=== PATIENT | female | born 1950 | race Caucasian/White ===

== ENCOUNTER 2017-02-25 13:52 | Inpatient (IN) | payer MEDICARE, MEDICAID ==
[~2017-02-25] VITALS: Ht 160 cm; Wt 58.1 kg
[2017-02-25] MEDS ORDERED: GABAPENTIN300 MG ORAL (14:07)
[2017-02-25] MEDS ORDERED: ZANTAC150 MG ORAL (14:07)
[2017-02-25] MEDS ORDERED: FENTANYL1 EAC4 TDERMAL (14:07)
[2017-02-25] MEDS ORDERED: METOPROLOL TART25 MG ORAL (14:07)
[2017-02-25] MEDS ORDERED: VITAMIN B122500 MCG PO (14:07)
[2017-02-25] MEDS ORDERED: ADVAIR 250-501 EACH INH (14:07)
[2017-02-25] MEDS ORDERED: COLACE100 MG ORAL (14:07)
[2017-02-25] MEDS ORDERED: SPIRIVA18 MCG INH (14:07)
[2017-02-25] MEDS ORDERED: XARELTO10 MG ORAL (14:07)
[2017-02-25] MEDS ORDERED: ACETAZOLAMIDE250 MG ORAL (14:07)
[2017-02-25] MEDS ORDERED: ACETAMINOPHEN325 M1 ORAL (14:07)
[2017-02-25] MEDS ORDERED: DEXAMETHASONE1.5 MG PO (14:07)
[2017-02-25] MEDS ORDERED: LEVALBUTER0.31 MG/3 IH (14:07)
[2017-02-25] MEDS ORDERED: KEPPRA500 MG ORAL (14:07)
[2017-02-25] MEDS ORDERED: PROAIR HFA8.5 GM INH (14:07)
[2017-02-25] MEDS ORDERED: Ipratropium 0.02% Inh Soln 2.5ml UD HHN ONE (14:15)
[2017-02-25] MEDS ORDERED: Solu-MEDROL 125mg Inj IVP ONE (14:15)
[2017-02-25] MEDS ORDERED: Azithromycin 500 MG in D5W 275 ML IVPB ONE (14:15)
[2017-02-25] MEDS ORDERED: Albuterol ud Inhalation HHN ONE (14:15)
--- NOTE | 2017-02-25 14:20 | Emergency Room Report ---
History of Present Illness General Chief Complaint: Dyspnea/Respdistress Source: Patient, EMS Present Illness HPI 66 YOF BIBEMS from SNF with "desaturation" at SNF. Patient herself denies chest pain, SOB, fever/chills, abd pain, urinary complaints. Known COPD from "used to smoke", on AC for unknown reason. Denies previous AMI, PE/DVT. Feels well otherwise. Daughter states patient more lethargic at SNF today, was doing well last 1-2 weeks. O2 sat was 88% this morning at SNF. Allergies: Coded Allergies: ASPIRIN (Verified Allergy, Unknown, 02/25/17) NSAIDS (NON-STEROIDAL ANTI-INFLAMMA (Verified Allergy, Unknown, 02/25/17) Patient History Past Medical History: AFib, COPD Past Surgical History: none Pertinent Family History: none Social History: Reports: smoking, Denies: alcohol use, drug use Immunizations: UTD Reviewed Nursing Documentation: PMH: Agreed, PSxH: Agreed Nursing Documentation-PMH Hx Cardiac Problems: Yes Hx COPD: Yes Hx Seizures: Yes Review of Systems All Other Systems: negative except mentioned in HPI Physical Exam Vital Signs Date Time Temp Pulse Resp B/P Pulse Ox O2 Delivery O2 Flow Rate FiO2 02/25/17 13:52 128 20 114/76 86 Nasal Cannula Sp02 EP Interpretation: abnormal General Appearance: normal inspection, well appearing, no apparent distress, alert, GCS 15, non-toxic Head: normocephalic, atraumatic Eyes: bilateral eye EOMI, bilateral eye PERRL ENT: normal ENT inspection, hearing grossly normal, normal voice Neck: normal inspection, full range of motion, supple, no bony tend Respiratory: normal inspection, no rhonchi, no retraction, accessory muscle use , speaking full sentences, wheezing Cardiovascular #1: tachycardia, irregularly irregular Gastrointestinal: normal inspection, normal bowel sounds, non tender, soft, no guarding, no hernia Genitourinary: no CVA tenderness Musculoskeletal: normal inspection, back normal, normal range of motion, Juan Jose' s Sign negative Neurologic: normal inspection, alert, oriented x3, responsive, cable technician III-XII nml as tested, motor strength/tone normal, speech normal Psychiatric: normal inspection, judgement/insight normal, mood/affect normal Skin: other - multiple areas of skin breakdown Lymphatic: normal inspection Medical Decision Making Diagnostic Impression: Primary Impression: Dyspnea Qualified Codes: R06.02 - Shortness of breath ER Course Spoke to patient's PMD DR Barton - patient on Xarelto for presumed PE. Has lung ca with mets to brain. COPD. CXR: bilateral interstitial disease. No obvious lobar PNA. possible infiltrate on left side. Labs: No leuks. Hb ~8. BNP 652. Trop 0. ECG sinus tachycardia Continued tachycardia likely from albuterol O2 sat 88-92% Empiric Abx given Blood Cx pending Spoke to Dr Barton, patient's PMD. Requested admission under Dr Mendosa to tele bed at 407pm EKG Diagnostic Results Rate: tachycardiac Rhythm: NSR ST Segments: no acute changes ASA given to the pt in ED: No Rhythm Strip Diag. Results EP Interpretation: yes Rate: 110 Rhythm: NSR, no PVC's, no ectopy Last Vital Signs Date Time Temp Pulse Resp B/P Pulse Ox O2 Delivery O2 Flow Rate FiO2 02/25/17 13:52 128 20 114/76 86 Nasal Cannula Status: improved Disposition: ADMITTED INPATIENT Condition: Serious AL FU M.D. Feb 25, 2017 14:20
[2017-02-25] MEDS ORDERED: Azithromycin Inj IV ONE (14:56)
[2017-02-25 15:16] VITALS: BP 141/121
[2017-02-25 15:23] LABS: BASOPHILS % (AUTO) 1.4 % (0.0-2.0); LYMPHOCYTES % (AUTO) 11.7 % (20.0-45.0); MEAN CORPUSCULAR HEMOGLOBIN 31.6 PG (27.0-31.0); MEAN CORPUSCULAR HGB CONC 31.4 G/DL (32.0-36.0); MEAN CORPUSCULAR VOLUME 101 FL (80-99); MEAN PLATELET VOLUME 8.7 FL (6.5-10.1); MONOCYTES % (AUTO) 5.2 % (1.0-10.0); NEUTROPHILS % (AUTO) 81.7 % (45.0-75.0); PLATELET COUNT 158 K/UL (150-450); RED CELL DISTRIBUTION WIDTH 18.4 % (11.6-14.8); WHITE BLOOD COUNT 9.8 K/UL (4.8-10.8)
[2017-02-25 15:31] VITALS: BP 175/152
[2017-02-25 15:34] LABS: ALANINE AMINOTRANSFERASE 14 U/L (3-33); ALBUMIN/GLOBULIN RATIO 1.3 (1.0-2.7); ANION GAP 14 (5-15); ASPARTATE AMINO TRANSFERASE 17 U/L (5-40); CALCIUM 8.7 mg/dL (8.6-10.2); CARBON DIOXIDE 26 mEQ/L (20-30); CHLORIDE 104 mEQ/L (98-107); CREATININE 0.4 mg/dL (0.5-0.9); GLOMERULAR FILTRATION RATE > 60 mL/min (>60); HEMOLYSIS 4; POTASSIUM 4.4 mEQ/L (3.4-4.9); SODIUM 144 mEQ/L (135-145); TOTAL PROTEIN 5.6 g/dL (6.6-8.7); TROPONIN I < 0.30 ng/mL (<=0.30)
[2017-02-25 15:44] LABS: CKMB 2.5 ng/mL (< 3.8)
[2017-02-25] MEDS ORDERED: cefTRIAXone 1 GM in NS 55 ML IVPB ONE (16:15)
[2017-02-25] MEDS ORDERED: Vitamin B-12 500mcg tab ORAL ONE (17:00)
[2017-02-25] MEDS ORDERED: Albuterol 90mcg Inhaler 8gm INH PRN (17:00)
[2017-02-25] MEDS ORDERED: Naloxone 0.4mg/ml Inj IV PRN (17:15)
[2017-02-25 17:29] VITALS: BP 109/69
[2017-02-25] MEDS ORDERED: Levalbuterol Inh UD 1.25mg/0.5ml HHN SCH (18:00)
[2017-02-25 18:56] VITALS: BP 117/83
[2017-02-25 20:00] VITALS: BP 98/68
[2017-02-25] MEDS: Docusate 100mg tablet ORAL SCH (21:00)
[2017-02-25] MEDS: Xarelto 15mg tab ORAL SCH (21:00)
[2017-02-25] MEDS: Advair 250/50 Inhaler - 14 dose INH SCH (21:00)
[2017-02-25] MEDS: Solu-MEDROL 125mg Inj IVP SCH (21:22)
[2017-02-26] VITALS (7 sets, daily range): BP systolic 103–130; BP diastolic 58–86
--- NOTE | 2017-02-26 03:58 | History and Physical Report ---
DATE OF ADMISSION: 02/25/2017 HISTORY OF PRESENT ILLNESS: This is an unfortunate 66-year-old female with history of metastatic lung cancer to brain, history of severe chronic obstructive pulmonary disease, who resides at [facility] under the care of Dr. Arianne Barton. The patient apparently was seen by Dr. Barton at the nursing facility and was noted to be lethargic with altered mental status and thus was transferred to [place] for further evaluation. I was asked by Dr. Barton to see her as an curriculum manager here. The patient was seen in the emergency room and was noted to be lethargic. Her daughter is at the bedside, who states that she was well until earlier this morning. Yesterday, she was getting physical therapy and alert and oriented. There is no fevers or chills. No chest pain. PAST MEDICAL HISTORY: Includes a history of metastatic lung cancer to brain progression since October 2016, history of radiation and edema into the brain for which she is on steroids, history of chronic obstructive pulmonary disease, history of hypoxemia, history of chronic low back pain, history of previous left upper lobe pneumonia, nosocomial methicillin sensitive Staph aureus, history of PE, which has increased in size while she was off anticoagulation. Currently, she is on Xarelto. History of possible normal-pressure hydrocephalus, treated with Diamox, history of seizure disorder, history of sinus tachycardia felt to be due to her general condition, history of depression and anxiety, history of anemia with heme-positive stools, history of opioid dependence, history of CVA, embolic versus mets in July 2016, history of previous back surgery. She is status post right hip replacement. She is status post tonsillectomy and adenoidectomy at age 17. She has a history of severe kyphosis with multiple compression fractures. She has a history of hyperlipidemia and history of respiratory failure. MEDICATIONS: Medications she is on, please see her reconciled medication list. ALLERGIES: She is allergic to aspirin and nonsteroidals. SOCIAL HISTORY: The patient has a 50-pack year smoking history. Also drinks alcohol, about 2 glasses of wine per day. No illicit drug use. FAMILY HISTORY: Father at age of 64 from lung cancer, smoker, asbestosis. Mother at age of 81 from a CVA. REVIEW OF SYSTEMS: Unable to obtain from the patient at this time as she is lethargic. PHYSICAL EXAMINATION: GENERAL: She is seen in the ER and lethargic. VITAL SIGNS: Revealed a blood pressure of 109/69, respirations 14, and pulse oximetry 94% to 98%. Currently, she is on BiPAP. FiO2 of 50%, temperature 97.1 degrees, and pulse of 115. HEENT: Head is normocephalic and atraumatic. Pupils are reactive to light. NECK: Supple. She does have some accessory muscle use. LUNGS: Decreased breath sounds. Occasional wheezing. HEART: Tachy, S1 and S2. ABDOMEN: Soft. Positive bowel sounds. EXTREMITIES: No clubbing, cyanosis, or edema. SKIN: She does have multiple ecchymoses. NEUROLOGIC: Currently, she is lethargic, although she does open her eyes and attempts to talk when I stimulate her. LABORATORY AND DIAGNOSTIC DATA: Revealed white count 9.8, hemoglobin 8.5, hematocrit 27.2, MCV 101, and platelet count 158,000. Sodium 144, potassium 4.4, BUN 30, and creatinine 0.4. BNP is 652. Troponin is less than 0.3. Her chest x-ray reveals bilateral interstitial disease, no obvious lobar pneumonia, possible infiltrate in the left side. EKG reveals sinus tachycardia. ASSESSMENT AND PLAN: The patient is an unfortunate 66-year-old female with history of metastatic lung cancer, history of severe chronic obstructive pulmonary disease, under the care of Dr. Barton, transferred from [facility] secondary to alteration in mental status. The patient will need to get an ABG done. We will give her respiratory treatments, start her on steroids. We will continue her on Xarelto for her history of DVT and PE. Dr. Amrik Zhao from Pulmonary will be seeing her as well. We will place her empirically on antibiotics for a presumed pneumonia as well. If her mental status does not improve, consider obtaining an imaging study of her head. Per discussion with the patient's daughters, they want everything done except for intubation. The patient, as per discussion with them and with Dr. Barton, is DNR. The patient should be on DVT and ulcer prophylaxis. Florentin Mendosa M.D. DR: MARIE JOB#: [id number] CC:
[2017-02-26 06:34] LABS: MEAN CORPUSCULAR HEMOGLOBIN 31.8 PG (27.0-31.0); MEAN CORPUSCULAR HGB CONC 31.4 G/DL (32.0-36.0); MEAN CORPUSCULAR VOLUME 101 FL (80-99); MEAN PLATELET VOLUME 6.8 FL (6.5-10.1); PLATELET COUNT 140 K/UL (150-450); RED BLOOD COUNT 2.26 M/UL (4.20-5.40); RED CELL DISTRIBUTION WIDTH 18.3 % (11.6-14.8); WHITE BLOOD COUNT 8.4 K/UL (4.8-10.8)
[2017-02-26 06:44] LABS: ALANINE AMINOTRANSFERASE 13 U/L (3-33); ANION GAP 14 (5-15); ASPARTATE AMINO TRANSFERASE 16 U/L (5-40); CALCIUM 8.6 mg/dL (8.6-10.2); CARBON DIOXIDE 26 mEQ/L (20-30); CHLORIDE 105 mEQ/L (98-107); CHOLESTEROL 213 mg/dL (< 200); CHOLESTEROL/HDL RATIO 4.4 (3.3-4.4); CREATININE 0.4 mg/dL (0.5-0.9); GLOMERULAR FILTRATION RATE > 60 mL/min (>60); HEMOLYSIS 8; LDL CHOLESTEROL (CALC.) 138 mg/dL (60-99); POTASSIUM 4.7 mEQ/L (3.4-4.9); SODIUM 145 mEQ/L (135-145); TOTAL PROTEIN 5.4 g/dL (6.6-8.7)
[2017-02-26 06:48] LABS: THYROID STIMULATING HORMONE 0.295 uIU/mL (0.300-4.500)
--- NOTE | 2017-02-26 08:41 | Consultation ---
Consult Note Assessment/Plan dict resp failure COPD lung cancer agree w current treatment BiPAP qhs and prn AL VEGA Feb 26, 2017 08:41
[2017-02-26] MEDS: Solu-MEDROL 125mg Inj IVP SCH ×2 (09:25→20:22)
[2017-02-26] MEDS: Advair 250/50 Inhaler - 14 dose INH SCH ×2 (09:25→19:10)
[2017-02-26] MEDS: Vitamin B-12 500mcg tab ORAL SCH (09:32)
[2017-02-26] MEDS: Docusate 100mg tablet ORAL SCH ×2 (09:32→19:41)
[2017-02-26 09:55] LABS: ANISOCYTOSIS 1+; LYMPHOCYTES % (MANUAL) 6 % (20-45); MACROCYTES 1+; NEUTROPHILS % (MANUAL) 91 % (45-75); TOTAL CELLS COUNTED 100
[2017-02-26 09:56] LABS: BAND NEUTROPHILS % (MANUAL) 0 % (0-8); BASOPHILS % (MANUAL) 0 % (0-2); EOSINOPHILS % (MANUAL) 0 % (0-3); HYPOCHROMASIA 1+; PLATELET ESTIMATE ADEQUATE
[2017-02-26 09:57] LABS: POLYCHROMASIA 1+
[2017-02-26 10:22] LABS: PLATELET MORPHOLOGY NORMAL
[2017-02-26] MEDS ORDERED: Naloxone 0.4mg/ml Inj IV PRN (11:15)
[2017-02-26] MEDS ORDERED: FENTANYL1 EACH TDERMAL (12:46)
[2017-02-26] MEDS: Levalbuterol Inh UD 1.25mg/0.5ml HHN PRN ×2 (13:18→19:55)
--- NOTE | 2017-02-26 15:15 | General Progress Note ---
Assessment/Plan Assessment/Plan metastatic lung cancr to brain copd ?pneumonia ho PE anemia encephalopathy steroids pulmonary hygine respiratory treatments abx dw Dr Barton who states needs xarelto so would just transfuse for now encephalopathy improved pt/ot/st dvt and ulcer prohylaxis Subjective Allergies: Coded Allergies: ASPIRIN (Verified Allergy, Unknown, 02/25/17) NSAIDS (NON-STEROIDAL ANTI-INFLAMMA (Verified Allergy, Unknown, 02/25/17) Subjective awake more alert off bipap Objective Last 24 Hour Vital Signs Date Time Temp Pulse Resp B/P Pulse Ox O2 Delivery O2 Flow Rate FiO2 02/26/17 15:09 114 20 95 7.0 02/26/17 13:27 119 20 97 Nasal Cannula 7.0 02/26/17 13:18 117 20 96 Nasal Cannula 7.0 02/26/17 13:16 114 18 95 7.0 02/26/17 12:06 124/83 Nasal Cannula 7.0 02/26/17 12:06 7.0 02/26/17 11:38 89 02/26/17 11:38 97.8 120 20 130/86 96 Nasal Cannula 7.0 02/26/17 11:31 112 22 94 7.0 02/26/17 09:27 106 20 95 7.0 02/26/17 08:03 110 20 95 7.0 02/26/17 08:00 50 02/26/17 08:00 89 02/26/17 08:00 97.9 119 19 103/75 96 Nasal Cannula 7.0 02/26/17 07:13 112 20 95 Nasal Cannula 7.0 02/26/17 07:13 112 20 95 Nasal Cannula 7.0 02/26/17 07:13 Nasal Cannula 7.0 02/26/17 07:13 Nasal Cannula 7.0 02/26/17 05:02 103 14 96 Full Face 50 02/26/17 04:00 50 02/26/17 04:00 84 02/26/17 04:00 97.9 110 20 106/70 96 Bi-pap 02/26/17 03:15 100 14 97 Full Face 50 02/26/17 01:05 101 15 97 Full Face 50 02/26/17 00:00 50 02/26/17 00:00 97.7 104 20 107/63 95 Bi-pap 02/26/17 00:00 101 02/25/17 23:11 94 15 96 Full Face 50 02/25/17 20:57 99 16 98 Full Face 50 02/25/17 20:00 97.7 108 14 98/68 93 Bi-pap 50 02/25/17 20:00 99 02/25/17 20:00 50 02/25/17 18:56 97.9 114 14 117/83 93 Bi-pap 50 02/25/17 18:39 126 02/25/17 17:30 97.1 115 14 109/69 94 Bi-pap 5.0 50 02/25/17 17:29 97.1 115 14 109/69 94 Bi-pap 50 02/25/17 17:11 50 02/25/17 15:31 116 14 175/152 98 02/25/17 15:16 117 20 141/121 95 Nasal Cannula 5.0 02/25/17 15:16 117 20 Nasal Cannula Intake and Output 02/25/17 02/26/17 19:00 07:00 Intake Total 330 ml 0 ml Output Total 200 ml Balance 330 ml -200 ml Intake Oral 0 ml 0 ml IV Total 330 ml Output Urine Total 200 ml Laboratory Tests 02/26/17 04:55: White Blood Count 8.4, Red Blood Count 2.26L, Hemoglobin 7.2L, Hematocrit 22.9L , Mean Corpuscular Volume 101H, Mean Corpuscular Hemoglobin 31.8H, Mean Corpuscular Hemoglobin Concent 31.4L, Red Cell Distribution Width 18.3H, Platelet Count 140L, Mean Platelet Volume 6.8, Neutrophils (%) (Auto) , Lymphocytes (%) (Auto) , Monocytes (%) (Auto) , Eosinophils (%) (Auto) , Basophils (%) (Auto) , Differential Total Cells Counted 100, Neutrophils % ( Manual) 91H, Lymphocytes % (Manual) 6L, Monocytes % (Manual) 3, Eosinophils % ( Manual) 0, Basophils % (Manual) 0, Band Neutrophils 0, Platelet Estimate Adequate, Platelet Morphology Normal, Polychromasia 1+, Hypochromasia 1+, Anisocytosis 1+, Macrocytosis 1+, Sodium Level 145, Potassium Level 4.7, Chloride Level 105, Carbon Dioxide Level 26, Anion Gap 14, Blood Urea Nitrogen 34H, Creatinine 0.4L, Estimat Glomerular Filtration Rate > 60, Glucose Level 143H, Calcium Level 8.6, Total Bilirubin 0.3, Aspartate Amino Transf (AST/SGOT) 16, Alanine Aminotransferase (ALT/SGPT) 13, Alkaline Phosphatase 71, Total Protein 5.4L, Albumin 2.8L, Globulin 2.6, Albumin/Globulin Ratio 1.0, Triglycerides Level 134, Cholesterol Level 213H, LDL Cholesterol 138H, HDL Cholesterol 48, Cholesterol/HDL Ratio 4.4, Thyroid Stimulating Hormone (TSH) 0.295L Height (Feet): 5 Height (Inches): 3.00 Weight (Pounds): 109 General Appearance: WD/WN, no apparent distress Neck: supple Cardiovascular: normal rate Respiratory/Chest: decreased breath sounds Abdomen: soft Edema: trace edema Objective multiple echyosis FRANCIE RAMIREZ Feb 26, 2017 15:15
[2017-02-26] MEDS ORDERED: cefTRIAXone 1 GM in NS 55 ML IVPB ONE (16:00)
[2017-02-26] MEDS ORDERED: Azithromycin 500 MG in NS 275 ML IV ONE (16:30)
[2017-02-26] MEDS: Xarelto 15mg tab ORAL SCH (16:30)
[2017-02-26] MEDS ORDERED: Tubing IV Secondary IV ONE (18:18)
[2017-02-26] MEDS: levETIRAcetam 500mg/5ml Liquid ORAL SCH (20:23)
--- NOTE | 2017-02-26 22:38 | Consultation ---
DATE OF CONSULTATION: 02/26/2017 PULMONARY CONSULTATION: DATE OF ADMISSION: 02/25/2017 DATE OF SEEN AND DICTATION: 02/26/2017 CONSULTING PHYSICIAN: Amrik Zhao M.D. ATTENDING PHYSICIAN: Florentin Mendosa M.D. REFERRING PHYSICIAN: Florentin Mendosa M.D. HISTORY OF PRESENT ILLNESS: The patient is a pleasant 66-year-old woman, who was interviewed together with her daughter at the bedside. Apparently, she has been ill for several months and has been at several hospitals including [facility] and [facility]. She became more lethargic over the last day or two and Dr. Arianne Barton saw her at her facility yesterday. She was lethargic and Dr. Barton recommended the transfer to the emergency department. She was sent here as [facility] was closed. The patient has longstanding COPD and has had lung cancer with brain metastasis. She has undergone radiation therapy and seemed to be improving. PAST MEDICAL HISTORY: COPD, past respiratory failure, lung cancer with brain metastasis, pneumonia, pulmonary embolism, seizure disorder, chronic pain with opioid dependence, past stroke, spinal compression fractures with severe osteoporosis, and hyperlipidemia. MEDICATIONS: Reviewed. ALLERGIES: Aspirin and nonsteroidal agents. SOCIAL HISTORY: She is a past heavy smoker. She uses alcohol, but not illicit drugs. FAMILY HISTORY: Reviewed and is notable for lung cancer and asbestosis in the father. REVIEW OF SYSTEMS: The patient is apparently more alert today and states that she is feeling fine. She is able to eat. She needs assistance to stand. She has no chest pain. Her breathing is at baseline. She is not coughing anymore than usual. PHYSICAL EXAMINATION: GENERAL: The patient is alert. She has cushingoid features. VITAL SIGNS: Stable. She is not on BiPAP at the present. She has mild tachycardia. HEENT: Head is normocephalic. NECK: No jugular venous distention. CHEST: Decreased air entry with occasional expiratory wheeze. CARDIAC: Rhythm is regular. ABDOMEN: Soft and nontender. EXTREMITIES: No edema. LABORATORY STUDIES: Reviewed. DIAGNOSTIC DATA: Of note, her chest x-ray shows bilateral interstitial disease and possible infiltrate on the left side. IMPRESSION: 1. Lethargy possibly due to sepsis. 2. Possible pneumonia. 3. Chronic obstructive pulmonary disease with acute and chronic respiratory failure, hypercapnic and hypoxemic. 4. Metastatic lung cancer to the brain. 5. History of pulmonary embolism. 6. Anemia. PLAN: The patient will continue on steroids, respiratory treatments, and antibiotics. I will be happy to follow her closely with you in the hospital. Amrik Zhao M.D. DR: Jennifer JOB#: [id number] CC: Florentin Mendosa M.D.; Fax#: [phone] Zhao M.D. ; Fax#: [phone]
--- NOTE | 2017-02-26 23:10 | Cardiology Report ---
APPROVED REPORT EKG Measurement Heart [id number] [place] [id number] Sinus tachycardia Left axis deviation Low voltage QRS Possible Anterolateral infarct, age undetermined Abnormal ECG
[2017-02-27] VITALS: BP 98/69
[2017-02-27 04:00] VITALS: BP 127/61
[2017-02-27 05:07] LABS: MEAN CORPUSCULAR HEMOGLOBIN 31.9 PG (27.0-31.0); MEAN CORPUSCULAR HGB CONC 32.4 G/DL (32.0-36.0); MEAN CORPUSCULAR VOLUME 99 FL (80-99); MEAN PLATELET VOLUME 6.5 FL (6.5-10.1); PLATELET COUNT 125 K/UL (150-450); RED BLOOD COUNT 2.47 M/UL (4.20-5.40); RED CELL DISTRIBUTION WIDTH 17.5 % (11.6-14.8); WHITE BLOOD COUNT 7.7 K/UL (4.8-10.8)
[2017-02-27 05:34] LABS: ALANINE AMINOTRANSFERASE 12 U/L (3-33); ALBUMIN/GLOBULIN RATIO 1.1 (1.0-2.7); ANION GAP 12 (5-15); ASPARTATE AMINO TRANSFERASE 13 U/L (5-40); CALCIUM 8.5 mg/dL (8.6-10.2); CARBON DIOXIDE 26 mEQ/L (20-30); CHLORIDE 109 mEQ/L (98-107); CREATININE 0.3 mg/dL (0.5-0.9); GLOMERULAR FILTRATION RATE > 60 mL/min (>60); HEMOLYSIS 2; POTASSIUM 3.6 mEQ/L (3.4-4.9); SODIUM 147 mEQ/L (135-145); TOTAL PROTEIN 5.1 g/dL (6.6-8.7)
[2017-02-27] MEDS: Levalbuterol Inh UD 1.25mg/0.5ml HHN PRN ×3 (06:54→22:56)
[2017-02-27] MEDS: Advair 250/50 Inhaler - 14 dose INH SCH ×2 (06:54→09:14)
[2017-02-27 08:00] VITALS: BP 112/55
[2017-02-27] MEDS: Solu-MEDROL 125mg Inj IVP SCH ×2 (09:14→20:49)
[2017-02-27] MEDS: levETIRAcetam 500mg/5ml Liquid ORAL SCH ×2 (09:14→20:49)
[2017-02-27] MEDS: Vitamin B-12 500mcg tab ORAL SCH (09:15)
[2017-02-27] MEDS: Docusate 100mg tablet ORAL SCH ×2 (09:15→18:16)
[2017-02-27 09:23] LABS: ANISOCYTOSIS 1+; BAND NEUTROPHILS % (MANUAL) 0 % (0-8); BASOPHILS % (MANUAL) 0 % (0-2); EOSINOPHILS % (MANUAL) 0 % (0-3); HYPOCHROMASIA 1+; LYMPHOCYTES % (MANUAL) 5 % (20-45); MACROCYTES 1+; NEUTROPHILS % (MANUAL) 93 % (45-75); PLATELET ESTIMATE ADEQUATE; PLATELET MORPHOLOGY NORMAL; TOTAL CELLS COUNTED 100
--- NOTE | 2017-02-27 10:33 | Wound Care Consultation ---
Wound Assessment Wound Assessment #1: Wound Present on Admission: Yes New Wound: No Status Change of Wound: No Wound Location Body Site Modif: mid, upper Wound Location Body Site: back Wound Type: pressure ulcer No Test: Does not No Pressure Ulcer Stage: IV/unstageable Wound Thickness: Full Thickness Wound Length: 7.0 Wound Width: 4.0 Wound Depth: utd Percent of Wound Bed Yellow/Wh: 80 Percent of Wound Black/Brown: 20 Wound Drainage Description: Serosanguineous Wound Drainage Amount: Scant Wound Drainage Odor: None/Absent Tissue Surrounding Wound: Macerated Wound General Appearance: Necrotic Wound Assessment #2: Wound Number: #2 Wound Present on Admission: Yes New Wound: No Status Change of Wound: No Wound Location Body Site Modif: left Wound Location Body Site: heel Wound Type: pressure ulcer No Test: Does not No Pressure Ulcer Stage: deep tissue injury Wound Length: 3.0 Wound Width: 3.0 Wound Depth: utd Percent of Wound Purple/Maroon: 100 Wound Drainage Amount: None Wound Drainage Odor: None/Absent Tissue Surrounding Wound: Intact Wound General Appearance: Asymptomatic, Reddened Wound Assessment #3: Wound Number: #3 Wound Present on Admission: Yes New Wound: No Status Change of Wound: No Wound Location Body Site Modif: right Wound Location Body Site: heel Wound Type: pressure ulcer No Test: Does not No Pressure Ulcer Stage: deep tissue injury Wound Thickness: Full Thickness Wound Length: 2.5 Wound Width: 2.5 Wound Depth: utd Percent of Wound Purple/Maroon: 100 Wound Drainage Amount: None Wound Drainage Odor: None/Absent Tissue Surrounding Wound: Intact Wound General Appearance: Asymptomatic, Reddened Wound Assessment #4: Wound Number: #4 Wound Present on Admission: Yes New Wound: No Status Change of Wound: No Wound Location Body Site Modif: right Wound Location Body Site: metatarsal head - 1st Wound Type: pressure ulcer No Test: Does not No Pressure Ulcer Stage: deep tissue injury Wound Thickness: Full Thickness Wound Length: 0.5 Wound Width: 0.5 Wound Depth: utd Percent of Wound Purple/Maroon: 100 Wound Drainage Amount: None Wound Drainage Odor: None/Absent Tissue Surrounding Wound: Erythemic Wound General Appearance: Asymptomatic, Reddened Wound Assessment #5: Wound Number: #5 Wound Present on Admission: Yes New Wound: No Status Change of Wound: No Wound Location Body Site Modif: left, upper Wound Location Body Site: back Wound Type: pressure ulcer No Test: Does not No Pressure Ulcer Stage: IV/unstageable Wound Thickness: Full Thickness Wound Length: 2.0 Wound Width: 4.0 Wound Depth: utd Percent of Wound Purple/Maroon: 100 Wound Drainage Description: Serosanguineous Wound Drainage Amount: Scant Wound Drainage Odor: None/Absent Tissue Surrounding Wound: Erythemic Wound General Appearance: Reddened, Draining Wound Assessment #6: Wound Number: #6 Wound Present on Admission: Yes New Wound: No Status Change of Wound: No Wound Location Body Site Modif: left, right Wound Location Body Site: arm Wound Type: ecchymosis - multiple open and intact No Test: Does not No Percent of Wound [place]/Red: 100 Wound Drainage Amount: None Wound Drainage Odor: None/Absent Tissue Surrounding Wound: Erythemic Wound General Appearance: Reddened Wound Assessment #7: Wound Number: #7 Wound Present on Admission: Yes New Wound: No Status Change of Wound: No Wound Location Body Site Modif: left, right, lower Wound Location Body Site: leg Wound Type: ecchymosis - multiple open and intact Percent of Wound [place]/Red: 100 Wound Drainage Amount: None Wound Drainage Odor: None/Absent Tissue Surrounding Wound: Erythemic Wound General Appearance: Asymptomatic, Reddened Wound Assessment #8: Wound Number: #8 Wound Present on Admission: Yes New Wound: No Status Change of Wound: No Wound Location Body Site Modif: mid Wound Location Body Site: sacral Wound Type: pressure ulcer No Test: Does not No Pressure Ulcer Stage: deep tissue injury Wound Thickness: Full Thickness Wound Length: 5.0 Wound Width: 4.0 Wound Depth: utd Percent of Wound [place]/Red: 50 Percent of Wound Purple/Maroon: 50 Wound Drainage Amount: None Wound Drainage Odor: None/Absent Tissue Surrounding Wound: Erythemic Wound General Appearance: Reddened Wound Assessment #9: Wound Number: #9 Wound Present on Admission: Yes New Wound: No Status Change of Wound: No Wound Type: ecchymosis - scattered intact and open ecchymosis different part of the body Percent of Wound Purple/Maroon: 100 Wound Drainage Description: Serosanguineous Wound Drainage Amount: Scant Wound Drainage Odor: None/Absent Tissue Surrounding Wound: Erythemic Wound General Appearance: Reddened, Draining Wound Assessment #10: Wound Number: #10 Wound Present on Admission: Yes New Wound: No Status Change of Wound: No Wound Location Body Site Modif: left, right Wound Location Body Site: breast fold Wound Type: rash Percent of Wound [place]/Red: 100 Wound Drainage Amount: None Wound Drainage Odor: None/Absent Tissue Surrounding Wound: Erythemic Wound General Appearance: Reddened Wound Assessment #11: Wound Number: #11 Wound Present on Admission: Yes New Wound: No Status Change of Wound: No Wound Location Body Site Modif: left, medial Wound Location Body Site: knee Wound Type: pressure ulcer No Test: Does not No Pressure Ulcer Stage: deep tissue injury Wound Thickness: Full Thickness Wound Length: 1.0 Wound Width: 1.0 Wound Depth: utd Percent of Wound Purple/Maroon: 100 Wound Drainage Amount: None Wound Drainage Odor: None/Absent Tissue Surrounding Wound: Erythemic Wound General Appearance: Reddened Wound Comment #1 Mid upper back stage IV/unstageable pressure ulcer #2 Sacral DTI pressure ulcer #3 Left heel DTI pressure ulcer #4 Right heel DTI pressure ulcer #5 Left upper back stage IV/unstageable pressure ulcer #6 Left and right arms multiple open and intact ecchymosis #7 Left and right lower Legs with multiple open and intact ecchymosis #8 Left medial knee DTI pressure ulcer #9 Left and right under breast rashes #10 Open and intact ecchymosis on different part of the body #11 Right 1st metatarsal DTI pressure ulcer Recommendation -Local wound care per protocol for DTI -Mid upper back unstageable pressure ulcer Cleanse with saline, pat dry, apply Therahoney gel to wound bed, apply Triad to periwound area, cover with Biatain silicone daily and PRN soiled/dislodged -Left upper back unstageable pressure ulcer Cleanse with saline pat dry apply Triad cream cover with Biatain silicone daily and PRN soiled/dislodged -Keep clean and dry -Turn and reposition -Optimize nutrition -Offload both heels -Low air loss mattress -Local wound care as ordered -Assess and f/u accordingly for any changes ALBERTO WORRELL RN Feb 27, 2017 10:33
--- NOTE | 2017-02-27 10:45 | General Progress Note ---
Assessment/Plan Assessment/Plan GI CONSULT Dictated No GI w/u per family wishes, given patient's overall poor health. Check Iron panel , B12 , folate, TFT Thank you Rajni Santos MD Subjective Allergies: Coded Allergies: ASPIRIN (Verified Allergy, Unknown, 02/25/17) NSAIDS (NON-STEROIDAL ANTI-INFLAMMA (Verified Allergy, Unknown, 02/25/17) Objective Last 24 Hour Vital Signs Date Time Temp Pulse Resp B/P Pulse Ox O2 Delivery O2 Flow Rate FiO2 02/27/17 07:51 50 02/27/17 07:51 89 02/27/17 07:20 80 14 98 Bi-pap 12.0 50 02/27/17 07:08 50 02/27/17 07:08 77 14 98 Bi-pap 50 02/27/17 07:08 Bi-pap 12.0 50 02/27/17 07:07 98 Bi-pap 50 02/27/17 06:51 77 14 98 Facial 50 02/27/17 05:00 78 14 97 Facial 50 02/27/17 04:00 50 02/27/17 04:00 89 17 127/61 96 Bi-pap 50 02/27/17 04:00 86 02/27/17 03:02 98 14 95 Full Face 50 02/27/17 01:20 95 14 96 Full Face 50 02/27/17 00:00 101 02/27/17 00:00 50 02/27/17 00:00 98.6 112 14 98/69 96 Bi-pap 50 02/26/17 23:00 50 02/26/17 22:52 114 14 96 Facial 50 02/26/17 20:05 110 18 94 Venturi Mask 12.0 50 02/26/17 20:00 50 02/26/17 20:00 97.7 106 18 116/62 96 Nasal Cannula 7.0 02/26/17 20:00 106 02/26/17 19:55 107 18 93 Nasal Cannula 7.0 02/26/17 19:17 Venturi Mask 12.0 50 02/26/17 19:12 93 Venturi Mask 12.0 50 02/26/17 17:01 110 20 96 7.0 02/26/17 16:33 96.3 110 17 104/58 92 Mechanical Ventilator 02/26/17 16:11 7.0 02/26/17 16:00 105 02/26/17 15:09 114 20 95 7.0 02/26/17 13:27 119 20 97 Nasal Cannula 7.0 02/26/17 13:18 117 20 96 Nasal Cannula 7.0 02/26/17 13:16 114 18 95 7.0 02/26/17 12:06 124/83 Nasal Cannula 7.0 02/26/17 12:06 7.0 02/26/17 11:38 89 02/26/17 11:38 97.8 120 20 130/86 96 Nasal Cannula 7.0 02/26/17 11:31 112 22 94 7.0 Intake and Output 02/26/17 02/27/17 19:00 07:00 Intake Total 20 ml 60 ml Output Total 150 ml 250 ml Balance -130 ml -190 ml Intake Oral 20 ml 60 ml Output Urine Total 150 ml 250 ml # Bowel Movements 1 Laboratory Tests 02/27/17 04:35: White Blood Count 7.7, Red Blood Count 2.47L, Hemoglobin 7.9L, Hematocrit 24.3L , Mean Corpuscular Volume 99, Mean Corpuscular Hemoglobin 31.9H, Mean Corpuscular Hemoglobin Concent 32.4, Red Cell Distribution Width 17.5H, Platelet Count 125L, Mean Platelet Volume 6.5, Neutrophils (%) (Auto) , Lymphocytes (%) (Auto) , Monocytes (%) (Auto) , Eosinophils (%) (Auto) , Basophils (%) (Auto) , Differential Total Cells Counted 100, Neutrophils % ( Manual) 93H, Lymphocytes % (Manual) 5L, Monocytes % (Manual) 2, Eosinophils % ( Manual) 0, Basophils % (Manual) 0, Band Neutrophils 0, Platelet Estimate Adequate, Platelet Morphology Normal, Hypochromasia 1+, Anisocytosis 1+, Macrocytosis 1+, Sodium Level 147H, Potassium Level 3.6, Chloride Level 109H, Carbon Dioxide Level 26, Anion Gap 12, Blood Urea Nitrogen 33H, Creatinine 0.3L , Estimat Glomerular Filtration Rate > 60, Glucose Level 148H, Calcium Level 8.5L, Total Bilirubin 0.3, Aspartate Amino Transf (AST/SGOT) 13, Alanine Aminotransferase (ALT/SGPT) 12, Alkaline Phosphatase 55, Total Protein 5.1L, Albumin 2.7L, Globulin 2.4, Albumin/Globulin Ratio 1.1 Height (Feet): 5 Height (Inches): 3.00 Weight (Pounds): 128 RAJNI SANTOS Feb 27, 2017 10:45
[2017-02-27 10:47] LABS: OTHERS PATHOLOGIST COMMENT
--- NOTE | 2017-02-27 11:06 | Cardiology Report ---
APPROVED REPORT EXAM: Two-dimensional and M-mode echocardiogram with Doppler and color Doppler. INDICATION Syncope M-Mode DIMENSIONS IVSd0.7 (0.7-1.1cm)Left Atrium (MM)4.4 (1.6-4.0cm) LVDd3.8 (3.5-5.6cm)Aortic Root2.5 (2.0-3.7cm) PWd0.7 (0.7-1.1cm)Aortic Cusp Exc.1.6 (1.5-2.0cm) LVDs2.5 (2.5-4.0cm) PWs0.7 cm Technically difficult study due to poor acoustic windows. Normal left ventricular chamber size, systolic function and wall motion. Left ventricular ejection fraction estimated to be 60-65%. No evidence of left ventricular hypertrophy. Large posterior pleural effusion. All other cardiac chamber sizes are within normal limits. Focal aortic valve sclerosis with adequate cusp excursion Thickened mitral valve leaflets with normal excursion. Mitral annulus and aortic root calcification. Pulmonic valve not well visualized. Normal tricuspid valve structure. IVC not obtainable. A color flow and spectral Doppler study was performed and revealed: No aortic regurgitation. Mild mitral regurgitation. Left ventricular diastolic dysfunction due to arrythmia. No tricuspid regurgitation.
[2017-02-27 11:49] VITALS: BP 121/58
[2017-02-27] MEDS: Morphine Sulfate 2mg/ml Inj IVP PRN (12:01)
[2017-02-27] MEDS: Vancomycin 1250mg/D5W 275ml IVPB SCH ×2 (14:49)
[2017-02-27 16:00] VITALS: BP 111/70
[2017-02-27] MEDS ORDERED: cefTRIAXone 1 GM in NS 55 ML IVPB SCH (16:00)
[2017-02-27] MEDS: cefTRIAXone 1 GM in NS 55 ML IVPB SCH (16:20)
[2017-02-27] MEDS: Xarelto 15mg tab ORAL SCH (16:30)
--- NOTE | 2017-02-27 16:33 | Pulmonology Progress Note ---
Assessment/Plan Assessment/Plan 1. Lethargy possibly due to sepsis. 2. Possible pneumonia. 3. Chronic obstructive pulmonary disease with acute and chronic respiratory failure, hypercapnic and hypoxemic. 4. Metastatic lung cancer to the brain. 5. History of pulmonary embolism. 6. Anemia. Hgb worse, transfused AC held GI eval deferred per dtrs disc w dtrs at bedside pulm stable Subjective Constitutional: Denies: fever Respiratory: Reports: shortness of breath - stable Allergies: Coded Allergies: ASPIRIN (Verified Allergy, Unknown, 02/25/17) NSAIDS (NON-STEROIDAL ANTI-INFLAMMA (Verified Allergy, Unknown, 02/25/17) Objective Last 24 Hour Vital Signs Date Time Temp Pulse Resp B/P Pulse Ox O2 Delivery O2 Flow Rate FiO2 02/27/17 15:23 113 16 95 Nasal Cannula 7.0 50 02/27/17 15:08 118 18 92 Nasal Cannula 7.0 50 02/27/17 15:08 50 02/27/17 12:00 124 113/63 02/27/17 11:49 97.9 120 18 121/58 92 Bi-pap 50 02/27/17 11:48 120 02/27/17 11:46 7.0 02/27/17 08:00 97.9 126 18 112/55 91 Bi-pap 50 02/27/17 07:51 50 02/27/17 07:51 89 02/27/17 07:20 80 14 98 Bi-pap 12.0 50 02/27/17 07:08 50 02/27/17 07:08 77 14 98 Bi-pap 50 02/27/17 07:08 Bi-pap 12.0 50 02/27/17 07:07 98 Bi-pap 50 02/27/17 06:51 77 14 98 Facial 50 02/27/17 05:00 78 14 97 Facial 50 02/27/17 04:00 50 02/27/17 04:00 89 17 127/61 96 Bi-pap 50 02/27/17 04:00 86 02/27/17 03:02 98 14 95 Full Face 50 02/27/17 01:20 95 14 96 Full Face 50 02/27/17 00:00 101 02/27/17 00:00 50 02/27/17 00:00 98.6 112 14 98/69 96 Bi-pap 50 02/26/17 23:00 50 02/26/17 22:52 114 14 96 Facial 50 02/26/17 20:05 110 18 94 Venturi Mask 12.0 50 02/26/17 20:00 50 02/26/17 20:00 97.7 106 18 116/62 96 Nasal Cannula 7.0 02/26/17 20:00 106 02/26/17 19:55 107 18 93 Nasal Cannula 7.0 02/26/17 19:17 Venturi Mask 12.0 50 02/26/17 19:12 93 Venturi Mask 12.0 50 02/26/17 17:01 110 20 96 7.0 02/26/17 16:33 96.3 110 17 104/58 92 Mechanical Ventilator Intake and Output 02/26/17 02/27/17 19:00 07:00 Intake Total 20 ml 60 ml Output Total 150 ml 250 ml Balance -130 ml -190 ml Intake Oral 20 ml 60 ml Output Urine Total 150 ml 250 ml # Bowel Movements 1 Objective Cushingoid face General Appearance: no acute distress HEENT: atraumatic Respiratory/Chest: lungs clear, decreased breath sounds Cardiovascular: normal rate Microbiology Date/Time Source Procedure Growth Status 02/25/17 15:00 Blood Blood Culture - Preliminary NO GROWTH AFTER 24 HOURS Resulted 02/25/17 14:50 Blood Blood Culture - Preliminary NO GROWTH AFTER 24 HOURS Resulted 02/25/17 21:00 Indwelling Cath Urine Culture - Preliminary NO GROWTH AFTER 24 HOURS Resulted 02/25/17 22:00 Back Gram Stain - Final Resulted 02/25/17 22:00 Wound Culture - Preliminary Staphylococcus Aureus Diphtheroids Resulted 02/25/17 16:07 Rectum VRE Culture - Final Enterococcus Faecium - Vre Complete Laboratory Tests 02/27/17 04:35: White Blood Count 7.7, Red Blood Count 2.47L, Hemoglobin 7.9L, Hematocrit 24.3L , Mean Corpuscular Volume 99, Mean Corpuscular Hemoglobin 31.9H, Mean Corpuscular Hemoglobin Concent 32.4, Red Cell Distribution Width 17.5H, Platelet Count 125L, Mean Platelet Volume 6.5, Neutrophils (%) (Auto) , Lymphocytes (%) (Auto) , Monocytes (%) (Auto) , Eosinophils (%) (Auto) , Basophils (%) (Auto) , Differential Total Cells Counted 100, Neutrophils % ( Manual) 93H, Lymphocytes % (Manual) 5L, Monocytes % (Manual) 2, Eosinophils % ( Manual) 0, Basophils % (Manual) 0, Band Neutrophils 0, Platelet Estimate Adequate, Platelet Morphology Normal, Hypochromasia 1+, Anisocytosis 1+, Macrocytosis 1+, Sodium Level 147H, Potassium Level 3.6, Chloride Level 109H, Carbon Dioxide Level 26, Anion Gap 12, Blood Urea Nitrogen 33H, Creatinine 0.3L , Estimat Glomerular Filtration Rate > 60, Glucose Level 148H, Calcium Level 8.5L, Total Bilirubin 0.3, Aspartate Amino Transf (AST/SGOT) 13, Alanine Aminotransferase (ALT/SGPT) 12, Alkaline Phosphatase 55, Total Protein 5.1L, Albumin 2.7L, Globulin 2.4, Albumin/Globulin Ratio 1.1 Current Medications Medications (Trade) Dose Ordered Sig/Yolanda Route PRN Reason Start Time Stop Time Status Last Admin Dose Admin Acetazolamide (Diamox) 250 mg Q12HR ORAL 02/25/17 21:00 03/27/17 20:59 02/27/17 09:14 Azithromycin/ Sodium Chloride (Zithromax/ Sodium Chloride) 275 ml @ 275 mls/hr DAILY@1630 IV 02/27/17 16:30 03/05/17 16:29 Ceftriaxone Sodium 1 gm/ Sodium Chloride 55 ml @ 110 mls/hr DAILY@1600 IVPB 02/27/17 16:00 03/06/17 15:59 02/27/17 16:20 Cyanocobalamin (Vitamin B-12) 1,000 mcg DAILY ORAL 02/26/17 09:00 03/28/17 08:59 02/27/17 09:15 Docusate Sodium (Colace) 100 mg TWICE A DAY ORAL 02/25/17 21:00 03/27/17 20:59 02/27/17 09:15 Fentanyl (Duragesic) 1 patch Q72H TDERMAL 02/26/17 17:00 03/05/17 16:59 02/26/17 17:33 Fentanyl (Duragesic) 1 patch Q72H TDERMAL 02/26/17 17:00 03/05/17 16:59 02/26/17 17:36 Gabapentin (Neurontin) 100 mg BID ORAL 02/27/17 12:00 03/29/17 11:59 02/27/17 12:00 Gabapentin (Neurontin) 300 mg BEDTIME ORAL 02/25/17 21:00 03/27/17 20:59 02/26/17 20:24 Levalbuterol HCl (Xopenex) 0.63 mg Q6H PRN HHN Shortness of Breath 02/25/17 20:15 03/02/17 20:14 02/27/17 15:08 Levetiracetam 500 mg 500 mg Q12HR ORAL 02/26/17 21:00 03/28/17 20:59 02/27/17 09:14 Methylprednisolone Sodium Succinate (Solu-MEDROL) 60 mg EVERY 12 HOURS IVP 02/25/17 21:00 03/27/17 20:59 02/27/17 09:14 Metoprolol Succinate (Toprol XL) 25 mg DAILY ORAL 02/27/17 12:00 03/29/17 11:59 Morphine Sulfate (Morphine Sulfate) 1 mg Q4H PRN IVP For Pain 02/27/17 11:45 03/06/17 11:44 02/27/17 12:01 Naloxone HCl (Narcan) 0.1 mg STAT PRN IV RESPIRATORY DISTRESS 02/25/17 17:15 03/27/17 17:14 Ranitidine HCl (Zantac) 150 mg QHS ORAL 02/25/17 21:00 03/27/17 20:59 02/26/17 20:23 Rivaroxaban (Xarelto) 15 mg QPM ORAL 02/25/17 21:00 03/27/17 20:59 Salmeterol Xinafoate/ Fluticasone (Advair 250/50 Diskus) 1 puffs BID INH 02/25/17 21:00 03/27/17 20:59 02/27/17 09:14 Tiotropium Prospect (Spiriva Inhaler) 1 puff DAILY INH 02/26/17 09:00 03/28/17 08:59 02/27/17 09:14 Vancomycin HCl 1 ea 1 ea DAILY PRN MISC Per rx protocol 02/27/17 12:15 03/29/17 12:14 Vancomycin HCl/ Dextrose (Vancomycin/D5W) 275 ml @ 183.333 mls/hr Q24H IVPB 02/27/17 14:00 03/04/17 13:59 02/27/17 14:49 AL VEGA Feb 27, 2017 16:33
[2017-02-27] MEDS ORDERED: Tubing IV Secondary IV ONE (16:35)
[2017-02-27] MEDS ORDERED: NS 275ml ONE (16:35)
[2017-02-27] MEDS: Azithromycin 500 MG in NS 275 ML IV SCH (17:02)
[2017-02-27 20:00] VITALS: BP 121/73
--- NOTE | 2017-02-27 21:28 | Consultation ---
DATE OF CONSULTATION: 02/27/2017 GASTROENTEROLOGY CONSULTATION CONSULTING PHYSICIAN: Rajni Santos M.D. REFERRING PHYSICIAN: Florentin Mendosa M.D. CHIEF COMPLAINT: I was asked to see this patient by Dr. Florentin Mendosa for evaluation of anemia. HISTORY OF PRESENT ILLNESS: The patient is an unfortunate, debilitated, 66-year-old white woman with multiple medical problems, who is in the hospital with respiratory failure and other issues. The patient is not able to provide much meaningful history, but the family is at bedside and unable to provide the necessary details. The patient has not had endoscopy or colonoscopy. She has no abdominal complaints. She has respiratory failure due to her COPD and is being followed by pulmonary services. She also has history of lung cancer with brain metastasis. She had undergone radiation therapy to the brain and is in state of remission by . There is no hematochezia. PAST MEDICAL HISTORY: History of COPD, respiratory failure, lung cancer with brain metastasis, pneumonia, history of pulmonary embolism on Xarelto, seizure disorder, chronic pain, opioid dependence, past strokes, spinal compression fractures, osteoporosis, and hyperlipidemia. FAMILY HISTORY: Notable for lung cancer and asbestosis in father. SOCIAL HISTORY: The patient is a past heavy smoker. She also uses alcohol and does not use drugs. REVIEW OF SYSTEMS: Otherwise negative. PHYSICAL EXAMINATION: GENERAL: A debilitated white woman, seen in her room with the daughter at bedside. HEENT: Normocephalic and atraumatic. Sclerae anicteric. Oropharynx clear. NECK: Supple. CHEST: Coarse breath sounds. CARDIOVASCULAR: Revealed regular rate. ABDOMEN: Soft with a midline scar, which appears to be an old ulcer surgery. EXTREMITIES: Revealed no edema. LABORATORY DATA: Noted. ASSESSMENT: This patient has advanced chronic obstructive pulmonary disease with respiratory failure and also has history of lung cancer with metastasis to her brain requiring radiation therapy. She does have anemia, but her hematocrit is somewhat stable and her overall condition is somewhat poor with poor prognosis. The family understands these limitations and do not wish to proceed with any gastrointestinal workup at this time, which includes endoscopy and colonoscopy. They understand the possibilities of a misdiagnosis, but in this patient, the risk and benefit ratio they feel would justify not doing any procedures. I have advised them that the issue can be readdressed if the patient had continued bleeding and required multiple blood transfusions. RECOMMENDATIONS: 1. Check iron panel. 2. Replace iron stores. 3. Proton pump inhibitor. 4. Follow CBC. 5. No plans for endoscopy or colonoscopy at this time unless bleeding worsens. Thank you for asking me to participate in the care of this patient. Rajni Santos M.D. DR: LIVIA JOB#: [id number] CC:
--- NOTE | 2017-02-27 21:47 | Consultation ---
DATE OF CONSULTATION: 02/27/2017 INFECTIOUS DISEASES CONSULTATION CONSULTING PHYSICIAN: Abdiel Kapoor M.D. PRIMARY ATTENDING PHYSICIAN: Arianne Barton M.D. REASON FOR CONSULTATION: Pneumonia, COPD exacerbation, and infected pressure ulcer. HISTORY OF PRESENT ILLNESS: The patient is a 66-year-old white female, admitted on 02/25/2017 from a [facility] facility because of the situation and altered mental status. The patient was lethargic. Her O2 saturation came down to 88%. The patient did not have any fever or leukocytosis, but she has history of COPD secondary to nicotine abuse and had an abnormal x-ray. She has also multiple bruises all over the body and sacral pressure ulcer. The culture from ulcer is growing the Staphylococcus aureus. PAST MEDICAL HISTORY: Significant for metastatic lung cancer to brain, chronic low back pain, history of pulmonary emboli, seizure disorder, atrial fibrillation, COPD, kyphosis, and anemia. PAST SURGICAL HISTORY: Right hip replacement, tonsillectomy, adenoidectomy, and back surgery. MEDICATIONS: Azithromycin, ceftriaxone, Keppra, fentanyl, bupropion, vitamin B12, methylprednisolone, Colace, Advair, gabapentin, ranitidine, Xarelto, Diamox, neb albuterol, and Narcan. ALLERGIES: Aspirin and non-steroidal anti-inflammatory medication. SOCIAL HISTORY: custodial resident at [facility]. Heavy smoking from 50 pack-year. CODE STATUS: DNR. FAMILY HISTORY: Father of lung cancer and asbestosis at age of 64. Mother at age of 81 from CVA. REVIEW OF SYSTEMS: The patient is dong better. At the time of examination, has no complaints. PHYSICAL EXAMINATION: VITAL SIGNS: Temperature 97.9 degrees, pulse of 126, blood pressure 112/55. GENERAL APPEARANCE: Looks older than her age. HEAD AND NECK: Getting O2 by nasal cannula. HEART: Tachycardic. LUNGS: Decreased expansion. ABDOMEN: Firm and nontender. EXTREMITIES: She has no edema. SKIN: She has diffuse bruises all over the body. Has sacral ulcer. LABORATORY AND DIAGNOSTIC DATA: WBC 7.7, hemoglobin 7.9, hematocrit 24.3, and platelets is 125,000. Sodium 147, potassium 3.6, chloride 109, bicarbonate 20, BUN 33, creatinine 0.3, and glucose is 148. Albumin is 2.7. Chest x-ray shows left effusion, interstitial disease, and bilaterally right basilar atelectasis. IMPRESSION: Chronic obstructive pulmonary disease exacerbation, most likely pneumonia. The patient had vancomycin-resistant enterococci colonization, had pressure ulcer, and likely infected with the Staphylococcus aureus. Has severe anemia, metastatic lung cancer to brain and has history of pulmonary emboli. RECOMMENDATIONS: Continue with Rocephin, erythromycin, and IV vancomycin. We will follow up the culture at the end of my exam. I thank Dr. Gómez and Dr. Mendosa for involving me in the care of this patient. Abdiel Kapoor M.D. DR: BRIAN JOB#: [id number] CC:
--- NOTE | 2017-02-27 22:05 | General Progress Note ---
Assessment/Plan Assessment/Plan metastatic lung cancer to brain copd ?pneumonia ho PE anemia encephalopathymultiple skin echymosis hypernatremia steroids per Pulmonary pulmonary hygine respiratory treatments abx will have ID see patient wound care dw family they are agreeable to hold xarelto due to anemia and bleeding from skin, they understand risk of worsening PE dw Dr Stephon lam her meatologist recommends lovenox when starting AC daughters done want lovenxo want to continue with xarelto encephalopathy improved transfuse another unit of blood pt/ot/st dvt and ulcer prohylaxis Subjective Allergies: Coded Allergies: ASPIRIN (Verified Allergy, Unknown, 02/25/17) NSAIDS (NON-STEROIDAL ANTI-INFLAMMA (Verified Allergy, Unknown, 02/25/17) Subjective awake more alert co generalized pain daughters at bedside Objective Last 24 Hour Vital Signs Date Time Temp Pulse Resp B/P Pulse Ox O2 Delivery O2 Flow Rate FiO2 02/27/17 20:00 98.0 103 18 121/73 92 Nasal Cannula 02/27/17 20:00 101 02/27/17 19:40 Nasal Cannula 7.0 02/27/17 19:39 92 Nasal Cannula 7.0 02/27/17 16:00 7.0 02/27/17 16:00 97.7 115 25 111/70 92 Nasal Cannula 02/27/17 16:00 116 02/27/17 15:23 113 16 95 Nasal Cannula 7.0 50 02/27/17 15:08 118 18 92 Nasal Cannula 7.0 50 02/27/17 15:08 50 02/27/17 12:00 124 113/63 02/27/17 11:49 97.9 120 18 121/58 92 Bi-pap 50 02/27/17 11:48 120 02/27/17 11:46 7.0 02/27/17 08:00 97.9 126 18 112/55 91 Bi-pap 50 02/27/17 07:51 50 02/27/17 07:51 89 02/27/17 07:20 80 14 98 Bi-pap 12.0 50 02/27/17 07:08 50 02/27/17 07:08 77 14 98 Bi-pap 50 02/27/17 07:08 Bi-pap 12.0 50 02/27/17 07:07 98 Bi-pap 50 02/27/17 06:51 77 14 98 Facial 50 02/27/17 05:00 78 14 97 Facial 50 02/27/17 04:00 50 02/27/17 04:00 89 17 127/61 96 Bi-pap 50 02/27/17 04:00 86 02/27/17 03:02 98 14 95 Full Face 50 02/27/17 01:20 95 14 96 Full Face 50 02/27/17 00:00 101 02/27/17 00:00 50 02/27/17 00:00 98.6 112 14 98/69 96 Bi-pap 50 02/26/17 23:00 50 02/26/17 22:52 114 14 96 Facial 50 Intake and Output 02/26/17 02/27/17 19:00 07:00 Intake Total 20 ml 60 ml Output Total 150 ml 250 ml Balance -130 ml -190 ml Intake Oral 20 ml 60 ml Output Urine Total 150 ml 250 ml # Bowel Movements 1 Laboratory Tests 02/27/17 04:35: White Blood Count 7.7, Red Blood Count 2.47L, Hemoglobin 7.9L, Hematocrit 24.3L , Mean Corpuscular Volume 99, Mean Corpuscular Hemoglobin 31.9H, Mean Corpuscular Hemoglobin Concent 32.4, Red Cell Distribution Width 17.5H, Platelet Count 125L, Mean Platelet Volume 6.5, Neutrophils (%) (Auto) , Lymphocytes (%) (Auto) , Monocytes (%) (Auto) , Eosinophils (%) (Auto) , Basophils (%) (Auto) , Differential Total Cells Counted 100, Neutrophils % ( Manual) 93H, Lymphocytes % (Manual) 5L, Monocytes % (Manual) 2, Eosinophils % ( Manual) 0, Basophils % (Manual) 0, Band Neutrophils 0, Platelet Estimate Adequate, Platelet Morphology Normal, Hypochromasia 1+, Anisocytosis 1+, Macrocytosis 1+, Sodium Level 147H, Potassium Level 3.6, Chloride Level 109H, Carbon Dioxide Level 26, Anion Gap 12, Blood Urea Nitrogen 33H, Creatinine 0.3L , Estimat Glomerular Filtration Rate > 60, Glucose Level 148H, Calcium Level 8.5L, Total Bilirubin 0.3, Aspartate Amino Transf (AST/SGOT) 13, Alanine Aminotransferase (ALT/SGPT) 12, Alkaline Phosphatase 55, Total Protein 5.1L, Albumin 2.7L, Globulin 2.4, Albumin/Globulin Ratio 1.1 Height (Feet): 5 Height (Inches): 3.00 Weight (Pounds): 128 General Appearance: WD/WN Neck: supple Cardiovascular: normal rate Respiratory/Chest: decreased breath sounds Abdomen: soft Neurologic: pharmacometrician II-XII grossly normal, alert Objective multiple echyosis all over FRANCIE RAMIREZ Feb 27, 2017 22:05
[2017-02-28] VITALS: BP 120/64
[2017-02-28 04:00] VITALS: BP 110/68
[2017-02-28 05:33] LABS: MEAN CORPUSCULAR HEMOGLOBIN 30.7 PG (27.0-31.0); MEAN CORPUSCULAR HGB CONC 32.6 G/DL (32.0-36.0); MEAN CORPUSCULAR VOLUME 94 FL (80-99); MEAN PLATELET VOLUME 6.1 FL (6.5-10.1); PLATELET COUNT 100 K/UL (150-450); RED BLOOD COUNT 3.09 M/UL (4.20-5.40); RED CELL DISTRIBUTION WIDTH 18.3 % (11.6-14.8); WHITE BLOOD COUNT 7.2 K/UL (4.8-10.8)
[2017-02-28 06:05] LABS: ANION GAP 10 (5-15); CALCIUM 8.5 mg/dL (8.6-10.2); CARBON DIOXIDE 27 mEQ/L (20-30); CHLORIDE 106 mEQ/L (98-107); CREATININE 0.2 mg/dL (0.5-0.9); GLOMERULAR FILTRATION RATE > 60 mL/min (>60); HEMOLYSIS 5; POTASSIUM 3.4 mEQ/L (3.4-4.9); SODIUM 143 mEQ/L (135-145)
[2017-02-28 06:10] LABS: THYROID STIMULATING HORMONE 0.034 uIU/mL (0.300-4.500)
[2017-02-28 07:44] LABS: ANISOCYTOSIS 2+; BAND NEUTROPHILS % (MANUAL) 0 % (0-8); BASOPHILS % (MANUAL) 0 % (0-2); EOSINOPHILS % (MANUAL) 0 % (0-3); HYPOCHROMASIA 2+; LYMPHOCYTES % (MANUAL) 1 % (20-45); NEUTROPHILS % (MANUAL) 96 % (45-75); PLATELET ESTIMATE DECREASED; TOTAL CELLS COUNTED 100
[2017-02-28 07:45] LABS: PLATELET MORPHOLOGY NORMAL; SPHEROCYTES 1+
[2017-02-28 08:00] VITALS: BP 118/68
[2017-02-28] MEDS: Solu-MEDROL 125mg Inj IVP SCH ×2 (08:49→21:04)
[2017-02-28] MEDS: Vitamin B-12 500mcg tab ORAL SCH (08:50)
[2017-02-28] MEDS: levETIRAcetam 500mg/5ml Liquid ORAL SCH ×2 (08:51→21:05)
[2017-02-28] MEDS: Docusate 100mg tablet ORAL SCH ×2 (08:51→18:37)
[2017-02-28] MEDS: Advair 250/50 Inhaler - 14 dose INH SCH ×3 (09:00→21:11)
[2017-02-28] MEDS: Levalbuterol Inh UD 1.25mg/0.5ml HHN PRN ×2 (11:44→18:27)
[2017-02-28 12:00] VITALS: BP 132/64
[2017-02-28] MEDS: Vancomycin 1250mg/D5W 275ml IVPB SCH ×2 (13:18)
--- NOTE | 2017-02-28 14:32 | Pulmonology Progress Note ---
Assessment/Plan Assessment/Plan 1. Lethargy, improved 2. Possible pneumonia. 3. 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 4. Metastatic lung cancer to the brain. 5. History of pulmonary embolism. 6. Anemia. Hgb better, family declined GI evaluation AC resumed disc w dtr at bedside pulm stable for dc when OK w attending Subjective Constitutional: Reports: fatigue Respiratory: Denies: shortness of breath Allergies: Coded Allergies: ASPIRIN (Verified Allergy, Unknown, 02/25/17) NSAIDS (NON-STEROIDAL ANTI-INFLAMMA (Verified Allergy, Unknown, 02/25/17) Objective Last 24 Hour Vital Signs Date Time Temp Pulse Resp B/P Pulse Ox O2 Delivery O2 Flow Rate FiO2 02/28/17 12:00 79 02/28/17 12:00 97.2 75 18 132/64 98 Nasal Cannula 6.0 02/28/17 11:45 75 18 94 Nasal Cannula 7.0 02/28/17 11:05 Nasal Cannula 7.0 02/28/17 10:02 Nasal Cannula 7.0 02/28/17 08:50 76 118/68 02/28/17 08:05 93 Nasal Cannula 7.0 02/28/17 08:01 Nasal Cannula 7.0 02/28/17 08:00 82 02/28/17 08:00 97.7 76 18 118/68 97 Nasal Cannula 6.0 02/28/17 05:12 61 14 96 Facial 50 02/28/17 04:00 66 02/28/17 04:00 50 02/28/17 04:00 97.8 74 18 110/68 96 Nasal Cannula 02/28/17 03:00 77 14 96 Facial 50 02/28/17 00:00 7.0 02/28/17 00:00 97.3 111 20 120/64 96 Nasal Cannula 02/28/17 00:00 94 02/27/17 23:04 94 16 97 Nasal Cannula 7.0 02/27/17 22:56 96 16 97 Nasal Cannula 7.0 02/27/17 22:00 7.0 02/27/17 20:00 98.0 103 18 121/73 92 Nasal Cannula 02/27/17 20:00 101 02/27/17 19:40 Nasal Cannula 7.0 02/27/17 19:39 92 Nasal Cannula 7.0 02/27/17 16:00 7.0 02/27/17 16:00 97.7 115 25 111/70 92 Nasal Cannula 02/27/17 16:00 116 02/27/17 15:23 113 16 95 Nasal Cannula 7.0 50 02/27/17 15:08 118 18 92 Nasal Cannula 7.0 50 02/27/17 15:08 50 Intake and Output 02/27/17 02/28/17 19:00 07:00 Intake Total 400 ml 120 ml Output Total 150 ml 440 ml Balance 250 ml -320 ml Intake Oral 100 ml 120 ml Blood Product 300 ml Output Urine Total 150 ml 440 ml # Bowel Movements 1 Objective Cushingoid face HEENT: atraumatic Respiratory/Chest: lungs clear, decreased breath sounds, accessory muscle use - mild Cardiovascular: normal rate Abdomen: soft, non tender Microbiology Date/Time Source Procedure Growth Status 02/25/17 15:00 Blood Blood Culture - Preliminary NO GROWTH AFTER 48 HOURS Resulted 02/25/17 14:50 Blood Blood Culture - Preliminary NO GROWTH AFTER 48 HOURS Resulted 02/25/17 16:07 Nasal Nares MRSA Culture - Final NO METHICILLIN RESISTANT STAPH AUREUS... Complete 02/25/17 21:00 Indwelling Cath Urine Culture - Final NO GROWTH AFTER 48 HOURS Complete 02/25/17 22:00 Back Gram Stain - Final Resulted 02/25/17 22:00 Wound Culture - Preliminary Staphylococcus Aureus Diphtheroids Resulted 02/25/17 16:07 Rectum VRE Culture - Final Enterococcus Faecium - Vre Complete Laboratory Tests 02/28/17 03:50: White Blood Count 7.2, Red Blood Count 3.09L, Hemoglobin 9.5L, Hematocrit 29.1L , Mean Corpuscular Volume 94, Mean Corpuscular Hemoglobin 30.7, Mean Corpuscular Hemoglobin Concent 32.6, Red Cell Distribution Width 18.3H, Platelet Count 100L, Mean Platelet Volume 6.1L, Neutrophils (%) (Auto) , Lymphocytes (%) (Auto) , Monocytes (%) (Auto) , Eosinophils (%) (Auto) , Basophils (%) (Auto) , Differential Total Cells Counted 100, Neutrophils % ( Manual) 96H, Lymphocytes % (Manual) 1L, Monocytes % (Manual) 3, Eosinophils % ( Manual) 0, Basophils % (Manual) 0, Band Neutrophils 0, Platelet Estimate DecreasedL, Platelet Morphology Normal, Hypochromasia 2+, Anisocytosis 2+, Spherocytes 1+, Sodium Level 143, Potassium Level 3.4, Chloride Level 106, Carbon Dioxide Level 27, Anion Gap 10, Blood Urea Nitrogen 29H, Creatinine 0.2L , Estimat Glomerular Filtration Rate > 60, Glucose Level 150H, Calcium Level 8.5L, Iron Level 72, Total Iron Binding Capacity 182L, Percent Iron Saturation 40, Unsaturated Iron Binding 110L, Ferritin 1521H, Vitamin B12 Level 933, RBC Folate Hemolysate [Pending], Red Blood Cell Folate [Pending], Thyroid Stimulating Hormone (TSH) 0.034L Current Medications Medications (Trade) Dose Ordered Sig/Yolanda Route PRN Reason Start Time Stop Time Status Last Admin Dose Admin Acetazolamide (Diamox) 250 mg Q12HR ORAL 02/25/17 21:00 03/27/17 20:59 02/28/17 08:50 Azithromycin/ Sodium Chloride (Zithromax/ Sodium Chloride) 275 ml @ 275 mls/hr DAILY@1630 IV 02/27/17 16:30 03/05/17 16:29 02/27/17 17:02 Ceftriaxone Sodium 1 gm/ Sodium Chloride 55 ml @ 110 mls/hr DAILY@1600 IVPB 02/27/17 16:00 03/06/17 15:59 02/27/17 16:20 Cyanocobalamin (Vitamin B-12) 1,000 mcg DAILY ORAL 02/26/17 09:00 03/28/17 08:59 02/28/17 08:50 Docusate Sodium (Colace) 100 mg TWICE A DAY ORAL 02/25/17 21:00 03/27/17 20:59 02/28/17 08:51 Fentanyl (Duragesic) 1 patch Q72H TDERMAL 02/26/17 17:00 03/05/17 16:59 02/26/17 17:33 Fentanyl (Duragesic) 1 patch Q72H TDERMAL 02/26/17 17:00 03/05/17 16:59 02/26/17 17:36 Gabapentin (Neurontin) 100 mg BID ORAL 02/27/17 12:00 03/29/17 11:59 02/28/17 08:50 Gabapentin (Neurontin) 300 mg BEDTIME ORAL 02/25/17 21:00 03/27/17 20:59 02/27/17 20:48 Levalbuterol HCl (Xopenex) 0.63 mg Q6H PRN HHN Shortness of Breath 02/25/17 20:15 03/02/17 20:14 02/28/17 11:44 Levetiracetam 500 mg 500 mg Q12HR ORAL 02/26/17 21:00 03/28/17 20:59 02/28/17 08:51 Methylprednisolone Sodium Succinate (Solu-MEDROL) 60 mg EVERY 12 HOURS IVP 02/25/17 21:00 03/27/17 20:59 02/28/17 08:49 Metoprolol Succinate (Toprol XL) 25 mg DAILY ORAL 02/27/17 12:00 03/29/17 11:59 02/28/17 08:50 Morphine Sulfate (Morphine Sulfate) 1 mg Q4H PRN IVP For Pain 02/27/17 11:45 03/06/17 11:44 02/27/17 12:01 Naloxone HCl (Narcan) 0.1 mg STAT PRN IV RESPIRATORY DISTRESS 02/25/17 17:15 03/27/17 17:14 Ranitidine HCl (Zantac) 150 mg QHS ORAL 02/25/17 21:00 03/27/17 20:59 02/27/17 20:48 Rivaroxaban (Xarelto) 15 mg QPM ORAL 02/25/17 21:00 03/27/17 20:59 Salmeterol Xinafoate/ Fluticasone (Advair 250/50 Diskus) 1 puffs BID INH 02/25/17 21:00 03/27/17 20:59 02/27/17 09:14 Tiotropium [place] (Spiriva Inhaler) 1 puff DAILY INH 02/26/17 09:00 03/28/17 08:59 02/27/17 09:14 Vancomycin HCl 1 ea 1 ea DAILY PRN MISC Per rx protocol 02/27/17 12:15 03/29/17 12:14 Vancomycin HCl/ Dextrose (Vancomycin/D5W) 275 ml @ 183.333 mls/hr Q24H IVPB 02/27/17 14:00 03/04/17 13:59 02/28/17 13:18 AL VEGA Feb 28, 2017 14:32
[2017-02-28 16:29] VITALS: BP 110/59
[2017-02-28] MEDS: cefTRIAXone 1 GM in NS 55 ML IVPB SCH (16:40)
[2017-02-28] MEDS: Xarelto 15mg tab ORAL SCH (16:59)
[2017-02-28] MEDS: Azithromycin 500 MG in NS 275 ML IV SCH (17:00)
[2017-02-28] MEDS: Morphine Sulfate 2mg/ml Inj IVP PRN (18:39)
[2017-02-28] MEDS ORDERED: Tubing IV Secondary IV ONE (19:16)
[2017-02-28 20:00] VITALS: BP 110/62
--- NOTE | 2017-02-28 20:10 | General Progress Note ---
Assessment/Plan Assessment/Plan Assessment - macrocytic anemia - no e/o Fe deficiency - Resp failure/ COPD - met lung CA - PE Recommendations - push po - monitor CBC - no GI w/u per family directives - OK to continue anticoagulation from GI standpoint - PPI Subjective Allergies: Coded Allergies: ASPIRIN (Verified Allergy, Unknown, 02/25/17) NSAIDS (NON-STEROIDAL ANTI-INFLAMMA (Verified Allergy, Unknown, 02/25/17) Subjective awake eating DTR at bedside Objective Last 24 Hour Vital Signs Date Time Temp Pulse Resp B/P Pulse Ox O2 Delivery O2 Flow Rate FiO2 02/28/17 18:32 48 02/28/17 18:31 75 20 91 Nasal Cannula 7.0 02/28/17 18:27 Nasal Cannula 5.0 02/28/17 18:26 92 Nasal Cannula 5.0 40 02/28/17 16:29 97.0 71 21 110/59 98 Nasal Cannula 4.5 91 02/28/17 16:00 75 02/28/17 12:00 79 02/28/17 12:00 97.2 75 18 132/64 98 Nasal Cannula 6.0 02/28/17 11:45 75 18 94 Nasal Cannula 7.0 02/28/17 11:05 Nasal Cannula 7.0 02/28/17 10:02 Nasal Cannula 7.0 02/28/17 08:50 76 118/68 02/28/17 08:05 93 Nasal Cannula 7.0 02/28/17 08:01 Nasal Cannula 7.0 02/28/17 08:00 82 02/28/17 08:00 97.7 76 18 118/68 97 Nasal Cannula 6.0 02/28/17 05:12 61 14 96 Facial 50 02/28/17 04:00 66 02/28/17 04:00 50 02/28/17 04:00 97.8 74 18 110/68 96 Nasal Cannula 02/28/17 03:00 77 14 96 Facial 50 02/28/17 00:00 7.0 02/28/17 00:00 97.3 111 20 120/64 96 Nasal Cannula 02/28/17 00:00 94 02/27/17 23:04 94 16 97 Nasal Cannula 7.0 02/27/17 22:56 96 16 97 Nasal Cannula 7.0 02/27/17 22:00 7.0 Intake and Output 02/27/17 02/28/17 19:00 07:00 Intake Total 400 ml 120 ml Output Total 150 ml 440 ml Balance 250 ml -320 ml Intake Oral 100 ml 120 ml Blood Product 300 ml Output Urine Total 150 ml 440 ml # Bowel Movements 1 Laboratory Tests 02/28/17 03:50: White Blood Count 7.2, Red Blood Count 3.09L, Hemoglobin 9.5L, Hematocrit 29.1L , Mean Corpuscular Volume 94, Mean Corpuscular Hemoglobin 30.7, Mean Corpuscular Hemoglobin Concent 32.6, Red Cell Distribution Width 18.3H, Platelet Count 100L, Mean Platelet Volume 6.1L, Neutrophils (%) (Auto) , Lymphocytes (%) (Auto) , Monocytes (%) (Auto) , Eosinophils (%) (Auto) , Basophils (%) (Auto) , Differential Total Cells Counted 100, Neutrophils % ( Manual) 96H, Lymphocytes % (Manual) 1L, Monocytes % (Manual) 3, Eosinophils % ( Manual) 0, Basophils % (Manual) 0, Band Neutrophils 0, Platelet Estimate DecreasedL, Platelet Morphology Normal, Hypochromasia 2+, Anisocytosis 2+, Spherocytes 1+, Sodium Level 143, Potassium Level 3.4, Chloride Level 106, Carbon Dioxide Level 27, Anion Gap 10, Blood Urea Nitrogen 29H, Creatinine 0.2L , Estimat Glomerular Filtration Rate > 60, Glucose Level 150H, Calcium Level 8.5L, Iron Level 72, Total Iron Binding Capacity 182L, Percent Iron Saturation 40, Unsaturated Iron Binding 110L, Ferritin 1521H, Vitamin B12 Level 933, RBC Folate Hemolysate [Pending], Red Blood Cell Folate [Pending], Thyroid Stimulating Hormone (TSH) 0.034L Height (Feet): 5 Height (Inches): 3.00 Weight (Pounds): 128 Objective Elderly WW NCAT supple Coarse BS RR abd soft NT ND no edema non focal YANI FRANCIS Feb 28, 2017 20:10
--- NOTE | 2017-02-28 22:21 | General Progress Note ---
Assessment/Plan Assessment/Plan metastatic lung cancer to brain copd ?pneumonia ho PE anemia encephalopathymultiple skin echymosis hypernatremia back wound steroids per Pulmonary pulmonary hygine respiratory treatments abx per ID wound care restart xarelto GI saw patient family refusing workup encephalopathy improved transfuse another unit of blood pt/ot/st dvt and ulcer prohylaxis dc plans when ok with pulmonary to the snf Subjective Allergies: Coded Allergies: ASPIRIN (Verified Allergy, Unknown, 02/25/17) NSAIDS (NON-STEROIDAL ANTI-INFLAMMA (Verified Allergy, Unknown, 02/25/17) Subjective getting vide swallow study was on bipap last night dw patiens daughters Objective Last 24 Hour Vital Signs Date Time Temp Pulse Resp B/P Pulse Ox O2 Delivery O2 Flow Rate FiO2 02/28/17 18:32 48 02/28/17 18:31 75 20 91 Nasal Cannula 7.0 02/28/17 18:27 Nasal Cannula 5.0 02/28/17 18:26 92 Nasal Cannula 5.0 40 02/28/17 16:29 97.0 71 21 110/59 98 Nasal Cannula 4.5 91 02/28/17 16:00 75 02/28/17 12:00 79 02/28/17 12:00 97.2 75 18 132/64 98 Nasal Cannula 6.0 02/28/17 11:45 75 18 94 Nasal Cannula 7.0 02/28/17 11:05 Nasal Cannula 7.0 02/28/17 10:02 Nasal Cannula 7.0 02/28/17 08:50 76 118/68 02/28/17 08:05 93 Nasal Cannula 7.0 02/28/17 08:01 Nasal Cannula 7.0 02/28/17 08:00 82 02/28/17 08:00 97.7 76 18 118/68 97 Nasal Cannula 6.0 02/28/17 05:12 61 14 96 Facial 50 02/28/17 04:00 66 02/28/17 04:00 50 02/28/17 04:00 97.8 74 18 110/68 96 Nasal Cannula 02/28/17 03:00 77 14 96 Facial 50 02/28/17 00:00 7.0 02/28/17 00:00 97.3 111 20 120/64 96 Nasal Cannula 02/28/17 00:00 94 02/27/17 23:04 94 16 97 Nasal Cannula 7.0 02/27/17 22:56 96 16 97 Nasal Cannula 7.0 Intake and Output 02/27/17 02/28/17 19:00 07:00 Intake Total 400 ml 120 ml Output Total 150 ml 440 ml Balance 250 ml -320 ml Intake Oral 100 ml 120 ml Blood Product 300 ml Output Urine Total 150 ml 440 ml # Bowel Movements 1 Laboratory Tests 02/28/17 03:50: White Blood Count 7.2, Red Blood Count 3.09L, Hemoglobin 9.5L, Hematocrit 29.1L , Mean Corpuscular Volume 94, Mean Corpuscular Hemoglobin 30.7, Mean Corpuscular Hemoglobin Concent 32.6, Red Cell Distribution Width 18.3H, Platelet Count 100L, Mean Platelet Volume 6.1L, Neutrophils (%) (Auto) , Lymphocytes (%) (Auto) , Monocytes (%) (Auto) , Eosinophils (%) (Auto) , Basophils (%) (Auto) , Differential Total Cells Counted 100, Neutrophils % ( Manual) 96H, Lymphocytes % (Manual) 1L, Monocytes % (Manual) 3, Eosinophils % ( Manual) 0, Basophils % (Manual) 0, Band Neutrophils 0, Platelet Estimate DecreasedL, Platelet Morphology Normal, Hypochromasia 2+, Anisocytosis 2+, Spherocytes 1+, Sodium Level 143, Potassium Level 3.4, Chloride Level 106, Carbon Dioxide Level 27, Anion Gap 10, Blood Urea Nitrogen 29H, Creatinine 0.2L , Estimat Glomerular Filtration Rate > 60, Glucose Level 150H, Calcium Level 8.5L, Iron Level 72, Total Iron Binding Capacity 182L, Percent Iron Saturation 40, Unsaturated Iron Binding 110L, Ferritin 1521H, Vitamin B12 Level 933, RBC Folate Hemolysate [Pending], Red Blood Cell Folate [Pending], Thyroid Stimulating Hormone (TSH) 0.034L Height (Feet): 5 Height (Inches): 3.00 Weight (Pounds): 128 General Appearance: WD/WN Neck: supple Cardiovascular: normal rate Respiratory/Chest: decreased breath sounds Abdomen: soft Objective multiple echymosis all over improved FRANCIE RAMIREZ Feb 28, 2017 22:21
[2017-03-01] VITALS: BP 118/72
[2017-03-01] MEDS: Levalbuterol Inh UD 1.25mg/0.5ml HHN PRN ×3 (01:18→19:34)
[2017-03-01 04:00] VITALS: BP 128/74
[2017-03-01 04:28] LABS: MEAN CORPUSCULAR HEMOGLOBIN 30.3 PG (27.0-31.0); MEAN CORPUSCULAR HGB CONC 32.3 G/DL (32.0-36.0); MEAN CORPUSCULAR VOLUME 94 FL (80-99); MEAN PLATELET VOLUME 6.8 FL (6.5-10.1); PLATELET COUNT 98 K/UL (150-450); RED BLOOD COUNT 3.25 M/UL (4.20-5.40); WHITE BLOOD COUNT 7.1 K/UL (4.8-10.8)
[2017-03-01 04:52] LABS: ALANINE AMINOTRANSFERASE 12 U/L (3-33); ALBUMIN/GLOBULIN RATIO 1.1 (1.0-2.7); ANION GAP 12 (5-15); ASPARTATE AMINO TRANSFERASE 12 U/L (5-40); CALCIUM 8.4 mg/dL (8.6-10.2); CARBON DIOXIDE 27 mEQ/L (20-30); CHLORIDE 105 mEQ/L (98-107); CREATININE 0.3 mg/dL (0.5-0.9); GLOMERULAR FILTRATION RATE > 60 mL/min (>60); HEMOLYSIS 4; SODIUM 144 mEQ/L (135-145)
[2017-03-01 08:00] VITALS: BP 134/68
[2017-03-01] MEDS ORDERED: KCl 10% 40mEq/30ml liquid ORAL ONE (09:00)
[2017-03-01] MEDS: Docusate 100mg tablet ORAL SCH ×3 (09:59→19:03)
[2017-03-01] MEDS: levETIRAcetam 500mg/5ml Liquid ORAL SCH ×2 (10:00→21:10)
[2017-03-01] MEDS: Vitamin B-12 500mcg tab ORAL SCH (10:01)
[2017-03-01] MEDS: Solu-MEDROL 125mg Inj IVP SCH ×2 (10:02→21:10)
[2017-03-01] MEDS: Morphine Sulfate 2mg/ml Inj IVP PRN ×2 (10:10→18:56)
[2017-03-01 12:00] VITALS: BP 136/78
--- NOTE | 2017-03-01 12:03 | Infectious Diseases Prog Note ---
Assessment/Plan Assessment/Plan antibiotics : vancomycin iv, ceftriaxone, azithromycin A 1. pneumonia 2. recent c.diff colitis 3. metastatic lung cancer 4. COPD 5. pulmonary emboli 6. rectal VRE colonization P 1. continue vancomycin iv 2. d/c ceftriaxone, azithromycin 3. start zosyn, po vancomycin 4. will follow up cultures Subjective ROS Limited/Unobtainable: Yes Allergies: Coded Allergies: ASPIRIN (Verified Allergy, Unknown, 02/25/17) NSAIDS (NON-STEROIDAL ANTI-INFLAMMA (Verified Allergy, Unknown, 02/25/17) Objective Vital Signs Last 24 Hour Vital Signs Date Time Temp Pulse Resp B/P Pulse Ox O2 Delivery O2 Flow Rate FiO2 03/01/17 10:01 107 134/68 03/01/17 08:00 93 03/01/17 08:00 96.8 107 19 134/68 89 Venturi Mask 50 03/01/17 04:00 66 03/01/17 04:00 4.5 03/01/17 04:00 97.0 72 18 128/74 98 Nasal Cannula 4.5 03/01/17 01:18 66 20 95 Nasal Cannula 7.0 03/01/17 00:00 97.6 81 18 118/72 97 Nasal Cannula 4.5 03/01/17 00:00 4.5 03/01/17 00:00 96 02/28/17 22:00 78 20 95 7.0 02/28/17 20:00 97.2 71 20 110/62 92 Nasal Cannula 4.5 02/28/17 20:00 4.5 02/28/17 20:00 77 02/28/17 18:32 48 02/28/17 18:31 75 20 91 Nasal Cannula 7.0 02/28/17 18:27 Nasal Cannula 5.0 02/28/17 18:26 92 Nasal Cannula 5.0 40 02/28/17 16:29 97.0 71 21 110/59 98 Nasal Cannula 4.5 91 02/28/17 16:00 75 02/28/17 16:00 4.5 02/28/17 12:00 79 02/28/17 12:00 97.2 75 18 132/64 98 Nasal Cannula 6.0 Height (Feet): 5 Height (Inches): 3.00 Weight (Pounds): 128 Respiratory/Chest: lungs clear Cardiovascular: normal rate, regular rhythm, no gallop/murmur Abdomen: soft, non tender Extremities: no edema Laboratory Tests Test 03/01/17 03:50 White Blood Count 7.1 K/UL (4.8-10.8) Red Blood Count 3.25 M/UL (4.20-5.40) L Hemoglobin 9.9 G/DL (12.0-16.0) L Hematocrit 30.6 % (37.0-47.0) L Mean Corpuscular Volume 94 FL (80-99) Mean Corpuscular Hemoglobin 30.3 PG (27.0-31.0) Mean Corpuscular Hemoglobin Concent 32.3 G/DL (32.0-36.0) Red Cell Distribution Width 18.0 % (11.6-14.8) H Platelet Count 98 K/UL (150-450) L Mean Platelet Volume 6.8 FL (6.5-10.1) Neutrophils (%) (Auto) % (45.0-75.0) Lymphocytes (%) (Auto) % (20.0-45.0) Monocytes (%) (Auto) % (1.0-10.0) Eosinophils (%) (Auto) % (0.0-3.0) Basophils (%) (Auto) % (0.0-2.0) Sodium Level 144 mEQ/L (135-145) Potassium Level 3.0 mEQ/L (3.4-4.9) L Chloride Level 105 mEQ/L (98-107) Carbon Dioxide Level 27 mEQ/L (20-30) Anion Gap 12 (5-15) Blood Urea Nitrogen 23 mg/dL (7-23) Creatinine 0.3 mg/dL (0.5-0.9) L Estimat Glomerular Filtration Rate > 60 mL/min (>60) Glucose Level 145 mg/dL (74-106) H Calcium Level 8.4 mg/dL (8.6-10.2) L Magnesium Level 1.6 mg/dL (1.7-2.5) L Total Bilirubin < 0.2 mg/dL (0.0-1.2) Aspartate Amino Transf (AST/SGOT) 12 U/L (5-40) Alanine Aminotransferase (ALT/SGPT) 12 U/L (3-33) Alkaline Phosphatase 57 U/L (35-104) Total Protein 5.0 g/dL (6.6-8.7) L Albumin 2.7 g/dL (3.5-5.2) L Globulin 2.3 g/dL Albumin/Globulin Ratio 1.1 (1.0-2.7) PJ ALY Mar 01, 2017 12:03
[2017-03-01 13:09] LABS: HEMATOCRIT 27.5 % (34.0-46.6)
[2017-03-01] MEDS: Vancomycin oral 125mg/2.5ml ORAL SCH ×3 (13:54→21:11)
[2017-03-01] MEDS: Piperacillin/Tazobactam 3.375 GM in NS 110 ML IV SCH ×2 (13:54→21:08)
--- NOTE | 2017-03-01 15:57 | General Progress Note ---
Assessment/Plan Assessment/Plan Assessment - macrocytic anemia - no e/o Fe deficiency - Resp failure/ COPD - met lung CA - PE Recommendations - push po - monitor CBC - no GI w/u per family directives - OK to continue anticoagulation from GI standpoint - PPI - replace lytes Subjective Allergies: Coded Allergies: ASPIRIN (Verified Allergy, Unknown, 02/25/17) NSAIDS (NON-STEROIDAL ANTI-INFLAMMA (Verified Allergy, Unknown, 02/25/17) Subjective awake eating DTR at bedside Mg replacement ordered Objective Last 24 Hour Vital Signs Date Time Temp Pulse Resp B/P Pulse Ox O2 Delivery O2 Flow Rate FiO2 03/01/17 12:00 100 03/01/17 12:00 97.3 102 21 136/78 93 Nasal Cannula 6.0 03/01/17 10:40 96.8 03/01/17 10:01 107 134/68 03/01/17 08:00 93 03/01/17 08:00 96.8 107 19 134/68 89 Venturi Mask 50 03/01/17 04:00 66 03/01/17 04:00 4.5 03/01/17 04:00 97.0 72 18 128/74 98 Nasal Cannula 4.5 03/01/17 01:18 66 20 95 Nasal Cannula 7.0 03/01/17 00:00 97.6 81 18 118/72 97 Nasal Cannula 4.5 03/01/17 00:00 4.5 03/01/17 00:00 96 02/28/17 22:00 78 20 95 7.0 02/28/17 20:00 97.2 71 20 110/62 92 Nasal Cannula 4.5 02/28/17 20:00 4.5 02/28/17 20:00 77 02/28/17 18:32 48 02/28/17 18:31 75 20 91 Nasal Cannula 7.0 02/28/17 18:27 Nasal Cannula 5.0 02/28/17 18:26 92 Nasal Cannula 5.0 40 02/28/17 16:29 97.0 71 21 110/59 98 Nasal Cannula 4.5 91 02/28/17 16:00 75 02/28/17 16:00 4.5 Intake and Output 02/28/17 03/01/17 19:00 07:00 Intake Total 425.000 ml 120 ml Output Total 150 ml 360 ml Balance 275.000 ml -240 ml Intake Oral 150 ml 120 ml IV Total 275.000 ml Output Urine Total 150 ml 360 ml # Bowel Movements 4 5 Laboratory Tests 03/01/17 03:50: White Blood Count 7.1, Red Blood Count 3.25L, Hemoglobin 9.9L, Hematocrit 30.6L , Mean Corpuscular Volume 94, Mean Corpuscular Hemoglobin 30.3, Mean Corpuscular Hemoglobin Concent 32.3, Red Cell Distribution Width 18.0H, Platelet Count 98L, Mean Platelet Volume 6.8, Neutrophils (%) (Auto) , Lymphocytes (%) (Auto) , Monocytes (%) (Auto) , Eosinophils (%) (Auto) , Basophils (%) (Auto) , Sodium Level 144, Potassium Level 3.0L, Chloride Level 105, Carbon Dioxide Level 27, Anion Gap 12, Blood Urea Nitrogen 23, Creatinine 0.3L, Estimat Glomerular Filtration Rate > 60, Glucose Level 145H, Calcium Level 8.4L, Magnesium Level 1.6L, Total Bilirubin < 0.2, Aspartate Amino Transf (AST/SGOT) 12, Alanine Aminotransferase (ALT/SGPT) 12, Alkaline Phosphatase 57, Total Protein 5.0L, Albumin 2.7L, Globulin 2.3, Albumin/Globulin Ratio 1.1 Height (Feet): 5 Height (Inches): 3.00 Weight (Pounds): 128 Objective Elderly WW NCAT supple Coarse BS RR abd soft NT ND no edema non focal YANI FRANCIS Mar 01, 2017 15:57
[2017-03-01 16:03] VITALS: BP 146/86
[2017-03-01] MEDS: Xarelto 15mg tab ORAL SCH (16:30)
[2017-03-01] MEDS ORDERED: Tubing IV Secondary IV ONE (17:38)
[2017-03-01] MEDS ORDERED: Azithromycin 250mg tab ORAL SCH (18:00)
[2017-03-01] MEDS: Advair 250/50 Inhaler - 14 dose INH SCH (18:00)
[2017-03-01] MEDS ORDERED: Vancomycin 1250mg/D5W 275ml IVPB SCH ×2 (18:00)
--- NOTE | 2017-03-01 19:08 | Pulmonology Progress Note ---
Assessment/Plan Assessment/Plan 1. Lethargy, improved 2. Possible pneumonia. 3. 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 4. Metastatic lung cancer to the brain. 5. History of pulmonary embolism. 6. Anemia. stable this afternoon bipap qhs and prn distress nebs abx wound care AC resumed disc w dtr at bedside pulm stable for dc when OK w attending Subjective Constitutional: Reports: no symptoms HEENT: Repors: no symptoms Respiratory: Reports: dry cough, shortness of breath Gastrointestinal/Abdominal: Reports: no symptoms Genitourinary: Reports: no symptoms Allergies: Coded Allergies: ASPIRIN (Verified Allergy, Unknown, 02/25/17) NSAIDS (NON-STEROIDAL ANTI-INFLAMMA (Verified Allergy, Unknown, 02/25/17) Subjective off bipap at this time and not used for days remains on o2 no distress no cp not confused at thsi time daughter at the bedside Objective Last 24 Hour Vital Signs Date Time Temp Pulse Resp B/P Pulse Ox O2 Delivery O2 Flow Rate FiO2 03/01/17 16:03 98.2 88 20 146/86 92 Nasal Cannula 5.5 92 03/01/17 16:00 88 03/01/17 12:00 100 03/01/17 12:00 97.3 102 21 136/78 93 Nasal Cannula 6.0 03/01/17 10:40 96.8 03/01/17 10:01 107 134/68 03/01/17 08:00 93 03/01/17 08:00 96.8 107 19 134/68 89 Venturi Mask 50 03/01/17 04:00 66 03/01/17 04:00 4.5 03/01/17 04:00 97.0 72 18 128/74 98 Nasal Cannula 4.5 03/01/17 01:18 66 20 95 Nasal Cannula 7.0 03/01/17 00:00 97.6 81 18 118/72 97 Nasal Cannula 4.5 03/01/17 00:00 4.5 03/01/17 00:00 96 02/28/17 22:00 78 20 95 7.0 02/28/17 20:00 97.2 71 20 110/62 92 Nasal Cannula 4.5 02/28/17 20:00 4.5 02/28/17 20:00 77 Intake and Output 02/28/17 03/01/17 19:00 07:00 Intake Total 425.000 ml 120 ml Output Total 150 ml 360 ml Balance 275.000 ml -240 ml Intake Oral 150 ml 120 ml IV Total 275.000 ml Output Urine Total 150 ml 360 ml # Bowel Movements 4 5 General Appearance: WD/WN HEENT: anicteric, PERRL Respiratory/Chest: rhonchi Cardiovascular: normal rate, regular rhythm Abdomen: soft, non tender, no organomegaly Skin: other - edema Neurologic/Psychiatric: alert Lymphatic: no neck adenopathy Musculoskeletal: no effusion Laboratory Tests 03/01/17 03:50: White Blood Count 7.1, Red Blood Count 3.25L, Hemoglobin 9.9L, Hematocrit 30.6L , Mean Corpuscular Volume 94, Mean Corpuscular Hemoglobin 30.3, Mean Corpuscular Hemoglobin Concent 32.3, Red Cell Distribution Width 18.0H, Platelet Count 98L, Mean Platelet Volume 6.8, Neutrophils (%) (Auto) , Lymphocytes (%) (Auto) , Monocytes (%) (Auto) , Eosinophils (%) (Auto) , Basophils (%) (Auto) , Sodium Level 144, Potassium Level 3.0L, Chloride Level 105, Carbon Dioxide Level 27, Anion Gap 12, Blood Urea Nitrogen 23, Creatinine 0.3L, Estimat Glomerular Filtration Rate > 60, Glucose Level 145H, Calcium Level 8.4L, Magnesium Level 1.6L, Total Bilirubin < 0.2, Aspartate Amino Transf (AST/SGOT) 12, Alanine Aminotransferase (ALT/SGPT) 12, Alkaline Phosphatase 57, Total Protein 5.0L, Albumin 2.7L, Globulin 2.3, Albumin/Globulin Ratio 1.1 Current Medications Medications (Trade) Dose Ordered Sig/Yolanda Route PRN Reason Start Time Stop Time Status Last Admin Dose Admin Acetazolamide (Diamox) 250 mg Q12HR ORAL 02/25/17 21:00 03/27/17 20:59 03/01/17 09:59 Cyanocobalamin (Vitamin B-12) 1,000 mcg DAILY ORAL 02/26/17 09:00 03/28/17 08:59 03/01/17 10:01 Docusate Sodium (Colace) 100 mg TWICE A DAY ORAL 02/25/17 21:00 03/27/17 20:59 03/01/17 19:03 Fentanyl (Duragesic) 1 patch Q72H TDERMAL 02/26/17 17:00 03/05/17 16:59 02/26/17 17:33 Fentanyl (Duragesic) 1 patch Q72H TDERMAL 02/26/17 17:00 03/05/17 16:59 02/26/17 17:36 Gabapentin (Neurontin) 100 mg BID ORAL 02/27/17 12:00 03/29/17 11:59 03/01/17 18:56 Gabapentin (Neurontin) 300 mg BEDTIME ORAL 02/25/17 21:00 03/27/17 20:59 02/28/17 21:05 Levalbuterol HCl (Xopenex) 0.63 mg Q6H PRN HHN Shortness of Breath 02/25/17 20:15 03/02/17 20:14 03/01/17 07:44 Levetiracetam (Keppra) 500 mg Q12HR ORAL 02/26/17 21:00 03/28/17 20:59 03/01/17 10:00 Methylprednisolone Sodium Succinate (Solu-MEDROL) 60 mg EVERY 12 HOURS IVP 02/25/17 21:00 03/27/17 20:59 03/01/17 10:02 Metoprolol Succinate (Toprol XL) 25 mg DAILY ORAL 02/27/17 12:00 03/29/17 11:59 03/01/17 10:01 Morphine Sulfate (Morphine Sulfate) 1 mg Q4H PRN IVP For Pain 02/27/17 11:45 03/06/17 11:44 03/01/17 18:56 Naloxone HCl (Narcan) 0.1 mg STAT PRN IV RESPIRATORY DISTRESS 02/25/17 17:15 03/27/17 17:14 Pantoprazole 40 mg 40 mg DAILY ORAL 02/28/17 21:00 03/30/17 20:59 03/01/17 10:00 Piperacillin Sod/ Tazobactam Sod/ Sodium Chloride (Zosyn/Sodium Chloride) 110 ml @ 27.5 mls/hr EVERY 8 HOURS IV 03/01/17 14:00 03/06/17 13:59 03/01/17 13:54 Ranitidine HCl (Zantac) 150 mg QHS ORAL 02/25/17 21:00 03/27/17 20:59 02/28/17 21:05 Rivaroxaban (Xarelto) 15 mg QPM ORAL 02/25/17 21:00 03/27/17 20:59 02/28/17 16:59 Salmeterol Xinafoate/ Fluticasone (Advair 250/50 Diskus) 1 puffs BID INH 02/25/17 21:00 03/27/17 20:59 02/28/17 18:28 Tiotropium [place] (Spiriva Inhaler) 1 puff DAILY INH 02/26/17 09:00 03/28/17 08:59 02/27/17 09:14 Vancomycin HCl (Vanco rx to dose) 1 ea DAILY PRN MISC Per rx protocol 02/27/17 12:15 03/29/17 12:14 Vancomycin HCl 250 mg 250 mg FOUR TIMES A DAY ORAL 03/01/17 14:00 03/08/17 13:59 03/01/17 18:00 Vancomycin HCl/ Dextrose (Vancomycin/D5W) 275 ml @ 183.333 mls/hr Q24H IVPB 03/01/17 18:00 03/06/17 17:59 SHAYAN YANES DO Mar 01, 2017 19:08
[2017-03-01 20:00] VITALS: BP 150/86
--- NOTE | 2017-03-01 22:27 | General Progress Note ---
Assessment/Plan Assessment/Plan metastatic lung cancer to brain copd ?pneumonia ho PE anemia encephalopathymultiple skin echymosis hypernatremia hypokalemia back wound steroids per Pulmonary pulmonary hygine respiratory treatments abx per ID wound care xarelto GI saw patient family refusing workup encephalopathy improved monito labs replace potassium pt/ot/st dvt and ulcer prohylaxis dc plans when ok with pulmonary to the snf likely friday Subjective Allergies: Coded Allergies: ASPIRIN (Verified Allergy, Unknown, 02/25/17) NSAIDS (NON-STEROIDAL ANTI-INFLAMMA (Verified Allergy, Unknown, 02/25/17) Subjective overall better on oxygen Objective Last 24 Hour Vital Signs Date Time Temp Pulse Resp B/P Pulse Ox O2 Delivery O2 Flow Rate FiO2 03/01/17 20:00 97.5 88 20 150/86 92 Nasal Cannula 5.5 92 03/01/17 20:00 95 03/01/17 19:35 105 22 92 Nasal Cannula 7.0 03/01/17 19:32 Nasal Cannula 7.0 48 03/01/17 19:32 92 Nasal Cannula 7.0 48 03/01/17 16:03 98.2 88 20 146/86 92 Nasal Cannula 5.5 92 03/01/17 16:00 88 03/01/17 12:00 100 03/01/17 12:00 97.3 102 21 136/78 93 Nasal Cannula 6.0 03/01/17 10:40 96.8 03/01/17 10:01 107 134/68 03/01/17 08:00 93 03/01/17 08:00 96.8 107 19 134/68 89 Venturi Mask 50 03/01/17 04:00 66 03/01/17 04:00 4.5 03/01/17 04:00 97.0 72 18 128/74 98 Nasal Cannula 4.5 03/01/17 01:18 66 20 95 Nasal Cannula 7.0 03/01/17 00:00 97.6 81 18 118/72 97 Nasal Cannula 4.5 03/01/17 00:00 4.5 03/01/17 00:00 96 Intake and Output 02/28/17 03/01/17 19:00 07:00 Intake Total 425.000 ml 120 ml Output Total 150 ml 360 ml Balance 275.000 ml -240 ml Intake Oral 150 ml 120 ml IV Total 275.000 ml Output Urine Total 150 ml 360 ml # Bowel Movements 4 5 Laboratory Tests 03/01/17 03:50: White Blood Count 7.1, Red Blood Count 3.25L, Hemoglobin 9.9L, Hematocrit 30.6L , Mean Corpuscular Volume 94, Mean Corpuscular Hemoglobin 30.3, Mean Corpuscular Hemoglobin Concent 32.3, Red Cell Distribution Width 18.0H, Platelet Count 98L, Mean Platelet Volume 6.8, Neutrophils (%) (Auto) , Lymphocytes (%) (Auto) , Monocytes (%) (Auto) , Eosinophils (%) (Auto) , Basophils (%) (Auto) , Sodium Level 144, Potassium Level 3.0L, Chloride Level 105, Carbon Dioxide Level 27, Anion Gap 12, Blood Urea Nitrogen 23, Creatinine 0.3L, Estimat Glomerular Filtration Rate > 60, Glucose Level 145H, Calcium Level 8.4L, Magnesium Level 1.6L, Total Bilirubin < 0.2, Aspartate Amino Transf (AST/SGOT) 12, Alanine Aminotransferase (ALT/SGPT) 12, Alkaline Phosphatase 57, Total Protein 5.0L, Albumin 2.7L, Globulin 2.3, Albumin/Globulin Ratio 1.1 Height (Feet): 5 Height (Inches): 3.00 Weight (Pounds): 128 General Appearance: WD/WN Neck: supple Cardiovascular: normal rate Respiratory/Chest: decreased breath sounds Abdomen: soft Edema: trace edema Objective multiple echymosis all over improved FRANCIE RAMIREZ Mar 01, 2017 22:27
[2017-03-02 00:39] VITALS: BP 144/77
[2017-03-02] MEDS: Morphine Sulfate 2mg/ml Inj IVP PRN ×4 (03:51→22:58)
[2017-03-02 04:00] VITALS: BP 130/65
[2017-03-02 04:32] LABS: MEAN CORPUSCULAR HEMOGLOBIN 31.2 PG (27.0-31.0); MEAN CORPUSCULAR HGB CONC 32.8 G/DL (32.0-36.0); MEAN CORPUSCULAR VOLUME 95 FL (80-99); MEAN PLATELET VOLUME 6.3 FL (6.5-10.1); PLATELET COUNT 89 K/UL (150-450); RED BLOOD COUNT 3.18 M/UL (4.20-5.40); RED CELL DISTRIBUTION WIDTH 17.7 % (11.6-14.8); WHITE BLOOD COUNT 8.3 K/UL (4.8-10.8)
[2017-03-02 04:42] LABS: ALANINE AMINOTRANSFERASE 14 U/L (3-33); ALBUMIN/GLOBULIN RATIO 1.3 (1.0-2.7); ANION GAP 11 (5-15); ASPARTATE AMINO TRANSFERASE 12 U/L (5-40); CALCIUM 8.2 mg/dL (8.6-10.2); CARBON DIOXIDE 29 mEQ/L (20-30); CHLORIDE 103 mEQ/L (98-107); CREATININE 0.3 mg/dL (0.5-0.9); GLOMERULAR FILTRATION RATE > 60 mL/min (>60); HEMOLYSIS 1; MAGNESIUM 1.7 mg/dL (1.7-2.5); POTASSIUM 3.9 mEQ/L (3.4-4.9); SODIUM 143 mEQ/L (135-145); TOTAL PROTEIN 4.9 g/dL (6.6-8.7)
[2017-03-02] MEDS: Piperacillin/Tazobactam 3.375 GM in NS 110 ML IV SCH ×3 (05:43→22:49)
--- NOTE | 2017-03-02 06:53 | Infectious Diseases Prog Note ---
Assessment/Plan Assessment/Plan A 1. pneumonia 2. recent c.diff colitis 3. metastatic lung cancer 4. COPD 5. pulmonary emboli 6. rectal VRE colonization P 1.may discontinue vancomycin IV, 2. Continue Zosyn, PO vancomycin 3. will follow up cultures Subjective ROS Limited/Unobtainable: Yes Gastrointestinal/Abdominal: Reports: diarrhea Allergies: Coded Allergies: ASPIRIN (Verified Allergy, Unknown, 02/25/17) NSAIDS (NON-STEROIDAL ANTI-INFLAMMA (Verified Allergy, Unknown, 02/25/17) Objective Vital Signs Last 24 Hour Vital Signs Date Time Temp Pulse Resp B/P Pulse Ox O2 Delivery O2 Flow Rate FiO2 03/02/17 04:00 64 03/02/17 04:00 4.0 03/02/17 00:39 97.7 70 24 144/77 95 Nasal Cannula 6.0 03/02/17 00:00 4.0 03/02/17 00:00 72 03/01/17 22:00 4.5 03/01/17 20:00 97.5 88 20 150/86 92 Nasal Cannula 5.5 92 03/01/17 20:00 95 03/01/17 19:35 105 22 92 Nasal Cannula 7.0 03/01/17 19:32 Nasal Cannula 7.0 48 03/01/17 19:32 92 Nasal Cannula 7.0 48 03/01/17 16:03 98.2 88 20 146/86 92 Nasal Cannula 5.5 92 03/01/17 16:00 88 03/01/17 12:00 100 03/01/17 12:00 97.3 102 21 136/78 93 Nasal Cannula 6.0 03/01/17 10:40 96.8 03/01/17 10:01 107 134/68 03/01/17 08:00 93 03/01/17 08:00 96.8 107 19 134/68 89 Venturi Mask 50 Height (Feet): 5 Height (Inches): 3.00 Weight (Pounds): 128 General Appearance: no acute distress HEENT: other - O2 by cannula Respiratory/Chest: lungs clear Cardiovascular: normal rate Abdomen: soft, non tender Extremities: no edema Neurologic/Psychiatric: other - sleeping Laboratory Tests Test 03/02/17 03:30 White Blood Count 8.3 K/UL (4.8-10.8) Red Blood Count 3.18 M/UL (4.20-5.40) L Hemoglobin 9.9 G/DL (12.0-16.0) L Hematocrit 30.2 % (37.0-47.0) L Mean Corpuscular Volume 95 FL (80-99) Mean Corpuscular Hemoglobin 31.2 PG (27.0-31.0) H Mean Corpuscular Hemoglobin Concent 32.8 G/DL (32.0-36.0) Red Cell Distribution Width 17.7 % (11.6-14.8) H Platelet Count 89 K/UL (150-450) L Mean Platelet Volume 6.3 FL (6.5-10.1) L Neutrophils (%) (Auto) % (45.0-75.0) Lymphocytes (%) (Auto) % (20.0-45.0) Monocytes (%) (Auto) % (1.0-10.0) Eosinophils (%) (Auto) % (0.0-3.0) Basophils (%) (Auto) % (0.0-2.0) Sodium Level 143 mEQ/L (135-145) Potassium Level 3.9 mEQ/L (3.4-4.9) Chloride Level 103 mEQ/L (98-107) Carbon Dioxide Level 29 mEQ/L (20-30) Anion Gap 11 (5-15) Blood Urea Nitrogen 15 mg/dL (7-23) Creatinine 0.3 mg/dL (0.5-0.9) L Estimat Glomerular Filtration Rate > 60 mL/min (>60) Glucose Level 136 mg/dL (74-106) H Calcium Level 8.2 mg/dL (8.6-10.2) L Magnesium Level 1.7 mg/dL (1.7-2.5) Total Bilirubin 0.2 mg/dL (0.0-1.2) Aspartate Amino Transf (AST/SGOT) 12 U/L (5-40) Alanine Aminotransferase (ALT/SGPT) 14 U/L (3-33) Alkaline Phosphatase 66 U/L (35-104) Total Protein 4.9 g/dL (6.6-8.7) L Albumin 2.8 g/dL (3.5-5.2) L Globulin 2.1 g/dL Albumin/Globulin Ratio 1.3 (1.0-2.7) Current Medications Medications (Trade) Dose Ordered Sig/Yolanda Route PRN Reason Start Time Stop Time Status Last Admin Dose Admin Acetazolamide (Diamox) 250 mg Q12HR ORAL 02/25/17 21:00 03/27/17 20:59 03/01/17 21:08 Cyanocobalamin (Vitamin B-12) 1,000 mcg DAILY ORAL 02/26/17 09:00 03/28/17 08:59 03/01/17 10:01 Docusate Sodium (Colace) 100 mg TWICE A DAY ORAL 02/25/17 21:00 03/27/17 20:59 03/01/17 19:03 Fentanyl (Duragesic) 1 patch Q72H TDERMAL 02/26/17 17:00 03/05/17 16:59 03/01/17 19:30 Fentanyl (Duragesic) 1 patch Q72H TDERMAL 02/26/17 17:00 03/05/17 16:59 03/01/17 19:31 Gabapentin (Neurontin) 100 mg BID ORAL 02/27/17 12:00 03/29/17 11:59 03/01/17 21:08 Gabapentin (Neurontin) 300 mg BEDTIME ORAL 02/25/17 21:00 03/27/17 20:59 03/01/17 21:11 Levalbuterol HCl (Xopenex) 0.63 mg Q6H PRN HHN Shortness of Breath 02/25/17 20:15 03/02/17 20:14 03/01/17 19:34 Levetiracetam (Keppra) 500 mg Q12HR ORAL 02/26/17 21:00 03/28/17 20:59 03/01/17 21:10 Methylprednisolone Sodium Succinate (Solu-MEDROL) 60 mg EVERY 12 HOURS IVP 02/25/17 21:00 03/27/17 20:59 03/01/17 21:10 Metoprolol Succinate (Toprol XL) 25 mg DAILY ORAL 02/27/17 12:00 03/29/17 11:59 03/01/17 10:01 Morphine Sulfate (Morphine Sulfate) 1 mg Q4H PRN IVP For Pain 02/27/17 11:45 03/06/17 11:44 03/02/17 03:51 Naloxone HCl (Narcan) 0.1 mg STAT PRN IV RESPIRATORY DISTRESS 02/25/17 17:15 03/27/17 17:14 Pantoprazole 40 mg 40 mg DAILY ORAL 02/28/17 21:00 03/30/17 20:59 03/01/17 10:00 Piperacillin Sod/ Tazobactam Sod/ Sodium Chloride (Zosyn/Sodium Chloride) 110 ml @ 27.5 mls/hr EVERY 8 HOURS IV 03/01/17 14:00 03/06/17 13:59 03/02/17 05:43 Ranitidine HCl (Zantac) 150 mg QHS ORAL 02/25/17 21:00 03/27/17 20:59 03/01/17 21:08 Rivaroxaban (Xarelto) 15 mg QPM ORAL 02/25/17 21:00 03/27/17 20:59 02/28/17 16:59 Salmeterol Xinafoate/ Fluticasone (Advair 250/50 Diskus) 1 puffs BID INH 02/25/17 21:00 03/27/17 20:59 02/28/17 18:28 Tiotropium [place] (Spiriva Inhaler) 1 puff DAILY INH 02/26/17 09:00 03/28/17 08:59 02/27/17 09:14 Vancomycin HCl (Vanco rx to dose) 1 ea DAILY PRN MISC Per rx protocol 02/27/17 12:15 03/29/17 12:14 Vancomycin HCl 250 mg 250 mg FOUR TIMES A DAY ORAL 03/01/17 14:00 03/08/17 13:59 03/01/17 21:11 Vancomycin HCl/ Dextrose (Vancomycin/D5W) 275 ml @ 183.333 mls/hr Q24H IVPB 03/01/17 18:00 03/06/17 17:59 03/01/17 19:24 SREEDHAR RUBY Mar 02, 2017 06:53
[2017-03-02] MEDS: Levalbuterol Inh UD 1.25mg/0.5ml HHN PRN (07:00)
[2017-03-02] MEDS: Advair 250/50 Inhaler - 14 dose INH SCH ×2 (07:03→18:50)
[2017-03-02 08:00] VITALS: BP 130/68
--- NOTE | 2017-03-02 08:35 | Pulmonology Progress Note ---
Assessment/Plan Assessment/Plan 1. Lethargy, improved 2. Possible pneumonia. 3. 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 4. Metastatic lung cancer to the brain. 5. History of pulmonary embolism. 6. Anemia. doing well bipap prn nebs abx wound care AC resumed disc w dtr at bedside pulm stable for dc when OK w attending Subjective Constitutional: Reports: no symptoms Respiratory: Reports: dry cough, shortness of breath Gastrointestinal/Abdominal: Reports: no symptoms Genitourinary: Reports: no symptoms Neurologic: Reports: no symptoms Allergies: Coded Allergies: ASPIRIN (Verified Allergy, Unknown, 02/25/17) NSAIDS (NON-STEROIDAL ANTI-INFLAMMA (Verified Allergy, Unknown, 02/25/17) Subjective doing better remains on o2 no distress no cp not confused at thsi time does not get oob daughter at the bedside Objective Last 24 Hour Vital Signs Date Time Temp Pulse Resp B/P Pulse Ox O2 Delivery O2 Flow Rate FiO2 03/02/17 08:07 89 03/02/17 07:12 64 23 97 Nasal Cannula 5.0 03/02/17 07:08 Nasal Cannula 5.0 03/02/17 07:07 Nasal Cannula 03/02/17 07:00 63 25 94 Nasal Cannula 5.0 03/02/17 07:00 94 Nasal Cannula 5.0 03/02/17 06:59 94 Nasal Cannula 5.0 03/02/17 04:00 64 03/02/17 04:00 4.0 03/02/17 04:00 97.9 63 28 130/65 93 Nasal Cannula 6.0 03/02/17 00:39 97.7 70 24 144/77 95 Nasal Cannula 6.0 03/02/17 00:00 4.0 03/02/17 00:00 72 03/01/17 22:00 4.5 03/01/17 20:00 97.5 88 20 150/86 92 Nasal Cannula 5.5 92 03/01/17 20:00 95 03/01/17 19:35 105 22 92 Nasal Cannula 7.0 03/01/17 19:32 Nasal Cannula 7.0 48 03/01/17 19:32 92 Nasal Cannula 7.0 48 03/01/17 16:03 98.2 88 20 146/86 92 Nasal Cannula 5.5 92 03/01/17 16:00 88 4/8/17 12:00 100 03/01/17 12:00 97.3 102 21 136/78 93 Nasal Cannula 6.0 03/01/17 10:40 96.8 03/01/17 10:01 107 134/68 Intake and Output 03/01/17 03/02/17 19:00 07:00 Intake Total 327.5 ml 137.5 ml Output Total 160 ml 800 ml Balance 167.5 ml -662.5 ml Intake Oral 100 ml IV Total 227.5 ml 137.5 ml Output Urine Total 160 ml 800 ml # Bowel Movements 4 1 General Appearance: WD/WN HEENT: anicteric Respiratory/Chest: rhonchi Cardiovascular: normal rate, regular rhythm Abdomen: soft, non tender, no organomegaly Neurologic/Psychiatric: oriented x 3 Lymphatic: no neck adenopathy Musculoskeletal: no effusion Laboratory Tests 03/02/17 03:30: White Blood Count 8.3, Red Blood Count 3.18L, Hemoglobin 9.9L, Hematocrit 30.2L , Mean Corpuscular Volume 95, Mean Corpuscular Hemoglobin 31.2H, Mean Corpuscular Hemoglobin Concent 32.8, Red Cell Distribution Width 17.7H, Platelet Count 89L, Mean Platelet Volume 6.3L, Neutrophils (%) (Auto) , Lymphocytes (%) (Auto) , Monocytes (%) (Auto) , Eosinophils (%) (Auto) , Basophils (%) (Auto) , Sodium Level 143, Potassium Level 3.9, Chloride Level 103 , Carbon Dioxide Level 29, Anion Gap 11, Blood Urea Nitrogen 15, Creatinine 0.3L , Estimat Glomerular Filtration Rate > 60, Glucose Level 136H, Calcium Level 8.2L, Magnesium Level 1.7, Total Bilirubin 0.2, Aspartate Amino Transf (AST/SGOT ) 12, Alanine Aminotransferase (ALT/SGPT) 14, Alkaline Phosphatase 66, Total Protein 4.9L, Albumin 2.8L, Globulin 2.1, Albumin/Globulin Ratio 1.3 Current Medications Medications (Trade) Dose Ordered Sig/Yolanda Route PRN Reason Start Time Stop Time Status Last Admin Dose Admin Acetazolamide (Diamox) 250 mg Q12HR ORAL 02/25/17 21:00 03/27/17 20:59 03/01/17 21:08 Cyanocobalamin (Vitamin B-12) 1,000 mcg DAILY ORAL 02/26/17 09:00 03/28/17 08:59 03/01/17 10:01 Docusate Sodium (Colace) 100 mg TWICE A DAY ORAL 02/25/17 21:00 03/27/17 20:59 03/01/17 19:03 Fentanyl (Duragesic) 1 patch Q72H TDERMAL 02/26/17 17:00 03/05/17 16:59 03/01/17 19:30 Fentanyl (Duragesic) 1 patch Q72H TDERMAL 02/26/17 17:00 03/05/17 16:59 03/01/17 19:31 Gabapentin (Neurontin) 100 mg BID ORAL 02/27/17 12:00 03/29/17 11:59 03/01/17 21:08 Gabapentin (Neurontin) 300 mg BEDTIME ORAL 02/25/17 21:00 03/27/17 20:59 03/01/17 21:11 Levalbuterol HCl (Xopenex) 0.63 mg Q6H PRN HHN Shortness of Breath 02/25/17 20:15 03/02/17 20:14 03/02/17 07:00 Levetiracetam (Keppra) 500 mg Q12HR ORAL 02/26/17 21:00 03/28/17 20:59 03/01/17 21:10 Methylprednisolone Sodium Succinate (Solu-MEDROL) 60 mg EVERY 12 HOURS IVP 02/25/17 21:00 03/27/17 20:59 03/01/17 21:10 Metoprolol Succinate (Toprol XL) 25 mg DAILY ORAL 02/27/17 12:00 03/29/17 11:59 03/01/17 10:01 Morphine Sulfate (Morphine Sulfate) 1 mg Q4H PRN IVP For Pain 02/27/17 11:45 03/06/17 11:44 03/02/17 03:51 Naloxone HCl (Narcan) 0.1 mg STAT PRN IV RESPIRATORY DISTRESS 02/25/17 17:15 03/27/17 17:14 Pantoprazole 40 mg 40 mg DAILY ORAL 02/28/17 21:00 03/30/17 20:59 03/01/17 10:00 Piperacillin Sod/ Tazobactam Sod/ Sodium Chloride (Zosyn/Sodium Chloride) 110 ml @ 27.5 mls/hr EVERY 8 HOURS IV 03/01/17 14:00 03/06/17 13:59 03/02/17 05:43 Ranitidine HCl (Zantac) 150 mg QHS ORAL 02/25/17 21:00 03/27/17 20:59 03/01/17 21:08 Rivaroxaban (Xarelto) 15 mg QPM ORAL 02/25/17 21:00 03/27/17 20:59 02/28/17 16:59 Salmeterol Xinafoate/ Fluticasone (Advair 250/50 Diskus) 1 puffs BID INH 02/25/17 21:00 03/27/17 20:59 02/28/17 18:28 Tiotropium [place] (Spiriva Inhaler) 1 puff DAILY INH 02/26/17 09:00 03/28/17 08:59 02/27/17 09:14 Vancomycin HCl (Vancomycin) 250 mg FOUR TIMES A DAY ORAL 03/01/17 14:00 03/08/17 13:59 03/01/17 21:11 SHAYAN YANES DO Mar 02, 2017 08:35
[2017-03-02] MEDS ORDERED: NS 275ml ONE (08:38)
[2017-03-02] MEDS ORDERED: Tubing IV Secondary IV ONE (08:38)
[2017-03-02] MEDS: Vitamin B-12 500mcg tab ORAL SCH (10:25)
[2017-03-02] MEDS: Vancomycin oral 125mg/2.5ml ORAL SCH ×4 (10:28→21:50)
[2017-03-02] MEDS: levETIRAcetam 500mg/5ml Liquid ORAL SCH ×2 (10:30→21:51)
[2017-03-02] MEDS: Solu-MEDROL 125mg Inj IVP SCH ×2 (10:31→21:52)
[2017-03-02] MEDS ORDERED: Naloxone 0.4mg/ml Inj IV PRN (11:30)
[2017-03-02] MEDS ORDERED: Levalbuterol Inh UD 1.25mg/0.5ml HHN PRN (11:30)
[2017-03-02] MEDS ORDERED: Morphine Sulfate 2mg/ml Inj IVP PRN (11:45)
[2017-03-02 11:49] VITALS: BP 145/75
[2017-03-02 16:00] VITALS: BP_SYST 134; BP_SYST 135; BP_DIAS 76; BP_DIAS 82
[2017-03-02] MEDS: Docusate 100mg tablet ORAL SCH (17:37)
[2017-03-02] MEDS: Xarelto 15mg tab ORAL SCH (17:42)
[2017-03-02 20:00] VITALS: BP 154/76
--- NOTE | 2017-03-02 21:49 | General Progress Note ---
Assessment/Plan Assessment/Plan metastatic lung cancer to brain copd ?pneumonia ho PE anemia encephalopathymultiple skin echymosis hypernatremia hypokalemia back wound throbocytopenia steroids per Pulmonary pulmonary hygine respiratory treatments abx per ID wound care xarelto was held yesterday monitor platelets GI saw patient family refusing workup encephalopathy improved monito labs pt/ot/st dvt and ulcer prohylaxis dc plans when ok with pulmonary to the snf likely friday Subjective Allergies: Coded Allergies: ASPIRIN (Verified Allergy, Unknown, 02/25/17) NSAIDS (NON-STEROIDAL ANTI-INFLAMMA (Verified Allergy, Unknown, 02/25/17) Subjective breathing ok on oxygen Objective Last 24 Hour Vital Signs Date Time Temp Pulse Resp B/P Pulse Ox O2 Delivery O2 Flow Rate FiO2 03/02/17 20:00 96.8 72 18 154/76 97 Bi-pap 03/02/17 18:50 Bi-pap 50 03/02/17 18:50 73 18 97 Facial 50 03/02/17 18:50 97 Bi-pap 50 03/02/17 16:00 97.2 77 20 135/82 96 Bi-pap 03/02/17 14:49 70 17 96 Facial 50 03/02/17 13:42 81 26 94 Nasal Cannula 6.0 03/02/17 13:27 74 24 94 Nasal Cannula 6.0 03/02/17 11:49 97.8 95 19 145/75 94 Nasal Cannula 5.0 03/02/17 10:25 89 130/68 03/02/17 08:07 89 03/02/17 08:00 96.6 76 20 130/68 91 Nasal Cannula 5.0 03/02/17 07:12 64 23 97 Nasal Cannula 5.0 03/02/17 07:08 Nasal Cannula 5.0 03/02/17 07:07 Nasal Cannula 03/02/17 07:00 63 25 94 Nasal Cannula 5.0 03/02/17 07:00 94 Nasal Cannula 5.0 03/02/17 06:59 94 Nasal Cannula 5.0 03/02/17 04:00 64 03/02/17 04:00 4.0 03/02/17 04:00 97.9 63 28 130/65 93 Nasal Cannula 6.0 03/02/17 00:39 97.7 70 24 144/77 95 Nasal Cannula 6.0 03/02/17 00:00 4.0 03/02/17 00:00 72 03/01/17 22:00 4.5 Intake and Output 03/01/17 03/02/17 19:00 07:00 Intake Total 327.5 ml 137.5 ml Output Total 160 ml 800 ml Balance 167.5 ml -662.5 ml Intake Oral 100 ml IV Total 227.5 ml 137.5 ml Output Urine Total 160 ml 800 ml # Bowel Movements 4 1 Laboratory Tests 03/02/17 03:30: White Blood Count 8.3, Red Blood Count 3.18L, Hemoglobin 9.9L, Hematocrit 30.2L , Mean Corpuscular Volume 95, Mean Corpuscular Hemoglobin 31.2H, Mean Corpuscular Hemoglobin Concent 32.8, Red Cell Distribution Width 17.7H, Platelet Count 89L, Mean Platelet Volume 6.3L, Neutrophils (%) (Auto) , Lymphocytes (%) (Auto) , Monocytes (%) (Auto) , Eosinophils (%) (Auto) , Basophils (%) (Auto) , Sodium Level 143, Potassium Level 3.9, Chloride Level 103 , Carbon Dioxide Level 29, Anion Gap 11, Blood Urea Nitrogen 15, Creatinine 0.3L , Estimat Glomerular Filtration Rate > 60, Glucose Level 136H, Calcium Level 8.2L, Magnesium Level 1.7, Total Bilirubin 0.2, Aspartate Amino Transf (AST/SGOT ) 12, Alanine Aminotransferase (ALT/SGPT) 14, Alkaline Phosphatase 66, Total Protein 4.9L, Albumin 2.8L, Globulin 2.1, Albumin/Globulin Ratio 1.3 Height (Feet): 5 Height (Inches): 3.00 Weight (Pounds): 128 General Appearance: WD/WN Neck: supple Cardiovascular: normal rate Respiratory/Chest: decreased breath sounds Edema: moderate edema Objective multiple echymosis all over improved FRANCIE RAMIREZ Mar 02, 2017 21:49
--- NOTE | 2017-03-02 23:52 | General Progress Note ---
Assessment/Plan Assessment/Plan Assessment - macrocytic anemia - no e/o Fe deficiency - Resp failure/ COPD - met lung CA - PE Recommendations - push po - monitor CBC - no GI w/u per family directives - OK to continue anticoagulation from GI standpoint - PPI - replace lytes Subjective Allergies: Coded Allergies: ASPIRIN (Verified Allergy, Unknown, 02/25/17) NSAIDS (NON-STEROIDAL ANTI-INFLAMMA (Verified Allergy, Unknown, 02/25/17) Subjective awake eating DTR at bedside no abd pain Objective Last 24 Hour Vital Signs Date Time Temp Pulse Resp B/P Pulse Ox O2 Delivery O2 Flow Rate FiO2 03/02/17 23:21 75 18 96 Facial 50 03/02/17 21:22 75 18 97 Facial 50 03/02/17 20:00 96.8 72 18 154/76 97 Bi-pap 03/02/17 18:50 Bi-pap 50 03/02/17 18:50 73 18 97 Facial 50 03/02/17 18:50 97 Bi-pap 50 03/02/17 16:00 97.2 77 20 135/82 96 Bi-pap 03/02/17 14:49 70 17 96 Facial 50 03/02/17 13:42 81 26 94 Nasal Cannula 6.0 03/02/17 13:27 74 24 94 Nasal Cannula 6.0 03/02/17 11:49 97.8 95 19 145/75 94 Nasal Cannula 5.0 03/02/17 10:25 89 130/68 03/02/17 08:07 89 03/02/17 08:00 96.6 76 20 130/68 91 Nasal Cannula 5.0 03/02/17 07:12 64 23 97 Nasal Cannula 5.0 03/02/17 07:08 Nasal Cannula 5.0 03/02/17 07:07 Nasal Cannula 03/02/17 07:00 63 25 94 Nasal Cannula 5.0 03/02/17 07:00 94 Nasal Cannula 5.0 03/02/17 06:59 94 Nasal Cannula 5.0 03/02/17 04:00 64 03/02/17 04:00 4.0 03/02/17 04:00 97.9 63 28 130/65 93 Nasal Cannula 6.0 03/02/17 00:39 97.7 70 24 144/77 95 Nasal Cannula 6.0 03/02/17 00:00 4.0 03/02/17 00:00 72 Intake and Output 03/01/17 03/02/17 19:00 07:00 Intake Total 327.5 ml 137.5 ml Output Total 160 ml 800 ml Balance 167.5 ml -662.5 ml Intake Oral 100 ml IV Total 227.5 ml 137.5 ml Output Urine Total 160 ml 800 ml # Bowel Movements 4 1 Laboratory Tests 03/02/17 03:30: White Blood Count 8.3, Red Blood Count 3.18L, Hemoglobin 9.9L, Hematocrit 30.2L , Mean Corpuscular Volume 95, Mean Corpuscular Hemoglobin 31.2H, Mean Corpuscular Hemoglobin Concent 32.8, Red Cell Distribution Width 17.7H, Platelet Count 89L, Mean Platelet Volume 6.3L, Neutrophils (%) (Auto) , Lymphocytes (%) (Auto) , Monocytes (%) (Auto) , Eosinophils (%) (Auto) , Basophils (%) (Auto) , Sodium Level 143, Potassium Level 3.9, Chloride Level 103 , Carbon Dioxide Level 29, Anion Gap 11, Blood Urea Nitrogen 15, Creatinine 0.3L , Estimat Glomerular Filtration Rate > 60, Glucose Level 136H, Calcium Level 8.2L, Magnesium Level 1.7, Total Bilirubin 0.2, Aspartate Amino Transf (AST/SGOT ) 12, Alanine Aminotransferase (ALT/SGPT) 14, Alkaline Phosphatase 66, Total Protein 4.9L, Albumin 2.8L, Globulin 2.1, Albumin/Globulin Ratio 1.3 Height (Feet): 5 Height (Inches): 3.00 Weight (Pounds): 128 Objective Elderly WW NCAT supple Coarse BS RR abd soft NT ND no edema non focal YANI FRANCIS Mar 02, 2017 23:51
[2017-03-03] VITALS: BP 122/74
[2017-03-03 04:00] VITALS: BP 135/74
[2017-03-03] MEDS: Piperacillin/Tazobactam 3.375 GM in NS 110 ML IV SCH ×3 (05:47→21:31)
[2017-03-03 07:48] LABS: MEAN CORPUSCULAR HEMOGLOBIN 30.3 PG (27.0-31.0); MEAN CORPUSCULAR HGB CONC 31.4 G/DL (32.0-36.0); MEAN CORPUSCULAR VOLUME 97 FL (80-99); MEAN PLATELET VOLUME 6.9 FL (6.5-10.1); PLATELET COUNT 102 K/UL (150-450); RED BLOOD COUNT 3.62 M/UL (4.20-5.40); RED CELL DISTRIBUTION WIDTH 17.7 % (11.6-14.8); WHITE BLOOD COUNT 9.5 K/UL (4.8-10.8)
[2017-03-03 08:00] VITALS: BP 147/86
[2017-03-03 08:20] LABS: ANION GAP 13 (5-15); CALCIUM 8.4 mg/dL (8.6-10.2); CARBON DIOXIDE 27 mEQ/L (20-30); CHLORIDE 102 mEQ/L (98-107); CREATININE 0.3 mg/dL (0.5-0.9); GLOMERULAR FILTRATION RATE > 60 mL/min (>60); HEMOLYSIS 22; MAGNESIUM 1.7 mg/dL (1.7-2.5); POTASSIUM 3.8 mEQ/L (3.4-4.9); SODIUM 142 mEQ/L (135-145)
[2017-03-03] MEDS: Advair 250/50 Inhaler - 14 dose INH SCH ×2 (09:00→20:10)
[2017-03-03] MEDS ORDERED: Nail Polish Remover TOPIC ONE ×2 (09:15→10:00)
[2017-03-03] MEDS: Docusate 100mg tablet ORAL SCH ×2 (09:15→17:12)
[2017-03-03] MEDS: levETIRAcetam 500mg/5ml Liquid ORAL SCH ×2 (09:16→21:28)
[2017-03-03] MEDS: Vitamin B-12 500mcg tab ORAL SCH (09:16)
[2017-03-03] MEDS: Vancomycin oral 125mg/2.5ml ORAL SCH ×4 (09:16→21:31)
[2017-03-03] MEDS: Solu-MEDROL 125mg Inj IVP SCH (09:17)
[2017-03-03 09:49] LABS: ANISOCYTOSIS 1+; BAND NEUTROPHILS % (MANUAL) 0 % (0-8); BASOPHILS % (MANUAL) 0 % (0-2); EOSINOPHILS % (MANUAL) 0 % (0-3); HYPOCHROMASIA 1+; LYMPHOCYTES % (MANUAL) 4 % (20-45); NEUTROPHILS % (MANUAL) 94 % (45-75); PLATELET ESTIMATE DECREASED; PLATELET MORPHOLOGY NORMAL; TOTAL CELLS COUNTED 100
--- NOTE | 2017-03-03 10:41 | Diagnostic Imaging Report ---
Indications: Shortness of breath, COPD Technique: Portable AP chest Findings: Comparison: 02/25/2017 Cardiomegaly, diffuse bilateral interstitial infiltrates, left pleural effusion persist, unchanged. Left retrocardiac region remains opacified. Linear densities the left upper lung, right lung base are unchanged. Cluster of linear densities and small cystic lucencies lateral right upper lobe unchanged. No new abnormality identified. IMPRESSION: Stable bilateral congestive changes with left pleural effusion Underlying atelectasis or pneumonia left lower lobe not excludable, unchanged there are stable left upper lobe, right lung base scarring Stable right upper lobe pulmonary fibrosis
[2017-03-03 11:20] LABS: ABG ALLEN TEST POSITIVE; ABG BASE EXCESS 1.6; ABG PCO2 56.9 mmHg (35.0-45.0)
--- NOTE | 2017-03-03 11:47 | Infectious Diseases Prog Note ---
Assessment/Plan Assessment/Plan antibiotics : zosyn, po vancomycin A 1. pneumonia 2. recent c.diff colitis 3. metastatic lung cancer 4. COPD 5. pulmonary emboli 6. rectal VRE colonization P 1. continue zosyn, po vancomycin 2. will follow up cultures Subjective Respiratory: Reports: dry cough, shortness of breath Gastrointestinal/Abdominal: Denies: diarrhea, nausea, vomiting Musculoskeletal: Denies: pain Allergies: Coded Allergies: ASPIRIN (Verified Allergy, Unknown, 02/25/17) NSAIDS (NON-STEROIDAL ANTI-INFLAMMA (Verified Allergy, Unknown, 02/25/17) Objective Vital Signs Last 24 Hour Vital Signs Date Time Temp Pulse Resp B/P Pulse Ox O2 Delivery O2 Flow Rate FiO2 03/03/17 09:17 61 18 90 Venturi Mask 14.0 55 03/03/17 09:14 61 18 90 Venturi Mask 14.0 55 03/03/17 09:14 55 03/03/17 09:13 90 Venturi Mask 14.0 55 03/03/17 09:13 Venturi Mask 14.0 55 03/03/17 09:00 61 147/86 03/03/17 08:00 96.3 61 18 147/86 90 Nasal Cannula 8.0 03/03/17 04:00 97.5 48 16 135/74 98 Bi-pap 03/03/17 00:00 98.1 70 18 122/74 Bi-pap 03/02/17 23:21 75 18 96 Facial 50 03/02/17 22:00 4.0 03/02/17 21:22 75 18 97 Facial 50 03/02/17 20:00 96.8 72 18 154/76 97 Bi-pap 03/02/17 18:50 Bi-pap 50 03/02/17 18:50 73 18 97 Facial 50 03/02/17 18:50 97 Bi-pap 50 03/02/17 16:00 97.2 77 20 135/82 96 Bi-pap 03/02/17 14:49 70 17 96 Facial 50 03/02/17 13:42 81 26 94 Nasal Cannula 6.0 03/02/17 13:27 74 24 94 Nasal Cannula 6.0 03/02/17 11:49 97.8 95 19 145/75 94 Nasal Cannula 5.0 Height (Feet): 5 Height (Inches): 3.00 Weight (Pounds): 128 Respiratory/Chest: lungs clear Cardiovascular: normal rate, regular rhythm, no gallop/murmur Abdomen: soft, non tender Extremities: no edema Laboratory Tests Test 03/03/17 06:00 03/03/17 11:10 White Blood Count 9.5 K/UL (4.8-10.8) Red Blood Count 3.62 M/UL (4.20-5.40) L Hemoglobin 11.0 G/DL (12.0-16.0) L Hematocrit 34.9 % (37.0-47.0) L Mean Corpuscular Volume 97 FL (80-99) Mean Corpuscular Hemoglobin 30.3 PG (27.0-31.0) Mean Corpuscular Hemoglobin Concent 31.4 G/DL (32.0-36.0) L Red Cell Distribution Width 17.7 % (11.6-14.8) H Platelet Count 102 K/UL (150-450) L Mean Platelet Volume 6.9 FL (6.5-10.1) Neutrophils (%) (Auto) % (45.0-75.0) Lymphocytes (%) (Auto) % (20.0-45.0) Monocytes (%) (Auto) % (1.0-10.0) Eosinophils (%) (Auto) % (0.0-3.0) Basophils (%) (Auto) % (0.0-2.0) Differential Total Cells Counted 100 Neutrophils % (Manual) 94 % (45-75) H Lymphocytes % (Manual) 4 % (20-45) L Monocytes % (Manual) 2 % (1-10) Eosinophils % (Manual) 0 % (0-3) Basophils % (Manual) 0 % (0-2) Band Neutrophils 0 % (0-8) Platelet Estimate Decreased L Platelet Morphology Normal Hypochromasia 1+ Anisocytosis 1+ Sodium Level 142 mEQ/L (135-145) Potassium Level 3.8 mEQ/L (3.4-4.9) Chloride Level 102 mEQ/L (98-107) Carbon Dioxide Level 27 mEQ/L (20-30) Anion Gap 13 (5-15) Blood Urea Nitrogen 15 mg/dL (7-23) Creatinine 0.3 mg/dL (0.5-0.9) L Estimat Glomerular Filtration Rate > 60 mL/min (>60) Glucose Level 125 mg/dL (74-106) H Calcium Level 8.4 mg/dL (8.6-10.2) L Magnesium Level 1.7 mg/dL (1.7-2.5) Pro-B-Type Natriuretic Peptide 1143 pg/mL (0-125) H Arterial Blood pH 7.320 (7.350-7.450) Arterial Blood Partial Pressure CO2 56.9 mmHg (35.0-45.0) *H Arterial Blood Partial Pressure O2 64.0 mmHg (75.0-100.0) L Arterial Blood HCO3 28.7 mmol/L (22.0-26.0) H Arterial Blood Oxygen Saturation 90.1 % (92.0-98.0) L Arterial Blood Base Excess 1.6 Akhil Test Positive PJ ALY Mar 03, 2017 11:46
[2017-03-03 12:00] VITALS: BP 140/81
--- NOTE | 2017-03-03 12:42 | Consultation ---
History of Present Illness General Date patient seen: Mar 03, 2017 Time patient seen: 12:31 Chief Complaint: Dyspnea/Respdistress Referring physician: Deondre Reason for Consultation: Pressure Ulcer Present Illness HPI Asked to evaluate this 66 yof for a pressure ulcer of the mid back. She has been in several hospitals over the last 3 months and per the daughter developed the pressure ulcer during these admissions. Prior to this she was ambulatory and lived at home. She has h/o COPD and stage 4 lung cancer and is on prednisone. Per the daughter her appetite has been good. Allergies: Coded Allergies: ASPIRIN (Verified Allergy, Unknown, 02/25/17) NSAIDS (NON-STEROIDAL ANTI-INFLAMMA (Verified Allergy, Unknown, 02/25/17) Medication History Scheduled Acetazolamide* (Acetazolamide*), 250 MG ORAL BID, (Reported) Albuterol Sulfate* (Proair Hfa*), 1 PUFF INH Q6H, (Reported) Dexamethasone (Dexamethasone), 1.5 MG PO DAILY, (Reported) Docusate Sodium* (Colace*), 100 MG ORAL TWICE A DAY, (Reported) Fentanyl 12MCG Patch* (Fentanyl 12MCG Patch*), 1 PATCH TDERMAL EVERY 72 HOURS, ( Reported) Fentanyl 25MCG Patch* (Fentanyl 25MCG Patch*), 1 PATCH TDERMAL EVERY 72 HOURS, ( Reported) Fluticasone/Salmeterol (Advair 250-50 Diskus), 1 PUFF INH EVERY 12 HOURS, ( Reported) Gabapentin* (Gabapentin*), 300 MG ORAL BEDTIME, (Reported) Levetiracetam (Keppra), 500 MG ORAL BID, (Reported) Metoprolol Tartrate* (Metoprolol Tartrate*), 25 MG ORAL BID, (Reported) Ranitidine Hcl* (Zantac*), 150 MG ORAL TWICE A DAY, (Reported) Rivaroxaban (Xarelto*), 20 MG ORAL DAILY, (Reported) Tiotropium [place]* (Spiriva*), 1 PUFF INH DAILY, (Reported) Scheduled PRN Acetaminophen* (Acetaminophen 325MG Tablet*), 650 MG ORAL Q6H PRN for For Pain, (Reported) Miscellaneous Medications Cyanocobalamin (Vitamin B-12) (Vitamin B12), 1,000 MCG PO, (Reported) Levalbuterol Hcl (Levalbuterol Hcl), 0.31 MG IH, (Reported) Patient History Limited by: medical condition History Provided By: Family Member, Medical Record Healthcare decision maker HERIBERTO CHONG (CHILD) [phone] Resuscitation status Do Not Resuscitate Advanced Directive on File Past Medical/Surgical History Past Medical/Surgical History: (1) COPD (chronic obstructive pulmonary disease) (2) Lung cancer (3) Seizure Review of Systems Respiratory: Reports: shortness of breath Skin: Reports: lesions Hematologic/Lymphatic: Reports: easy bruising Physical Exam General Appearance: no apparent distress Lines, tubes and drains: peripheral, trevizo cath Skin Exam: other Musculoskeletal: atrophy Last 24 Hour Vital Signs Date Time Temp Pulse Resp B/P Pulse Ox O2 Delivery O2 Flow Rate FiO2 03/03/17 09:17 61 18 90 Venturi Mask 14.0 55 03/03/17 09:14 61 18 90 Venturi Mask 14.0 55 03/03/17 09:14 55 03/03/17 09:13 90 Venturi Mask 14.0 55 03/03/17 09:13 Venturi Mask 14.0 55 03/03/17 09:00 61 147/86 03/03/17 08:00 96.3 61 18 147/86 90 Nasal Cannula 8.0 03/03/17 04:00 97.5 48 16 135/74 98 Bi-pap 03/03/17 00:00 98.1 70 18 122/74 Bi-pap 03/02/17 23:21 75 18 96 Facial 50 03/02/17 22:00 4.0 03/02/17 21:22 75 18 97 Facial 50 03/02/17 20:00 96.8 72 18 154/76 97 Bi-pap 03/02/17 18:50 Bi-pap 50 03/02/17 18:50 73 18 97 Facial 50 03/02/17 18:50 97 Bi-pap 50 03/02/17 16:00 97.2 77 20 135/82 96 Bi-pap 03/02/17 14:49 70 17 96 Facial 50 03/02/17 13:42 81 26 94 Nasal Cannula 6.0 03/02/17 13:27 74 24 94 Nasal Cannula 6.0 Intake and Output 03/02/17 03/03/17 19:00 07:00 Intake Total 230.0 ml Output Total 1120 ml Balance -890.0 ml Intake Oral 120 ml IV Total 110.0 ml Output Urine Total 1120 ml # Bowel Movements 3 Laboratory Tests Test 03/03/17 06:00 03/03/17 11:10 White Blood Count 9.5 K/UL (4.8-10.8) Red Blood Count 3.62 M/UL (4.20-5.40) L Hemoglobin 11.0 G/DL (12.0-16.0) L Hematocrit 34.9 % (37.0-47.0) L Mean Corpuscular Volume 97 FL (80-99) Mean Corpuscular Hemoglobin 30.3 PG (27.0-31.0) Mean Corpuscular Hemoglobin Concent 31.4 G/DL (32.0-36.0) L Red Cell Distribution Width 17.7 % (11.6-14.8) H Platelet Count 102 K/UL (150-450) L Mean Platelet Volume 6.9 FL (6.5-10.1) Neutrophils (%) (Auto) % (45.0-75.0) Lymphocytes (%) (Auto) % (20.0-45.0) Monocytes (%) (Auto) % (1.0-10.0) Eosinophils (%) (Auto) % (0.0-3.0) Basophils (%) (Auto) % (0.0-2.0) Differential Total Cells Counted 100 Neutrophils % (Manual) 94 % (45-75) H Lymphocytes % (Manual) 4 % (20-45) L Monocytes % (Manual) 2 % (1-10) Eosinophils % (Manual) 0 % (0-3) Basophils % (Manual) 0 % (0-2) Band Neutrophils 0 % (0-8) Platelet Estimate Decreased L Platelet Morphology Normal Hypochromasia 1+ Anisocytosis 1+ Sodium Level 142 mEQ/L (135-145) Potassium Level 3.8 mEQ/L (3.4-4.9) Chloride Level 102 mEQ/L (98-107) Carbon Dioxide Level 27 mEQ/L (20-30) Anion Gap 13 (5-15) Blood Urea Nitrogen 15 mg/dL (7-23) Creatinine 0.3 mg/dL (0.5-0.9) L Estimat Glomerular Filtration Rate > 60 mL/min (>60) Glucose Level 125 mg/dL (74-106) H Calcium Level 8.4 mg/dL (8.6-10.2) L Magnesium Level 1.7 mg/dL (1.7-2.5) Pro-B-Type Natriuretic Peptide 1143 pg/mL (0-125) H Arterial Blood pH 7.320 (7.350-7.450) Arterial Blood Partial Pressure CO2 56.9 mmHg (35.0-45.0) *H Arterial Blood Partial Pressure O2 64.0 mmHg (75.0-100.0) L Arterial Blood HCO3 28.7 mmol/L (22.0-26.0) H Arterial Blood Oxygen Saturation 90.1 % (92.0-98.0) L Arterial Blood Base Excess 1.6 Akhil Test Positive Height (Feet): 5 Height (Inches): 3.00 Weight (Pounds): 128 Medications Current Medications Medications (Trade) Dose Ordered Sig/Yolanda Route PRN Reason Start Time Stop Time Status Last Admin Dose Admin Acetazolamide (Diamox) 250 mg Q12HR ORAL 03/02/17 21:00 04/01/17 20:59 03/03/17 09:15 Cyanocobalamin (Vitamin B-12) 1,000 mcg DAILY ORAL 03/03/17 09:00 04/02/17 08:59 03/03/17 09:16 Docusate Sodium (Colace) 100 mg TWICE A DAY ORAL 03/02/17 18:00 04/01/17 17:59 03/03/17 09:15 Fentanyl (Duragesic) 1 patch Q72H TDERMAL 03/04/17 17:00 03/11/17 16:59 Fentanyl (Duragesic) 1 patch Q72H TDERMAL 03/04/17 17:00 03/11/17 16:59 Gabapentin (Neurontin) 100 mg BID ORAL 03/02/17 18:00 04/01/17 17:59 03/02/17 21:51 Gabapentin (Neurontin) 300 mg BEDTIME ORAL 03/02/17 21:00 04/01/17 20:59 03/02/17 21:59 Levalbuterol HCl (Xopenex) 0.63 mg Q6H PRN HHN Shortness of Breath 03/02/17 11:30 03/07/17 11:29 03/02/17 13:32 Levetiracetam (Keppra) 500 mg Q12HR ORAL 03/02/17 21:00 04/01/17 20:59 03/03/17 09:16 Methylprednisolone Sodium Succinate (Solu-MEDROL) 60 mg EVERY 12 HOURS IVP 03/02/17 21:00 04/01/17 20:59 03/03/17 09:17 Metoprolol Succinate (Toprol XL) 25 mg DAILY ORAL 03/03/17 09:00 04/02/17 08:59 Morphine Sulfate (Morphine Sulfate) 2 mg Q4H PRN IVP For Pain 03-0303/02/17 14:00 03/09/17 13:59 03/02/17 22:58 Naloxone HCl (Narcan) 0.1 mg STAT PRN IV RESPIRATORY DISTRESS 03/02/17 11:30 04/01/17 11:29 Pantoprazole (Protonix) 40 mg DAILY ORAL 03/03/17 09:00 04/02/17 08:59 03/03/17 09:16 Piperacillin Sod/ Tazobactam Sod/ Sodium Chloride (Zosyn/Sodium Chloride) 110 ml @ 27.5 mls/hr EVERY 8 HOURS IV 03/02/17 14:00 03/07/17 13:59 03/03/17 05:47 Ranitidine HCl (Zantac) 150 mg QHS ORAL 03/02/17 21:00 04/01/17 20:59 03/02/17 21:51 Rivaroxaban (Xarelto) 15 mg QPM ORAL 03/02/17 16:30 04/01/17 16:29 03/02/17 17:42 Salmeterol Xinafoate/ Fluticasone (Advair 250/50 Diskus) 1 puffs BID INH 03/02/17 18:00 04/01/17 17:59 Tiotropium [place] (Spiriva Inhaler) 1 puff DAILY INH 03/03/17 09:00 04/02/17 08:59 Vancomycin HCl (Vancomycin) 250 mg FOUR TIMES A DAY ORAL 03/02/17 13:00 03/09/17 12:59 03/03/17 09:16 Assessment/Plan Status: stable Assessment/Plan Patient with unstageable pressure ulcer of the midback. Ulcer does not clincally appear infected. Once eschar in the center loosens, can be removed. Perieschar base extends to dermis but not through dermis. Recommend offloading as her kyphosis subjected her to this ulcer. Will check prealbumin level and recommend nutritional recommendations based on this. No surgical intervention needed at this time. DAR AMAYA Mar 03, 2017 12:42
--- NOTE | 2017-03-03 14:34 | Pulmonology Progress Note ---
Assessment/Plan Assessment/Plan 1. Lethargy 2. Possible pneumonia. 3. 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 4. Metastatic lung cancer to the brain. 5. History of pulmonary embolism. 6. Anemia. worse this AM sat 86-88% on 7 liters conserver n/c disc w dtr at bedside pulm status worse ABG done after change to mask O2 and has compensated resp acidosis CXR no change little else to offer consider comfort care given metastatic disease Subjective ROS Limited/Unobtainable: Yes Allergies: Coded Allergies: ASPIRIN (Verified Allergy, Unknown, 02/25/17) NSAIDS (NON-STEROIDAL ANTI-INFLAMMA (Verified Allergy, Unknown, 02/25/17) Objective Last 24 Hour Vital Signs Date Time Temp Pulse Resp B/P Pulse Ox O2 Delivery O2 Flow Rate FiO2 03/03/17 12:00 96.1 63 20 140/81 93 Venturi Mask 03/03/17 09:17 61 18 90 Venturi Mask 14.0 55 03/03/17 09:14 61 18 90 Venturi Mask 14.0 55 03/03/17 09:14 55 03/03/17 09:13 90 Venturi Mask 14.0 55 03/03/17 09:13 Venturi Mask 14.0 55 03/03/17 09:00 61 147/86 03/03/17 08:00 96.3 61 18 147/86 90 Nasal Cannula 8.0 03/03/17 04:00 97.5 48 16 135/74 98 Bi-pap 03/03/17 00:00 98.1 70 18 122/74 Bi-pap 03/02/17 23:21 75 18 96 Facial 50 03/02/17 22:00 4.0 03/02/17 21:22 75 18 97 Facial 50 03/02/17 20:00 96.8 72 18 154/76 97 Bi-pap 03/02/17 18:50 Bi-pap 50 03/02/17 18:50 73 18 97 Facial 50 03/02/17 18:50 97 Bi-pap 50 03/02/17 16:00 97.2 77 20 135/82 96 Bi-pap 03/02/17 14:49 70 17 96 Facial 50 Intake and Output 03/02/17 03/03/17 19:00 07:00 Intake Total 230.0 ml Output Total 1120 ml Balance -890.0 ml Intake Oral 120 ml IV Total 110.0 ml Output Urine Total 1120 ml # Bowel Movements 3 Objective Cushingoid face Respiratory/Chest: decreased breath sounds Cardiovascular: normal rate Laboratory Tests 03/03/17 06:00: White Blood Count 9.5, Red Blood Count 3.62L, Hemoglobin 11.0L, Hematocrit 34.9L , Mean Corpuscular Volume 97, Mean Corpuscular Hemoglobin 30.3, Mean Corpuscular Hemoglobin Concent 31.4L, Red Cell Distribution Width 17.7H, Platelet Count 102L, Mean Platelet Volume 6.9, Neutrophils (%) (Auto) , Lymphocytes (%) (Auto) , Monocytes (%) (Auto) , Eosinophils (%) (Auto) , Basophils (%) (Auto) , Differential Total Cells Counted 100, Neutrophils % ( Manual) 94H, Lymphocytes % (Manual) 4L, Monocytes % (Manual) 2, Eosinophils % ( Manual) 0, Basophils % (Manual) 0, Band Neutrophils 0, Platelet Estimate DecreasedL, Platelet Morphology Normal, Hypochromasia 1+, Anisocytosis 1+, Sodium Level 142, Potassium Level 3.8, Chloride Level 102, Carbon Dioxide Level 27, Anion Gap 13, Blood Urea Nitrogen 15, Creatinine 0.3L, Estimat Glomerular Filtration Rate > 60, Glucose Level 125H, Calcium Level 8.4L, Magnesium Level 1.7, Pro-B-Type Natriuretic Peptide 1143H, Prealbumin [Pending] 03/03/17 11:10: Arterial Blood pH 7.320L, Arterial Blood Partial Pressure CO2 56.9*H, Arterial Blood Partial Pressure O2 64.0L, Arterial Blood HCO3 28.7H, Arterial Blood Oxygen Saturation 90.1L, Arterial Blood Base Excess 1.6, Akhil Test Positive Current Medications Medications (Trade) Dose Ordered Sig/Yolanda Route PRN Reason Start Time Stop Time Status Last Admin Dose Admin Acetazolamide (Diamox) 250 mg Q12HR ORAL 03/02/17 21:00 04/01/17 20:59 03/03/17 09:15 Cyanocobalamin (Vitamin B-12) 1,000 mcg DAILY ORAL 03/03/17 09:00 04/02/17 08:59 03/03/17 09:16 Docusate Sodium (Colace) 100 mg TWICE A DAY ORAL 03/02/17 18:00 5/9/17 17:59 03/03/17 09:15 Fentanyl (Duragesic) 1 patch Q72H TDERMAL 03/04/17 17:00 03/11/17 16:59 Fentanyl (Duragesic) 1 patch Q72H TDERMAL 03/04/17 17:00 03/11/17 16:59 Gabapentin (Neurontin) 100 mg BID ORAL 03/02/17 18:00 04/01/17 17:59 03/02/17 21:51 Gabapentin (Neurontin) 300 mg BEDTIME ORAL 03/02/17 21:00 04/01/17 20:59 03/02/17 21:59 Levalbuterol HCl (Xopenex) 0.63 mg Q6H PRN HHN Shortness of Breath 03/02/17 11:30 03/07/17 11:29 03/02/17 13:32 Levetiracetam (Keppra) 500 mg Q12HR ORAL 03/02/17 21:00 04/01/17 20:59 03/03/17 09:16 Methylprednisolone Sodium Succinate (Solu-MEDROL) 60 mg EVERY 12 HOURS IVP 03/02/17 21:00 04/01/17 20:59 03/03/17 09:17 Metoprolol Succinate (Toprol XL) 25 mg DAILY ORAL 03/03/17 09:00 04/02/17 08:59 Morphine Sulfate (Morphine Sulfate) 2 mg Q4H PRN IVP For Pain 03-0303/02/17 14:00 03/09/17 13:59 03/02/17 22:58 Naloxone HCl (Narcan) 0.1 mg STAT PRN IV RESPIRATORY DISTRESS 03/02/17 11:30 04/01/17 11:29 Pantoprazole (Protonix) 40 mg DAILY ORAL 03/03/17 09:00 04/02/17 08:59 03/03/17 09:16 Piperacillin Sod/ Tazobactam Sod/ Sodium Chloride (Zosyn/Sodium Chloride) 110 ml @ 27.5 mls/hr EVERY 8 HOURS IV 03/02/17 14:00 03/07/17 13:59 03/03/17 13:44 Ranitidine HCl (Zantac) 150 mg QHS ORAL 03/02/17 21:00 04/01/17 20:59 03/02/17 21:51 Rivaroxaban (Xarelto) 15 mg QPM ORAL 03/02/17 16:30 04/01/17 16:29 03/02/17 17:42 Salmeterol Xinafoate/ Fluticasone (Advair 250/50 Diskus) 1 puffs BID INH 03/02/17 18:00 04/01/17 17:59 Tiotropium [place] (Spiriva Inhaler) 1 puff DAILY INH 03/03/17 09:00 04/02/17 08:59 Vancomycin HCl (Vancomycin) 250 mg FOUR TIMES A DAY ORAL 03/02/17 13:00 03/09/17 12:59 03/03/17 13:44 AL VEGA Mar 03, 2017 14:34
[2017-03-03 16:00] VITALS: BP 127/67
[2017-03-03] MEDS: Xarelto 15mg tab ORAL SCH (16:36)
[2017-03-03] MEDS: Levalbuterol Inh UD 1.25mg/0.5ml INH PRN (16:55)
[2017-03-03] MEDS: PredniSONE 20mg tab ORAL SCH (17:12)
[2017-03-03] MEDS: Morphine Sulfate 2mg/ml Inj IVP PRN ×2 (17:32→17:41)
--- NOTE | 2017-03-03 18:21 | General Progress Note ---
Assessment/Plan Assessment/Plan Assessment - macrocytic anemia - no e/o Fe deficiency - Resp failure/ COPD - met lung CA - PE Recommendations - push po - monitor CBC - no GI w/u per family directives - OK to continue anticoagulation from GI standpoint - PPI - replace lytes Subjective Allergies: Coded Allergies: ASPIRIN (Verified Allergy, Unknown, 02/25/17) NSAIDS (NON-STEROIDAL ANTI-INFLAMMA (Verified Allergy, Unknown, 02/25/17) Subjective awake more SOB today DTR at bedside no abd pain Objective Last 24 Hour Vital Signs Date Time Temp Pulse Resp B/P Pulse Ox O2 Delivery O2 Flow Rate FiO2 03/03/17 16:56 55 03/03/17 16:56 98 18 96 Venturi Mask 14.0 55 03/03/17 16:55 98 18 93 Venturi Mask 14.0 55 03/03/17 16:00 96.1 69 20 127/67 93 Venturi Mask 03/03/17 12:00 96.1 63 20 140/81 93 Venturi Mask 03/03/17 09:17 61 18 90 Venturi Mask 14.0 55 03/03/17 09:14 61 18 90 Venturi Mask 14.0 55 03/03/17 09:14 55 03/03/17 09:13 90 Venturi Mask 14.0 55 03/03/17 09:13 Venturi Mask 14.0 55 03/03/17 09:00 61 147/86 03/03/17 08:00 96.3 61 18 147/86 90 Nasal Cannula 8.0 03/03/17 04:00 97.5 48 16 135/74 98 Bi-pap 03/03/17 00:00 98.1 70 18 122/74 Bi-pap 03/02/17 23:21 75 18 96 Facial 50 03/02/17 22:00 4.0 03/02/17 21:22 75 18 97 Facial 50 03/02/17 20:00 96.8 72 18 154/76 97 Bi-pap 03/02/17 18:50 Bi-pap 50 03/02/17 18:50 73 18 97 Facial 50 03/02/17 18:50 97 Bi-pap 50 Intake and Output 03/02/17 03/03/17 19:00 07:00 Intake Total 230.0 ml Output Total 1120 ml Balance -890.0 ml Intake Oral 120 ml IV Total 110.0 ml Output Urine Total 1120 ml # Bowel Movements 3 Laboratory Tests 03/03/17 04:35: Prealbumin [Pending] 03/03/17 06:00: White Blood Count 9.5, Red Blood Count 3.62L, Hemoglobin 11.0L, Hematocrit 34.9L , Mean Corpuscular Volume 97, Mean Corpuscular Hemoglobin 30.3, Mean Corpuscular Hemoglobin Concent 31.4L, Red Cell Distribution Width 17.7H, Platelet Count 102L, Mean Platelet Volume 6.9, Neutrophils (%) (Auto) , Lymphocytes (%) (Auto) , Monocytes (%) (Auto) , Eosinophils (%) (Auto) , Basophils (%) (Auto) , Differential Total Cells Counted 100, Neutrophils % ( Manual) 94H, Lymphocytes % (Manual) 4L, Monocytes % (Manual) 2, Eosinophils % ( Manual) 0, Basophils % (Manual) 0, Band Neutrophils 0, Platelet Estimate DecreasedL, Platelet Morphology Normal, Hypochromasia 1+, Anisocytosis 1+, Sodium Level 142, Potassium Level 3.8, Chloride Level 102, Carbon Dioxide Level 27, Anion Gap 13, Blood Urea Nitrogen 15, Creatinine 0.3L, Estimat Glomerular Filtration Rate > 60, Glucose Level 125H, Calcium Level 8.4L, Magnesium Level 1.7, Pro-B-Type Natriuretic Peptide 1143H 03/03/17 11:10: Arterial Blood pH 7.320L, Arterial Blood Partial Pressure CO2 56.9*H, Arterial Blood Partial Pressure O2 64.0L, Arterial Blood HCO3 28.7H, Arterial Blood Oxygen Saturation 90.1L, Arterial Blood Base Excess 1.6, Akhil Test Positive Height (Feet): 5 Height (Inches): 3.00 Weight (Pounds): 128 Objective Elderly WW NCAT supple Coarse BS RR abd soft NT ND no edema non focal YANI FRANCIS Mar 03, 2017 18:21
--- NOTE | 2017-03-03 23:48 | General Progress Note ---
Assessment/Plan Assessment/Plan metastatic lung cancer to brain copd ?pneumonia ho PE anemia encephalopathymultiple skin echymosis hypernatremia hypokalemia back wound throbocytopenia steroids per Pulmonary dw Dr Zhao to taper pulmonary hygine respiratory treatments abx per ID wound care xarelto was held yesterday monitor platelets GI saw patient family refusing workup encephalopathy improved monitor bs pt/ot/st dvt and ulcer prohylaxis will give some lasix Subjective Allergies: Coded Allergies: ASPIRIN (Verified Allergy, Unknown, 02/25/17) NSAIDS (NON-STEROIDAL ANTI-INFLAMMA (Verified Allergy, Unknown, 02/25/17) Subjective breathing ok on oxygen lethargic earlier but better now Objective Last 24 Hour Vital Signs Date Time Temp Pulse Resp B/P Pulse Ox O2 Delivery O2 Flow Rate FiO2 03/03/17 20:10 94 Venturi Mask 14.0 55 03/03/17 20:10 Venturi Mask 14.0 55 03/03/17 20:00 96.4 110 18 91 Venturi Mask 03/03/17 18:11 96.1 03/03/17 16:56 55 03/03/17 16:56 98 18 96 Venturi Mask 14.0 55 03/03/17 16:55 98 18 93 Venturi Mask 14.0 55 03/03/17 16:00 96.1 69 20 127/67 93 Venturi Mask 03/03/17 12:00 96.1 63 20 140/81 93 Venturi Mask 03/03/17 09:17 61 18 90 Venturi Mask 14.0 55 03/03/17 09:14 61 18 90 Venturi Mask 14.0 55 03/03/17 09:14 55 03/03/17 09:13 90 Venturi Mask 14.0 55 03/03/17 09:13 Venturi Mask 14.0 55 03/03/17 09:00 61 147/86 03/03/17 08:00 96.3 61 18 147/86 90 Nasal Cannula 8.0 03/03/17 04:00 97.5 48 16 135/74 98 Bi-pap 03/03/17 00:00 98.1 70 18 122/74 Bi-pap Intake and Output 03/02/17 03/03/17 19:00 07:00 Intake Total 230.0 ml Output Total 1120 ml Balance -890.0 ml Intake Oral 120 ml IV Total 110.0 ml Output Urine Total 1120 ml # Bowel Movements 3 Laboratory Tests 03/03/17 06:00: White Blood Count 9.5, Red Blood Count 3.62L, Hemoglobin 11.0L, Hematocrit 34.9L , Mean Corpuscular Volume 97, Mean Corpuscular Hemoglobin 30.3, Mean Corpuscular Hemoglobin Concent 31.4L, Red Cell Distribution Width 17.7H, Platelet Count 102L, Mean Platelet Volume 6.9, Neutrophils (%) (Auto) , Lymphocytes (%) (Auto) , Monocytes (%) (Auto) , Eosinophils (%) (Auto) , Basophils (%) (Auto) , Differential Total Cells Counted 100, Neutrophils % ( Manual) 94H, Lymphocytes % (Manual) 4L, Monocytes % (Manual) 2, Eosinophils % ( Manual) 0, Basophils % (Manual) 0, Band Neutrophils 0, Platelet Estimate DecreasedL, Platelet Morphology Normal, Hypochromasia 1+, Anisocytosis 1+, Sodium Level 142, Potassium Level 3.8, Chloride Level 102, Carbon Dioxide Level 27, Anion Gap 13, Blood Urea Nitrogen 15, Creatinine 0.3L, Estimat Glomerular Filtration Rate > 60, Glucose Level 125H, Calcium Level 8.4L, Magnesium Level 1.7, Pro-B-Type Natriuretic Peptide 1143H 03/03/17 11:10: Arterial Blood pH 7.320L, Arterial Blood Partial Pressure CO2 56.9*H, Arterial Blood Partial Pressure O2 64.0L, Arterial Blood HCO3 28.7H, Arterial Blood Oxygen Saturation 90.1L, Arterial Blood Base Excess 1.6, Akhil Test Positive 03/03/17 23:30: Prealbumin [Pending] Height (Feet): 5 Height (Inches): 3.00 Weight (Pounds): 128 General Appearance: WD/WN Neck: non-tender Cardiovascular: normal rate Respiratory/Chest: decreased breath sounds Abdomen: soft Objective multiple echymosis all over improved FRANCIE RAMIREZ Mar 03, 2017 23:48
[2017-03-04] VITALS: BP 120/60
[2017-03-04 04:00] VITALS: BP 117/73
[2017-03-04] MEDS: Piperacillin/Tazobactam 3.375 GM in NS 110 ML IV SCH ×3 (05:34→22:11)
[2017-03-04 06:55] LABS: MEAN CORPUSCULAR HEMOGLOBIN 31.1 PG (27.0-31.0); MEAN CORPUSCULAR HGB CONC 32.6 G/DL (32.0-36.0); MEAN CORPUSCULAR VOLUME 95 FL (80-99); MEAN PLATELET VOLUME 6.2 FL (6.5-10.1); PLATELET COUNT 105 K/UL (150-450); RED BLOOD COUNT 3.82 M/UL (4.20-5.40); RED CELL DISTRIBUTION WIDTH 17.6 % (11.6-14.8)
[2017-03-04 06:58] LABS: ANION GAP 11 (5-15); CALCIUM 8.2 mg/dL (8.6-10.2); CARBON DIOXIDE 31 mEQ/L (20-30); CHLORIDE 99 mEQ/L (98-107); CREATININE 0.3 mg/dL (0.5-0.9); GLOMERULAR FILTRATION RATE > 60 mL/min (>60); HEMOLYSIS 11; SODIUM 141 mEQ/L (135-145)
[2017-03-04 07:05] LABS: POTASSIUM 2.5 mEQ/L (3.4-4.9)
[2017-03-04] MEDS: Advair 250/50 Inhaler - 14 dose INH SCH ×2 (07:47→19:45)
[2017-03-04 08:00] VITALS: BP 139/80
[2017-03-04 08:47] LABS: ANISOCYTOSIS 1+; BAND NEUTROPHILS % (MANUAL) 1 % (0-8); BASOPHILS % (MANUAL) 0 % (0-2); EOSINOPHILS % (MANUAL) 0 % (0-3); LYMPHOCYTES % (MANUAL) 5 % (20-45); NEUTROPHILS % (MANUAL) 93 % (45-75); PLATELET ESTIMATE DECREASED; PLATELET MORPHOLOGY NORMAL; TOTAL CELLS COUNTED 100
[2017-03-04 08:49] LABS: HYPOCHROMASIA 1+
[2017-03-04] MEDS ORDERED: KCl 10% 40mEq/30ml liquid ORAL ONE (09:00)
[2017-03-04] MEDS: Docusate 100mg tablet ORAL SCH ×2 (09:00→18:00)
[2017-03-04] MEDS: Vancomycin oral 125mg/2.5ml ORAL SCH ×4 (09:27→22:12)
[2017-03-04] MEDS: levETIRAcetam 500mg/5ml Liquid ORAL SCH ×2 (09:27→22:12)
[2017-03-04] MEDS: Vitamin B-12 500mcg tab ORAL SCH (09:28)
[2017-03-04] MEDS: PredniSONE 20mg tab ORAL SCH ×2 (09:28→18:00)
[2017-03-04] MEDS: Metoprolol Tartrate 12.5mg TAB ORAL SCH ×2 (09:28→22:11)
[2017-03-04] MEDS: Pantoprazole Inj IVP SCH (09:29)
--- NOTE | 2017-03-04 11:32 | Infectious Diseases Prog Note ---
Assessment/Plan Assessment/Plan antibiotics : zosyn, po vancomycin A 1. pneumonia 2. recent c.diff colitis 3. metastatic lung cancer 4. COPD 5. pulmonary emboli 6. rectal VRE colonization P 1. continue zosyn, po vancomycin 2. will follow up cultures Subjective Constitutional: Denies: chills, fever Respiratory: Denies: dry cough, shortness of breath Gastrointestinal/Abdominal: Denies: diarrhea, nausea, vomiting Musculoskeletal: Denies: pain Allergies: Coded Allergies: ASPIRIN (Verified Allergy, Unknown, 02/25/17) NSAIDS (NON-STEROIDAL ANTI-INFLAMMA (Verified Allergy, Unknown, 02/25/17) Objective Vital Signs Last 24 Hour Vital Signs Date Time Temp Pulse Resp B/P Pulse Ox O2 Delivery O2 Flow Rate FiO2 03/04/17 09:28 87 139/80 03/04/17 08:00 97.5 87 18 139/80 91 Venturi Mask 03/04/17 07:47 88 18 91 Venturi Mask 14.0 55 03/04/17 07:47 91 Venturi Mask 14.0 55 03/04/17 07:47 Venturi Mask 14.0 55 03/04/17 07:47 87 18 91 Venturi Mask 14.0 55 03/04/17 04:00 97.5 74 18 117/73 92 Venturi Mask 03/04/17 00:00 96.5 91 18 120/60 91 Venturi Mask 03/03/17 20:10 94 Venturi Mask 14.0 55 03/03/17 20:10 Venturi Mask 14.0 55 03/03/17 20:00 96.4 110 18 91 Venturi Mask 03/03/17 18:11 96.1 03/03/17 16:56 55 03/03/17 16:56 98 18 96 Venturi Mask 14.0 55 03/03/17 16:55 98 18 93 Venturi Mask 14.0 55 03/03/17 16:00 96.1 69 20 127/67 93 Venturi Mask 03/03/17 12:00 96.1 63 20 140/81 93 Venturi Mask Height (Feet): 5 Height (Inches): 3.00 Weight (Pounds): 128 Respiratory/Chest: lungs clear Cardiovascular: normal rate, regular rhythm, no gallop/murmur Abdomen: soft, non tender Extremities: no edema Microbiology Date/Time Source Procedure Growth Status 03/03/17 11:00 Sputum Gram Stain - Final Resulted 03/03/17 11:00 Sputum Sputum Culture Pending Resulted Laboratory Tests Test 03/03/17 23:30 03/04/17 05:20 Prealbumin Pending White Blood Count 11.0 K/UL (4.8-10.8) H Red Blood Count 3.82 M/UL (4.20-5.40) L Hemoglobin 11.9 G/DL (12.0-16.0) L Hematocrit 36.4 % (37.0-47.0) L Mean Corpuscular Volume 95 FL (80-99) Mean Corpuscular Hemoglobin 31.1 PG (27.0-31.0) H Mean Corpuscular Hemoglobin Concent 32.6 G/DL (32.0-36.0) Red Cell Distribution Width 17.6 % (11.6-14.8) H Platelet Count 105 K/UL (150-450) L Mean Platelet Volume 6.2 FL (6.5-10.1) L Neutrophils (%) (Auto) % (45.0-75.0) Lymphocytes (%) (Auto) % (20.0-45.0) Monocytes (%) (Auto) % (1.0-10.0) Eosinophils (%) (Auto) % (0.0-3.0) Basophils (%) (Auto) % (0.0-2.0) Differential Total Cells Counted 100 Neutrophils % (Manual) 93 % (45-75) H Lymphocytes % (Manual) 5 % (20-45) L Monocytes % (Manual) 1 % (1-10) Eosinophils % (Manual) 0 % (0-3) Basophils % (Manual) 0 % (0-2) Band Neutrophils 1 % (0-8) Platelet Estimate Decreased L Platelet Morphology Normal Hypochromasia 1+ Anisocytosis 1+ Sodium Level 141 mEQ/L (135-145) Potassium Level 2.5 mEQ/L (3.4-4.9) *L Chloride Level 99 mEQ/L (98-107) Carbon Dioxide Level 31 mEQ/L (20-30) H Anion Gap 11 (5-15) Blood Urea Nitrogen 13 mg/dL (7-23) Creatinine 0.3 mg/dL (0.5-0.9) L Estimat Glomerular Filtration Rate > 60 mL/min (>60) Glucose Level 108 mg/dL (74-106) H Calcium Level 8.2 mg/dL (8.6-10.2) L Pro-B-Type Natriuretic Peptide 889 pg/mL (0-125) H PJ ALY Mar 04, 2017 11:32
[2017-03-04 12:00] VITALS: BP 130/88
[2017-03-04] MEDS: Morphine Sulfate 2mg/ml Inj IVP PRN (12:41)
--- NOTE | 2017-03-04 13:08 | Pulmonology Progress Note ---
Assessment/Plan Assessment/Plan 1. Lethargy 2. Possible pneumonia. 3. 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 4. Metastatic lung cancer to the brain. 5. History of pulmonary embolism. 6. Anemia. better today sat 96% on 45% mask disc w dtr at bedside pulm status better after lasix; K low, rx BNP mildly elevated Subjective ROS Limited/Unobtainable: Yes Respiratory: Reports: shortness of breath Allergies: Coded Allergies: ASPIRIN (Verified Allergy, Unknown, 02/25/17) NSAIDS (NON-STEROIDAL ANTI-INFLAMMA (Verified Allergy, Unknown, 02/25/17) Objective Last 24 Hour Vital Signs Date Time Temp Pulse Resp B/P Pulse Ox O2 Delivery O2 Flow Rate FiO2 03/04/17 12:00 95.7 82 18 130/88 97 Venturi Mask 03/04/17 09:28 87 139/80 03/04/17 08:00 97.5 87 18 139/80 91 Venturi Mask 03/04/17 07:47 88 18 91 Venturi Mask 14.0 55 03/04/17 07:47 91 Venturi Mask 14.0 55 03/04/17 07:47 Venturi Mask 14.0 55 03/04/17 07:47 87 18 91 Venturi Mask 14.0 55 03/04/17 04:00 97.5 74 18 117/73 92 Venturi Mask 03/04/17 00:00 96.5 91 18 120/60 91 Venturi Mask 03/03/17 20:10 94 Venturi Mask 14.0 55 03/03/17 20:10 Venturi Mask 14.0 55 03/03/17 20:00 96.4 110 18 91 Venturi Mask 03/03/17 18:11 96.1 03/03/17 16:56 55 03/03/17 16:56 98 18 96 Venturi Mask 14.0 55 03/03/17 16:55 98 18 93 Venturi Mask 14.0 55 03/03/17 16:00 96.1 69 20 127/67 93 Venturi Mask Intake and Output 03/03/17 03/04/17 19:00 07:00 Intake Total 290.0 ml 180 ml Output Total 400 ml Balance -110.0 ml 180 ml Intake Oral 180 ml 180 ml IV Total 110.0 ml Output Urine Total 400 ml # Bowel Movements 2 2 Objective Cushingoid face General Appearance: no acute distress Respiratory/Chest: lungs clear, decreased breath sounds Cardiovascular: normal rate Extremities: no edema Microbiology Date/Time Source Procedure Growth Status 03/03/17 11:00 Sputum Gram Stain - Final Resulted 03/03/17 11:00 Sputum Sputum Culture Pending Resulted Laboratory Tests 03/03/17 23:30: Prealbumin [Pending] 03/04/17 05:20: White Blood Count 11.0H, Red Blood Count 3.82L, Hemoglobin 11.9L, Hematocrit 36.4L, Mean Corpuscular Volume 95, Mean Corpuscular Hemoglobin 31.1H, Mean Corpuscular Hemoglobin Concent 32.6, Red Cell Distribution Width 17.6H, Platelet Count 105L, Mean Platelet Volume 6.2L, Neutrophils (%) (Auto) , Lymphocytes (%) (Auto) , Monocytes (%) (Auto) , Eosinophils (%) (Auto) , Basophils (%) (Auto) , Differential Total Cells Counted 100, Neutrophils % ( Manual) 93H, Lymphocytes % (Manual) 5L, Monocytes % (Manual) 1, Eosinophils % ( Manual) 0, Basophils % (Manual) 0, Band Neutrophils 1, Platelet Estimate DecreasedL, Platelet Morphology Normal, Hypochromasia 1+, Anisocytosis 1+, Sodium Level 141, Potassium Level 2.5*L, Chloride Level 99, Carbon Dioxide Level 31H, Anion Gap 11, Blood Urea Nitrogen 13, Creatinine 0.3L, Estimat Glomerular Filtration Rate > 60, Glucose Level 108H, Calcium Level 8.2L, Pro-B- Type Natriuretic Peptide 889H Current Medications Medications (Trade) Dose Ordered Sig/Yolanda Route PRN Reason Start Time Stop Time Status Last Admin Dose Admin Acetazolamide (Diamox) 250 mg Q12HR ORAL 03/02/17 21:00 04/01/17 20:59 03/04/17 09:28 Cyanocobalamin (Vitamin B-12) 1,000 mcg DAILY ORAL 03/03/17 09:00 04/02/17 08:59 03/04/17 09:28 Docusate Sodium (Colace) 100 mg TWICE A DAY ORAL 03/02/17 18:00 04/01/17 17:59 03/03/17 17:12 Fentanyl (Duragesic) 1 patch Q72H TDERMAL 03/04/17 17:00 4/18/17 16:59 Fentanyl (Duragesic) 1 patch Q72H TDERMAL 03/04/17 17:00 03/11/17 16:59 Furosemide (Lasix) 20 mg DAILY IV 03/03/17 17:00 04/02/17 16:59 03/03/17 17:12 Gabapentin (Neurontin) 100 mg BID ORAL 03/02/17 18:00 04/01/17 17:59 03/04/17 09:28 Gabapentin (Neurontin) 300 mg BEDTIME ORAL 03/02/17 21:00 04/01/17 20:59 03/03/17 21:29 Levalbuterol HCl (Xopenex) 0.625 mg Q6H PRN INH Shortness of Breath 03/03/17 16:00 03/08/17 15:59 03/03/17 16:55 Levetiracetam (Keppra) 500 mg Q12HR ORAL 03/02/17 21:00 04/01/17 20:59 03/04/17 09:27 Metoprolol Tartrate 12.5 mg 12.5 mg Q12HR ORAL 03/04/17 09:00 04/03/17 08:59 03/04/17 09:28 Morphine Sulfate (Morphine Sulfate) 1 mg Q4HR PRN IVP moderate pain 4-6 03/03/17 17:00 03/10/17 16:59 03/04/17 12:41 Morphine Sulfate (Morphine Sulfate) 2 mg Q4H PRN IVP Severe Pain (Pain Scale 7-10) 03/03/17 18:00 03/10/17 17:59 Naloxone HCl (Narcan) 0.1 mg STAT PRN IV RESPIRATORY DISTRESS 03/02/17 11:30 04/01/17 11:29 Pantoprazole (Protonix) 40 mg DAILY IVP 03/04/17 09:00 04/03/17 08:59 03/04/17 09:29 Piperacillin Sod/ Tazobactam Sod/ Sodium Chloride (Zosyn/Sodium Chloride) 110 ml @ 27.5 mls/hr EVERY 8 HOURS IV 03/02/17 14:00 03/07/17 13:59 03/04/17 05:34 Potassium Chloride (KCl 10mEq/100ml Premix) 100 ml @ 100 mls/hr Q1H IVPB 03/04/17 08:45 03/04/17 14:44 03/04/17 12:41 Prednisone (predniSONE) 40 mg BID ORAL 03/03/17 18:00 04/02/17 17:59 03/04/17 09:28 Ranitidine HCl (Zantac) 150 mg QHS ORAL 03/02/17 21:00 04/01/17 20:59 03/03/17 21:30 Rivaroxaban (Xarelto) 15 mg QPM ORAL 03/02/17 16:30 04/01/17 16:29 03/03/17 16:36 Salmeterol Xinafoate/ Fluticasone (Advair 250/50 Diskus) 1 puffs BID INH 03/02/17 18:00 04/01/17 17:59 03/04/17 07:47 Tiotropium [place] (Spiriva Inhaler) 1 puff DAILY INH 03/03/17 09:00 04/02/17 08:59 03/04/17 07:47 Vancomycin HCl (Vancomycin) 250 mg FOUR TIMES A DAY ORAL 03/02/17 13:00 03/09/17 12:59 03/04/17 09:27 AL VEGA Mar 04, 2017 13:08
[2017-03-04] MEDS: Levalbuterol Inh UD 1.25mg/0.5ml INH PRN (13:49)
[2017-03-04 16:00] VITALS: BP 122/77
[2017-03-04] MEDS: Xarelto 15mg tab ORAL SCH (16:26)
[2017-03-04 17:40] LABS: ANION GAP 13 (5-15); CALCIUM 8.4 mg/dL (8.6-10.2); CARBON DIOXIDE 26 mEQ/L (20-30); CHLORIDE 98 mEQ/L (98-107); CREATININE 0.4 mg/dL (0.5-0.9); GLOMERULAR FILTRATION RATE > 60 mL/min (>60); HEMOLYSIS 19; POTASSIUM 4.3 mEQ/L (3.4-4.9); SODIUM 137 mEQ/L (135-145)
[2017-03-04 20:00] VITALS: BP 126/84
--- NOTE | 2017-03-04 22:27 | General Progress Note ---
Assessment/Plan Assessment/Plan Assessment - macrocytic anemia - no e/o Fe deficiency - Resp failure/ COPD - met lung CA - PE Recommendations - push po - monitor CBC - no GI w/u per family directives - anticoagulation - PPI Subjective Allergies: Coded Allergies: ASPIRIN (Verified Allergy, Unknown, 02/25/17) NSAIDS (NON-STEROIDAL ANTI-INFLAMMA (Verified Allergy, Unknown, 02/25/17) Subjective awake comfortable no abd pain Objective Last 24 Hour Vital Signs Date Time Temp Pulse Resp B/P Pulse Ox O2 Delivery O2 Flow Rate FiO2 03/04/17 22:11 101 126/84 03/04/17 20:00 98.1 101 17 126/84 03/04/17 19:45 92 Nasal Cannula 2.0 03/04/17 19:45 Nasal Cannula 2.0 03/04/17 16:00 96.8 93 20 122/77 94 Venturi Mask 03/04/17 13:58 77 22 93 Nasal Cannula 4.0 03/04/17 13:48 83 25 94 Venturi Mask 10.0 45 03/04/17 13:10 97.5 03/04/17 12:00 95.7 82 18 130/88 97 Venturi Mask 03/04/17 09:28 87 139/80 03/04/17 08:00 97.5 87 18 139/80 91 Venturi Mask 03/04/17 07:47 88 18 91 Venturi Mask 14.0 55 03/04/17 07:47 91 Venturi Mask 14.0 55 03/04/17 07:47 Venturi Mask 14.0 55 03/04/17 07:47 87 18 91 Venturi Mask 14.0 55 03/04/17 04:00 97.5 74 18 117/73 92 Venturi Mask 03/04/17 00:00 96.5 91 18 120/60 91 Venturi Mask Intake and Output 03/03/17 03/04/17 19:00 07:00 Intake Total 290.0 ml 180 ml Output Total 400 ml Balance -110.0 ml 180 ml Intake Oral 180 ml 180 ml IV Total 110.0 ml Output Urine Total 400 ml # Bowel Movements 2 2 Laboratory Tests 03/03/17 23:30: Prealbumin [Pending] 03/04/17 05:20: White Blood Count 11.0H, Red Blood Count 3.82L, Hemoglobin 11.9L, Hematocrit 36.4L, Mean Corpuscular Volume 95, Mean Corpuscular Hemoglobin 31.1H, Mean Corpuscular Hemoglobin Concent 32.6, Red Cell Distribution Width 17.6H, Platelet Count 105L, Mean Platelet Volume 6.2L, Neutrophils (%) (Auto) , Lymphocytes (%) (Auto) , Monocytes (%) (Auto) , Eosinophils (%) (Auto) , Basophils (%) (Auto) , Differential Total Cells Counted 100, Neutrophils % ( Manual) 93H, Lymphocytes % (Manual) 5L, Monocytes % (Manual) 1, Eosinophils % ( Manual) 0, Basophils % (Manual) 0, Band Neutrophils 1, Platelet Estimate DecreasedL, Platelet Morphology Normal, Hypochromasia 1+, Anisocytosis 1+, Sodium Level 141, Potassium Level 2.5*L, Chloride Level 99, Carbon Dioxide Level 31H, Anion Gap 11, Blood Urea Nitrogen 13, Creatinine 0.3L, Estimat Glomerular Filtration Rate > 60, Glucose Level 108H, Calcium Level 8.2L, Pro-B- Type Natriuretic Peptide 889H 03/04/17 17:00: Sodium Level 137, Potassium Level 4.3#, Chloride Level 98, Carbon Dioxide Level 26, Anion Gap 13, Blood Urea Nitrogen 15, Creatinine 0.4L, Estimat Glomerular Filtration Rate > 60, Glucose Level 202H, Calcium Level 8.4L Height (Feet): 5 Height (Inches): 3.00 Weight (Pounds): 128 Objective Elderly WW NCAT supple Coarse BS RR abd soft NT ND no edema non focal YANI FRANCIS Mar 04, 2017 22:27
--- NOTE | 2017-03-04 22:29 | General Progress Note ---
Assessment/Plan Assessment/Plan metastatic lung cancer to brain copd ?pneumonia ho PE anemia encephalopathymultiple skin echymosis hypernatremia hypokalemia back wound throbocytopenia hypokalemia steroids per Pulmonary dw Dr Zhao to taper pulmonary hygine respiratory treatments abx per ID wound care xarelto monitor platelets GI saw patient family refusing workup encephalopathy improved monitor bs replace potassium and magnesium pt/ot/st dvt and ulcer prohylaxis will give some lasix Subjective Allergies: Coded Allergies: ASPIRIN (Verified Allergy, Unknown, 02/25/17) NSAIDS (NON-STEROIDAL ANTI-INFLAMMA (Verified Allergy, Unknown, 02/25/17) Subjective breathing better more alert Objective Last 24 Hour Vital Signs Date Time Temp Pulse Resp B/P Pulse Ox O2 Delivery O2 Flow Rate FiO2 03/04/17 22:11 101 126/84 03/04/17 20:00 98.1 101 17 126/84 03/04/17 19:45 92 Nasal Cannula 2.0 03/04/17 19:45 Nasal Cannula 2.0 03/04/17 16:00 96.8 93 20 122/77 94 Venturi Mask 03/04/17 13:58 77 22 93 Nasal Cannula 4.0 03/04/17 13:48 83 25 94 Venturi Mask 10.0 45 03/04/17 13:10 97.5 03/04/17 12:00 95.7 82 18 130/88 97 Venturi Mask 03/04/17 09:28 87 139/80 03/04/17 08:00 97.5 87 18 139/80 91 Venturi Mask 03/04/17 07:47 88 18 91 Venturi Mask 14.0 55 03/04/17 07:47 91 Venturi Mask 14.0 55 03/04/17 07:47 Venturi Mask 14.0 55 03/04/17 07:47 87 18 91 Venturi Mask 14.0 55 03/04/17 04:00 97.5 74 18 117/73 92 Venturi Mask 03/04/17 00:00 96.5 91 18 120/60 91 Venturi Mask Intake and Output 03/03/17 03/04/17 19:00 07:00 Intake Total 290.0 ml 180 ml Output Total 400 ml Balance -110.0 ml 180 ml Intake Oral 180 ml 180 ml IV Total 110.0 ml Output Urine Total 400 ml # Bowel Movements 2 2 Laboratory Tests 03/03/17 23:30: Prealbumin [Pending] 03/04/17 05:20: White Blood Count 11.0H, Red Blood Count 3.82L, Hemoglobin 11.9L, Hematocrit 36.4L, Mean Corpuscular Volume 95, Mean Corpuscular Hemoglobin 31.1H, Mean Corpuscular Hemoglobin Concent 32.6, Red Cell Distribution Width 17.6H, Platelet Count 105L, Mean Platelet Volume 6.2L, Neutrophils (%) (Auto) , Lymphocytes (%) (Auto) , Monocytes (%) (Auto) , Eosinophils (%) (Auto) , Basophils (%) (Auto) , Differential Total Cells Counted 100, Neutrophils % ( Manual) 93H, Lymphocytes % (Manual) 5L, Monocytes % (Manual) 1, Eosinophils % ( Manual) 0, Basophils % (Manual) 0, Band Neutrophils 1, Platelet Estimate DecreasedL, Platelet Morphology Normal, Hypochromasia 1+, Anisocytosis 1+, Sodium Level 141, Potassium Level 2.5*L, Chloride Level 99, Carbon Dioxide Level 31H, Anion Gap 11, Blood Urea Nitrogen 13, Creatinine 0.3L, Estimat Glomerular Filtration Rate > 60, Glucose Level 108H, Calcium Level 8.2L, Pro-B- Type Natriuretic Peptide 889H 03/04/17 17:00: Sodium Level 137, Potassium Level 4.3#, Chloride Level 98, Carbon Dioxide Level 26, Anion Gap 13, Blood Urea Nitrogen 15, Creatinine 0.4L, Estimat Glomerular Filtration Rate > 60, Glucose Level 202H, Calcium Level 8.4L Height (Feet): 5 Height (Inches): 3.00 Weight (Pounds): 128 General Appearance: WD/WN Neck: supple Cardiovascular: normal rate Respiratory/Chest: decreased breath sounds Objective multiple echymosis all over improved FRANCIE RAMIREZ Mar 04, 2017 22:29
[2017-03-05] VITALS (7 sets, daily range): BP systolic 89–160; BP diastolic 53–88
[2017-03-05] MEDS: Piperacillin/Tazobactam 3.375 GM in NS 110 ML IV SCH ×3 (05:44→22:01)
[2017-03-05] MEDS: Advair 250/50 Inhaler - 14 dose INH SCH ×2 (07:14→18:00)
[2017-03-05 07:20] LABS: MEAN CORPUSCULAR HEMOGLOBIN 30.3 PG (27.0-31.0); MEAN CORPUSCULAR HGB CONC 31.6 G/DL (32.0-36.0); MEAN CORPUSCULAR VOLUME 96 FL (80-99); MEAN PLATELET VOLUME 7.3 FL (6.5-10.1); PLATELET COUNT 115 K/UL (150-450); RED BLOOD COUNT 3.85 M/UL (4.20-5.40); RED CELL DISTRIBUTION WIDTH 17.3 % (11.6-14.8); WHITE BLOOD COUNT 11.1 K/UL (4.8-10.8)
[2017-03-05 07:21] LABS: ANION GAP 8 (5-15); CALCIUM 8.3 mg/dL (8.6-10.2); CARBON DIOXIDE 32 mEQ/L (20-30); CHLORIDE 101 mEQ/L (98-107); CREATININE 0.4 mg/dL (0.5-0.9); GLOMERULAR FILTRATION RATE > 60 mL/min (>60); HEMOLYSIS 10; POTASSIUM 4.1 mEQ/L (3.4-4.9); SODIUM 141 mEQ/L (135-145)
[2017-03-05 07:44] LABS: LYMPHOCYTES % (MANUAL) 1 % (20-45); METAMYELOCYTES % 4 % (0-0); MYELOCYTES % 1 % (0-0); NEUTROPHILS % (MANUAL) 89 % (45-75); TOTAL CELLS COUNTED 100
[2017-03-05 07:46] LABS: ANISOCYTOSIS 1+; BAND NEUTROPHILS % (MANUAL) 0 % (0-8); BASOPHILS % (MANUAL) 0 % (0-2); EOSINOPHILS % (MANUAL) 0 % (0-3); HYPOCHROMASIA 1+; PLATELET ESTIMATE DECREASED; PLATELET MORPHOLOGY NORMAL
[2017-03-05] MEDS: levETIRAcetam 500mg/5ml Liquid ORAL SCH ×2 (09:04→22:00)
[2017-03-05] MEDS: Vancomycin oral 125mg/2.5ml ORAL SCH ×4 (09:04→22:01)
[2017-03-05] MEDS: Pantoprazole Inj IVP SCH (09:04)
[2017-03-05] MEDS: Docusate 100mg tablet ORAL SCH ×2 (09:05→17:32)
[2017-03-05] MEDS: Metoprolol Tartrate 12.5mg TAB ORAL SCH ×2 (09:05→21:59)
[2017-03-05] MEDS: PredniSONE 20mg tab ORAL SCH ×2 (09:05→17:32)
[2017-03-05] MEDS: Vitamin B-12 500mcg tab ORAL SCH (10:04)
--- NOTE | 2017-03-05 11:35 | Infectious Diseases Prog Note ---
Assessment/Plan Assessment/Plan antibiotics : zosyn, po vancomycin A 1. pneumonia 2. recent c.diff colitis 3. metastatic lung cancer 4. COPD 5. pulmonary emboli 6. rectal VRE colonization P 1. continue zosyn, po vancomycin until tomorrow 2. will follow up cultures Subjective Constitutional: Denies: chills, fever Respiratory: Denies: dry cough, shortness of breath Gastrointestinal/Abdominal: Denies: diarrhea, nausea, vomiting Musculoskeletal: Denies: pain Allergies: Coded Allergies: ASPIRIN (Verified Allergy, Unknown, 02/25/17) NSAIDS (NON-STEROIDAL ANTI-INFLAMMA (Verified Allergy, Unknown, 02/25/17) Objective Vital Signs Last 24 Hour Vital Signs Date Time Temp Pulse Resp B/P Pulse Ox O2 Delivery O2 Flow Rate FiO2 03/05/17 09:05 80 89/59 03/05/17 08:50 Nasal Cannula 03/05/17 08:50 96.1 86 17 137/65 93 Nasal Cannula 2.0 03/05/17 08:50 Nasal Cannula 03/05/17 07:51 Nasal Cannula 4.0 03/05/17 07:50 92 Nasal Cannula 4.0 03/05/17 04:00 97.7 80 18 89/59 92 Nasal Cannula 8.0 03/05/17 00:00 95.7 99 18 127/71 92 Nasal Cannula 8.0 03/04/17 22:11 101 126/84 03/04/17 20:00 98.1 101 17 126/84 03/04/17 19:45 92 Nasal Cannula 2.0 03/04/17 19:45 Nasal Cannula 2.0 03/04/17 16:00 96.8 93 20 122/77 94 Venturi Mask 03/04/17 13:58 77 22 93 Nasal Cannula 4.0 03/04/17 13:48 83 25 94 Venturi Mask 10.0 45 03/04/17 13:10 97.5 03/04/17 12:00 95.7 82 18 130/88 97 Venturi Mask Height (Feet): 5 Height (Inches): 3.00 Weight (Pounds): 128 Respiratory/Chest: lungs clear Cardiovascular: normal rate, regular rhythm, no gallop/murmur Abdomen: soft, non tender Extremities: no edema Microbiology Date/Time Source Procedure Growth Status 03/03/17 11:00 Sputum Gram Stain - Final Resulted 03/03/17 11:00 Sputum Culture - Preliminary Whit Albicans Resulted Laboratory Tests Test 03/04/17 17:00 03/05/17 04:30 Sodium Level 137 mEQ/L (135-145) 141 mEQ/L (135-145) Potassium Level 4.3 mEQ/L (3.4-4.9) # 4.1 mEQ/L (3.4-4.9) Chloride Level 98 mEQ/L (98-107) 101 mEQ/L (98-107) Carbon Dioxide Level 26 mEQ/L (20-30) 32 mEQ/L (20-30) H Anion Gap 13 (5-15) 8 (5-15) Blood Urea Nitrogen 15 mg/dL (7-23) 15 mg/dL (7-23) Creatinine 0.4 mg/dL (0.5-0.9) L 0.4 mg/dL (0.5-0.9) L Estimat Glomerular Filtration Rate > 60 mL/min (>60) > 60 mL/min (>60) Glucose Level 202 mg/dL (74-106) H 110 mg/dL (74-106) H Calcium Level 8.4 mg/dL (8.6-10.2) L 8.3 mg/dL (8.6-10.2) L White Blood Count 11.1 K/UL (4.8-10.8) H Red Blood Count 3.85 M/UL (4.20-5.40) L Hemoglobin 11.7 G/DL (12.0-16.0) L Hematocrit 36.8 % (37.0-47.0) L Mean Corpuscular Volume 96 FL (80-99) Mean Corpuscular Hemoglobin 30.3 PG (27.0-31.0) Mean Corpuscular Hemoglobin Concent 31.6 G/DL (32.0-36.0) L Red Cell Distribution Width 17.3 % (11.6-14.8) H Platelet Count 115 K/UL (150-450) L Mean Platelet Volume 7.3 FL (6.5-10.1) Neutrophils (%) (Auto) % (45.0-75.0) Lymphocytes (%) (Auto) % (20.0-45.0) Monocytes (%) (Auto) % (1.0-10.0) Eosinophils (%) (Auto) % (0.0-3.0) Basophils (%) (Auto) % (0.0-2.0) Differential Total Cells Counted 100 Neutrophils % (Manual) 89 % (45-75) H Lymphocytes % (Manual) 1 % (20-45) L Monocytes % (Manual) 5 % (1-10) Eosinophils % (Manual) 0 % (0-3) Basophils % (Manual) 0 % (0-2) Metamyelocytes % 4 % (0-0) H Myelocytes % 1 % (0-0) H Band Neutrophils 0 % (0-8) Platelet Estimate Decreased L Platelet Morphology Normal Hypochromasia 1+ Anisocytosis 1+ Magnesium Level 2.0 mg/dL (1.7-2.5) Pro-B-Type Natriuretic Peptide 526 pg/mL (0-125) H PJ ALY Mar 05, 2017 11:35
[2017-03-05] MEDS: Morphine Sulfate 2mg/ml Inj IVP PRN ×2 (12:16→12:18)
[2017-03-05] MEDS: Xarelto 15mg tab ORAL SCH (13:58)
[2017-03-05] MEDS: Levalbuterol Inh UD 1.25mg/0.5ml INH PRN ×2 (14:19→20:28)
--- NOTE | 2017-03-05 16:18 | Diagnostic Imaging Report ---
Indications: DYSPHAGIA Technique: Patient ingested multiple substances under the supervision of speech pathology. Video fluoroscopic recording performed. Total fluoroscopy time 235 seconds. Total dose area product cervical and 4603 mGycm2 Comparison: none Findings: Deep laryngeal penetration and likely trace aspiration is seen with ingestion of thin liquid barium. Ingestion of nectar and honey thick liquid barium demonstrates early pooling in the vallecula, equivocal trace laryngeal penetration. Impression: Positive for penetration of thin liquid barium, equivocal trace penetration of other substances Please refer to speech pathology report for more detailed analysis
[2017-03-05 16:56] LABS: INR 1.1 (0.9-1.1); PROTHROMBIN TIME 11.6 SEC (9.30-11.50)
--- NOTE | 2017-03-05 17:13 | Pulmonology Progress Note ---
Assessment/Plan Assessment/Plan 1. Lethargy 2. Possible pneumonia. 3. 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 4. Metastatic lung cancer to the brain. 5. History of pulmonary embolism. 6. Anemia. some dyspnea sat better on n/c again disc w dtr at bedside US thoracentesis Subjective ROS Limited/Unobtainable: Yes Respiratory: Reports: shortness of breath Allergies: Coded Allergies: ASPIRIN (Verified Allergy, Unknown, 02/25/17) NSAIDS (NON-STEROIDAL ANTI-INFLAMMA (Verified Allergy, Unknown, 02/25/17) Subjective weak Objective Last 24 Hour Vital Signs Date Time Temp Pulse Resp B/P Pulse Ox O2 Delivery O2 Flow Rate FiO2 03/05/17 14:27 77 22 93 Nasal Cannula 7.0 03/05/17 14:20 99 22 91 Nasal Cannula 10.0 45 03/05/17 12:48 97.5 03/05/17 12:36 97.5 105 17 150/75 92 Nasal Cannula 8.0 03/05/17 09:05 80 89/59 03/05/17 08:50 Nasal Cannula 03/05/17 08:50 96.1 86 17 137/65 93 Nasal Cannula 2.0 03/05/17 08:50 Nasal Cannula 03/05/17 07:51 Nasal Cannula 4.0 03/05/17 07:50 92 Nasal Cannula 4.0 03/05/17 04:00 97.7 80 18 89/59 92 Nasal Cannula 8.0 03/05/17 00:00 95.7 99 18 127/71 92 Nasal Cannula 8.0 03/04/17 22:11 101 126/84 03/04/17 20:00 98.1 101 17 126/84 03/04/17 19:45 92 Nasal Cannula 2.0 03/04/17 19:45 Nasal Cannula 2.0 Intake and Output 03/04/17 03/05/17 19:00 07:00 Intake Total 120 ml 27.5 ml Output Total 600 ml Balance 120 ml -572.5 ml Intake Oral 120 ml IV Total 27.5 ml Output Urine Total 600 ml # Bowel Movements 2 Objective Cushingoid face HEENT: atraumatic Respiratory/Chest: decreased breath sounds, accessory muscle use Cardiovascular: normal rate Microbiology Date/Time Source Procedure Growth Status 03/03/17 11:00 Sputum Gram Stain - Final Resulted 03/03/17 11:00 Sputum Culture - Preliminary Whit Albicans Resulted Laboratory Tests 03/05/17 04:30: White Blood Count 11.1H, Red Blood Count 3.85L, Hemoglobin 11.7L, Hematocrit 36.8L, Mean Corpuscular Volume 96, Mean Corpuscular Hemoglobin 30.3, Mean Corpuscular Hemoglobin Concent 31.6L, Red Cell Distribution Width 17.3H, Platelet Count 115L, Mean Platelet Volume 7.3, Neutrophils (%) (Auto) , Lymphocytes (%) (Auto) , Monocytes (%) (Auto) , Eosinophils (%) (Auto) , Basophils (%) (Auto) , Differential Total Cells Counted 100, Neutrophils % ( Manual) 89H, Lymphocytes % (Manual) 1L, Monocytes % (Manual) 5, Eosinophils % ( Manual) 0, Basophils % (Manual) 0, Metamyelocytes % 4H, Myelocytes % 1H, Band Neutrophils 0, Platelet Estimate DecreasedL, Platelet Morphology Normal, Hypochromasia 1+, Anisocytosis 1+, Sodium Level 141, Potassium Level 4.1, Chloride Level 101, Carbon Dioxide Level 32H, Anion Gap 8, Blood Urea Nitrogen 15, Creatinine 0.4L, Estimat Glomerular Filtration Rate > 60, Glucose Level 110H , Calcium Level 8.3L, Magnesium Level 2.0, Pro-B-Type Natriuretic Peptide 526H 03/05/17 16:00: Prothrombin Time 11.6H, Prothromb Time International Ratio 1.1, Activated Partial Thromboplast Time 22L Current Medications Medications (Trade) Dose Ordered Sig/Yolanda Route PRN Reason Start Time Stop Time Status Last Admin Dose Admin Acetazolamide (Diamox) 250 mg Q12HR ORAL 03/02/17 21:00 04/01/17 20:59 03/05/17 09:04 Cyanocobalamin (Vitamin B-12) 1,000 mcg DAILY ORAL 03/03/17 09:00 04/02/17 08:59 03/05/17 10:04 Docusate Sodium (Colace) 100 mg TWICE A DAY ORAL 03/02/17 18:00 04/01/17 17:59 03/05/17 09:05 Fentanyl (Duragesic) 1 patch Q72H TDERMAL 03/04/17 17:00 03/11/17 16:59 03/04/17 16:33 Fentanyl (Duragesic) 1 patch Q72H TDERMAL 03/04/17 17:00 03/11/17 16:59 03/04/17 16:34 Furosemide (Lasix) 20 mg DAILY IV 03/03/17 17:00 04/02/17 16:59 03/05/17 09:04 Gabapentin (Neurontin) 100 mg BID ORAL 03/02/17 18:00 04/01/17 17:59 03/05/17 09:05 Gabapentin (Neurontin) 300 mg BEDTIME ORAL 03/02/17 21:00 04/01/17 20:59 03/04/17 22:11 Levalbuterol HCl (Xopenex) 0.625 mg Q6H PRN INH Shortness of Breath 03/03/17 16:00 03/08/17 15:59 03/05/17 14:19 Levetiracetam (Keppra) 500 mg Q12HR ORAL 03/02/17 21:00 04/01/17 20:59 03/05/17 09:04 Metoprolol Tartrate (Lopressor) 12.5 mg Q12HR ORAL 03/04/17 09:00 04/03/17 08:59 03/05/17 09:05 Morphine Sulfate (Morphine Sulfate) 1 mg Q4HR PRN IVP moderate pain 4-6 03/03/17 17:00 03/10/17 16:59 03/05/17 12:18 Morphine Sulfate (Morphine Sulfate) 2 mg Q4H PRN IVP Severe Pain (Pain Scale 7-10) 03/03/17 18:00 03/10/17 17:59 Naloxone HCl (Narcan) 0.1 mg STAT PRN IV RESPIRATORY DISTRESS 03/02/17 11:30 04/01/17 11:29 Pantoprazole (Protonix) 40 mg DAILY IVP 03/04/17 09:00 04/03/17 08:59 03/05/17 09:04 Piperacillin Sod/ Tazobactam Sod/ Sodium Chloride (Zosyn/Sodium Chloride) 110 ml @ 27.5 mls/hr EVERY 8 HOURS IV 03/02/17 14:00 03/07/17 13:59 03/05/17 13:58 Prednisone (predniSONE) 40 mg BID ORAL 03/03/17 18:00 04/02/17 17:59 03/05/17 09:05 Ranitidine HCl (Zantac) 150 mg QHS ORAL 03/02/17 21:00 04/01/17 20:59 03/04/17 22:12 Rivaroxaban (Xarelto) 15 mg QPM ORAL 03/02/17 16:30 04/01/17 16:29 03/04/17 16:26 Salmeterol Xinafoate/ Fluticasone (Advair 250/50 Diskus) 1 puffs BID INH 03/02/17 18:00 04/01/17 17:59 03/04/17 07:47 Tiotropium [place] (Spiriva Inhaler) 1 puff DAILY INH 03/03/17 09:00 04/02/17 08:59 03/04/17 07:47 Vancomycin HCl (Vancomycin) 250 mg FOUR TIMES A DAY ORAL 03/02/17 13:00 03/09/17 12:59 03/05/17 13:58 AL VGEA Mar 05, 2017 17:13
--- NOTE | 2017-03-05 22:27 | General Progress Note ---
Assessment/Plan Assessment/Plan metastatic lung cancer to brain effusion copd ?pneumonia ho PE anemia encephalopathymultiple skin echymosis hypernatremia hypokalemia back wound throbocytopenia hypokalemia steroids per Pulmonary dw Dr Zhao to taper plan on thoracentesis pulmonary hygine respiratory treatments abx per ID wound care xarelto monitor platelets GI saw patient family refusing workup encephalopathy improved monitor bs pt/ot/st dvt and ulcer prohylaxis Subjective Allergies: Coded Allergies: ASPIRIN (Verified Allergy, Unknown, 02/25/17) NSAIDS (NON-STEROIDAL ANTI-INFLAMMA (Verified Allergy, Unknown, 02/25/17) Subjective breathing better is about the same, has effusion on cxr Objective Last 24 Hour Vital Signs Date Time Temp Pulse Resp B/P Pulse Ox O2 Delivery O2 Flow Rate FiO2 03/05/17 21:59 68 133/87 03/05/17 20:35 111 20 93 Nasal Cannula 4.0 03/05/17 20:32 109 20 94 Nasal Cannula 4.0 03/05/17 20:31 Nasal Cannula 4.0 03/05/17 20:30 94 Nasal Cannula 4.0 03/05/17 20:00 97.9 68 20 133/87 90 Nasal Cannula 2.0 03/05/17 16:49 97.0 98 20 160/88 93 Room Air 03/05/17 14:27 77 22 93 Nasal Cannula 7.0 03/05/17 14:20 99 22 91 Nasal Cannula 10.0 45 03/05/17 12:48 97.5 03/05/17 12:36 97.5 105 17 150/75 92 Nasal Cannula 8.0 03/05/17 09:05 80 89/59 03/05/17 08:50 Nasal Cannula 03/05/17 08:50 96.1 86 17 137/65 93 Nasal Cannula 2.0 03/05/17 08:50 Nasal Cannula 03/05/17 07:51 Nasal Cannula 4.0 03/05/17 07:50 92 Nasal Cannula 4.0 03/05/17 04:00 97.7 80 18 89/59 92 Nasal Cannula 8.0 03/05/17 00:00 95.7 99 18 127/71 92 Nasal Cannula 8.0 Intake and Output 03/04/17 03/05/17 19:00 07:00 Intake Total 120 ml 27.5 ml Output Total 600 ml Balance 120 ml -572.5 ml Intake Oral 120 ml IV Total 27.5 ml Output Urine Total 600 ml # Bowel Movements 2 Laboratory Tests 03/05/17 04:30: White Blood Count 11.1H, Red Blood Count 3.85L, Hemoglobin 11.7L, Hematocrit 36.8L, Mean Corpuscular Volume 96, Mean Corpuscular Hemoglobin 30.3, Mean Corpuscular Hemoglobin Concent 31.6L, Red Cell Distribution Width 17.3H, Platelet Count 115L, Mean Platelet Volume 7.3, Neutrophils (%) (Auto) , Lymphocytes (%) (Auto) , Monocytes (%) (Auto) , Eosinophils (%) (Auto) , Basophils (%) (Auto) , Differential Total Cells Counted 100, Neutrophils % ( Manual) 89H, Lymphocytes % (Manual) 1L, Monocytes % (Manual) 5, Eosinophils % ( Manual) 0, Basophils % (Manual) 0, Metamyelocytes % 4H, Myelocytes % 1H, Band Neutrophils 0, Platelet Estimate DecreasedL, Platelet Morphology Normal, Hypochromasia 1+, Anisocytosis 1+, Sodium Level 141, Potassium Level 4.1, Chloride Level 101, Carbon Dioxide Level 32H, Anion Gap 8, Blood Urea Nitrogen 15, Creatinine 0.4L, Estimat Glomerular Filtration Rate > 60, Glucose Level 110H , Calcium Level 8.3L, Magnesium Level 2.0, Pro-B-Type Natriuretic Peptide 526H 03/05/17 16:00: Prothrombin Time 11.6H, Prothromb Time International Ratio 1.1, Activated Partial Thromboplast Time 22L Height (Feet): 5 Height (Inches): 3.00 Weight (Pounds): 128 General Appearance: WD/WN Cardiovascular: normal rate Respiratory/Chest: decreased breath sounds Abdomen: soft Objective multiple echymosis all over improved FRANCIE RAMIREZ Mar 05, 2017 22:27
--- NOTE | 2017-03-05 23:07 | General Progress Note ---
Assessment/Plan Assessment/Plan Assessment - macrocytic anemia - no e/o Fe deficiency - Resp failure/ COPD - met lung CA - PE Recommendations - push po - monitor CBC - no GI w/u per family directives - anticoagulation - PPI Subjective Allergies: Coded Allergies: ASPIRIN (Verified Allergy, Unknown, 02/25/17) NSAIDS (NON-STEROIDAL ANTI-INFLAMMA (Verified Allergy, Unknown, 02/25/17) Subjective awake comfortable no abd pain d/w DTR at bedside (+) BM Objective Last 24 Hour Vital Signs Date Time Temp Pulse Resp B/P Pulse Ox O2 Delivery O2 Flow Rate FiO2 03/05/17 21:59 68 133/87 03/05/17 20:35 111 20 93 Nasal Cannula 4.0 03/05/17 20:32 109 20 94 Nasal Cannula 4.0 03/05/17 20:31 Nasal Cannula 4.0 03/05/17 20:30 94 Nasal Cannula 4.0 03/05/17 20:00 97.9 68 20 133/87 90 Nasal Cannula 2.0 03/05/17 16:49 97.0 98 20 160/88 93 Room Air 03/05/17 14:27 77 22 93 Nasal Cannula 7.0 03/05/17 14:20 99 22 91 Nasal Cannula 10.0 45 03/05/17 12:48 97.5 03/05/17 12:36 97.5 105 17 150/75 92 Nasal Cannula 8.0 03/05/17 09:05 80 89/59 03/05/17 08:50 Nasal Cannula 03/05/17 08:50 96.1 86 17 137/65 93 Nasal Cannula 2.0 03/05/17 08:50 Nasal Cannula 03/05/17 07:51 Nasal Cannula 4.0 03/05/17 07:50 92 Nasal Cannula 4.0 03/05/17 04:00 97.7 80 18 89/59 92 Nasal Cannula 8.0 03/05/17 00:00 95.7 99 18 127/71 92 Nasal Cannula 8.0 Intake and Output 03/04/17 03/05/17 19:00 07:00 Intake Total 120 ml 27.5 ml Output Total 600 ml Balance 120 ml -572.5 ml Intake Oral 120 ml IV Total 27.5 ml Output Urine Total 600 ml # Bowel Movements 2 Laboratory Tests 03/05/17 04:30: White Blood Count 11.1H, Red Blood Count 3.85L, Hemoglobin 11.7L, Hematocrit 36.8L, Mean Corpuscular Volume 96, Mean Corpuscular Hemoglobin 30.3, Mean Corpuscular Hemoglobin Concent 31.6L, Red Cell Distribution Width 17.3H, Platelet Count 115L, Mean Platelet Volume 7.3, Neutrophils (%) (Auto) , Lymphocytes (%) (Auto) , Monocytes (%) (Auto) , Eosinophils (%) (Auto) , Basophils (%) (Auto) , Differential Total Cells Counted 100, Neutrophils % ( Manual) 89H, Lymphocytes % (Manual) 1L, Monocytes % (Manual) 5, Eosinophils % ( Manual) 0, Basophils % (Manual) 0, Metamyelocytes % 4H, Myelocytes % 1H, Band Neutrophils 0, Platelet Estimate DecreasedL, Platelet Morphology Normal, Hypochromasia 1+, Anisocytosis 1+, Sodium Level 141, Potassium Level 4.1, Chloride Level 101, Carbon Dioxide Level 32H, Anion Gap 8, Blood Urea Nitrogen 15, Creatinine 0.4L, Estimat Glomerular Filtration Rate > 60, Glucose Level 110H , Calcium Level 8.3L, Magnesium Level 2.0, Pro-B-Type Natriuretic Peptide 526H 03/05/17 16:00: Prothrombin Time 11.6H, Prothromb Time International Ratio 1.1, Activated Partial Thromboplast Time 22L Height (Feet): 5 Height (Inches): 3.00 Weight (Pounds): 128 Objective Elderly WW NCAT supple Coarse BS RR abd soft NT ND no edema non focal YANI FRANCIS Mar 05, 2017 23:07
[2017-03-06] VITALS (7 sets, daily range): BP systolic 101–149; BP diastolic 56–80
[2017-03-06] MEDS: Piperacillin/Tazobactam 3.375 GM in NS 110 ML IV SCH (05:59)
[2017-03-06 07:20] LABS: MEAN CORPUSCULAR HEMOGLOBIN 30.6 PG (27.0-31.0); MEAN CORPUSCULAR HGB CONC 32.2 G/DL (32.0-36.0); MEAN CORPUSCULAR VOLUME 95 FL (80-99); MEAN PLATELET VOLUME 7.2 FL (6.5-10.1); PLATELET COUNT 119 K/UL (150-450); RED BLOOD COUNT 3.76 M/UL (4.20-5.40); RED CELL DISTRIBUTION WIDTH 16.8 % (11.6-14.8); WHITE BLOOD COUNT 12.1 K/UL (4.8-10.8)
[2017-03-06 07:23] LABS: ALANINE AMINOTRANSFERASE 13 U/L (3-33); ALBUMIN/GLOBULIN RATIO 1.6 (1.0-2.7); ANION GAP 10 (5-15); ASPARTATE AMINO TRANSFERASE 13 U/L (5-40); CARBON DIOXIDE 30 mEQ/L (20-30); CHLORIDE 103 mEQ/L (98-107); CREATININE 0.3 mg/dL (0.5-0.9); GLOMERULAR FILTRATION RATE > 60 mL/min (>60); HEMOLYSIS 9; POTASSIUM 3.1 mEQ/L (3.4-4.9); SODIUM 143 mEQ/L (135-145)
[2017-03-06] MEDS: Advair 250/50 Inhaler - 14 dose INH SCH ×2 (07:25→19:40)
[2017-03-06 08:43] LABS: ANISOCYTOSIS 1+; BAND NEUTROPHILS % (MANUAL) 0 % (0-8); BASOPHILS % (MANUAL) 1 % (0-2); EOSINOPHILS % (MANUAL) 0 % (0-3); HYPOCHROMASIA 1+; LYMPHOCYTES % (MANUAL) 5 % (20-45); METAMYELOCYTES % 4 % (0-0); MYELOCYTES % 1 % (0-0); NEUTROPHILS % (MANUAL) 81 % (45-75); PLATELET ESTIMATE DECREASED; PLATELET MORPHOLOGY NORMAL; SPHEROCYTES 1+; TOTAL CELLS COUNTED 100
[2017-03-06] MEDS: Vancomycin oral 125mg/2.5ml ORAL SCH (08:56)
[2017-03-06] MEDS: levETIRAcetam 500mg/5ml Liquid ORAL SCH ×2 (08:56→20:52)
[2017-03-06] MEDS: Docusate 100mg tablet ORAL SCH ×2 (08:57→17:57)
[2017-03-06] MEDS: Vitamin B-12 500mcg tab ORAL SCH (08:57)
[2017-03-06] MEDS: Metoprolol Tartrate 12.5mg TAB ORAL SCH ×2 (09:00→20:51)
[2017-03-06] MEDS: Pantoprazole Inj IVP SCH (09:00)
[2017-03-06] MEDS: PredniSONE 20mg tab ORAL SCH ×2 (09:05→17:56)
[2017-03-06] MEDS ORDERED: D5NS 1000ml IV ONE (09:38)
[2017-03-06] MEDS ORDERED: NS 275ml ONE (09:38)
--- NOTE | 2017-03-06 10:55 | Infectious Diseases Prog Note ---
Assessment/Plan Assessment/Plan A 1. pneumonia 2. recent c.diff colitis 3. metastatic lung cancer 4. COPD 5. pulmonary emboli 6. rectal VRE colonization P 1.may discontinue Zosyn, PO vancomycin 2. will follow up cultures Subjective ROS Limited/Unobtainable: Yes Gastrointestinal/Abdominal: Reports: diarrhea Allergies: Coded Allergies: ASPIRIN (Verified Allergy, Unknown, 02/25/17) NSAIDS (NON-STEROIDAL ANTI-INFLAMMA (Verified Allergy, Unknown, 02/25/17) Objective Vital Signs Last 24 Hour Vital Signs Date Time Temp Pulse Resp B/P Pulse Ox O2 Delivery O2 Flow Rate FiO2 03/06/17 09:00 86 126/74 03/06/17 08:00 97.3 94 18 107/65 94 Nasal Cannula 5.0 03/06/17 07:25 94 Nasal Cannula 4.0 36 03/06/17 07:25 Nasal Cannula 4.0 36 03/06/17 04:00 97.9 86 22 126/74 93 Nasal Cannula 4.5 03/06/17 00:00 97.7 91 20 122/64 94 Nasal Cannula 4.0 03/05/17 21:59 68 133/87 03/05/17 20:35 111 20 93 Nasal Cannula 4.0 03/05/17 20:32 109 20 94 Nasal Cannula 4.0 03/05/17 20:31 Nasal Cannula 4.0 03/05/17 20:30 94 Nasal Cannula 4.0 03/05/17 20:00 97.9 68 20 133/87 90 Nasal Cannula 2.0 03/05/17 16:49 97.0 98 20 160/88 93 Room Air 03/05/17 14:27 77 22 93 Nasal Cannula 7.0 03/05/17 14:20 99 22 91 Nasal Cannula 10.0 45 03/05/17 12:48 97.5 03/05/17 12:36 97.5 105 17 150/75 92 Nasal Cannula 8.0 Height (Feet): 5 Height (Inches): 3.00 Weight (Pounds): 128 HEENT: mucous membranes moist Respiratory/Chest: decreased breath sounds Cardiovascular: tachycardia Abdomen: soft, non tender Extremities: no edema Neurologic/Psychiatric: alert, responsive Microbiology Date/Time Source Procedure Growth Status 03/03/17 11:00 Sputum Gram Stain - Final Resulted 03/03/17 11:00 Sputum Culture - Preliminary Whit Albicans Gram Negative Bacillus 2 Gram Negative Bacillus 3 Resulted Laboratory Tests Test 03/05/17 16:00 03/06/17 05:45 Prothrombin Time 11.6 SEC (9.30-11.50) H Prothromb Time International Ratio 1.1 (0.9-1.1) Activated Partial Thromboplast Time 22 SEC (23-33) L White Blood Count 12.1 K/UL (4.8-10.8) H Red Blood Count 3.76 M/UL (4.20-5.40) L Hemoglobin 11.5 G/DL (12.0-16.0) L Hematocrit 35.8 % (37.0-47.0) L Mean Corpuscular Volume 95 FL (80-99) Mean Corpuscular Hemoglobin 30.6 PG (27.0-31.0) Mean Corpuscular Hemoglobin Concent 32.2 G/DL (32.0-36.0) Red Cell Distribution Width 16.8 % (11.6-14.8) H Platelet Count 119 K/UL (150-450) L Mean Platelet Volume 7.2 FL (6.5-10.1) Neutrophils (%) (Auto) % (45.0-75.0) Lymphocytes (%) (Auto) % (20.0-45.0) Monocytes (%) (Auto) % (1.0-10.0) Eosinophils (%) (Auto) % (0.0-3.0) Basophils (%) (Auto) % (0.0-2.0) Differential Total Cells Counted 100 Neutrophils % (Manual) 81 % (45-75) H Lymphocytes % (Manual) 5 % (20-45) L Monocytes % (Manual) 8 % (1-10) Eosinophils % (Manual) 0 % (0-3) Basophils % (Manual) 1 % (0-2) Metamyelocytes % 4 % (0-0) H Myelocytes % 1 % (0-0) H Band Neutrophils 0 % (0-8) Platelet Estimate Decreased L Platelet Morphology Normal Hypochromasia 1+ Anisocytosis 1+ Spherocytes 1+ Sodium Level 143 mEQ/L (135-145) Potassium Level 3.1 mEQ/L (3.4-4.9) L Chloride Level 103 mEQ/L (98-107) Carbon Dioxide Level 30 mEQ/L (20-30) Anion Gap 10 (5-15) Blood Urea Nitrogen 20 mg/dL (7-23) Creatinine 0.3 mg/dL (0.5-0.9) L Estimat Glomerular Filtration Rate > 60 mL/min (>60) Glucose Level 110 mg/dL (74-106) H Calcium Level 8.0 mg/dL (8.6-10.2) L Total Bilirubin 0.3 mg/dL (0.0-1.2) Aspartate Amino Transf (AST/SGOT) 13 U/L (5-40) Alanine Aminotransferase (ALT/SGPT) 13 U/L (3-33) Alkaline Phosphatase 68 U/L (35-104) Total Protein 5.0 g/dL (6.6-8.7) L Albumin 3.1 g/dL (3.5-5.2) L Globulin 1.9 g/dL Albumin/Globulin Ratio 1.6 (1.0-2.7) Current Medications Medications (Trade) Dose Ordered Sig/Yolanda Route PRN Reason Start Time Stop Time Status Last Admin Dose Admin Acetazolamide (Diamox) 250 mg Q12HR ORAL 03/02/17 21:00 04/01/17 20:59 03/06/17 08:57 Cyanocobalamin (Vitamin B-12) 1,000 mcg DAILY ORAL 03/03/17 09:00 04/02/17 08:59 03/06/17 08:57 Docusate Sodium (Colace) 100 mg TWICE A DAY ORAL 03/02/17 18:00 04/01/17 17:59 03/06/17 08:57 Fentanyl (Duragesic) 1 patch Q72H TDERMAL 03/04/17 17:00 03/11/17 16:59 03/04/17 16:33 Fentanyl (Duragesic) 1 patch Q72H TDERMAL 03/04/17 17:00 03/11/17 16:59 03/04/17 16:34 Furosemide (Lasix) 20 mg DAILY IV 03/03/17 17:00 04/02/17 16:59 03/06/17 08:59 Gabapentin (Neurontin) 100 mg BID ORAL 03/02/17 18:00 04/01/17 17:59 03/06/17 08:57 Gabapentin (Neurontin) 300 mg BEDTIME ORAL 03/02/17 21:00 04/01/17 20:59 03/05/17 22:00 Levalbuterol HCl (Xopenex) 0.625 mg Q6H PRN INH Shortness of Breath 03/03/17 16:00 03/08/17 15:59 03/05/17 20:28 Levetiracetam (Keppra) 500 mg Q12HR ORAL 03/02/17 21:00 04/01/17 20:59 03/06/17 08:56 Metoprolol Tartrate (Lopressor) 12.5 mg Q12HR ORAL 03/04/17 09:00 04/03/17 08:59 03/05/17 21:59 Morphine Sulfate (Morphine Sulfate) 1 mg Q4HR PRN IVP moderate pain 4-6 03/03/17 17:00 03/10/17 16:59 03/05/17 12:18 Morphine Sulfate (Morphine Sulfate) 2 mg Q4H PRN IVP Severe Pain (Pain Scale 7-10) 03/03/17 18:00 03/10/17 17:59 Naloxone HCl (Narcan) 0.1 mg STAT PRN IV RESPIRATORY DISTRESS 03/02/17 11:30 04/01/17 11:29 Pantoprazole (Protonix) 40 mg DAILY IVP 03/04/17 09:00 04/03/17 08:59 03/06/17 09:00 Piperacillin Sod/ Tazobactam Sod/ Sodium Chloride (Zosyn/Sodium Chloride) 110 ml @ 27.5 mls/hr EVERY 8 HOURS IV 03/02/17 14:00 03/07/17 13:59 03/06/17 05:59 Prednisone (predniSONE) 20 mg BID ORAL 03/06/17 09:00 04/05/17 08:59 03/06/17 09:05 Ranitidine HCl (Zantac) 150 mg QHS ORAL 03/02/17 21:00 04/01/17 20:59 03/05/17 22:00 Rivaroxaban (Xarelto) 15 mg QPM ORAL 03/02/17 16:30 04/01/17 16:29 03/04/17 16:26 Salmeterol Xinafoate/ Fluticasone (Advair 250/50 Diskus) 1 puffs BID INH 03/02/17 18:00 04/01/17 17:59 03/06/17 07:25 Tiotropium [place] (Spiriva Inhaler) 1 puff DAILY INH 03/03/17 09:00 04/02/17 08:59 03/06/17 07:26 Vancomycin HCl (Vancomycin) 250 mg FOUR TIMES A DAY ORAL 03/02/17 13:00 03/09/17 12:59 03/06/17 08:56 SREEDHAR RUBY Mar 06, 2017 10:55
[2017-03-06] MEDS: Morphine Sulfate 2mg/ml Inj IVP PRN (11:41)
--- NOTE | 2017-03-06 12:16 | Pulmonology Progress Note ---
Assessment/Plan Assessment/Plan 1. Lethargy,, improved 2. Possible pneumonia. 3. 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 4. Metastatic lung cancer to the brain. 5. History of pulmonary embolism. 6. Anemia. some dyspnea sat better on n/c again disc w dtr at bedside awaiting US thoracentesis dc planning Subjective Respiratory: Reports: shortness of breath Allergies: Coded Allergies: ASPIRIN (Verified Allergy, Unknown, 02/25/17) NSAIDS (NON-STEROIDAL ANTI-INFLAMMA (Verified Allergy, Unknown, 02/25/17) Subjective weak Objective Last 24 Hour Vital Signs Date Time Temp Pulse Resp B/P Pulse Ox O2 Delivery O2 Flow Rate FiO2 03/06/17 09:00 86 126/74 03/06/17 08:00 97.3 94 18 107/65 94 Nasal Cannula 5.0 03/06/17 07:35 108 20 94 Nasal Cannula 4.0 03/06/17 07:25 88 18 94 Venturi Mask 14.0 55 03/06/17 07:25 94 Nasal Cannula 4.0 36 03/06/17 07:25 Nasal Cannula 4.0 36 03/06/17 04:00 97.9 86 22 126/74 93 Nasal Cannula 4.5 03/06/17 00:00 97.7 91 20 122/64 94 Nasal Cannula 4.0 03/05/17 21:59 68 133/87 03/05/17 20:35 111 20 93 Nasal Cannula 4.0 03/05/17 20:32 109 20 94 Nasal Cannula 4.0 03/05/17 20:31 Nasal Cannula 4.0 03/05/17 20:30 94 Nasal Cannula 4.0 03/05/17 20:00 97.9 68 20 133/87 90 Nasal Cannula 2.0 03/05/17 16:49 97.0 98 20 160/88 93 Room Air 03/05/17 14:27 77 22 93 Nasal Cannula 7.0 03/05/17 14:20 99 22 91 Nasal Cannula 10.0 45 03/05/17 12:48 97.5 03/05/17 12:36 97.5 105 17 150/75 92 Nasal Cannula 8.0 Intake and Output 03/05/17 03/06/17 19:00 07:00 Intake Total 312.5 ml 110.0 ml Output Total 1150 ml 175 ml Balance -837.5 ml -65.0 ml Intake Oral 120 ml IV Total 192.5 ml 110.0 ml Output Urine Total 1150 ml 175 ml Objective Cushingoid face HEENT: anicteric Respiratory/Chest: decreased breath sounds, accessory muscle use Laboratory Tests 03/05/17 16:00: Prothrombin Time 11.6H, Prothromb Time International Ratio 1.1, Activated Partial Thromboplast Time 22L 03/06/17 05:45: White Blood Count 12.1H, Red Blood Count 3.76L, Hemoglobin 11.5L, Hematocrit 35.8L, Mean Corpuscular Volume 95, Mean Corpuscular Hemoglobin 30.6, Mean Corpuscular Hemoglobin Concent 32.2, Red Cell Distribution Width 16.8H, Platelet Count 119L, Mean Platelet Volume 7.2, Neutrophils (%) (Auto) , Lymphocytes (%) (Auto) , Monocytes (%) (Auto) , Eosinophils (%) (Auto) , Basophils (%) (Auto) , Differential Total Cells Counted 100, Neutrophils % ( Manual) 81H, Lymphocytes % (Manual) 5L, Monocytes % (Manual) 8, Eosinophils % ( Manual) 0, Basophils % (Manual) 1, Metamyelocytes % 4H, Myelocytes % 1H, Band Neutrophils 0, Platelet Estimate DecreasedL, Platelet Morphology Normal, Hypochromasia 1+, Anisocytosis 1+, Spherocytes 1+, Sodium Level 143, Potassium Level 3.1L, Chloride Level 103, Carbon Dioxide Level 30, Anion Gap 10, Blood Urea Nitrogen 20, Creatinine 0.3L, Estimat Glomerular Filtration Rate > 60, Glucose Level 110H, Calcium Level 8.0L, Total Bilirubin 0.3, Aspartate Amino Transf (AST/SGOT) 13, Alanine Aminotransferase (ALT/SGPT) 13, Alkaline Phosphatase 68, Total Protein 5.0L, Albumin 3.1L, Globulin 1.9, Albumin/ Globulin Ratio 1.6 Current Medications Medications (Trade) Dose Ordered Sig/Yolanda Route PRN Reason Start Time Stop Time Status Last Admin Dose Admin Acetazolamide (Diamox) 250 mg Q12HR ORAL 03/02/17 21:00 04/01/17 20:59 03/06/17 08:57 Cyanocobalamin (Vitamin B-12) 1,000 mcg DAILY ORAL 03/03/17 09:00 04/02/17 08:59 03/06/17 08:57 Docusate Sodium (Colace) 100 mg TWICE A DAY ORAL 03/02/17 18:00 04/01/17 17:59 03/06/17 08:57 Fentanyl (Duragesic) 1 patch Q72H TDERMAL 03/04/17 17:00 03/11/17 16:59 03/04/17 16:33 Fentanyl (Duragesic) 1 patch Q72H TDERMAL 03/04/17 17:00 03/11/17 16:59 03/04/17 16:34 Furosemide (Lasix) 20 mg DAILY IV 03/03/17 17:00 04/02/17 16:59 03/06/17 08:59 Gabapentin (Neurontin) 100 mg BID ORAL 03/02/17 18:00 04/01/17 17:59 03/06/17 08:57 Gabapentin (Neurontin) 300 mg BEDTIME ORAL 03/02/17 21:00 04/01/17 20:59 03/05/17 22:00 Levalbuterol HCl (Xopenex) 0.625 mg Q6H PRN INH Shortness of Breath 03/03/17 16:00 03/08/17 15:59 03/05/17 20:28 Levetiracetam (Keppra) 500 mg Q12HR ORAL 03/02/17 21:00 04/01/17 20:59 03/06/17 08:56 Metoprolol Tartrate (Lopressor) 12.5 mg Q12HR ORAL 03/04/17 09:00 04/03/17 08:59 03/05/17 21:59 Morphine Sulfate (Morphine Sulfate) 1 mg Q4HR PRN IVP moderate pain 4-6 03/03/17 17:00 03/10/17 16:59 03/06/17 11:41 Morphine Sulfate (Morphine Sulfate) 2 mg Q4H PRN IVP Severe Pain (Pain Scale 7-10) 03/03/17 18:00 03/10/17 17:59 Naloxone HCl (Narcan) 0.1 mg STAT PRN IV RESPIRATORY DISTRESS 03/02/17 11:30 04/01/17 11:29 Pantoprazole (Protonix) 40 mg DAILY IVP 03/04/17 09:00 04/03/17 08:59 03/06/17 09:00 Prednisone (predniSONE) 20 mg BID ORAL 03/06/17 09:00 04/05/17 08:59 03/06/17 09:05 Ranitidine HCl (Zantac) 150 mg QHS ORAL 03/02/17 21:00 04/01/17 20:59 03/05/17 22:00 Rivaroxaban (Xarelto) 15 mg QPM ORAL 03/02/17 16:30 04/01/17 16:29 03/04/17 16:26 Salmeterol Xinafoate/ Fluticasone (Advair 250/50 Diskus) 1 puffs BID INH 03/02/17 18:00 04/01/17 17:59 03/06/17 07:25 Tiotropium [place] (Spiriva Inhaler) 1 puff DAILY INH 03/03/17 09:00 04/02/17 08:59 03/06/17 07:26 AL VEGA Mar 06, 2017 12:16
--- NOTE | 2017-03-06 14:21 | Diagnostic Imaging Report ---
Indication: Post thoracentesis Technique: One view of the chest Comparison: 2016 Findings: Previously demonstrated left pleural effusion is largely resolved, with only some minimal residual costophrenic angle blunting which may reflect a small amount of residual fluid. No pneumothorax is evident. Focal triangular reticular opacity in the right upper lung periphery was probably evident previously, although covered up by an external device, and is probably unchanged and chronic. Some atelectasis or scarring is seen at the right lung base, stable. Atelectasis is seen in the left lung base Impression: Nearly resolved left-sided pleural effusion, postthoracentesis. No radiographically evident complication Other likely mostly chronic findings as noted
--- NOTE | 2017-03-06 15:34 | Brief Operative Note ---
Immediate Post Operative Note Operative Note Chief Complaint: Pleural effusion Pre-op Diagnosis: pleural effusion Procedure: US guided thoracentesis Post-op Diagnosis: same as pre-op Findings: consistent w/pre-op dx studies Surgeon: pastora au Anesthesia: local Specimen: yes - 50 ml fluid sent to lab. Total 400 ml obtained Complications: none Fluids: none Implant(s) used?: No ROQUE AU M.D. Mar 06, 2017 15:34
--- NOTE | 2017-03-06 16:42 | Wound Care Consultation ---
Wound Assessment Wound Assessment #1: Wound Present on Admission: Yes New Wound: No Status Change of Wound: No Wound Location Body Site Modif: mid, upper Wound Location Body Site: back Wound Type: pressure ulcer No Test: Does not No Pressure Ulcer Stage: IV/unstageable Wound Thickness: Full Thickness Wound Length: 7.0 Wound Width: 4.0 Wound Depth: utd Percent of Wound [place]/Red: 10 Percent of Wound Bed Yellow/Wh: 80 Percent of Wound Black/Brown: 10 Wound Drainage Description: Serosanguineous Wound Drainage Amount: Moderate Wound Drainage Odor: None/Absent Tissue Surrounding Wound: Erythemic Wound General Appearance: Reddened, Necrotic Wound Assessment #2: Wound Number: #2 Wound Present on Admission: Yes New Wound: No Status Change of Wound: No Wound Location Body Site Modif: left Wound Location Body Site: heel Wound Type: pressure ulcer No Test: Does not No Pressure Ulcer Stage: deep tissue injury Wound Thickness: Full Thickness Wound Length: 3.0 Wound Width: 3.0 Wound Depth: utd Percent of Wound Purple/Maroon: 100 Wound Drainage Amount: None Wound Drainage Odor: None/Absent Tissue Surrounding Wound: Intact Wound General Appearance: Reddened - maroon Wound Assessment #3: Wound Number: #3 Wound Present on Admission: Yes New Wound: No Status Change of Wound: No Wound Location Body Site Modif: right Wound Location Body Site: heel Wound Type: pressure ulcer No Test: Does not No Pressure Ulcer Stage: deep tissue injury Wound Thickness: Full Thickness Wound Length: 2.5 Wound Width: 2.5 Wound Depth: utd Percent of Wound Purple/Maroon: 100 Wound Drainage Amount: None Wound Drainage Odor: None/Absent Tissue Surrounding Wound: Intact Wound General Appearance: Reddened - maroon Wound Assessment #4: Wound Number: #4 Wound Present on Admission: Yes New Wound: No Status Change of Wound: No Wound Location Body Site Modif: right Wound Location Body Site: metatarsal head - 1st Wound Type: pressure ulcer No Test: Does not No Pressure Ulcer Stage: deep tissue injury Wound Thickness: Full Thickness Wound Length: 0.5 Wound Width: 0.5 Wound Depth: utd Percent of Wound Purple/Maroon: 100 Wound Drainage Amount: None Wound Drainage Odor: None/Absent Tissue Surrounding Wound: Intact Wound General Appearance: Reddened Wound Assessment #5: Wound Number: #5 Wound Present on Admission: Yes New Wound: No Status Change of Wound: No Wound Location Body Site Modif: left, upper Wound Location Body Site: back Wound Type: pressure ulcer No Test: Does not No Pressure Ulcer Stage: IV/unstageable Wound Thickness: Full Thickness Wound Length: 2.0 Wound Width: 4.0 Wound Depth: utd Percent of Wound Purple/Maroon: 100 Wound Drainage Description: Serosanguineous Wound Drainage Amount: Scant Wound Drainage Odor: None/Absent Tissue Surrounding Wound: Erythemic Wound General Appearance: Reddened, Draining Wound Assessment #6: Wound Number: #6 Wound Present on Admission: Yes New Wound: No Status Change of Wound: No Wound Location Body Site Modif: left, right Wound Location Body Site: arm Wound Type: ecchymosis - multiple ruptured and intact ecchymosis. No Test: Does not No Percent of Wound [place]/Red: 100 Wound Drainage Description: Serous Wound Drainage Amount: Scant Wound Drainage Odor: None/Absent Tissue Surrounding Wound: Erythemic Wound General Appearance: Reddened, Bleeding Wound Assessment #7: Wound Number: #7 Wound Present on Admission: Yes New Wound: No Status Change of Wound: No Wound Location Body Site Modif: left, right, lower Wound Location Body Site: leg Wound Type: ecchymosis - multiple open and intact No Test: Does not No Percent of Wound [place]/Red: 50 Percent of Wound Purple/Maroon: 50 Wound Drainage Amount: None Wound Drainage Odor: None/Absent Tissue Surrounding Wound: Erythemic Wound General Appearance: Reddened, Blackened - scabs forming. Wound Assessment #8: Wound Number: #8 Wound Present on Admission: Yes New Wound: No Status Change of Wound: No Wound Location Body Site Modif: mid Wound Location Body Site: sacral Wound Type: pressure ulcer No Test: Does not On Pressure Ulcer Stage: deep tissue injury Wound Thickness: Full Thickness Wound Length: 5.0 Wound Width: 4.0 Wound Depth: utd Percent of Wound [place]/Red: 50 Percent of Wound Purple/Maroon: 50 Wound Drainage Amount: None Wound Drainage Odor: None/Absent Tissue Surrounding Wound: Intact Wound General Appearance: Reddened - maroon Wound Assessment #9: Wound Number: #9 Wound Present on Admission: Yes New Wound: No Status Change of Wound: No Wound Location Body Site Modif: other - generalized body, posterior back shoulders Wound Type: ecchymosis - intact and ruptured ecchymosis. No Test: Does not No Percent of Wound [place]/Red: 50 Percent of Wound Purple/Maroon: 50 Wound Drainage Description: Serous Wound Drainage Amount: Moderate Wound Drainage Odor: None/Absent Tissue Surrounding Wound: Erythemic Wound General Appearance: Reddened, Bleeding Wound Assessment #10: Wound Number: #10 Wound Present on Admission: Yes New Wound: No Status Change of Wound: No Wound Location Body Site Modif: left, right Wound Location Body Site: breast fold Wound Type: rash - intertrigo rash No Test: Does not No Percent of Wound [place]/Red: 100 Wound Drainage Amount: None Wound Drainage Odor: None/Absent Tissue Surrounding Wound: Intact Wound General Appearance: Reddened Wound Assessment #11: Wound Number: #11 Wound Present on Admission: Yes New Wound: No Status Change of Wound: No Wound Location Body Site Modif: left, medial Wound Location Body Site: knee Wound Type: pressure ulcer No Test: Does not No Pressure Ulcer Stage: deep tissue injury Wound Thickness: Full Thickness Wound Length: 1.0 Wound Width: 1.0 Wound Depth: utd Percent of Wound Purple/Maroon: 100 Wound Drainage Amount: None Wound Drainage Odor: None/Absent Tissue Surrounding Wound: Intact Wound General Appearance: Reddened Wound Assessment #12: Wound Number: #12 Wound Present on Admission: Yes New Wound: No Status Change of Wound: No Wound Location Body Site: perineal area - extending to perianal area Wound Type: chemical burn No Test: Does not No Percent of Wound [place]/Red: 100 Wound Drainage Amount: None Wound Drainage Odor: None/Absent Tissue Surrounding Wound: Erythemic Wound General Appearance: Reddened, Open to air Wound Assessment #13: Wound Number: #13 Wound Present on Admission: Yes New Wound: No Status Change of Wound: Yes - noted large ecchymosis ruptured. Wound Location Body Site Modif: mid, upper Wound Location Body Site: back Wound Type: ecchymosis - ruptured ecchymosis two sites close in proximity. No Test: Does not No Wound Thickness: Partial Thickness Wound Length: 8.0 Wound Width: 8.0 Wound Depth: 0.1 Percent of Wound [place]/Red: 50 Percent of Wound Purple/Maroon: 50 Wound Drainage Description: Serous Wound Drainage Amount: Moderate Wound Drainage Odor: None/Absent Tissue Surrounding Wound: Denuded Wound General Appearance: Reddened, Bleeding Wound Comment #1 Mid upper back stage IV/unstageable pressure ulcer- upon reassessment noted decrease in thickness in slough. no further deterioration present able to see 10 % pink scattered wound bed. #2 Sacral DTI pressure ulcer- no further change noted site remains intact. #3 Left heel DTI pressure ulcer-no further change noted site remains intact. #4 Right heel DTI pressure ulcer-no further change noted site remains intact. #5 Left upper back stage IV/unstageable pressure ulcer-no further change noted, continue current plan of care. #6 Left and right arms multiple open and intact ecchymosis #7 Left and right lower Legs with multiple open and intact ecchymosis #8 Left medial knee DTI pressure ulcer-no further change noted site remains intact. #9 Left and right under breast rashes - noted slight redness to site. #10 Open and intact ecchymosis on different part of the body, generalized scattered throughout body , posterior upper back #11 Right 1st metatarsal DTI pressure ulcer-no further change noted site remains intact. #12 Perineal extending to perianal chemical burn. cleanse with soap and water pat dry, apply TRIAD , leave open to air BID and PRN if soiled/dislodged. #13 mid upper posterior back ruptured ecchymosis- cleanse with normal saline, pat dry , lightly apply hydrogel cover with Biatain dressing DAILY and PRN if soiled/dislodged. Recommendation -Local wound care per protocol for DTI -Mid upper back unstageable pressure ulcer Cleanse with saline, pat dry, apply Therahoney gel to wound bed, apply Triad to periwound area, cover with Biatain silicone daily and PRN soiled/dislodged -Left upper back unstageable pressure ulcer Cleanse with saline pat dry apply Triad cream cover with Biatain silicone daily and PRN soiled/dislodged -Keep clean and dry -Turn and reposition -Optimize nutrition -Offload both heels -Low air loss mattress with AP -Local wound care as ordered -Assess and f/u accordingly for any changes CHUCK GABRIEL Mar 06, 2017 16:42
[2017-03-06] MEDS: Xarelto 15mg tab ORAL SCH (17:56)
[2017-03-06] MEDS: Nystatin Powder 100,000 units/gm 15gm TOPIC SCH (17:56)
[2017-03-06 19:57] LABS: APPEARANCE, BODY FLUID BLOODY; BD FL VOLUME 27 mL
[2017-03-06 22:06] LABS: BODY FLUID NUCLEATED CELLS 1075 /CUMM; BODY FLUID RBC 27000 /CUMM
--- NOTE | 2017-03-06 22:12 | General Progress Note ---
Assessment/Plan Assessment/Plan Assessment - Anemia / thrombocytopenia - OB (+) stools - no e/o Fe deficiency - Resp failure/ COPD - met lung CA - PE Recommendations - push po - monitor CBC - no GI w/u per family directives - anticoagulation - PPI Subjective Allergies: Coded Allergies: ASPIRIN (Verified Allergy, Unknown, 02/25/17) NSAIDS (NON-STEROIDAL ANTI-INFLAMMA (Verified Allergy, Unknown, 02/25/17) Subjective awake comfortable no abd pain d/w DTRs at bedside (+) PO - slowly Objective Last 24 Hour Vital Signs Date Time Temp Pulse Resp B/P Pulse Ox O2 Delivery O2 Flow Rate FiO2 03/06/17 21:23 98.1 100 20 101/71 94 Nasal Cannula 03/06/17 20:51 110 114/64 03/06/17 20:00 98.1 100 20 101/71 94 Nasal Cannula 03/06/17 19:40 Nasal Cannula 5.0 03/06/17 19:40 93 Nasal Cannula 5.0 03/06/17 16:00 97.6 117 18 149/56 98 Nasal Cannula 5.0 03/06/17 12:00 97.7 118 22 124/80 93 Nasal Cannula 5.0 03/06/17 09:00 86 126/74 03/06/17 08:00 97.3 94 18 107/65 94 Nasal Cannula 5.0 03/06/17 07:35 108 20 94 Nasal Cannula 4.0 03/06/17 07:25 88 18 94 Venturi Mask 14.0 55 03/06/17 07:25 94 Nasal Cannula 4.0 36 03/06/17 07:25 Nasal Cannula 4.0 36 03/06/17 04:00 97.9 86 22 126/74 93 Nasal Cannula 4.5 03/06/17 00:00 97.7 91 20 122/64 94 Nasal Cannula 4.0 Intake and Output 03/05/17 03/06/17 19:00 07:00 Intake Total 312.5 ml 110.0 ml Output Total 1150 ml 175 ml Balance -837.5 ml -65.0 ml Intake Oral 120 ml IV Total 192.5 ml 110.0 ml Output Urine Total 1150 ml 175 ml Laboratory Tests 03/06/17 05:45: White Blood Count 12.1H, Red Blood Count 3.76L, Hemoglobin 11.5L, Hematocrit 35.8L, Mean Corpuscular Volume 95, Mean Corpuscular Hemoglobin 30.6, Mean Corpuscular Hemoglobin Concent 32.2, Red Cell Distribution Width 16.8H, Platelet Count 119L, Mean Platelet Volume 7.2, Neutrophils (%) (Auto) , Lymphocytes (%) (Auto) , Monocytes (%) (Auto) , Eosinophils (%) (Auto) , Basophils (%) (Auto) , Differential Total Cells Counted 100, Neutrophils % ( Manual) 81H, Lymphocytes % (Manual) 5L, Monocytes % (Manual) 8, Eosinophils % ( Manual) 0, Basophils % (Manual) 1, Metamyelocytes % 4H, Myelocytes % 1H, Band Neutrophils 0, Platelet Estimate DecreasedL, Platelet Morphology Normal, Hypochromasia 1+, Anisocytosis 1+, Spherocytes 1+, Sodium Level 143, Potassium Level 3.1L, Chloride Level 103, Carbon Dioxide Level 30, Anion Gap 10, Blood Urea Nitrogen 20, Creatinine 0.3L, Estimat Glomerular Filtration Rate > 60, Glucose Level 110H, Calcium Level 8.0L, Total Bilirubin 0.3, Aspartate Amino Transf (AST/SGOT) 13, Alanine Aminotransferase (ALT/SGPT) 13, Alkaline Phosphatase 68, Total Protein 5.0L, Albumin 3.1L, Globulin 1.9, Albumin/ Globulin Ratio 1.6 03/06/17 12:15: Body Fluid Source Thorancentesis, Body Fluid Volume 27, Body Fluid Appearance Bloody, Body Fluid [place] [address], Body Fluid Total Nucleated Cells 1075, Body Fluid Polynuclear WBCs (%) [Pending], Body Fluid Mononuclear WBCs (%) [Pending], Body Fluid Mesothelial Cells (%) [Pending], Body Fluid Glucose [Pending], Body Fluid Total Protein [Pending] Height (Feet): 5 Height (Inches): 3.00 Weight (Pounds): 128 Objective Elderly WW NCAT supple Coarse BS RR abd soft NT slightly distended no edema non focal YANI FRANCIS Mar 06, 2017 22:12
--- NOTE | 2017-03-06 22:49 | General Progress Note ---
Assessment/Plan Assessment/Plan metastatic lung cancer to brain effusion copd ?pneumonia ho PE anemia encephalopathymultiple skin echymosis hypernatremia hypokalemia back wound throbocytopenia hypokalemia steroids per Pulmonary dw Dr Zhao to taper plan on thoracentesis still pending pulmonary hygine respiratory treatments abx per ID wound care xarelto monitor platelets GI saw patient family refusing workup encephalopathy improved monitor bs replace potassium pt/ot/st dvt and ulcer prohylaxis Subjective Allergies: Coded Allergies: ASPIRIN (Verified Allergy, Unknown, 02/25/17) NSAIDS (NON-STEROIDAL ANTI-INFLAMMA (Verified Allergy, Unknown, 02/25/17) Subjective breathing better is about the same, has effusion on cxrawaiting thoracentesis Objective Last 24 Hour Vital Signs Date Time Temp Pulse Resp B/P Pulse Ox O2 Delivery O2 Flow Rate FiO2 03/06/17 21:23 98.1 100 20 101/71 94 Nasal Cannula 03/06/17 20:51 110 114/64 03/06/17 20:00 98.1 100 20 101/71 94 Nasal Cannula 03/06/17 19:40 Nasal Cannula 5.0 03/06/17 19:40 93 Nasal Cannula 5.0 03/06/17 16:00 97.6 117 18 149/56 98 Nasal Cannula 5.0 03/06/17 12:00 97.7 118 22 124/80 93 Nasal Cannula 5.0 03/06/17 09:00 86 126/74 03/06/17 08:00 97.3 94 18 107/65 94 Nasal Cannula 5.0 03/06/17 07:35 108 20 94 Nasal Cannula 4.0 03/06/17 07:25 88 18 94 Venturi Mask 14.0 55 03/06/17 07:25 94 Nasal Cannula 4.0 36 03/06/17 07:25 Nasal Cannula 4.0 36 03/06/17 04:00 97.9 86 22 126/74 93 Nasal Cannula 4.5 03/06/17 00:00 97.7 91 20 122/64 94 Nasal Cannula 4.0 Intake and Output 03/05/17 03/06/17 19:00 07:00 Intake Total 312.5 ml 110.0 ml Output Total 1150 ml 175 ml Balance -837.5 ml -65.0 ml Intake Oral 120 ml IV Total 192.5 ml 110.0 ml Output Urine Total 1150 ml 175 ml Laboratory Tests 03/06/17 05:45: White Blood Count 12.1H, Red Blood Count 3.76L, Hemoglobin 11.5L, Hematocrit 35.8L, Mean Corpuscular Volume 95, Mean Corpuscular Hemoglobin 30.6, Mean Corpuscular Hemoglobin Concent 32.2, Red Cell Distribution Width 16.8H, Platelet Count 119L, Mean Platelet Volume 7.2, Neutrophils (%) (Auto) , Lymphocytes (%) (Auto) , Monocytes (%) (Auto) , Eosinophils (%) (Auto) , Basophils (%) (Auto) , Differential Total Cells Counted 100, Neutrophils % ( Manual) 81H, Lymphocytes % (Manual) 5L, Monocytes % (Manual) 8, Eosinophils % ( Manual) 0, Basophils % (Manual) 1, Metamyelocytes % 4H, Myelocytes % 1H, Band Neutrophils 0, Platelet Estimate DecreasedL, Platelet Morphology Normal, Hypochromasia 1+, Anisocytosis 1+, Spherocytes 1+, Sodium Level 143, Potassium Level 3.1L, Chloride Level 103, Carbon Dioxide Level 30, Anion Gap 10, Blood Urea Nitrogen 20, Creatinine 0.3L, Estimat Glomerular Filtration Rate > 60, Glucose Level 110H, Calcium Level 8.0L, Total Bilirubin 0.3, Aspartate Amino Transf (AST/SGOT) 13, Alanine Aminotransferase (ALT/SGPT) 13, Alkaline Phosphatase 68, Total Protein 5.0L, Albumin 3.1L, Globulin 1.9, Albumin/ Globulin Ratio 1.6 03/06/17 12:15: Body Fluid Source Thorancentesis, Body Fluid Volume 27, Body Fluid Appearance Bloody, [place] [address], Body Fluid Total Nucleated Cells 1075, Body Fluid Polynuclear WBCs (%) [Pending], Body Fluid Mononuclear WBCs (%) [Pending], Body Fluid Mesothelial Cells (%) [Pending], Body Fluid Glucose [Pending], Body Fluid Total Protein [Pending] Height (Feet): 5 Height (Inches): 3.00 Weight (Pounds): 128 General Appearance: WD/WN EENT: pharynx normal Cardiovascular: normal rate Respiratory/Chest: decreased breath sounds Abdomen: soft Objective multiple echymosis all over improved FRANCIE RAMIREZ Mar 06, 2017 22:49
[2017-03-07] VITALS: BP 111/67
[2017-03-07 04:00] VITALS: BP 119/70
[2017-03-07 07:07] LABS: MEAN CORPUSCULAR HEMOGLOBIN 30.5 PG (27.0-31.0); MEAN CORPUSCULAR HGB CONC 31.6 G/DL (32.0-36.0); MEAN CORPUSCULAR VOLUME 97 FL (80-99); MEAN PLATELET VOLUME 7.7 FL (6.5-10.1); PLATELET COUNT 128 K/UL (150-450); RED BLOOD COUNT 3.95 M/UL (4.20-5.40); RED CELL DISTRIBUTION WIDTH 17.5 % (11.6-14.8); WHITE BLOOD COUNT 12.1 K/UL (4.8-10.8)
[2017-03-07 07:23] LABS: ANION GAP 7 (5-15); CALCIUM 8.3 mg/dL (8.6-10.2); CARBON DIOXIDE 31 mEQ/L (20-30); CHLORIDE 106 mEQ/L (98-107); CREATININE 0.3 mg/dL (0.5-0.9); GLOMERULAR FILTRATION RATE > 60 mL/min (>60); HEMOLYSIS 5; MAGNESIUM 1.6 mg/dL (1.7-2.5); POTASSIUM 3.8 mEQ/L (3.4-4.9); SODIUM 144 mEQ/L (135-145)
[2017-03-07 08:00] VITALS: BP 126/70
[2017-03-07 08:31] LABS: MONONUCLEAR WBC 24 %; POLYMORPHONUCLEAR WBC 20 %
[2017-03-07] MEDS: Advair 250/50 Inhaler - 14 dose INH SCH ×2 (09:00→19:03)
[2017-03-07 09:10] LABS: COMMENT,BODY FLUID PATHOLOGIST COMMENT
[2017-03-07] MEDS: levETIRAcetam 500mg/5ml Liquid ORAL SCH ×2 (09:42→21:21)
[2017-03-07] MEDS: Docusate 100mg tablet ORAL SCH ×2 (09:43→18:00)
[2017-03-07] MEDS: Vitamin B-12 500mcg tab ORAL SCH (09:43)
[2017-03-07] MEDS: Pantoprazole Inj IVP SCH (09:43)
[2017-03-07] MEDS: Metoprolol Tartrate 12.5mg TAB ORAL SCH ×2 (09:43→21:00)
[2017-03-07] MEDS: PredniSONE 20mg tab ORAL SCH ×2 (09:43→17:23)
[2017-03-07] MEDS: Nystatin Powder 100,000 units/gm 15gm TOPIC SCH ×3 (10:23→17:23)
[2017-03-07] MEDS: Levalbuterol Inh UD 1.25mg/0.5ml INH PRN (11:25)
--- NOTE | 2017-03-07 11:42 | Infectious Diseases Prog Note ---
Assessment/Plan Assessment/Plan antibiotics : A 1. stenotrophomonas pneumonia 2. recent c.diff colitis s/p rx 3. metastatic lung cancer 4. COPD 5. pulmonary emboli 6. rectal VRE colonization P 1. start bactrim 2. will follow up cultures Subjective Constitutional: Denies: chills, fever Respiratory: Denies: dry cough, shortness of breath Gastrointestinal/Abdominal: Denies: diarrhea, nausea, vomiting Musculoskeletal: Denies: pain Allergies: Coded Allergies: ASPIRIN (Verified Allergy, Unknown, 02/25/17) NSAIDS (NON-STEROIDAL ANTI-INFLAMMA (Verified Allergy, Unknown, 02/25/17) Objective Vital Signs Last 24 Hour Vital Signs Date Time Temp Pulse Resp B/P Pulse Ox O2 Delivery O2 Flow Rate FiO2 03/07/17 11:26 102 18 90 Nasal Cannula 5.0 03/07/17 11:26 102 18 90 Nasal Cannula 5.0 03/07/17 09:43 104 126/70 03/07/17 09:22 Nasal Cannula 5.0 03/07/17 09:22 91 Nasal Cannula 5.0 03/07/17 09:22 104 18 91 Nasal Cannula 5.0 03/07/17 09:22 104 16 91 Nasal Cannula 5.0 03/07/17 08:00 97.9 108 18 126/70 99 Room Air 03/07/17 04:00 97.2 97 20 119/70 90 Nasal Cannula 5.0 03/07/17 00:00 97.1 91 20 111/67 92 Nasal Cannula 03/06/17 21:23 98.1 100 20 101/71 94 Nasal Cannula 03/06/17 20:51 110 114/64 03/06/17 20:00 98.1 100 20 101/71 94 Nasal Cannula 03/06/17 19:40 Nasal Cannula 5.0 03/06/17 19:40 93 Nasal Cannula 5.0 03/06/17 16:00 97.6 117 18 149/56 98 Nasal Cannula 5.0 03/06/17 12:00 97.7 118 22 124/80 93 Nasal Cannula 5.0 Height (Feet): 5 Height (Inches): 3.00 Weight (Pounds): 128 Respiratory/Chest: lungs clear Cardiovascular: normal rate, regular rhythm, no gallop/murmur Abdomen: soft, non tender Extremities: no edema Laboratory Tests Test 03/06/17 12:15 03/07/17 04:50 Body Fluid Source Thorancentesis Body Fluid Volume 27 mL Body Fluid Appearance Bloody Body Fl[place] 54775 /CUMM Body Fluid Total Nucleated Cells 1075 /CUMM Body Fluid Polynuclear WBCs (%) 20 % Body Fluid Mononuclear WBCs (%) 24 % Body Fluid Mesothelial Cells (%) 56 % Body Fluid Glucose Pending Body Fluid Total Protein Pending Body Fluid Comment Pathologist comment White Blood Count 12.1 K/UL (4.8-10.8) H Red Blood Count 3.95 M/UL (4.20-5.40) L Hemoglobin 12.1 G/DL (12.0-16.0) Hematocrit 38.3 % (37.0-47.0) Mean Corpuscular Volume 97 FL (80-99) Mean Corpuscular Hemoglobin 30.5 PG (27.0-31.0) Mean Corpuscular Hemoglobin Concent 31.6 G/DL (32.0-36.0) L Red Cell Distribution Width 17.5 % (11.6-14.8) H Platelet Count 128 K/UL (150-450) L Mean Platelet Volume 7.7 FL (6.5-10.1) Neutrophils (%) (Auto) % (45.0-75.0) Lymphocytes (%) (Auto) % (20.0-45.0) Monocytes (%) (Auto) % (1.0-10.0) Eosinophils (%) (Auto) % (0.0-3.0) Basophils (%) (Auto) % (0.0-2.0) Neutrophils % (Manual) Pending Lymphocytes % (Manual) Pending Platelet Estimate Pending Platelet Morphology Pending Sodium Level 144 mEQ/L (135-145) Potassium Level 3.8 mEQ/L (3.4-4.9) Chloride Level 106 mEQ/L (98-107) Carbon Dioxide Level 31 mEQ/L (20-30) H Anion Gap 7 (5-15) Blood Urea Nitrogen 23 mg/dL (7-23) Creatinine 0.3 mg/dL (0.5-0.9) L Estimat Glomerular Filtration Rate > 60 mL/min (>60) Glucose Level 88 mg/dL (74-106) Calcium Level 8.3 mg/dL (8.6-10.2) L Magnesium Level 1.6 mg/dL (1.7-2.5) L Pro-B-Type Natriuretic Peptide 495 pg/mL (0-125) H PJ ALY Mar 07, 2017 11:42
[2017-03-07 11:56] LABS: ANISOCYTOSIS 1+; BAND NEUTROPHILS % (MANUAL) 2 % (0-8); BASOPHILS % (MANUAL) 0 % (0-2); EOSINOPHILS % (MANUAL) 1 % (0-3); HYPOCHROMASIA 1+; LYMPHOCYTES % (MANUAL) 7 % (20-45); NEUTROPHILS % (MANUAL) 81 % (45-75); PLATELET ESTIMATE DECREASED; PLATELET MORPHOLOGY NORMAL; TOTAL CELLS COUNTED 100
[2017-03-07 12:00] VITALS: BP 106/58
[2017-03-07] MEDS: Morphine Sulfate 2mg/ml Inj IVP PRN ×2 (12:41→17:39)
[2017-03-07] MEDS: Bactrim DS (160mg/800mg) tab ORAL SCH ×2 (13:54→21:21)
--- NOTE | 2017-03-07 14:40 | Pulmonology Progress Note ---
Assessment/Plan Assessment/Plan 1. Lethargy, improved 2. Possible pneumonia. 3. 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 4. Metastatic lung cancer to the brain. 5. History of pulmonary embolism. 6. Anemia. still has dyspnea not better after thoracentesis atypical cells in pleural fluid; final path pdg sat worse on ventimask now disc w Dr Mendosa and with dtr at bedside; advised the patient is doing poorly and few options to make her better rec hospice, dtr reluctant Subjective ROS Limited/Unobtainable: Yes Respiratory: Reports: shortness of breath Allergies: Coded Allergies: ASPIRIN (Verified Allergy, Unknown, 02/25/17) NSAIDS (NON-STEROIDAL ANTI-INFLAMMA (Verified Allergy, Unknown, 02/25/17) Subjective weak Objective Last 24 Hour Vital Signs Date Time Temp Pulse Resp B/P Pulse Ox O2 Delivery O2 Flow Rate FiO2 03/07/17 12:00 97.3 94 18 106/58 91 Room Air 03/07/17 11:26 102 18 90 Nasal Cannula 5.0 03/07/17 11:26 102 18 90 Nasal Cannula 5.0 03/07/17 09:43 104 126/70 03/07/17 09:22 Nasal Cannula 5.0 03/07/17 09:22 91 Nasal Cannula 5.0 03/07/17 09:22 104 18 91 Nasal Cannula 5.0 03/07/17 09:22 104 16 91 Nasal Cannula 5.0 03/07/17 08:00 97.9 108 18 126/70 99 Room Air 03/07/17 04:00 97.2 97 20 119/70 90 Nasal Cannula 5.0 03/07/17 00:00 97.1 91 20 111/67 92 Nasal Cannula 03/06/17 21:23 98.1 100 20 101/71 94 Nasal Cannula 03/06/17 20:51 110 114/64 03/06/17 20:00 98.1 100 20 101/71 94 Nasal Cannula 03/06/17 19:40 Nasal Cannula 5.0 03/06/17 19:40 93 Nasal Cannula 5.0 03/06/17 16:00 97.6 117 18 149/56 98 Nasal Cannula 5.0 Objective Cushingoid face Respiratory/Chest: respiratory distress Laboratory Tests 03/07/17 04:50: White Blood Count 12.1H, Red Blood Count 3.95L, Hemoglobin 12.1, Hematocrit 38.3 , Mean Corpuscular Volume 97, Mean Corpuscular Hemoglobin 30.5, Mean Corpuscular Hemoglobin Concent 31.6L, Red Cell Distribution Width 17.5H, Platelet Count 128L, Mean Platelet Volume 7.7, Neutrophils (%) (Auto) , Lymphocytes (%) (Auto) , Monocytes (%) (Auto) , Eosinophils (%) (Auto) , Basophils (%) (Auto) , Differential Total Cells Counted 100, Neutrophils % ( Manual) 81H, Lymphocytes % (Manual) 7L, Monocytes % (Manual) 9, Eosinophils % ( Manual) 1, Basophils % (Manual) 0, Band Neutrophils 2, Platelet Estimate DecreasedL, Platelet Morphology Normal, Hypochromasia 1+, Anisocytosis 1+, Sodium Level 144, Potassium Level 3.8, Chloride Level 106, Carbon Dioxide Level 31H, Anion Gap 7, Blood Urea Nitrogen 23, Creatinine 0.3L, Estimat Glomerular Filtration Rate > 60, Glucose Level 88, Calcium Level 8.3L, Magnesium Level 1.6L , Pro-B-Type Natriuretic Peptide 495H Current Medications Medications (Trade) Dose Ordered Sig/Yolanda Route PRN Reason Start Time Stop Time Status Last Admin Dose Admin Acetazolamide (Diamox) 250 mg Q12HR ORAL 03/02/17 21:00 04/01/17 20:59 03/07/17 09:43 Cyanocobalamin (Vitamin B-12) 1,000 mcg DAILY ORAL 03/03/17 09:00 04/02/17 08:59 03/07/17 09:43 Docusate Sodium (Colace) 100 mg TWICE A DAY ORAL 03/02/17 18:00 04/01/17 17:59 03/06/17 08:57 Fentanyl (Duragesic) 1 patch Q72H TDERMAL 03/04/17 17:00 03/11/17 16:59 03/04/17 16:33 Fentanyl (Duragesic) 1 patch Q72H TDERMAL 03/04/17 17:00 03/11/17 16:59 03/04/17 16:34 Furosemide (Lasix) 20 mg DAILY IV 03/03/17 17:00 04/02/17 16:59 03/07/17 09:42 Gabapentin (Neurontin) 100 mg BID ORAL 03/02/17 18:00 04/01/17 17:59 03/07/17 09:42 Gabapentin (Neurontin) 300 mg BEDTIME ORAL 03/02/17 21:00 04/01/17 20:59 03/06/17 20:52 Levalbuterol HCl (Xopenex) 0.625 mg Q6H PRN INH Shortness of Breath 03/03/17 16:00 03/08/17 15:59 03/07/17 11:25 Levetiracetam (Keppra) 500 mg Q12HR ORAL 03/02/17 21:00 04/01/17 20:59 03/07/17 09:42 Metoprolol Tartrate (Lopressor) 12.5 mg Q12HR ORAL 03/04/17 09:00 04/03/17 08:59 03/07/17 09:43 Morphine Sulfate (Morphine Sulfate) 1 mg Q4HR PRN IVP moderate pain 4-6 03/03/17 17:00 03/10/17 16:59 03/07/17 12:41 Morphine Sulfate (Morphine Sulfate) 2 mg Q4H PRN IVP Severe Pain (Pain Scale 7-10) 03/03/17 18:00 03/10/17 17:59 Naloxone HCl (Narcan) 0.1 mg STAT PRN IV RESPIRATORY DISTRESS 03/02/17 11:30 04/01/17 11:29 Nystatin (Nystop Powder) 1 applic THREE TIMES A DAY TOPIC 03/06/17 18:00 04/05/17 17:59 03/06/17 17:56 Pantoprazole (Protonix) 40 mg DAILY IVP 03/04/17 09:00 04/03/17 08:59 03/07/17 09:43 Prednisone (predniSONE) 20 mg BID ORAL 03/06/17 09:00 04/05/17 08:59 03/07/17 09:43 Ranitidine HCl (Zantac) 150 mg QHS ORAL 03/02/17 21:00 04/01/17 20:59 03/06/17 20:51 Rivaroxaban (Xarelto) 15 mg QPM ORAL 03/02/17 16:30 04/01/17 16:29 03/06/17 17:56 Salmeterol Xinafoate/ Fluticasone (Advair 250/50 Diskus) 1 puffs BID INH 03/02/17 18:00 04/01/17 17:59 03/06/17 07:25 Tiotropium [place] (Spiriva Inhaler) 1 puff DAILY INH 03/03/17 09:00 04/02/17 08:59 03/06/17 07:26 Trimethoprim/ Sulfamethoxazole (Bactrim-DS) 1 ea DAILY ORAL 03/08/17 09:00 03/13/17 09:01 Trimethoprim/ Sulfamethoxazole (Bactrim-DS) 1 ea Q12HR ORAL 03/07/17 13:00 03/07/17 22:00 03/07/17 13:54 AL VEGA Mar 07, 2017 14:40
[2017-03-07 16:00] VITALS: BP 110/66
[2017-03-07 16:13] LABS: PROTEIN, BODY FLUID 2.9 g/dL (.)
[2017-03-07] MEDS: Xarelto 15mg tab ORAL SCH (17:23)
[2017-03-07 20:48] VITALS: BP 109/56
--- NOTE | 2017-03-07 22:15 | General Progress Note ---
Assessment/Plan Assessment/Plan Assessment - Anemia / thrombocytopenia - OB (+) stools - no e/o Fe deficiency - Resp failure/ COPD - met lung CA - PE Recommendations - push po - monitor CBC - no GI w/u per family directives - anticoagulation - PPI Subjective Allergies: Coded Allergies: ASPIRIN (Verified Allergy, Unknown, 02/25/17) NSAIDS (NON-STEROIDAL ANTI-INFLAMMA (Verified Allergy, Unknown, 02/25/17) Subjective awake comfortable no abd pain d/w DTR at bedside (+) PO - slowly Objective Last 24 Hour Vital Signs Date Time Temp Pulse Resp B/P Pulse Ox O2 Delivery O2 Flow Rate FiO2 03/07/17 21:00 105 109/56 03/07/17 20:48 96.4 117 18 109/56 94 Venturi Mask 03/07/17 19:04 93 Venturi Mask 12.0 50 03/07/17 19:04 Venturi Mask 12.0 50 03/07/17 16:00 97.5 117 17 110/66 93 Room Air 03/07/17 12:00 97.3 94 18 106/58 91 Room Air 03/07/17 11:26 102 18 90 Nasal Cannula 5.0 03/07/17 11:26 102 18 90 Nasal Cannula 5.0 03/07/17 09:43 104 126/70 03/07/17 09:22 Nasal Cannula 5.0 03/07/17 09:22 91 Nasal Cannula 5.0 03/07/17 09:22 104 18 91 Nasal Cannula 5.0 03/07/17 09:22 104 16 91 Nasal Cannula 5.0 03/07/17 08:00 97.9 108 18 126/70 99 Room Air 03/07/17 04:00 97.2 97 20 119/70 90 Nasal Cannula 5.0 03/07/17 00:00 97.1 91 20 111/67 92 Nasal Cannula Laboratory Tests 03/07/17 04:50: White Blood Count 12.1H, Red Blood Count 3.95L, Hemoglobin 12.1, Hematocrit 38.3 , Mean Corpuscular Volume 97, Mean Corpuscular Hemoglobin 30.5, Mean Corpuscular Hemoglobin Concent 31.6L, Red Cell Distribution Width 17.5H, Platelet Count 128L, Mean Platelet Volume 7.7, Neutrophils (%) (Auto) , Lymphocytes (%) (Auto) , Monocytes (%) (Auto) , Eosinophils (%) (Auto) , Basophils (%) (Auto) , Differential Total Cells Counted 100, Neutrophils % ( Manual) 81H, Lymphocytes % (Manual) 7L, Monocytes % (Manual) 9, Eosinophils % ( Manual) 1, Basophils % (Manual) 0, Band Neutrophils 2, Platelet Estimate DecreasedL, Platelet Morphology Normal, Hypochromasia 1+, Anisocytosis 1+, Sodium Level 144, Potassium Level 3.8, Chloride Level 106, Carbon Dioxide Level 31H, Anion Gap 7, Blood Urea Nitrogen 23, Creatinine 0.3L, Estimat Glomerular Filtration Rate > 60, Glucose Level 88, Calcium Level 8.3L, Magnesium Level 1.6L , Pro-B-Type Natriuretic Peptide 495H Height (Feet): 5 Height (Inches): 3.00 Weight (Pounds): 128 Objective Elderly WW NCAT supple Coarse BS RR abd soft NT slightly distended no edema non focal YANI FRANCIS Mar 07, 2017 22:15
--- NOTE | 2017-03-07 22:44 | General Progress Note ---
Assessment/Plan Assessment/Plan metastatic lung cancer to brain effusion copd ?pneumonia ho PE anemia encephalopathymultiple skin echymosis hypernatremia hypokalemia back wound throbocytopenia hypokalemia steroids per Pulmonary dw Dr Zhao to taper plan on thoracentesis still pending pulmonary hygine respiratory treatments abx per ID wound care xarelto monitor platelets GI saw patient family refusing workup encephalopathy improved monitor bs pt/ot/st dvt and ulcer prohylaxis dc plans if ok with pulmonary to snf today Subjective Allergies: Coded Allergies: ASPIRIN (Verified Allergy, Unknown, 02/25/17) NSAIDS (NON-STEROIDAL ANTI-INFLAMMA (Verified Allergy, Unknown, 02/25/17) Subjective breathing better is about the same, sp thoracentesis breathing better Objective Last 24 Hour Vital Signs Date Time Temp Pulse Resp B/P Pulse Ox O2 Delivery O2 Flow Rate FiO2 03/07/17 21:00 105 109/56 03/07/17 20:48 96.4 117 18 109/56 94 Venturi Mask 03/07/17 19:04 93 Venturi Mask 12.0 50 03/07/17 19:04 Venturi Mask 12.0 50 03/07/17 16:00 97.5 117 17 110/66 93 Room Air 03/07/17 12:00 97.3 94 18 106/58 91 Room Air 03/07/17 11:26 102 18 90 Nasal Cannula 5.0 03/07/17 11:26 102 18 90 Nasal Cannula 5.0 03/07/17 09:43 104 126/70 03/07/17 09:22 Nasal Cannula 5.0 03/07/17 09:22 91 Nasal Cannula 5.0 03/07/17 09:22 104 18 91 Nasal Cannula 5.0 03/07/17 09:22 104 16 91 Nasal Cannula 5.0 03/07/17 08:00 97.9 108 18 126/70 99 Room Air 03/07/17 04:00 97.2 97 20 119/70 90 Nasal Cannula 5.0 03/07/17 00:00 97.1 91 20 111/67 92 Nasal Cannula Laboratory Tests 03/07/17 04:50: White Blood Count 12.1H, Red Blood Count 3.95L, Hemoglobin 12.1, Hematocrit 38.3 , Mean Corpuscular Volume 97, Mean Corpuscular Hemoglobin 30.5, Mean Corpuscular Hemoglobin Concent 31.6L, Red Cell Distribution Width 17.5H, Platelet Count 128L, Mean Platelet Volume 7.7, Neutrophils (%) (Auto) , Lymphocytes (%) (Auto) , Monocytes (%) (Auto) , Eosinophils (%) (Auto) , Basophils (%) (Auto) , Differential Total Cells Counted 100, Neutrophils % ( Manual) 81H, Lymphocytes % (Manual) 7L, Monocytes % (Manual) 9, Eosinophils % ( Manual) 1, Basophils % (Manual) 0, Band Neutrophils 2, Platelet Estimate DecreasedL, Platelet Morphology Normal, Hypochromasia 1+, Anisocytosis 1+, Sodium Level 144, Potassium Level 3.8, Chloride Level 106, Carbon Dioxide Level 31H, Anion Gap 7, Blood Urea Nitrogen 23, Creatinine 0.3L, Estimat Glomerular Filtration Rate > 60, Glucose Level 88, Calcium Level 8.3L, Magnesium Level 1.6L , Pro-B-Type Natriuretic Peptide 495H Height (Feet): 5 Height (Inches): 3.00 Weight (Pounds): 128 General Appearance: WD/WN Cardiovascular: normal rate Respiratory/Chest: decreased breath sounds Objective multiple echymosis all over improved FRANCIE RAMIREZ Mar 07, 2017 22:44
[2017-03-08 00:21] VITALS: BP 110/60
[2017-03-08 04:41] VITALS: BP 115/62
[2017-03-08 07:21] LABS: ANION GAP 11 (5-15); CALCIUM 8.3 mg/dL (8.6-10.2); CARBON DIOXIDE 30 mEQ/L (20-30); CHLORIDE 103 mEQ/L (98-107); CREATININE 0.4 mg/dL (0.5-0.9); GLOMERULAR FILTRATION RATE > 60 mL/min (>60); HEMOLYSIS 15; MEAN CORPUSCULAR HEMOGLOBIN 30.3 PG (27.0-31.0); MEAN CORPUSCULAR HGB CONC 31.5 G/DL (32.0-36.0); MEAN CORPUSCULAR VOLUME 96 FL (80-99); PLATELET COUNT 122 K/UL (150-450); POTASSIUM 4.1 mEQ/L (3.4-4.9); RED BLOOD COUNT 4.05 M/UL (4.20-5.40); RED CELL DISTRIBUTION WIDTH 17.3 % (11.6-14.8); SODIUM 144 mEQ/L (135-145)
[2017-03-08 08:00] VITALS: BP 116/62
--- NOTE | 2017-03-08 08:26 | Pulmonology Progress Note ---
Assessment/Plan Assessment/Plan Assessment/Plan 1. Lethargy, improved 2. Possible pneumonia. 3. 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 4. Metastatic lung cancer to the brain. 5. History of pulmonary embolism. 6. Anemia. still has dyspnea and hypoxia and requiring face mask to maintain sats 90% atypical cells in pleural fluid; final path pdg, known lung ca disc w Dr Mendosa and with dtr at bedside; advised the patient is doing poorly and few options to make her better rec hospice, dtr reluctant Subjective Constitutional: Reports: no symptoms HEENT: Repors: no symptoms Respiratory: Reports: dry cough, shortness of breath Gastrointestinal/Abdominal: Reports: no symptoms Genitourinary: Reports: no symptoms Allergies: Coded Allergies: ASPIRIN (Verified Allergy, Unknown, 02/25/17) NSAIDS (NON-STEROIDAL ANTI-INFLAMMA (Verified Allergy, Unknown, 02/25/17) Subjective remains on o2 Fm sats 90-91% no distress no cp does not get oob daughter at the bedside wants to go home Objective Last 24 Hour Vital Signs Date Time Temp Pulse Resp B/P Pulse Ox O2 Delivery O2 Flow Rate FiO2 03/08/17 04:41 97.5 99 19 115/62 95 Venturi Mask 03/08/17 00:21 97.2 100 18 110/60 95 Venturi Mask 03/07/17 21:00 105 109/56 03/07/17 20:48 96.4 117 18 109/56 94 Venturi Mask 03/07/17 19:04 93 Venturi Mask 12.0 50 03/07/17 19:04 Venturi Mask 12.0 50 03/07/17 16:00 97.5 117 17 110/66 93 Room Air 03/07/17 12:00 97.3 94 18 106/58 91 Room Air 03/07/17 11:26 102 18 90 Nasal Cannula 5.0 03/07/17 11:26 102 18 90 Nasal Cannula 5.0 03/07/17 09:43 104 126/70 03/07/17 09:22 Nasal Cannula 5.0 03/07/17 09:22 91 Nasal Cannula 5.0 03/07/17 09:22 104 18 91 Nasal Cannula 5.0 03/07/17 09:22 104 16 91 Nasal Cannula 5.0 Intake and Output 03/07/17 03/08/17 19:00 07:00 Intake Total 360 ml Output Total 525 ml 350 ml Balance -165 ml -350 ml Intake Oral 360 ml Output Urine Total 525 ml 350 ml # Bowel Movements 3 General Appearance: WD/WN HEENT: atraumatic, anicteric Respiratory/Chest: rhonchi Cardiovascular: normal rate, regular rhythm Abdomen: soft, non tender, no organomegaly Extremities: other - positive Neurologic/Psychiatric: alert, responsive Laboratory Tests 03/08/17 05:20: White Blood Count 13.0H, Red Blood Count 4.05L, Hemoglobin 12.3, Hematocrit 39.0 , Mean Corpuscular Volume 96, Mean Corpuscular Hemoglobin 30.3, Mean Corpuscular Hemoglobin Concent 31.5L, Red Cell Distribution Width 17.3H, Platelet Count 122L, Mean Platelet Volume 7.0, Neutrophils (%) (Auto) , Lymphocytes (%) (Auto) , Monocytes (%) (Auto) , Eosinophils (%) (Auto) , Basophils (%) (Auto) , Neutrophils % (Manual) [Pending], Lymphocytes % (Manual) [Pending], Platelet Estimate [Pending], Platelet Morphology [Pending], Sodium Level 144, Potassium Level 4.1, Chloride Level 103, Carbon Dioxide Level 30, Anion Gap 11, Blood Urea Nitrogen 29H, Creatinine 0.4L, Estimat Glomerular Filtration Rate > 60, Glucose Level 102, Calcium Level 8.3L, Pro-B-Type Natriuretic Peptide 512H Current Medications Medications (Trade) Dose Ordered Sig/Yolanda Route PRN Reason Start Time Stop Time Status Last Admin Dose Admin Acetazolamide (Diamox) 250 mg Q12HR ORAL 03/02/17 21:00 04/01/17 20:59 03/07/17 21:21 Cyanocobalamin (Vitamin B-12) 1,000 mcg DAILY ORAL 03/03/17 09:00 04/02/17 08:59 03/07/17 09:43 Docusate Sodium (Colace) 100 mg TWICE A DAY ORAL 03/02/17 18:00 04/01/17 17:59 03/06/17 08:57 Fentanyl (Duragesic) 1 patch Q72H TDERMAL 03/04/17 17:00 03/11/17 16:59 03/07/17 18:57 Fentanyl (Duragesic) 1 patch Q72H TDERMAL 03/04/17 17:00 03/11/17 16:59 03/07/17 18:58 Furosemide (Lasix) 20 mg DAILY IV 03/03/17 17:00 04/02/17 16:59 03/07/17 09:42 Gabapentin (Neurontin) 100 mg BID ORAL 03/02/17 18:00 04/01/17 17:59 03/07/17 21:24 Gabapentin (Neurontin) 300 mg BEDTIME ORAL 03/02/17 21:00 04/01/17 20:59 03/07/17 21:00 Levalbuterol HCl (Xopenex) 0.625 mg Q6H PRN INH Shortness of Breath 03/03/17 16:00 03/08/17 15:59 03/07/17 11:25 Levetiracetam (Keppra) 500 mg Q12HR ORAL 03/02/17 21:00 04/01/17 20:59 03/07/17 21:21 Metoprolol Tartrate (Lopressor) 12.5 mg Q12HR ORAL 03/04/17 09:00 04/03/17 08:59 03/07/17 09:43 Morphine Sulfate (Morphine Sulfate) 1 mg Q4HR PRN IVP moderate pain 4-6 03/03/17 17:00 03/10/17 16:59 03/07/17 17:39 Morphine Sulfate (Morphine Sulfate) 2 mg Q4H PRN IVP Severe Pain (Pain Scale 7-10) 03/03/17 18:00 03/10/17 17:59 Naloxone HCl (Narcan) 0.1 mg STAT PRN IV RESPIRATORY DISTRESS 03/02/17 11:30 04/01/17 11:29 Nystatin (Nystop Powder) 1 applic THREE TIMES A DAY TOPIC 03/06/17 18:00 04/05/17 17:59 03/07/17 17:23 Pantoprazole (Protonix) 40 mg DAILY IVP 03/04/17 09:00 04/03/17 08:59 03/07/17 09:43 Prednisone (predniSONE) 20 mg BID ORAL 03/06/17 09:00 04/05/17 08:59 03/07/17 17:23 Ranitidine HCl (Zantac) 150 mg QHS ORAL 03/02/17 21:00 04/01/17 20:59 03/07/17 21:22 Rivaroxaban (Xarelto) 15 mg QPM ORAL 03/02/17 16:30 04/01/17 16:29 03/07/17 17:23 Salmeterol Xinafoate/ Fluticasone (Advair 250/50 Diskus) 1 puffs BID INH 03/02/17 18:00 04/01/17 17:59 03/06/17 07:25 Tiotropium [place] (Spiriva Inhaler) 1 puff DAILY INH 03/03/17 09:00 04/02/17 08:59 03/06/17 07:26 Trimethoprim/ Sulfamethoxazole (Bactrim-DS) 1 ea DAILY ORAL 03/08/17 09:00 03/13/17 09:01 SHAYAN YANES DO Mar 08, 2017 08:26
[2017-03-08] MEDS: Advair 250/50 Inhaler - 14 dose INH SCH ×2 (08:28→19:46)
[2017-03-08] MEDS: Docusate 100mg tablet ORAL SCH ×2 (09:00→17:33)
[2017-03-08 09:26] LABS: ANISOCYTOSIS 1+; BAND NEUTROPHILS % (MANUAL) 0 % (0-8); BASOPHILS % (MANUAL) 0 % (0-2); EOSINOPHILS % (MANUAL) 0 % (0-3); HYPOCHROMASIA 1+; LYMPHOCYTES % (MANUAL) 7 % (20-45); NEUTROPHILS % (MANUAL) 81 % (45-75); PLATELET ESTIMATE DECREASED; PLATELET MORPHOLOGY NORMAL; TOTAL CELLS COUNTED 100
[2017-03-08] MEDS: Pantoprazole Inj IVP SCH (09:28)
[2017-03-08] MEDS: levETIRAcetam 500mg/5ml Liquid ORAL SCH ×2 (09:29→20:59)
[2017-03-08] MEDS: Bactrim DS (160mg/800mg) tab ORAL SCH (09:29)
[2017-03-08] MEDS: Vitamin B-12 500mcg tab ORAL SCH (09:29)
[2017-03-08] MEDS: PredniSONE 20mg tab ORAL SCH ×2 (09:29→17:36)
[2017-03-08] MEDS: Metoprolol Tartrate 12.5mg TAB ORAL SCH ×2 (09:29→20:58)
[2017-03-08] MEDS: Nystatin Powder 100,000 units/gm 15gm TOPIC SCH ×3 (09:30→17:33)
[2017-03-08] MEDS: Morphine Sulfate 2mg/ml Inj IVP PRN ×2 (10:00→17:33)
[2017-03-08] MEDS: Levalbuterol Inh UD 1.25mg/0.5ml INH PRN (13:58)
[2017-03-08 16:00] VITALS: BP 147/65
[2017-03-08] MEDS: Xarelto 15mg tab ORAL SCH (16:36)
[2017-03-08 20:00] VITALS: BP 129/82
--- NOTE | 2017-03-08 21:09 | General Progress Note ---
Assessment/Plan Assessment/Plan Assessment - Anemia / thrombocytopenia - OB (+) stools - no e/o Fe deficiency - Resp failure/ COPD - met lung CA - PE Recommendations - push po - monitor CBC - no GI w/u per family directives - anticoagulation - PPI Subjective Allergies: Coded Allergies: ASPIRIN (Verified Allergy, Unknown, 02/25/17) NSAIDS (NON-STEROIDAL ANTI-INFLAMMA (Verified Allergy, Unknown, 02/25/17) Subjective awake comfortable no abd pain d/w DTR at bedside (+) PO - slowly slight clearing of throat with some swallows Objective Last 24 Hour Vital Signs Date Time Temp Pulse Resp B/P Pulse Ox O2 Delivery O2 Flow Rate FiO2 03/08/17 20:58 95 129/82 03/08/17 19:44 93 Nasal Cannula 7.0 03/08/17 19:44 Nasal Cannula 7.0 03/08/17 16:00 97.4 125 19 147/65 91 Room Air 03/08/17 14:03 110 22 91 Venturi Mask 14.0 55 03/08/17 13:53 111 22 91 Venturi Mask 14.0 55 03/08/17 12:00 97.0 115 20 92 Venturi Mask 03/08/17 09:29 69 116/62 03/08/17 08:31 Venturi Mask 14.0 55 03/08/17 08:30 Venturi Mask 14.0 55 03/08/17 08:00 97.4 69 17 116/62 92 03/08/17 07:59 Venturi Mask 14.0 55 03/08/17 07:58 92 Venturi Mask 14.0 55 03/08/17 04:41 97.5 99 19 115/62 95 Venturi Mask 03/08/17 00:21 97.2 100 18 110/60 95 Venturi Mask Intake and Output 03/07/17 03/08/17 19:00 07:00 Intake Total 360 ml Output Total 525 ml 350 ml Balance -165 ml -350 ml Intake Oral 360 ml Output Urine Total 525 ml 350 ml # Bowel Movements 3 Laboratory Tests 03/08/17 05:20: White Blood Count 13.0H, Red Blood Count 4.05L, Hemoglobin 12.3, Hematocrit 39.0 , Mean Corpuscular Volume 96, Mean Corpuscular Hemoglobin 30.3, Mean Corpuscular Hemoglobin Concent 31.5L, Red Cell Distribution Width 17.3H, Platelet Count 122L, Mean Platelet Volume 7.0, Neutrophils (%) (Auto) , Lymphocytes (%) (Auto) , Monocytes (%) (Auto) , Eosinophils (%) (Auto) , Basophils (%) (Auto) , Differential Total Cells Counted 100, Neutrophils % ( Manual) 81H, Lymphocytes % (Manual) 7L, Monocytes % (Manual) 12H, Eosinophils % (Manual) 0, Basophils % (Manual) 0, Band Neutrophils 0, Platelet Estimate DecreasedL, Platelet Morphology Normal, Hypochromasia 1+, Anisocytosis 1+, Sodium Level 144, Potassium Level 4.1, Chloride Level 103, Carbon Dioxide Level 30, Anion Gap 11, Blood Urea Nitrogen 29H, Creatinine 0.4L, Estimat Glomerular Filtration Rate > 60, Glucose Level 102, Calcium Level 8.3L, Pro-B-Type Natriuretic Peptide 512H Height (Feet): 5 Height (Inches): 3.00 Weight (Pounds): 128 Objective Elderly WW NCAT supple Coarse BS RR abd soft NT slightly distended no edema non focal YANI FRANCIS Mar 08, 2017 21:09
--- NOTE | 2017-03-08 21:09 | General Progress Note ---
Assessment/Plan Assessment/Plan metastatic lung cancer to brain effusion copd ?pneumonia ho PE anemia encephalopathymultiple skin echymosis hypernatremia hypokalemia back wound throbocytopenia hypokalemia steroids per Pulmonary dw Dr Zhao to taper plan on thoracentesis still pending pulmonary hygine respiratory treatments abx per ID wound care xarelto monitor platelets GI saw patient family refusing workup encephalopathy improved monitor bs pt/ot/st dvt and ulcer prohylaxis dc held yesterday better today will observer dc plans dw daughters recommended hospice Subjective Allergies: Coded Allergies: ASPIRIN (Verified Allergy, Unknown, 02/25/17) NSAIDS (NON-STEROIDAL ANTI-INFLAMMA (Verified Allergy, Unknown, 02/25/17) Subjective breathing better today yesterdy became hypoxic now better no cp Objective Last 24 Hour Vital Signs Date Time Temp Pulse Resp B/P Pulse Ox O2 Delivery O2 Flow Rate FiO2 03/08/17 20:58 95 129/82 03/08/17 19:44 93 Nasal Cannula 7.0 03/08/17 19:44 Nasal Cannula 7.0 03/08/17 16:00 97.4 125 19 147/65 91 Room Air 03/08/17 14:03 110 22 91 Venturi Mask 14.0 55 03/08/17 13:53 111 22 91 Venturi Mask 14.0 55 03/08/17 12:00 97.0 115 20 92 Venturi Mask 03/08/17 09:29 69 116/62 03/08/17 08:31 Venturi Mask 14.0 55 03/08/17 08:30 Venturi Mask 14.0 55 03/08/17 08:00 97.4 69 17 116/62 92 03/08/17 07:59 Venturi Mask 14.0 55 03/08/17 07:58 92 Venturi Mask 14.0 55 03/08/17 04:41 97.5 99 19 115/62 95 Venturi Mask 03/08/17 00:21 97.2 100 18 110/60 95 Venturi Mask Intake and Output 03/07/17 03/08/17 19:00 07:00 Intake Total 360 ml Output Total 525 ml 350 ml Balance -165 ml -350 ml Intake Oral 360 ml Output Urine Total 525 ml 350 ml # Bowel Movements 3 Laboratory Tests 03/08/17 05:20: White Blood Count 13.0H, Red Blood Count 4.05L, Hemoglobin 12.3, Hematocrit 39.0 , Mean Corpuscular Volume 96, Mean Corpuscular Hemoglobin 30.3, Mean Corpuscular Hemoglobin Concent 31.5L, Red Cell Distribution Width 17.3H, Platelet Count 122L, Mean Platelet Volume 7.0, Neutrophils (%) (Auto) , Lymphocytes (%) (Auto) , Monocytes (%) (Auto) , Eosinophils (%) (Auto) , Basophils (%) (Auto) , Differential Total Cells Counted 100, Neutrophils % ( Manual) 81H, Lymphocytes % (Manual) 7L, Monocytes % (Manual) 12H, Eosinophils % (Manual) 0, Basophils % (Manual) 0, Band Neutrophils 0, Platelet Estimate DecreasedL, Platelet Morphology Normal, Hypochromasia 1+, Anisocytosis 1+, Sodium Level 144, Potassium Level 4.1, Chloride Level 103, Carbon Dioxide Level 30, Anion Gap 11, Blood Urea Nitrogen 29H, Creatinine 0.4L, Estimat Glomerular Filtration Rate > 60, Glucose Level 102, Calcium Level 8.3L, Pro-B-Type Natriuretic Peptide 512H Height (Feet): 5 Height (Inches): 3.00 Weight (Pounds): 128 General Appearance: WD/WN Neck: non-tender Cardiovascular: normal rate Respiratory/Chest: decreased breath sounds Objective multiple echymosis all over improved FRANCIE RAMIREZ Mar 08, 2017 21:09
[2017-03-09] VITALS: BP 110/71
[2017-03-09 04:00] VITALS: BP 121/76
[2017-03-09 07:12] LABS: MEAN CORPUSCULAR HEMOGLOBIN 30.3 PG (27.0-31.0); MEAN CORPUSCULAR HGB CONC 31.7 G/DL (32.0-36.0); MEAN CORPUSCULAR VOLUME 96 FL (80-99); MEAN PLATELET VOLUME 6.7 FL (6.5-10.1); PLATELET COUNT 135 K/UL (150-450); RED BLOOD COUNT 4.13 M/UL (4.20-5.40); RED CELL DISTRIBUTION WIDTH 17.3 % (11.6-14.8); WHITE BLOOD COUNT 12.8 K/UL (4.8-10.8)
[2017-03-09 07:38] LABS: ANION GAP 13 (5-15); CALCIUM 8.8 mg/dL (8.6-10.2); CARBON DIOXIDE 30 mEQ/L (20-30); CHLORIDE 98 mEQ/L (98-107); CREATININE 0.5 mg/dL (0.5-0.9); GLOMERULAR FILTRATION RATE > 60 mL/min (>60); HEMOLYSIS 12; SODIUM 141 mEQ/L (135-145)
[2017-03-09] MEDS: Advair 250/50 Inhaler - 14 dose INH SCH ×2 (07:58→18:00)
[2017-03-09 08:00] VITALS: BP 123/74
--- NOTE | 2017-03-09 08:16 | Pulmonology Progress Note ---
Assessment/Plan Assessment/Plan Assessment/Plan 1. Lethargy, improved 2. Possible pneumonia. 3. 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 4. Metastatic lung cancer to the brain. 5. History of pulmonary embolism. 6. Anemia. on high flow o2 today, sats slightly improved atypical cells in pleural fluid; final path pdg, known lung ca disc w Dr Mendosa and with dtr at bedside; advised the patient is doing poorly and few options to make her better rec hospice, dtr reluctant po as tolerated cxr in am Subjective Respiratory: Reports: dry cough, shortness of breath Genitourinary: Reports: no symptoms Neurologic: Reports: no symptoms Skin: Reports: no symptoms Allergies: Coded Allergies: ASPIRIN (Verified Allergy, Unknown, 02/25/17) NSAIDS (NON-STEROIDAL ANTI-INFLAMMA (Verified Allergy, Unknown, 02/25/17) Subjective remains on o2 Fm sats 90-91% no distress tolerating some po no cp does not get oob daughter at the bedside wants to go home Objective Last 24 Hour Vital Signs Date Time Temp Pulse Resp B/P Pulse Ox O2 Delivery O2 Flow Rate FiO2 03/09/17 08:02 89 18 94 Nasal Cannula 7.0 55 03/09/17 08:02 89 18 94 Nasal Cannula 7.0 55 03/09/17 08:01 Nasal Cannula 7.0 55 03/09/17 08:01 94 Nasal Cannula 7.0 03/09/17 04:00 97.9 99 20 121/76 92 Room Air 03/09/17 00:00 98.3 100 20 110/71 94 Room Air 03/08/17 20:58 95 129/82 03/08/17 20:00 97.7 95 22 129/82 90 Nasal Cannula 92.0 03/08/17 19:44 93 Nasal Cannula 7.0 03/08/17 19:44 Nasal Cannula 7.0 03/08/17 16:00 97.4 125 19 147/65 91 Room Air 03/08/17 14:03 110 22 91 Venturi Mask 14.0 55 03/08/17 13:53 111 22 91 Venturi Mask 14.0 55 03/08/17 12:00 97.0 115 20 92 Venturi Mask 03/08/17 09:29 69 116/62 03/08/17 08:31 Venturi Mask 14.0 55 03/08/17 08:30 Venturi Mask 14.0 55 Intake and Output 03/08/17 03/09/17 19:00 07:00 Intake Total 840 ml Output Total 675 ml 700 ml Balance 165 ml -700 ml Intake Oral 840 ml Output Urine Total 675 ml 700 ml General Appearance: cachetic HEENT: atraumatic Respiratory/Chest: rhonchi Cardiovascular: normal rate, regular rhythm Abdomen: no organomegaly, non distended Skin: other - edema Neurologic/Psychiatric: oriented x 3, responsive Laboratory Tests 03/09/17 06:00: White Blood Count 12.8H, Red Blood Count 4.13L, Hemoglobin 12.5, Hematocrit 39.5 , Mean Corpuscular Volume 96, Mean Corpuscular Hemoglobin 30.3, Mean Corpuscular Hemoglobin Concent 31.7L, Red Cell Distribution Width 17.3H, Platelet Count 135L, Mean Platelet Volume 6.7, Neutrophils (%) (Auto) , Lymphocytes (%) (Auto) , Monocytes (%) (Auto) , Eosinophils (%) (Auto) , Basophils (%) (Auto) , Neutrophils % (Manual) [Pending], Lymphocytes % (Manual) [Pending], Platelet Estimate [Pending], Platelet Morphology [Pending], Sodium Level 141, Potassium Level 4.0, Chloride Level 98, Carbon Dioxide Level 30, Anion Gap 13, Blood Urea Nitrogen 36H, Creatinine 0.5, Estimat Glomerular Filtration Rate > 60, Glucose Level 106, Calcium Level 8.8, Pro-B-Type Natriuretic Peptide 578H Current Medications Medications (Trade) Dose Ordered Sig/Yolanda Route PRN Reason Start Time Stop Time Status Last Admin Dose Admin Acetazolamide (Diamox) 250 mg Q12HR ORAL 03/02/17 21:00 04/01/17 20:59 03/08/17 20:58 Cyanocobalamin (Vitamin B-12) 1,000 mcg DAILY ORAL 03/03/17 09:00 04/02/17 08:59 03/08/17 09:29 Docusate Sodium (Colace) 100 mg TWICE A DAY ORAL 03/02/17 18:00 04/01/17 17:59 03/06/17 08:57 Fentanyl (Duragesic) 1 patch Q72H TDERMAL 4/11/17 17:00 03/11/17 16:59 03/07/17 18:57 Fentanyl (Duragesic) 1 patch Q72H TDERMAL 03/04/17 17:00 03/11/17 16:59 03/07/17 18:58 Furosemide (Lasix) 20 mg DAILY IV 03/03/17 17:00 04/02/17 16:59 03/08/17 09:28 Gabapentin (Neurontin) 100 mg BID ORAL 03/02/17 18:00 04/01/17 17:59 03/07/17 21:24 Gabapentin (Neurontin) 300 mg BEDTIME ORAL 03/02/17 21:00 04/01/17 20:59 03/08/17 20:58 Levetiracetam (Keppra) 500 mg Q12HR ORAL 03/02/17 21:00 04/01/17 20:59 03/08/17 20:59 Metoprolol Tartrate (Lopressor) 12.5 mg Q12HR ORAL 03/04/17 09:00 04/03/17 08:59 03/08/17 20:58 Morphine Sulfate (Morphine Sulfate) 1 mg Q4HR PRN IVP moderate pain 4-6 03/03/17 17:00 03/10/17 16:59 03/08/17 17:33 Morphine Sulfate (Morphine Sulfate) 2 mg Q4H PRN IVP Severe Pain (Pain Scale 7-10) 03/03/17 18:00 03/10/17 17:59 Naloxone HCl (Narcan) 0.1 mg STAT PRN IV RESPIRATORY DISTRESS 03/02/17 11:30 04/01/17 11:29 Nystatin (Nystop Powder) 1 applic THREE TIMES A DAY TOPIC 03/06/17 18:00 04/05/17 17:59 03/08/17 17:33 Pantoprazole (Protonix) 40 mg DAILY IVP 03/04/17 09:00 04/03/17 08:59 03/08/17 09:28 Prednisone (predniSONE) 20 mg BID ORAL 03/06/17 09:00 04/05/17 08:59 03/08/17 17:36 Ranitidine HCl (Zantac) 150 mg QHS ORAL 03/02/17 21:00 04/01/17 20:59 03/08/17 20:58 Rivaroxaban (Xarelto) 15 mg QPM ORAL 03/02/17 16:30 04/01/17 16:29 03/08/17 16:36 Salmeterol Xinafoate/ Fluticasone (Advair 250/50 Diskus) 1 puffs BID INH 03/02/17 18:00 04/01/17 17:59 03/09/17 07:58 Tiotropium [place] (Spiriva Inhaler) 1 puff DAILY INH 03/03/17 09:00 04/02/17 08:59 03/09/17 07:58 Trimethoprim/ Sulfamethoxazole (Bactrim-DS) 1 ea DAILY ORAL 03/08/17 09:00 03/13/17 09:01 03/08/17 09:29 SHAYAN YANES DO Mar 09, 2017 08:16
[2017-03-09 08:29] LABS: ANISOCYTOSIS 1+; BAND NEUTROPHILS % (MANUAL) 1 % (0-8); BASOPHILS % (MANUAL) 0 % (0-2); EOSINOPHILS % (MANUAL) 0 % (0-3); LYMPHOCYTES % (MANUAL) 11 % (20-45); METAMYELOCYTES % 6 % (0-0); NEUTROPHILS % (MANUAL) 80 % (45-75); PLATELET ESTIMATE DECREASED; PLATELET MORPHOLOGY NORMAL; TOTAL CELLS COUNTED 100
[2017-03-09] MEDS: Nystatin Powder 100,000 units/gm 15gm TOPIC SCH ×3 (09:46→17:26)
[2017-03-09] MEDS: Docusate 100mg tablet ORAL SCH ×2 (09:47→17:25)
[2017-03-09] MEDS: PredniSONE 20mg tab ORAL SCH ×2 (09:47→17:25)
[2017-03-09] MEDS: Vitamin B-12 500mcg tab ORAL SCH (09:47)
[2017-03-09] MEDS: Metoprolol Tartrate 12.5mg TAB ORAL SCH ×2 (09:47→21:40)
[2017-03-09] MEDS: levETIRAcetam 500mg/5ml Liquid ORAL SCH ×2 (09:48→21:39)
[2017-03-09] MEDS: Bactrim DS (160mg/800mg) tab ORAL SCH ×2 (09:48→21:40)
[2017-03-09] MEDS: Pantoprazole Inj IVP SCH (09:49)
[2017-03-09] MEDS: Morphine Sulfate 2mg/ml Inj IVP PRN (11:32)
[2017-03-09 12:00] VITALS: BP 121/92
--- NOTE | 2017-03-09 12:05 | Infectious Diseases Prog Note ---
Assessment/Plan Assessment/Plan A 1. pneumonia with Stenotrophomonas 2. recent c.diff colitis 3. metastatic lung cancer 4. COPD 5. pulmonary emboli 6. rectal VRE colonization P 1.Continue Bactrim 2. will follow up cultures Subjective ROS Limited/Unobtainable: Yes Allergies: Coded Allergies: ASPIRIN (Verified Allergy, Unknown, 02/25/17) NSAIDS (NON-STEROIDAL ANTI-INFLAMMA (Verified Allergy, Unknown, 02/25/17) Objective Vital Signs Last 24 Hour Vital Signs Date Time Temp Pulse Resp B/P Pulse Ox O2 Delivery O2 Flow Rate FiO2 03/09/17 09:47 123 123/72 03/09/17 08:02 89 18 94 Nasal Cannula 7.0 55 03/09/17 08:02 89 18 94 Nasal Cannula 7.0 55 03/09/17 08:01 Nasal Cannula 7.0 55 03/09/17 08:01 94 Nasal Cannula 7.0 03/09/17 08:00 97.5 120 20 123/74 92 Nasal Cannula 6.0 03/09/17 04:00 97.9 99 20 121/76 92 Room Air 03/09/17 00:00 98.3 100 20 110/71 94 Room Air 03/08/17 20:58 95 129/82 03/08/17 20:00 97.7 95 22 129/82 90 Nasal Cannula 92.0 03/08/17 19:44 93 Nasal Cannula 7.0 03/08/17 19:44 Nasal Cannula 7.0 03/08/17 16:00 97.4 125 19 147/65 91 Room Air 03/08/17 14:03 110 22 91 Venturi Mask 14.0 55 03/08/17 13:53 111 22 91 Venturi Mask 14.0 55 Height (Feet): 5 Height (Inches): 3.00 Weight (Pounds): 128 HEENT: mucous membranes moist Respiratory/Chest: rhonchi - bilaterally Cardiovascular: tachycardia Abdomen: soft, non tender Extremities: no edema Neurologic/Psychiatric: alert, responsive Laboratory Tests Test 03/09/17 06:00 White Blood Count 12.8 K/UL (4.8-10.8) H Red Blood Count 4.13 M/UL (4.20-5.40) L Hemoglobin 12.5 G/DL (12.0-16.0) Hematocrit 39.5 % (37.0-47.0) Mean Corpuscular Volume 96 FL (80-99) Mean Corpuscular Hemoglobin 30.3 PG (27.0-31.0) Mean Corpuscular Hemoglobin Concent 31.7 G/DL (32.0-36.0) L Red Cell Distribution Width 17.3 % (11.6-14.8) H Platelet Count 135 K/UL (150-450) L Mean Platelet Volume 6.7 FL (6.5-10.1) Neutrophils (%) (Auto) % (45.0-75.0) Lymphocytes (%) (Auto) % (20.0-45.0) Monocytes (%) (Auto) % (1.0-10.0) Eosinophils (%) (Auto) % (0.0-3.0) Basophils (%) (Auto) % (0.0-2.0) Differential Total Cells Counted 100 Neutrophils % (Manual) 80 % (45-75) H Lymphocytes % (Manual) 11 % (20-45) L Monocytes % (Manual) 2 % (1-10) Eosinophils % (Manual) 0 % (0-3) Basophils % (Manual) 0 % (0-2) Metamyelocytes % 6 % (0-0) H Band Neutrophils 1 % (0-8) Platelet Estimate Decreased L Platelet Morphology Normal Anisocytosis 1+ Sodium Level 141 mEQ/L (135-145) Potassium Level 4.0 mEQ/L (3.4-4.9) Chloride Level 98 mEQ/L (98-107) Carbon Dioxide Level 30 mEQ/L (20-30) Anion Gap 13 (5-15) Blood Urea Nitrogen 36 mg/dL (7-23) H Creatinine 0.5 mg/dL (0.5-0.9) Estimat Glomerular Filtration Rate > 60 mL/min (>60) Glucose Level 106 mg/dL (74-106) Calcium Level 8.8 mg/dL (8.6-10.2) Pro-B-Type Natriuretic Peptide 578 pg/mL (0-125) H Current Medications Medications (Trade) Dose Ordered Sig/Yolanda Route PRN Reason Start Time Stop Time Status Last Admin Dose Admin Acetazolamide (Diamox) 250 mg Q12HR ORAL 03/02/17 21:00 04/01/17 20:59 03/09/17 09:47 Cyanocobalamin (Vitamin B-12) 1,000 mcg DAILY ORAL 03/03/17 09:00 04/02/17 08:59 03/09/17 09:47 Docusate Sodium (Colace) 100 mg TWICE A DAY ORAL 03/02/17 18:00 04/01/17 17:59 03/09/17 09:47 Fentanyl (Duragesic) 1 patch Q72H TDERMAL 03/04/17 17:00 03/11/17 16:59 03/07/17 18:57 Fentanyl (Duragesic) 1 patch Q72H TDERMAL 03/04/17 17:00 03/11/17 16:59 03/07/17 18:58 Furosemide (Lasix) 20 mg DAILY IV 03/03/17 17:00 04/02/17 16:59 03/09/17 09:48 Gabapentin (Neurontin) 100 mg BID ORAL 03/02/17 18:00 04/01/17 17:59 03/09/17 09:47 Gabapentin (Neurontin) 300 mg BEDTIME ORAL 03/02/17 21:00 04/01/17 20:59 03/08/17 20:58 Levetiracetam (Keppra) 500 mg Q12HR ORAL 03/02/17 21:00 04/01/17 20:59 03/09/17 09:48 Metoprolol Tartrate (Lopressor) 12.5 mg Q12HR ORAL 03/04/17 09:00 04/03/17 08:59 03/09/17 09:47 Morphine Sulfate (Morphine Sulfate) 1 mg Q4HR PRN IVP moderate pain 4-6 03/03/17 17:00 03/10/17 16:59 03/09/17 11:32 Morphine Sulfate (Morphine Sulfate) 2 mg Q4H PRN IVP Severe Pain (Pain Scale 7-10) 03/03/17 18:00 03/10/17 17:59 Naloxone HCl (Narcan) 0.1 mg STAT PRN IV RESPIRATORY DISTRESS 03/02/17 11:30 04/01/17 11:29 Nystatin (Nystop Powder) 1 applic THREE TIMES A DAY TOPIC 03/06/17 18:00 04/05/17 17:59 03/09/17 09:46 Pantoprazole (Protonix) 40 mg DAILY IVP 4/11/17 09:00 04/03/17 08:59 03/09/17 09:49 Prednisone (predniSONE) 20 mg BID ORAL 03/06/17 09:00 04/05/17 08:59 03/09/17 09:47 Ranitidine HCl (Zantac) 150 mg QHS ORAL 03/02/17 21:00 04/01/17 20:59 03/08/17 20:58 Rivaroxaban (Xarelto) 15 mg QPM ORAL 03/02/17 16:30 04/01/17 16:29 03/08/17 16:36 Salmeterol Xinafoate/ Fluticasone (Advair 250/50 Diskus) 1 puffs BID INH 03/02/17 18:00 04/01/17 17:59 03/09/17 07:58 Tiotropium [place] (Spiriva Inhaler) 1 puff DAILY INH 03/03/17 09:00 04/02/17 08:59 03/09/17 07:58 Trimethoprim/ Sulfamethoxazole (Bactrim-DS) 1 ea Q12HR ORAL 03/09/17 21:00 03/13/17 09:01 SREEDHAR RUBY Mar 09, 2017 12:05
[2017-03-09 16:00] VITALS: BP 115/72
[2017-03-09] MEDS: Xarelto 15mg tab ORAL SCH (17:25)
[2017-03-09 20:13] VITALS: BP 126/98
--- NOTE | 2017-03-09 21:37 | General Progress Note ---
Assessment/Plan Assessment/Plan metastatic lung cancer to brain effusion copd ?pneumonia ho PE anemia encephalopathymultiple skin echymosis hypernatremia hypokalemia back wound throbocytopenia hypokalemia steroids per Pulmonary dw Dr Zhao to taper plan on thoracentesis still pending pulmonary hygine respiratory treatments abx per ID wound care xarelto monitor platelets GI saw patient family refusing workup encephalopathy improved monitor bs pt/ot/st dvt and ulcer prohylaxis dc held yesterday better today will observer dc plans dw daughters recommended hospice family want to take patient home tomorrow Subjective Allergies: Coded Allergies: ASPIRIN (Verified Allergy, Unknown, 02/25/17) NSAIDS (NON-STEROIDAL ANTI-INFLAMMA (Verified Allergy, Unknown, 02/25/17) Subjective no chest pain breathing better family considering taking patient home tomorrow Objective Last 24 Hour Vital Signs Date Time Temp Pulse Resp B/P Pulse Ox O2 Delivery O2 Flow Rate FiO2 03/09/17 20:13 97.3 124 17 126/98 92 Nasal Cannula 7.0 03/09/17 19:56 Nasal Cannula 7.0 55 03/09/17 19:56 94 Nasal Cannula 7.0 03/09/17 16:00 97.2 129 19 115/72 96 03/09/17 12:00 97.9 114 2 121/92 91 Nasal Cannula 6.0 03/09/17 09:47 123 123/72 03/09/17 08:02 89 18 94 Nasal Cannula 7.0 55 03/09/17 08:02 89 18 94 Nasal Cannula 7.0 55 03/09/17 08:01 Nasal Cannula 7.0 55 03/09/17 08:01 94 Nasal Cannula 7.0 03/09/17 08:00 97.5 120 20 123/74 92 Nasal Cannula 6.0 03/09/17 04:00 97.9 99 20 121/76 92 Room Air 03/09/17 00:00 98.3 100 20 110/71 94 Room Air Intake and Output 03/08/17 03/09/17 19:00 07:00 Intake Total 840 ml Output Total 675 ml 700 ml Balance 165 ml -700 ml Intake Oral 840 ml Output Urine Total 675 ml 700 ml Laboratory Tests 03/09/17 06:00: White Blood Count 12.8H, Red Blood Count 4.13L, Hemoglobin 12.5, Hematocrit 39.5 , Mean Corpuscular Volume 96, Mean Corpuscular Hemoglobin 30.3, Mean Corpuscular Hemoglobin Concent 31.7L, Red Cell Distribution Width 17.3H, Platelet Count 135L, Mean Platelet Volume 6.7, Neutrophils (%) (Auto) , Lymphocytes (%) (Auto) , Monocytes (%) (Auto) , Eosinophils (%) (Auto) , Basophils (%) (Auto) , Differential Total Cells Counted 100, Neutrophils % ( Manual) 80H, Lymphocytes % (Manual) 11L, Monocytes % (Manual) 2, Eosinophils % ( Manual) 0, Basophils % (Manual) 0, Metamyelocytes % 6H, Band Neutrophils 1, Platelet Estimate DecreasedL, Platelet Morphology Normal, Anisocytosis 1+, Sodium Level 141, Potassium Level 4.0, Chloride Level 98, Carbon Dioxide Level 30, Anion Gap 13, Blood Urea Nitrogen 36H, Creatinine 0.5, Estimat Glomerular Filtration Rate > 60, Glucose Level 106, Calcium Level 8.8, Pro-B-Type Natriuretic Peptide 578H Height (Feet): 5 Height (Inches): 3.00 Weight (Pounds): 128 General Appearance: WD/WN, no apparent distress Neck: supple Cardiovascular: normal rate Respiratory/Chest: decreased breath sounds Abdomen: soft Objective multiple echymosis all over improved FRANCIE RAMIREZ Mar 09, 2017 21:37
--- NOTE | 2017-03-09 23:21 | General Progress Note ---
Assessment/Plan Assessment/Plan Assessment - Anemia / thrombocytopenia - OB (+) stools - no e/o Fe deficiency - Resp failure/ COPD - met lung CA - PE Recommendations - push po - monitor CBC - no GI w/u per family directives - anticoagulation - PPI Subjective Allergies: Coded Allergies: ASPIRIN (Verified Allergy, Unknown, 02/25/17) NSAIDS (NON-STEROIDAL ANTI-INFLAMMA (Verified Allergy, Unknown, 02/25/17) Subjective awake comfortable no abd pain d/w DTR at bedside no events overnight Objective Last 24 Hour Vital Signs Date Time Temp Pulse Resp B/P Pulse Ox O2 Delivery O2 Flow Rate FiO2 03/09/17 21:40 124 126/98 03/09/17 20:13 97.3 124 17 126/98 92 Nasal Cannula 7.0 03/09/17 19:56 Nasal Cannula 7.0 55 03/09/17 19:56 94 Nasal Cannula 7.0 03/09/17 16:00 97.2 129 19 115/72 96 03/09/17 12:00 97.9 114 2 121/92 91 Nasal Cannula 6.0 03/09/17 09:47 123 123/72 03/09/17 08:02 89 18 94 Nasal Cannula 7.0 55 03/09/17 08:02 89 18 94 Nasal Cannula 7.0 55 03/09/17 08:01 Nasal Cannula 7.0 55 03/09/17 08:01 94 Nasal Cannula 7.0 03/09/17 08:00 97.5 120 20 123/74 92 Nasal Cannula 6.0 03/09/17 04:00 97.9 99 20 121/76 92 Room Air 03/09/17 00:00 98.3 100 20 110/71 94 Room Air Intake and Output 03/08/17 03/09/17 19:00 07:00 Intake Total 840 ml Output Total 675 ml 700 ml Balance 165 ml -700 ml Intake Oral 840 ml Output Urine Total 675 ml 700 ml Laboratory Tests 03/09/17 06:00: White Blood Count 12.8H, Red Blood Count 4.13L, Hemoglobin 12.5, Hematocrit 39.5 , Mean Corpuscular Volume 96, Mean Corpuscular Hemoglobin 30.3, Mean Corpuscular Hemoglobin Concent 31.7L, Red Cell Distribution Width 17.3H, Platelet Count 135L, Mean Platelet Volume 6.7, Neutrophils (%) (Auto) , Lymphocytes (%) (Auto) , Monocytes (%) (Auto) , Eosinophils (%) (Auto) , Basophils (%) (Auto) , Differential Total Cells Counted 100, Neutrophils % ( Manual) 80H, Lymphocytes % (Manual) 11L, Monocytes % (Manual) 2, Eosinophils % ( Manual) 0, Basophils % (Manual) 0, Metamyelocytes % 6H, Band Neutrophils 1, Platelet Estimate DecreasedL, Platelet Morphology Normal, Anisocytosis 1+, Sodium Level 141, Potassium Level 4.0, Chloride Level 98, Carbon Dioxide Level 30, Anion Gap 13, Blood Urea Nitrogen 36H, Creatinine 0.5, Estimat Glomerular Filtration Rate > 60, Glucose Level 106, Calcium Level 8.8, Pro-B-Type Natriuretic Peptide 578H Height (Feet): 5 Height (Inches): 3.00 Weight (Pounds): 128 Objective Elderly WW NCAT supple Coarse BS RR abd soft NT slightly distended no edema non focal YANI FRANCIS Mar 09, 2017 23:21
[2017-03-10 00:12] VITALS: BP 130/70
[2017-03-10 04:17] VITALS: BP 115/75
[2017-03-10 06:29] LABS: MEAN CORPUSCULAR HEMOGLOBIN 30.8 PG (27.0-31.0); MEAN CORPUSCULAR HGB CONC 31.9 G/DL (32.0-36.0); MEAN CORPUSCULAR VOLUME 97 FL (80-99); MEAN PLATELET VOLUME 6.7 FL (6.5-10.1); PLATELET COUNT 140 K/UL (150-450); RED BLOOD COUNT 3.77 M/UL (4.20-5.40); WHITE BLOOD COUNT 13.3 K/UL (4.8-10.8)
[2017-03-10 07:09] LABS: ANION GAP 14 (5-15); CALCIUM 8.6 mg/dL (8.6-10.2); CARBON DIOXIDE 29 mEQ/L (20-30); CHLORIDE 102 mEQ/L (98-107); CREATININE 0.5 mg/dL (0.5-0.9); GLOMERULAR FILTRATION RATE > 60 mL/min (>60); HEMOLYSIS 25; POTASSIUM 4.2 mEQ/L (3.4-4.9); SODIUM 145 mEQ/L (135-145)
[2017-03-10] MEDS: Advair 250/50 Inhaler - 14 dose INH SCH ×2 (08:40→18:00)
[2017-03-10 08:50] VITALS: BP 117/73
[2017-03-10] MEDS: Vitamin B-12 500mcg tab ORAL SCH (09:33)
[2017-03-10] MEDS: Docusate 100mg tablet ORAL SCH ×2 (09:33→18:49)
[2017-03-10] MEDS: PredniSONE 20mg tab ORAL SCH ×2 (09:33→18:49)
[2017-03-10] MEDS: Bactrim DS (160mg/800mg) tab ORAL SCH ×2 (09:34→21:01)
[2017-03-10] MEDS: levETIRAcetam 500mg/5ml Liquid ORAL SCH ×2 (09:34→21:02)
[2017-03-10] MEDS: Pantoprazole Inj IVP SCH (09:35)
[2017-03-10] MEDS: Metoprolol Tartrate 12.5mg TAB ORAL SCH ×2 (09:35→21:04)
[2017-03-10] MEDS: Nystatin Powder 100,000 units/gm 15gm TOPIC SCH ×3 (09:36→18:46)
[2017-03-10 09:56] LABS: ANISOCYTOSIS 1+; BAND NEUTROPHILS % (MANUAL) 0 % (0-8); BASOPHILS % (MANUAL) 0 % (0-2); EOSINOPHILS % (MANUAL) 0 % (0-3); LYMPHOCYTES % (MANUAL) 11 % (20-45); NEUTROPHILS % (MANUAL) 83 % (45-75); PLATELET ESTIMATE ADEQUATE; PLATELET MORPHOLOGY NORMAL; TOTAL CELLS COUNTED 100
--- NOTE | 2017-03-10 10:13 | General Progress Note ---
Assessment/Plan Assessment/Plan Assessment - Anemia / thrombocytopenia - OB (+) stools - no e/o Fe deficiency - Resp failure/ COPD - met lung CA - PE Recommendations - push po - monitor CBC - no GI w/u per family directives - anticoagulation - PPI - no further GI plans or recs at this time - will sign off - please re- consult PRN Subjective Allergies: Coded Allergies: ASPIRIN (Verified Allergy, Unknown, 02/25/17) NSAIDS (NON-STEROIDAL ANTI-INFLAMMA (Verified Allergy, Unknown, 02/25/17) Subjective awake comfortable no abd pain d/w DTR at bedside no si/sx of aspiration Objective Last 24 Hour Vital Signs Date Time Temp Pulse Resp B/P Pulse Ox O2 Delivery O2 Flow Rate FiO2 03/10/17 09:35 115 117/73 03/10/17 08:50 97.0 115 19 117/73 93 Nasal Cannula 3.0 03/10/17 08:43 84 16 93 Nasal Cannula 55 03/10/17 08:43 81 16 91 Nasal Cannula 55 03/10/17 08:42 93 Nasal Cannula 55 03/10/17 08:42 Nasal Cannula 55 03/10/17 04:17 97.2 101 18 115/75 92 Nasal Cannula 7.0 03/10/17 00:12 97.5 96 18 130/70 93 Nasal Cannula 7.0 03/09/17 21:40 124 126/98 03/09/17 20:13 97.3 124 17 126/98 92 Nasal Cannula 7.0 03/09/17 19:56 Nasal Cannula 7.0 55 03/09/17 19:56 94 Nasal Cannula 7.0 03/09/17 16:00 97.2 129 19 115/72 96 03/09/17 12:00 97.9 114 2 121/92 91 Nasal Cannula 6.0 Intake and Output 03/09/17 03/10/17 19:00 07:00 Output Total 200 ml Balance -200 ml Output Urine Total 200 ml # Voids 2 Laboratory Tests 03/10/17 04:45: White Blood Count 13.3H, Red Blood Count 3.77L, Hemoglobin 11.6L, Hematocrit 36.4L, Mean Corpuscular Volume 97, Mean Corpuscular Hemoglobin 30.8, Mean Corpuscular Hemoglobin Concent 31.9L, Red Cell Distribution Width 17.0H, Platelet Count 140L, Mean Platelet Volume 6.7, Neutrophils (%) (Auto) , Lymphocytes (%) (Auto) , Monocytes (%) (Auto) , Eosinophils (%) (Auto) , Basophils (%) (Auto) , Differential Total Cells Counted 100, Neutrophils % ( Manual) 83H, Lymphocytes % (Manual) 11L, Monocytes % (Manual) 6, Eosinophils % ( Manual) 0, Basophils % (Manual) 0, Band Neutrophils 0, Platelet Estimate Adequate, Platelet Morphology Normal, Anisocytosis 1+, Sodium Level 145, Potassium Level 4.2, Chloride Level 102, Carbon Dioxide Level 29, Anion Gap 14, Blood Urea Nitrogen 42H, Creatinine 0.5, Estimat Glomerular Filtration Rate > 60 , Glucose Level 112H, Calcium Level 8.6, Pro-B-Type Natriuretic Peptide 519H Height (Feet): 5 Height (Inches): 3.00 Weight (Pounds): 128 Objective Elderly WW NCAT supple Coarse BS RR abd soft NT slightly distended no edema non focal YANI FRANCIS Mar 10, 2017 10:13
[2017-03-10] MEDS: Morphine Sulfate 2mg/ml Inj IVP PRN (10:42)
--- NOTE | 2017-03-10 11:03 | Diagnostic Imaging Report ---
Indications: Pleural effusion Technique: Ultrasound used to localize optimal puncture site. Sterile prepping and draping chest. Local anesthesia with 1% lidocaine. Under real-time ultrasound guidance, puncture pleural space using thoracentesis needle. Stylet removed. Catheter placed to vacuum bottle suction. Total 400 milliliters of blood-tinged fluid aspirated. Patient tolerated procedure well, without immediate complication. Findings: Followup sonography demonstrates complete resolution of pleural fluid. Impression: Successful ultrasound-guided thoracentesis, yielding 400 milliliters of fluid
--- NOTE | 2017-03-10 12:11 | Infectious Diseases Prog Note ---
Assessment/Plan Assessment/Plan antibiotics : bactrim A 1. stenotrophomonas pneumonia 2. recent c.diff colitis s/p rx 3. metastatic lung cancer 4. COPD 5. pulmonary emboli 6. rectal VRE colonization P 1. continue bactrim 3 more days 2. will follow up cultures Subjective ROS Limited/Unobtainable: Yes Allergies: Coded Allergies: ASPIRIN (Verified Allergy, Unknown, 02/25/17) NSAIDS (NON-STEROIDAL ANTI-INFLAMMA (Verified Allergy, Unknown, 02/25/17) Objective Vital Signs Last 24 Hour Vital Signs Date Time Temp Pulse Resp B/P Pulse Ox O2 Delivery O2 Flow Rate FiO2 03/10/17 09:35 115 117/73 03/10/17 08:50 97.0 115 19 117/73 93 Nasal Cannula 3.0 03/10/17 08:43 84 16 93 Nasal Cannula 55 03/10/17 08:43 81 16 91 Nasal Cannula 55 03/10/17 08:42 93 Nasal Cannula 55 03/10/17 08:42 Nasal Cannula 55 03/10/17 04:17 97.2 101 18 115/75 92 Nasal Cannula 7.0 03/10/17 00:12 97.5 96 18 130/70 93 Nasal Cannula 7.0 03/09/17 21:40 124 126/98 03/09/17 20:13 97.3 124 17 126/98 92 Nasal Cannula 7.0 03/09/17 19:56 Nasal Cannula 7.0 55 03/09/17 19:56 94 Nasal Cannula 7.0 03/09/17 16:00 97.2 129 19 115/72 96 Height (Feet): 5 Height (Inches): 3.00 Weight (Pounds): 128 Respiratory/Chest: lungs clear Cardiovascular: normal rate, regular rhythm, no gallop/murmur Abdomen: soft, non tender Extremities: no edema Laboratory Tests Test 03/10/17 04:45 White Blood Count 13.3 K/UL (4.8-10.8) H Red Blood Count 3.77 M/UL (4.20-5.40) L Hemoglobin 11.6 G/DL (12.0-16.0) L Hematocrit 36.4 % (37.0-47.0) L Mean Corpuscular Volume 97 FL (80-99) Mean Corpuscular Hemoglobin 30.8 PG (27.0-31.0) Mean Corpuscular Hemoglobin Concent 31.9 G/DL (32.0-36.0) L Red Cell Distribution Width 17.0 % (11.6-14.8) H Platelet Count 140 K/UL (150-450) L Mean Platelet Volume 6.7 FL (6.5-10.1) Neutrophils (%) (Auto) % (45.0-75.0) Lymphocytes (%) (Auto) % (20.0-45.0) Monocytes (%) (Auto) % (1.0-10.0) Eosinophils (%) (Auto) % (0.0-3.0) Basophils (%) (Auto) % (0.0-2.0) Differential Total Cells Counted 100 Neutrophils % (Manual) 83 % (45-75) H Lymphocytes % (Manual) 11 % (20-45) L Monocytes % (Manual) 6 % (1-10) Eosinophils % (Manual) 0 % (0-3) Basophils % (Manual) 0 % (0-2) Band Neutrophils 0 % (0-8) Platelet Estimate Adequate Platelet Morphology Normal Anisocytosis 1+ Sodium Level 145 mEQ/L (135-145) Potassium Level 4.2 mEQ/L (3.4-4.9) Chloride Level 102 mEQ/L (98-107) Carbon Dioxide Level 29 mEQ/L (20-30) Anion Gap 14 (5-15) Blood Urea Nitrogen 42 mg/dL (7-23) H Creatinine 0.5 mg/dL (0.5-0.9) Estimat Glomerular Filtration Rate > 60 mL/min (>60) Glucose Level 112 mg/dL (74-106) H Calcium Level 8.6 mg/dL (8.6-10.2) Pro-B-Type Natriuretic Peptide 519 pg/mL (0-125) H PJ ALY Mar 10, 2017 12:11
--- NOTE | 2017-03-10 12:43 | Diagnostic Imaging Report ---
Indication: COPD, shortness of breath Technique: One view of the chest Comparison: 03/06/2017 Findings: Patient is rotated to the left. There is increasing pleural fluid on the left. Reticular interstitial opacities on the right are probably chronic. No new infiltrates. The heart is borderline enlarged Impression: Increasing left pleural effusion, over 4 days Other stable findings as described
[2017-03-10 12:54] VITALS: BP 117/76
--- NOTE | 2017-03-10 14:27 | Pulmonology Progress Note ---
Assessment/Plan Assessment/Plan 1. Lethargy, improved 2. Possible pneumonia. 3. 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 4. Metastatic lung cancer to the brain. 5. History of pulmonary embolism. 6. Anemia. still has dyspnea pleural fluid recurred on CXR today atypical cells in pleural fluid disc w dtrs at bedside rec hospice, referral given dc plan to home Subjective ROS Limited/Unobtainable: Yes Constitutional: Reports: fatigue Respiratory: Reports: shortness of breath Allergies: Coded Allergies: ASPIRIN (Verified Allergy, Unknown, 02/25/17) NSAIDS (NON-STEROIDAL ANTI-INFLAMMA (Verified Allergy, Unknown, 02/25/17) Subjective weak Objective Last 24 Hour Vital Signs Date Time Temp Pulse Resp B/P Pulse Ox O2 Delivery O2 Flow Rate FiO2 03/10/17 12:54 97.2 108 20 117/76 93 Room Air 5.0 03/10/17 09:35 115 117/73 03/10/17 08:50 97.0 115 19 117/73 93 Nasal Cannula 3.0 03/10/17 08:43 84 16 93 Nasal Cannula 55 03/10/17 08:43 81 16 91 Nasal Cannula 55 03/10/17 08:42 93 Nasal Cannula 55 03/10/17 08:42 Nasal Cannula 55 03/10/17 04:17 97.2 101 18 115/75 92 Nasal Cannula 7.0 03/10/17 00:12 97.5 96 18 130/70 93 Nasal Cannula 7.0 03/09/17 21:40 124 126/98 03/09/17 20:13 97.3 124 17 126/98 92 Nasal Cannula 7.0 03/09/17 19:56 Nasal Cannula 7.0 55 03/09/17 19:56 94 Nasal Cannula 7.0 03/09/17 16:00 97.2 129 19 115/72 96 Intake and Output 03/09/17 03/10/17 19:00 07:00 Output Total 200 ml Balance -200 ml Output Urine Total 200 ml # Voids 2 Objective Cushingoid face General Appearance: no acute distress Respiratory/Chest: decreased breath sounds, accessory muscle use Cardiovascular: normal rate Laboratory Tests 03/10/17 04:45: White Blood Count 13.3H, Red Blood Count 3.77L, Hemoglobin 11.6L, Hematocrit 36.4L, Mean Corpuscular Volume 97, Mean Corpuscular Hemoglobin 30.8, Mean Corpuscular Hemoglobin Concent 31.9L, Red Cell Distribution Width 17.0H, Platelet Count 140L, Mean Platelet Volume 6.7, Neutrophils (%) (Auto) , Lymphocytes (%) (Auto) , Monocytes (%) (Auto) , Eosinophils (%) (Auto) , Basophils (%) (Auto) , Differential Total Cells Counted 100, Neutrophils % ( Manual) 83H, Lymphocytes % (Manual) 11L, Monocytes % (Manual) 6, Eosinophils % ( Manual) 0, Basophils % (Manual) 0, Band Neutrophils 0, Platelet Estimate Adequate, Platelet Morphology Normal, Anisocytosis 1+, Sodium Level 145, Potassium Level 4.2, Chloride Level 102, Carbon Dioxide Level 29, Anion Gap 14, Blood Urea Nitrogen 42H, Creatinine 0.5, Estimat Glomerular Filtration Rate > 60 , Glucose Level 112H, Calcium Level 8.6, Pro-B-Type Natriuretic Peptide 519H Current Medications Medications (Trade) Dose Ordered Sig/Yolanda Route PRN Reason Start Time Stop Time Status Last Admin Dose Admin Acetazolamide (Diamox) 250 mg Q12HR ORAL 03/02/17 21:00 04/01/17 20:59 03/10/17 09:34 Cyanocobalamin (Vitamin B-12) 1,000 mcg DAILY ORAL 03/03/17 09:00 04/02/17 08:59 03/10/17 09:33 Docusate Sodium (Colace) 100 mg TWICE A DAY ORAL 03/02/17 18:00 04/01/17 17:59 03/10/17 09:33 Fentanyl (Duragesic) 1 patch Q72H TDERMAL 03/04/17 17:00 03/11/17 16:59 03/07/17 18:57 Fentanyl (Duragesic) 1 patch Q72H TDERMAL 03/04/17 17:00 03/11/17 16:59 03/07/17 18:58 Furosemide (Lasix) 20 mg DAILY IV 03/03/17 17:00 04/02/17 16:59 03/10/17 09:33 Gabapentin (Neurontin) 100 mg BID ORAL 03/02/17 18:00 04/01/17 17:59 03/10/17 09:34 Gabapentin (Neurontin) 300 mg BEDTIME ORAL 03/02/17 21:00 04/01/17 20:59 03/09/17 21:40 Levetiracetam (Keppra) 500 mg Q12HR ORAL 03/02/17 21:00 04/01/17 20:59 03/10/17 09:34 Metoprolol Tartrate (Lopressor) 12.5 mg Q12HR ORAL 03/04/17 09:00 04/03/17 08:59 03/10/17 09:35 Morphine Sulfate (Morphine Sulfate) 1 mg Q4HR PRN IVP moderate pain 4-6 03/03/17 17:00 03/10/17 16:59 03/10/17 10:42 Morphine Sulfate (Morphine Sulfate) 2 mg Q4H PRN IVP Severe Pain (Pain Scale 7-10) 03/03/17 18:00 03/10/17 17:59 Naloxone HCl (Narcan) 0.1 mg STAT PRN IV RESPIRATORY DISTRESS 03/02/17 11:30 04/01/17 11:29 Nystatin (Nystop Powder) 1 applic THREE TIMES A DAY TOPIC 03/06/17 18:00 04/05/17 17:59 03/10/17 13:38 Pantoprazole (Protonix) 40 mg DAILY IVP 03/04/17 09:00 04/03/17 08:59 03/10/17 09:35 Prednisone (predniSONE) 20 mg BID ORAL 03/06/17 09:00 04/05/17 08:59 03/10/17 09:33 Ranitidine HCl (Zantac) 150 mg QHS ORAL 03/02/17 21:00 04/01/17 20:59 03/09/17 21:40 Rivaroxaban (Xarelto) 15 mg QPM ORAL 03/02/17 16:30 04/01/17 16:29 03/09/17 17:25 Salmeterol Xinafoate/ Fluticasone (Advair 250/50 Diskus) 1 puffs BID INH 03/02/17 18:00 04/01/17 17:59 03/10/17 08:40 Tiotropium [place] (Spiriva Inhaler) 1 puff DAILY INH 03/03/17 09:00 04/02/17 08:59 03/10/17 08:41 Trimethoprim/ Sulfamethoxazole (Bactrim-DS) 1 ea Q12HR ORAL 03/09/17 21:00 03/13/17 09:01 03/10/17 09:34 AL VEGA Mar 10, 2017 14:27
[2017-03-10 16:35] VITALS: BP 107/64
[2017-03-10] MEDS: Xarelto 15mg tab ORAL SCH (18:49)
[2017-03-10 20:00] VITALS: BP 125/81
[2017-03-10] MEDS: Levalbuterol Inh UD 1.25mg/0.5ml HHN SCH (20:22)
--- NOTE | 2017-03-10 22:28 | General Progress Note ---
Assessment/Plan Assessment/Plan metastatic lung cancer to brain effusion copd ?pneumonia ho PE anemia encephalopathymultiple skin echymosis hypernatremia hypokalemia back wound throbocytopenia hypokalemia steroids per Pulmonary dw Dr Zhao to taper plan on thoracentesis still pending pulmonary hygine respiratory treatments abx per ID wound care xarelto monitor platelets GI saw patient family refusing workup encephalopathy improved monitor bs pt/ot/st dvt and ulcer prohylaxis dc held yesterday better today will observer dc plans dw daughters recommended hospice home when arrangements are mede with HH likely tomorrow Subjective Allergies: Coded Allergies: ASPIRIN (Verified Allergy, Unknown, 02/25/17) NSAIDS (NON-STEROIDAL ANTI-INFLAMMA (Verified Allergy, Unknown, 02/25/17) Subjective no chest pain breathing better family still want to talk to Dr Raquel lovelace want arrangements made home with HH, they do not want snf or hospice at this time Objective Last 24 Hour Vital Signs Date Time Temp Pulse Resp B/P Pulse Ox O2 Delivery O2 Flow Rate FiO2 03/10/17 21:04 118 125/81 03/10/17 20:22 118 24 92 Venturi Mask 15.0 50 03/10/17 20:00 97.7 100 17 125/81 Venturi Mask 15.0 03/10/17 19:19 Venturi Mask 14.0 55 03/10/17 19:18 89 Venturi Mask 14.0 55 03/10/17 16:35 96.8 113 20 107/64 90 Nasal Cannula 5.0 03/10/17 12:54 97.2 108 20 117/76 93 Room Air 5.0 03/10/17 09:35 115 117/73 03/10/17 08:50 97.0 115 19 117/73 93 Nasal Cannula 3.0 03/10/17 08:43 84 16 93 Nasal Cannula 55 03/10/17 08:43 81 16 91 Nasal Cannula 55 03/10/17 08:42 93 Nasal Cannula 55 03/10/17 08:42 Nasal Cannula 55 03/10/17 04:17 97.2 101 18 115/75 92 Nasal Cannula 7.0 03/10/17 00:12 97.5 96 18 130/70 93 Nasal Cannula 7.0 Intake and Output 03/09/17 03/10/17 19:00 07:00 Output Total 200 ml Balance -200 ml Output Urine Total 200 ml # Voids 2 Laboratory Tests 03/10/17 04:45: White Blood Count 13.3H, Red Blood Count 3.77L, Hemoglobin 11.6L, Hematocrit 36.4L, Mean Corpuscular Volume 97, Mean Corpuscular Hemoglobin 30.8, Mean Corpuscular Hemoglobin Concent 31.9L, Red Cell Distribution Width 17.0H, Platelet Count 140L, Mean Platelet Volume 6.7, Neutrophils (%) (Auto) , Lymphocytes (%) (Auto) , Monocytes (%) (Auto) , Eosinophils (%) (Auto) , Basophils (%) (Auto) , Differential Total Cells Counted 100, Neutrophils % ( Manual) 83H, Lymphocytes % (Manual) 11L, Monocytes % (Manual) 6, Eosinophils % ( Manual) 0, Basophils % (Manual) 0, Band Neutrophils 0, Platelet Estimate Adequate, Platelet Morphology Normal, Anisocytosis 1+, Sodium Level 145, Potassium Level 4.2, Chloride Level 102, Carbon Dioxide Level 29, Anion Gap 14, Blood Urea Nitrogen 42H, Creatinine 0.5, Estimat Glomerular Filtration Rate > 60 , Glucose Level 112H, Calcium Level 8.6, Pro-B-Type Natriuretic Peptide 519H Height (Feet): 5 Height (Inches): 3.00 Weight (Pounds): 128 General Appearance: WD/WN Cardiovascular: normal rate Respiratory/Chest: decreased breath sounds Abdomen: normal bowel sounds, soft Objective multiple echymosis all over improved FRANCIE RAMIREZ Mar 10, 2017 22:28
[2017-03-11] VITALS: BP 95/66
[2017-03-11] MEDS: Levalbuterol Inh UD 1.25mg/0.5ml HHN SCH ×4 (00:45→18:00)
[2017-03-11 04:00] VITALS: BP 107/63
[2017-03-11] MEDS: Advair 250/50 Inhaler - 14 dose INH SCH ×2 (07:59→18:00)
[2017-03-11 08:51] VITALS: BP 117/78
[2017-03-11] MEDS: PredniSONE 20mg tab ORAL SCH ×2 (09:32→17:14)
[2017-03-11] MEDS: Vitamin B-12 500mcg tab ORAL SCH (09:32)
[2017-03-11] MEDS: Docusate 100mg tablet ORAL SCH ×2 (09:32→17:14)
[2017-03-11] MEDS: Bactrim DS (160mg/800mg) tab ORAL SCH ×2 (09:32→20:22)
[2017-03-11] MEDS: Nystatin Powder 100,000 units/gm 15gm TOPIC SCH ×3 (09:33→17:15)
[2017-03-11] MEDS: Metoprolol Tartrate 12.5mg TAB ORAL SCH ×2 (09:33→20:26)
[2017-03-11] MEDS: levETIRAcetam 500mg/5ml Liquid ORAL SCH ×2 (10:00→20:23)
--- NOTE | 2017-03-11 11:30 | Infectious Diseases Prog Note ---
Assessment/Plan Assessment/Plan antibiotics : bactrim A 1. stenotrophomonas pneumonia 2. recent c.diff colitis s/p rx 3. metastatic lung cancer 4. COPD 5. pulmonary emboli 6. rectal VRE colonization 7. pleural effusion P 1. continue bactrim 2 more days 2. will follow up cultures Subjective Constitutional: Denies: chills, fever Respiratory: Denies: dry cough, shortness of breath Gastrointestinal/Abdominal: Denies: diarrhea, nausea, vomiting Musculoskeletal: Denies: pain Allergies: Coded Allergies: ASPIRIN (Verified Allergy, Unknown, 02/25/17) NSAIDS (NON-STEROIDAL ANTI-INFLAMMA (Verified Allergy, Unknown, 02/25/17) Objective Vital Signs Last 24 Hour Vital Signs Date Time Temp Pulse Resp B/P Pulse Ox O2 Delivery O2 Flow Rate FiO2 03/11/17 09:33 113 117/78 03/11/17 08:51 97.3 113 19 117/78 98 Nasal Cannula 10.0 03/11/17 07:59 109 24 93 Nasal Cannula 55 03/11/17 07:59 109 24 93 Nasal Cannula 55 03/11/17 07:21 110 24 94 Venturi Mask 15.0 55 03/11/17 07:11 Venturi Mask 14.0 55 03/11/17 07:11 93 Venturi Mask 14.0 55 03/11/17 07:11 109 24 93 Venturi Mask 15.0 50 03/11/17 04:00 97.9 107 18 107/63 Venturi Mask 15.0 03/11/17 01:03 118 24 92 Venturi Mask 15.0 55 03/11/17 00:46 110 24 94 Venturi Mask 15.0 50 03/11/17 00:00 98.1 103 18 95/66 90 Room Air 03/10/17 21:04 118 125/81 03/10/17 20:22 118 24 92 Venturi Mask 15.0 50 03/10/17 20:00 97.7 100 17 125/81 Venturi Mask 15.0 03/10/17 19:19 Venturi Mask 14.0 55 03/10/17 19:18 89 Venturi Mask 14.0 55 03/10/17 16:35 96.8 113 20 107/64 90 Nasal Cannula 5.0 03/10/17 12:54 97.2 108 20 117/76 93 Room Air 5.0 Height (Feet): 5 Height (Inches): 3.00 Weight (Pounds): 128 Respiratory/Chest: lungs clear Cardiovascular: normal rate, regular rhythm, no gallop/murmur Abdomen: soft, non tender Extremities: no edema PJ ALY Mar 11, 2017 11:30
[2017-03-11 12:40] VITALS: BP 126/74
[2017-03-11] MEDS ORDERED: Morphine Sulfate 2mg/ml Inj IVP PRN (13:30)
[2017-03-11] MEDS ORDERED: Morphine Sulfate 2mg/ml Inj IM PRN (13:30)
[2017-03-11] MEDS: Morphine Sulfate 2mg/ml Inj IVP PRN (13:50)
[2017-03-11 16:24] VITALS: BP 105/76
[2017-03-11] MEDS: Xarelto 15mg tab ORAL SCH (17:14)
[2017-03-11 20:00] VITALS: BP 138/82
--- NOTE | 2017-03-11 23:51 | General Progress Note ---
Assessment/Plan Assessment/Plan metastatic lung cancer to brain effusion copd ?pneumonia ho PE anemia encephalopathymultiple skin echymosis hypernatremia hypokalemia back wound throbocytopenia hypokalemia steroids per Pulmonary dw Dr Zhao to taper plan on thoracentesis still pending pulmonary hygine respiratory treatments abx per ID wound care xarelto monitor platelets GI saw patient family refusing workup encephalopathy improved monitor bs pt/ot/st dvt and ulcer prohylaxis dc held yesterday better today will observer dc plans dw daughters recommended hospice home when arrangements are mede with HH family doent have home care manager yet for home for dc criminal justice social worker to fup with famil for dc home with HH and caregiver for dc Subjective Allergies: Coded Allergies: ASPIRIN (Verified Allergy, Unknown, 02/25/17) NSAIDS (NON-STEROIDAL ANTI-INFLAMMA (Verified Allergy, Unknown, 02/25/17) Subjective no chest pain breathing better family has decided re home tomorrow with HH then hopice, they are trying to find a home care manager for home Objective Last 24 Hour Vital Signs Date Time Temp Pulse Resp B/P Pulse Ox O2 Delivery O2 Flow Rate FiO2 03/11/17 20:26 121 105/76 03/11/17 20:00 97.6 108 18 138/82 91 Room Air 03/11/17 19:30 Venturi Mask 03/11/17 19:30 93 Venturi Mask 14.0 55 03/11/17 19:30 Venturi Mask 03/11/17 19:30 Venturi Mask 14.0 55 03/11/17 16:24 97.7 121 19 105/76 89 Simple Mask 10.0 03/11/17 14:20 97.2 03/11/17 13:25 109 24 94 Venturi Mask 15.0 55 03/11/17 13:15 108 24 90 Nasal Cannula 7.0 58 03/11/17 12:40 97.2 106 19 126/74 90 Nasal Cannula 10.0 03/11/17 09:33 113 117/78 03/11/17 08:51 97.3 113 19 117/78 98 Nasal Cannula 10.0 03/11/17 07:59 109 24 93 Nasal Cannula 55 03/11/17 07:59 109 24 93 Nasal Cannula 55 03/11/17 07:21 110 24 94 Venturi Mask 15.0 55 03/11/17 07:11 Venturi Mask 14.0 55 03/11/17 07:11 93 Venturi Mask 14.0 55 03/11/17 07:11 109 24 93 Venturi Mask 15.0 50 03/11/17 04:00 97.9 107 18 107/63 Venturi Mask 15.0 03/11/17 01:03 118 24 92 Venturi Mask 15.0 55 03/11/17 00:46 110 24 94 Venturi Mask 15.0 50 03/11/17 00:00 98.1 103 18 95/66 90 Room Air Intake and Output 03/10/17 03/11/17 19:00 07:00 Intake Total 480 ml 50 ml Output Total 300 ml 100 ml Balance 180 ml -50 ml Intake Oral 480 ml 50 ml Output Urine Total 300 ml 100 ml # Bowel Movements 1 Height (Feet): 5 Height (Inches): 3.00 Weight (Pounds): 128 General Appearance: WD/WN Neck: non-tender Cardiovascular: normal rate Respiratory/Chest: decreased breath sounds Abdomen: soft Objective multiple echymosis all over improved FRANCIE RAMIREZ Mar 11, 2017 23:51
[2017-03-12] VITALS: BP 157/91
[2017-03-12] MEDS ORDERED: Ipratropium 0.02% Inh Soln 2.5ml UD ONE (01:01)
[2017-03-12 04:00] VITALS: BP 108/66
[2017-03-12 08:00] VITALS: BP 110/69
[2017-03-12] MEDS: Advair 250/50 Inhaler - 14 dose INH SCH ×2 (08:42→18:00)
[2017-03-12] MEDS: Levalbuterol Inh UD 1.25mg/0.5ml HHN SCH ×4 (08:42→18:00)
[2017-03-12] MEDS: Vitamin B-12 500mcg tab ORAL SCH (09:55)
[2017-03-12] MEDS: Metoprolol Tartrate 12.5mg TAB ORAL SCH ×2 (09:55→20:20)
[2017-03-12] MEDS: levETIRAcetam 500mg/5ml Liquid ORAL SCH ×2 (09:56→20:21)
[2017-03-12] MEDS: Docusate 100mg tablet ORAL SCH ×2 (09:56→17:32)
[2017-03-12] MEDS: Bactrim DS (160mg/800mg) tab ORAL SCH ×2 (09:56→20:20)
[2017-03-12] MEDS: PredniSONE 20mg tab ORAL SCH ×2 (09:56→17:32)
[2017-03-12] MEDS: Nystatin Powder 100,000 units/gm 15gm TOPIC SCH ×3 (09:57→17:32)
[2017-03-12] MEDS: Morphine Sulfate 2mg/ml Inj IVP PRN ×2 (11:29→21:24)
[2017-03-12 12:00] VITALS: BP 124/77
--- NOTE | 2017-03-12 15:05 | Infectious Diseases Prog Note ---
Assessment/Plan Assessment/Plan A 1. pneumonia with Stenotrophomonas 2. recent c.diff colitis 3. metastatic lung cancer 4. COPD 5. pulmonary emboli 6. rectal VRE colonization P 1.Continue Bactrim X 1 day 2. will follow up cultures Subjective ROS Limited/Unobtainable: Yes Respiratory: Reports: productive cough Allergies: Coded Allergies: ASPIRIN (Verified Allergy, Unknown, 02/25/17) NSAIDS (NON-STEROIDAL ANTI-INFLAMMA (Verified Allergy, Unknown, 02/25/17) Objective Vital Signs Last 24 Hour Vital Signs Date Time Temp Pulse Resp B/P Pulse Ox O2 Delivery O2 Flow Rate FiO2 03/12/17 12:48 109 16 91 Nasal Cannula 6.0 52 03/12/17 12:48 52 03/12/17 12:00 97.4 107 12 124/77 93 Room Air 03/12/17 11:59 97.1 03/12/17 09:55 116 110/69 03/12/17 08:53 116 19 95 Nasal Cannula 6.0 52 03/12/17 08:46 52 03/12/17 08:46 114 18 93 Nasal Cannula 6.0 52 03/12/17 08:45 Nasal Cannula 6.0 52 03/12/17 08:45 114 18 89 Nasal Cannula 15.0 52 03/12/17 08:45 114 18 89 Nasal Cannula 6.0 52 03/12/17 08:44 89 Nasal Cannula 6.0 52 03/12/17 08:00 97.1 103 16 110/69 92 Room Air 03/12/17 04:00 98.5 97 19 108/66 Nasal Cannula 15.0 03/12/17 01:23 103 22 92 Nasal Cannula 6.0 52 03/12/17 01:20 103 20 92 Nasal Cannula 6.0 52 03/12/17 00:00 98.3 75 17 157/91 Room Air 03/11/17 20:26 121 105/76 03/11/17 20:00 97.6 108 18 138/82 91 Room Air 03/11/17 19:30 Venturi Mask 03/11/17 19:30 93 Venturi Mask 14.0 55 03/11/17 19:30 Venturi Mask 03/11/17 19:30 Venturi Mask 14.0 55 03/11/17 16:24 97.7 121 19 105/76 89 Simple Mask 10.0 Height (Feet): 5 Height (Inches): 3.00 Weight (Pounds): 128 General Appearance: no acute distress HEENT: mucous membranes moist Respiratory/Chest: lungs clear Cardiovascular: tachycardia Abdomen: soft, non tender Extremities: no edema Skin: other - multiple bruises Neurologic/Psychiatric: alert, responsive Current Medications Medications (Trade) Dose Ordered Sig/Yolanda Route PRN Reason Start Time Stop Time Status Last Admin Dose Admin Acetazolamide (Diamox) 250 mg Q12HR ORAL 03/02/17 21:00 04/01/17 20:59 03/12/17 09:55 Cyanocobalamin (Vitamin B-12) 1,000 mcg DAILY ORAL 03/03/17 09:00 04/02/17 08:59 03/12/17 09:55 Docusate Sodium (Colace) 100 mg TWICE A DAY ORAL 03/02/17 18:00 04/01/17 17:59 03/12/17 09:56 Furosemide (Lasix) 20 mg DAILY IV 03/03/17 17:00 04/02/17 16:59 03/12/17 10:16 Gabapentin (Neurontin) 100 mg BID ORAL 03/02/17 18:00 04/01/17 17:59 03/12/17 09:54 Gabapentin (Neurontin) 300 mg BEDTIME ORAL 03/02/17 21:00 04/01/17 20:59 03/11/17 20:23 Levalbuterol HCl (Xopenex) 1.25 mg Q6HR HHN 03/10/17 20:00 03/15/17 19:59 03/12/17 12:47 Levetiracetam (Keppra) 500 mg Q12HR ORAL 03/02/17 21:00 04/01/17 20:59 03/12/17 09:56 Metoprolol Tartrate (Lopressor) 12.5 mg Q12HR ORAL 03/04/17 09:00 04/03/17 08:59 03/12/17 09:55 Morphine Sulfate (Morphine Sulfate) 1 mg Q4H PRN IVP Moderate Pain (Pain Scale 4-6) 03/11/17 17:30 03/18/17 17:29 03/12/17 11:29 Morphine Sulfate (Morphine Sulfate) 2 mg Q4H PRN IVP Severe Pain (Pain Scale 7-10) 03/11/17 13:30 03/18/17 13:29 Naloxone HCl (Narcan) 0.1 mg STAT PRN IV RESPIRATORY DISTRESS 03/02/17 11:30 04/01/17 11:29 Nystatin (Nystop Powder) 1 applic THREE TIMES A DAY TOPIC 03/06/17 18:00 04/05/17 17:59 03/12/17 13:35 Pantoprazole (Protonix) 40 mg DAILY ORAL 03/11/17 09:00 04/10/17 08:59 03/12/17 09:56 Prednisone (predniSONE) 20 mg BID ORAL 03/06/17 09:00 04/05/17 08:59 03/12/17 09:56 Ranitidine HCl (Zantac) 150 mg QHS ORAL 03/02/17 21:00 04/01/17 20:59 03/11/17 20:24 Rivaroxaban (Xarelto) 15 mg QPM ORAL 03/02/17 16:30 04/01/17 16:29 03/11/17 17:14 Salmeterol Xinafoate/ Fluticasone (Advair 250/50 Diskus) 1 puffs BID INH 03/02/17 18:00 04/01/17 17:59 03/12/17 08:42 Tiotropium [place] (Spiriva Inhaler) 1 puff DAILY INH 03/03/17 09:00 04/02/17 08:59 03/12/17 08:42 Trimethoprim/ Sulfamethoxazole (Bactrim-DS) 1 ea Q12HR ORAL 03/09/17 21:00 03/13/17 09:01 03/12/17 09:56 SREEDHAR RUBY Mar 12, 2017 15:05
[2017-03-12 16:00] VITALS: BP 100/72
[2017-03-12] MEDS: Xarelto 15mg tab ORAL SCH (17:32)
[2017-03-12 20:00] VITALS: BP 111/72
--- NOTE | 2017-03-12 23:13 | General Progress Note ---
Assessment/Plan Assessment/Plan metastatic lung cancer to brain effusion copd ?pneumonia ho PE anemia encephalopathymultiple skin echymosis hypernatremia hypokalemia back wound throbocytopenia hypokalemia steroids per Pulmonary dw Dr Zhao to taper plan on thoracentesis still pending pulmonary hygine respiratory treatments abx per ID wound care xarelto monitor platelets GI saw patient family refusing workup encephalopathy improved monitor bs pt/ot/st dvt and ulcer prohylaxis dc held yesterday better today will observer dc plans dw daughters recommended photofinishing laboratory worker CM to arrqnge disposititon Subjective Allergies: Coded Allergies: ASPIRIN (Verified Allergy, Unknown, 02/25/17) NSAIDS (NON-STEROIDAL ANTI-INFLAMMA (Verified Allergy, Unknown, 02/25/17) Subjective no chest pain breathing better family now want snf close to their home Objective Last 24 Hour Vital Signs Date Time Temp Pulse Resp B/P Pulse Ox O2 Delivery O2 Flow Rate FiO2 03/12/17 20:20 115 116/68 03/12/17 20:00 97.7 113 20 111/72 91 Nasal Cannula 5.0 03/12/17 19:30 Nasal Cannula 6.0 52 03/12/17 19:30 88 Nasal Cannula 6.0 52 03/12/17 19:30 Nasal Cannula 6.0 52 03/12/17 19:30 Nasal Cannula 6.0 52 03/12/17 16:00 97.9 100 18 100/72 91 Room Air 03/12/17 13:00 111 18 92 Nasal Cannula 6.0 52 03/12/17 12:48 109 16 91 Nasal Cannula 6.0 52 03/12/17 12:48 52 03/12/17 12:00 97.4 107 12 124/77 93 Room Air 03/12/17 11:59 97.1 03/12/17 09:55 116 110/69 03/12/17 08:53 116 19 95 Nasal Cannula 6.0 52 03/12/17 08:46 52 03/12/17 08:46 114 18 93 Nasal Cannula 6.0 52 03/12/17 08:45 Nasal Cannula 6.0 52 03/12/17 08:45 114 18 89 Nasal Cannula 15.0 52 03/12/17 08:45 114 18 89 Nasal Cannula 6.0 52 03/12/17 08:44 89 Nasal Cannula 6.0 52 03/12/17 08:00 97.1 103 16 110/69 92 Room Air 03/12/17 04:00 98.5 97 19 108/66 Nasal Cannula 15.0 03/12/17 01:23 103 22 92 Nasal Cannula 6.0 52 03/12/17 01:20 103 20 92 Nasal Cannula 6.0 52 03/12/17 00:00 98.3 75 17 157/91 Room Air Intake and Output 03/11/17 03/12/17 19:00 07:00 Intake Total 360 ml 100 ml Output Total 500 ml 100 ml Balance -140 ml 0 ml Intake Oral 360 ml 100 ml Output Urine Total 500 ml 100 ml # Bowel Movements 1 1 Height (Feet): 5 Height (Inches): 3.00 Weight (Pounds): 128 General Appearance: WD/WN Neck: non-tender Cardiovascular: regular rhythm Respiratory/Chest: decreased breath sounds Objective multiple echymosis all over improved FRANCIE RAMIREZ Mar 12, 2017 23:13
[2017-03-13] VITALS: BP 123/73
[2017-03-13] MEDS ORDERED: Ipratropium 0.02% Inh Soln 2.5ml UD ONE (01:04)
[2017-03-13 04:12] VITALS: BP 114/70
[2017-03-13] MEDS: Advair 250/50 Inhaler - 14 dose INH SCH ×2 (07:27→19:22)
[2017-03-13] MEDS: Levalbuterol Inh UD 1.25mg/0.5ml HHN SCH ×4 (07:27→19:28)
[2017-03-13 08:52] VITALS: BP 123/72
[2017-03-13] MEDS: levETIRAcetam 500mg/5ml Liquid ORAL SCH ×2 (09:00→21:33)
[2017-03-13] MEDS: Bactrim DS (160mg/800mg) tab ORAL SCH (09:22)
[2017-03-13] MEDS: PredniSONE 20mg tab ORAL SCH ×2 (09:23→17:43)
[2017-03-13] MEDS: Vitamin B-12 500mcg tab ORAL SCH (09:23)
[2017-03-13] MEDS: Metoprolol Tartrate 12.5mg TAB ORAL SCH ×2 (09:24→21:33)
[2017-03-13] MEDS: Nystatin Powder 100,000 units/gm 15gm TOPIC SCH ×3 (09:24→17:43)
[2017-03-13] MEDS: Docusate 100mg tablet ORAL SCH ×2 (09:24→17:48)
[2017-03-13] MEDS ORDERED: KEPPRA500 MG ORAL (10:27)
[2017-03-13] MEDS ORDERED: PREDNISONE20 M1 PO (10:33)
[2017-03-13] MEDS ORDERED: FUROSEMIDE20 M1 ORAL (10:52)
[2017-03-13] MEDS: Morphine Sulfate 2mg/ml Inj IVP PRN (11:18)
[2017-03-13 12:32] VITALS: BP 117/72
[2017-03-13] MEDS ORDERED: Naloxone 0.4mg/ml Inj IV PRN (14:30)
--- NOTE | 2017-03-13 14:46 | Infectious Diseases Prog Note ---
Assessment/Plan Assessment/Plan A 1. pneumonia with Stenotrophomonas 2. recent c.diff colitis 3. metastatic lung cancer 4. COPD 5. pulmonary emboli 6. rectal VRE colonization P 1.discontinue Bactrim Subjective ROS Limited/Unobtainable: Yes Respiratory: Reports: dry cough Allergies: Coded Allergies: ASPIRIN (Verified Allergy, Unknown, 02/25/17) NSAIDS (NON-STEROIDAL ANTI-INFLAMMA (Verified Allergy, Unknown, 02/25/17) Objective Vital Signs Last 24 Hour Vital Signs Date Time Temp Pulse Resp B/P Pulse Ox O2 Delivery O2 Flow Rate FiO2 03/13/17 12:57 112 20 93 Nasal Cannula 6.0 52 03/13/17 12:47 110 20 90 Nasal Cannula 6.0 52 03/13/17 12:32 96.9 108 20 117/72 95 Nasal Cannula 10.0 03/13/17 09:24 116 123/72 03/13/17 08:52 97.9 116 20 123/72 91 Nasal Cannula 10.0 03/13/17 07:37 114 20 95 Nasal Cannula 6.0 52 03/13/17 07:27 91 Nasal Cannula 6.0 52 03/13/17 07:27 114 18 89 Nasal Cannula 6.0 52 03/13/17 07:27 114 18 93 Nasal Cannula 6.0 52 03/13/17 07:27 114 20 91 Nasal Cannula 6.0 52 03/13/17 07:27 Nasal Cannula 6.0 52 03/13/17 04:12 97.9 108 19 114/70 90 Nasal Cannula 5.0 03/13/17 01:16 110 20 98 Nasal Cannula 6.0 52 03/13/17 01:15 93 20 95 Nasal Cannula 6.0 52 03/13/17 00:00 98.2 116 19 123/73 91 Room Air 03/12/17 20:20 115 116/68 03/12/17 20:00 97.7 113 20 111/72 91 Nasal Cannula 5.0 03/12/17 19:30 112 20 94 Nasal Cannula 6.0 52 03/12/17 19:30 88 Nasal Cannula 6.0 52 03/12/17 19:30 Nasal Cannula 6.0 52 03/12/17 19:30 118 20 98 Nasal Cannula 6.0 52 03/12/17 16:00 97.9 100 18 100/72 91 Room Air Height (Feet): 5 Height (Inches): 3.00 Weight (Pounds): 128 General Appearance: no acute distress HEENT: mucous membranes moist Respiratory/Chest: lungs clear Cardiovascular: normal rate Abdomen: soft, non tender Extremities: no edema Skin: other - many bruises Neurologic/Psychiatric: alert, responsive Current Medications Medications (Trade) Dose Ordered Sig/Yolanda Route PRN Reason Start Time Stop Time Status Last Admin Dose Admin Acetazolamide (Diamox) 250 mg Q12HR ORAL 03/02/17 21:00 04/01/17 20:59 03/13/17 09:22 Cyanocobalamin (Vitamin B-12) 1,000 mcg DAILY ORAL 03/03/17 09:00 04/02/17 08:59 03/13/17 09:23 Docusate Sodium (Colace) 100 mg TWICE A DAY ORAL 03/02/17 18:00 04/01/17 17:59 03/13/17 09:24 Fentanyl (Duragesic) 1 patch Q72H TDERMAL 03/13/17 17:00 03/20/17 16:59 UNV Fentanyl (Duragesic) 1 patch Q72H TDERMAL 03/13/17 17:00 03/20/17 16:59 UNV Furosemide (Lasix) 20 mg DAILY IV 03/03/17 17:00 04/02/17 16:59 03/13/17 09:23 Gabapentin (Neurontin) 100 mg BID ORAL 03/02/17 18:00 04/01/17 17:59 03/13/17 09:23 Gabapentin (Neurontin) 300 mg BEDTIME ORAL 03/02/17 21:00 04/01/17 20:59 03/12/17 20:21 Levalbuterol HCl (Xopenex) 1.25 mg Q6HR HHN 03/10/17 20:00 03/15/17 19:59 03/13/17 12:47 Levetiracetam (Keppra) 500 mg Q12HR ORAL 03/02/17 21:00 04/01/17 20:59 03/12/17 20:21 Metoprolol Tartrate (Lopressor) 12.5 mg Q12HR ORAL 03/04/17 09:00 04/03/17 08:59 03/13/17 09:24 Morphine Sulfate (Morphine Sulfate) 1 mg Q4H PRN IVP Moderate Pain (Pain Scale 4-6) 03/11/17 17:30 03/18/17 17:29 03/13/17 11:18 Morphine Sulfate (Morphine Sulfate) 2 mg Q4H PRN IVP Severe Pain (Pain Scale 7-10) 03/11/17 13:30 03/18/17 13:29 Naloxone HCl (Narcan) 0.1 mg PRN IV Sedation scale 3 or 4 03/13/17 14:30 UNV Naloxone HCl (Narcan) 0.1 mg STAT PRN IV RESPIRATORY DISTRESS 03/02/17 11:30 04/01/17 11:29 Nystatin (Nystop Powder) 1 applic THREE TIMES A DAY TOPIC 03/06/17 18:00 04/05/17 17:59 03/13/17 12:30 Pantoprazole (Protonix) 40 mg DAILY ORAL 03/11/17 09:00 04/10/17 08:59 03/13/17 09:23 Prednisone (predniSONE) 20 mg BID ORAL 03/06/17 09:00 04/05/17 08:59 03/13/17 09:23 Ranitidine HCl (Zantac) 150 mg QHS ORAL 03/02/17 21:00 04/01/17 20:59 03/12/17 20:20 Rivaroxaban (Xarelto) 15 mg QPM ORAL 03/02/17 16:30 04/01/17 16:29 03/12/17 17:32 Salmeterol Xinafoate/ Fluticasone (Advair 250/50 Diskus) 1 puffs BID INH 03/02/17 18:00 04/01/17 17:59 03/12/17 08:42 Tiotropium [place] (Spiriva Inhaler) 1 puff DAILY INH 03/03/17 09:00 04/02/17 08:59 03/12/17 08:42 SREEDHAR RUBY Mar 13, 2017 14:46
[2017-03-13 16:42] VITALS: BP 109/65
[2017-03-13] MEDS: Xarelto 15mg tab ORAL SCH (17:42)
[2017-03-13 20:00] VITALS: BP 107/63
--- NOTE | 2017-03-13 21:54 | General Progress Note ---
Assessment/Plan Assessment/Plan metastatic lung cancer to brain effusion copd ?pneumonia ho PE anemia encephalopathymultiple skin echymosis hypernatremia hypokalemia back wound throbocytopenia hypokalemia steroids per Pulmonary dw Dr Zhao to taper plan on thoracentesis still pending pulmonary hygine respiratory treatments abx per ID wound care xarelto monitor platelets GI saw patient family refusing workup encephalopathy improved monitor bs pt/ot/st dvt and ulcer prohylaxis dc held yesterday better today will observer dc plans dw daughters recommended ornamental bronze worker CM to arrqnge disposititon ok to dc to snf dw daughter at bedside Subjective Allergies: Coded Allergies: ASPIRIN (Verified Allergy, Unknown, 02/25/17) NSAIDS (NON-STEROIDAL ANTI-INFLAMMA (Verified Allergy, Unknown, 02/25/17) Subjective no chest pain breathing better family now want snf close to their home Objective Last 24 Hour Vital Signs Date Time Temp Pulse Resp B/P Pulse Ox O2 Delivery O2 Flow Rate FiO2 03/13/17 21:33 121 124/67 03/13/17 19:28 Nasal Cannula 6.0 52 03/13/17 19:28 91 Nasal Cannula 6.0 52 03/13/17 19:28 121 22 91 Nasal Cannula 6.0 52 03/13/17 19:20 123 18 95 Nasal Cannula 6.0 52 03/13/17 16:42 97.7 111 20 109/65 93 Nasal Cannula 10.0 03/13/17 12:57 112 20 93 Nasal Cannula 6.0 52 03/13/17 12:47 110 20 90 Nasal Cannula 6.0 52 03/13/17 12:32 96.9 108 20 117/72 95 Nasal Cannula 10.0 03/13/17 09:24 116 123/72 03/13/17 08:52 97.9 116 20 123/72 91 Nasal Cannula 10.0 03/13/17 07:37 114 20 95 Nasal Cannula 6.0 52 03/13/17 07:27 91 Nasal Cannula 6.0 52 03/13/17 07:27 114 18 89 Nasal Cannula 6.0 52 03/13/17 07:27 114 18 93 Nasal Cannula 6.0 52 03/13/17 07:27 114 20 91 Nasal Cannula 6.0 52 03/13/17 07:27 Nasal Cannula 6.0 52 03/13/17 04:12 97.9 108 19 114/70 90 Nasal Cannula 5.0 03/13/17 01:16 110 20 98 Nasal Cannula 6.0 52 03/13/17 01:15 93 20 95 Nasal Cannula 6.0 52 03/13/17 00:00 98.2 116 19 123/73 91 Room Air Intake and Output 03/12/17 03/13/17 19:00 07:00 Intake Total 240 ml Output Total 625 ml 200 ml Balance -385 ml -200 ml Intake Oral 240 ml Output Urine Total 625 ml 200 ml # Voids 1 # Bowel Movements 1 1 Height (Feet): 5 Height (Inches): 3.00 Weight (Pounds): 128 General Appearance: WD/WN Neck: supple Cardiovascular: normal rate Respiratory/Chest: decreased breath sounds Objective multiple echymosis all over improved FRANCIE RAMIREZ Mar 13, 2017 21:54
[2017-03-14] VITALS: BP_SYST 110; BP_SYST 99; BP_DIAS 66; BP_DIAS 69
[2017-03-14] MEDS: Levalbuterol Inh UD 1.25mg/0.5ml HHN SCH ×4 (01:13→19:23)
[2017-03-14 04:00] VITALS: BP 103/58
[2017-03-14 07:52] VITALS: BP 121/52
[2017-03-14] MEDS: Advair 250/50 Inhaler - 14 dose INH SCH ×2 (09:00→18:00)
[2017-03-14] MEDS: Metoprolol Tartrate 12.5mg TAB ORAL SCH ×2 (09:46→22:10)
[2017-03-14] MEDS: Docusate 100mg tablet ORAL SCH ×2 (09:47→17:55)
[2017-03-14] MEDS: levETIRAcetam 500mg/5ml Liquid ORAL SCH ×2 (09:47→22:10)
[2017-03-14] MEDS: Vitamin B-12 500mcg tab ORAL SCH (09:47)
[2017-03-14] MEDS: PredniSONE 20mg tab ORAL SCH ×2 (09:47→17:54)
[2017-03-14] MEDS: Nystatin Powder 100,000 units/gm 15gm TOPIC SCH ×3 (09:48→17:54)
--- NOTE | 2017-03-14 11:15 | Infectious Diseases Prog Note ---
Assessment/Plan Assessment/Plan antibiotics : none A 1. stenotrophomonas pneumonia s/p rx 2. recent c.diff colitis s/p rx 3. metastatic lung cancer 4. COPD 5. pulmonary emboli 6. rectal VRE colonization 7. pleural effusion P 1. continue off antibiotics 2. d/c planned Subjective Constitutional: Denies: chills, fever Respiratory: Reports: dry cough - mild, Denies: shortness of breath Gastrointestinal/Abdominal: Denies: diarrhea, nausea, vomiting Musculoskeletal: Denies: pain Allergies: Coded Allergies: ASPIRIN (Verified Allergy, Unknown, 02/25/17) NSAIDS (NON-STEROIDAL ANTI-INFLAMMA (Verified Allergy, Unknown, 02/25/17) Objective Vital Signs Last 24 Hour Vital Signs Date Time Temp Pulse Resp B/P Pulse Ox O2 Delivery O2 Flow Rate FiO2 03/14/17 09:46 96 121/52 03/14/17 09:05 Nasal Cannula 03/14/17 09:04 Nasal Cannula 03/14/17 08:05 96 20 95 Nasal Cannula 6.0 52 03/14/17 07:56 Nasal Cannula 6.0 52 03/14/17 07:55 97 20 92 Nasal Cannula 6.0 52 03/14/17 07:55 92 Nasal Cannula 6.0 52 03/14/17 07:52 98.3 95 21 121/52 93 Nasal Cannula 8.0 03/14/17 04:00 97.7 97 22 103/58 90 03/14/17 01:35 95 20 95 Nasal Cannula 6.0 52 03/14/17 01:14 95 22 92 Nasal Cannula 6.0 52 03/14/17 00:00 97.5 88 20 99/66 92 Nasal Cannula 6.0 03/13/17 21:33 121 124/67 03/13/17 20:00 96.7 22 107/63 90 Room Air 03/13/17 19:28 Nasal Cannula 6.0 52 03/13/17 19:28 91 Nasal Cannula 6.0 52 03/13/17 19:28 121 22 91 Nasal Cannula 6.0 52 03/13/17 19:20 123 18 95 Nasal Cannula 6.0 52 03/13/17 16:42 97.7 111 20 109/65 93 Nasal Cannula 10.0 03/13/17 12:57 112 20 93 Nasal Cannula 6.0 52 03/13/17 12:47 110 20 90 Nasal Cannula 6.0 52 03/13/17 12:32 96.9 108 20 117/72 95 Nasal Cannula 10.0 Height (Feet): 5 Height (Inches): 3.00 Weight (Pounds): 128 Respiratory/Chest: lungs clear Cardiovascular: normal rate, regular rhythm, no gallop/murmur Abdomen: soft, non tender Extremities: no edema PJ ALY Mar 14, 2017 11:15
[2017-03-14 12:15] VITALS: BP 122/75
[2017-03-14] MEDS: Morphine Sulfate 2mg/ml Inj IVP PRN ×2 (15:16→23:00)
[2017-03-14 16:15] VITALS: BP 99/78
[2017-03-14] MEDS: Xarelto 15mg tab ORAL SCH (17:54)
[2017-03-14 19:00] VITALS: BP 143/87
--- NOTE | 2017-03-14 21:28 | Wound Nurse Progress Note ---
Wound RN Progress Note Wound Consult #1 Mid upper back stage IV/unstageable pressure ulcer. with yellow slough adhered to wound bed. No odor present at this time. Cleanse with saline, pat dry, apply Therahoney Gel to wound bed, apply 4x4, cover with ABD pad, secure with paper tape daily and PRN soiled/dislodged #2 Sacral DTI pressure ulcer- no further change noted site remains intact. Cont same order #3 Left heel DTI pressure ulcer-no further change noted site remains intact. Cont same order #4 Right heel DTI pressure ulcer-no further change noted site remains intact. Cont same order #5 Left upper back stage IV/unstageable pressure ulcer-no further change noted. Cleanse with normal saline, pat dry , apply Adaptic cover ABD pad dressing secure with paper tape DAILY and PRN if soiled/dislodged. #6 Left and right arms multiple open and intact ecchymosis #7 Left and right lower Legs with multiple open and intact ecchymosis #8 Left medial knee DTI pressure ulcer-no further change noted site remains intact. cont same order #9 Left and right under breast rashes - noted slight redness to site. #10 Open and intact ecchymosis on different part of the body, generalized scattered throughout body , posterior upper back #11 Right 1st metatarsal DTI pressure ulcer-no further change noted site remains intact. cont same order #12 Perineal extending to perianal chemical burn. cleanse with soap and water pat dry, apply TRIAD , leave open to air BID and PRN if soiled/dislodged. #13 mid upper back with multiple ruptured ecchymosis- cleanse with normal saline , pat dry , apply Adaptic cover ABD pad dressing secure with paper tape DAILY and PRN if soiled/dislodged. ALBERTO WORRELL RN Mar 14, 2017 21:28
--- NOTE | 2017-03-14 22:41 | General Progress Note ---
Assessment/Plan Assessment/Plan metastatic lung cancer to brain effusion copd ?pneumonia ho PE anemia encephalopathymultiple skin echymosis hypernatremia hypokalemia back wound throbocytopenia hypokalemia steroids per Pulmonary dw Dr Zhao to taper plan on thoracentesis still pending pulmonary hygine respiratory treatments abx per ID wound care xarelto monitor platelets GI saw patient family refusing workup encephalopathy improved monitor bs pt/ot/st dvt and ulcer prohylaxis dc held yesterday better today will observer dc plans to home as was not accepted to snf with dw daughters prescritions written and given Subjective Allergies: Coded Allergies: ASPIRIN (Verified Allergy, Unknown, 02/25/17) NSAIDS (NON-STEROIDAL ANTI-INFLAMMA (Verified Allergy, Unknown, 02/25/17) Subjective no chest pain breathing better family has now decided to take patient home Objective Last 24 Hour Vital Signs Date Time Temp Pulse Resp B/P Pulse Ox O2 Delivery O2 Flow Rate FiO2 03/14/17 22:10 112 143/87 03/14/17 19:23 Nasal Cannula 6.0 52 03/14/17 19:23 124 20 91 Nasal Cannula 6.0 52 03/14/17 19:23 91 Nasal Cannula 6.0 52 03/14/17 19:23 112 20 95 Nasal Cannula 6.0 52 03/14/17 19:00 97.8 116 17 143/87 Nasal Cannula 8.0 03/14/17 16:15 98.4 114 20 99/78 97 Nasal Cannula 8.0 03/14/17 14:09 99 20 95 Nasal Cannula 6.0 52 03/14/17 13:55 101 20 91 Nasal Cannula 6.0 52 03/14/17 12:15 97.6 76 21 122/75 97 Nasal Cannula 8.0 03/14/17 09:46 96 121/52 03/14/17 09:05 Nasal Cannula 03/14/17 09:04 Nasal Cannula 03/14/17 08:05 96 20 95 Nasal Cannula 6.0 52 03/14/17 07:56 Nasal Cannula 6.0 52 03/14/17 07:55 97 20 92 Nasal Cannula 6.0 52 03/14/17 07:55 92 Nasal Cannula 6.0 52 03/14/17 07:52 98.3 95 21 121/52 93 Nasal Cannula 8.0 03/14/17 04:00 97.7 97 22 103/58 90 03/14/17 01:35 95 20 95 Nasal Cannula 6.0 52 03/14/17 01:14 95 22 92 Nasal Cannula 6.0 52 03/14/17 00:00 97.5 88 20 99/66 92 Nasal Cannula 6.0 Intake and Output 03/13/17 03/14/17 19:00 07:00 Output Total 175 ml Balance -175 ml Output Urine Total 175 ml # Bowel Movements 1 1 Height (Feet): 5 Height (Inches): 3.00 Weight (Pounds): 128 General Appearance: WD/WN Neck: non-tender Cardiovascular: regular rhythm Respiratory/Chest: decreased breath sounds Abdomen: soft Objective multiple echymosis all over improved FRANCIE RAMIREZ Mar 14, 2017 22:41
[2017-03-15] VITALS: BP 96/71
[2017-03-15] MEDS: Levalbuterol Inh UD 1.25mg/0.5ml HHN SCH ×4 (01:10→18:38)
[2017-03-15 04:00] VITALS: BP 119/89
[2017-03-15 08:30] VITALS: BP 119/57
[2017-03-15] MEDS: Advair 250/50 Inhaler - 14 dose INH SCH ×2 (09:00→18:37)
[2017-03-15] MEDS: levETIRAcetam 500mg/5ml Liquid ORAL SCH ×2 (09:26→21:22)
[2017-03-15] MEDS: Docusate 100mg tablet ORAL SCH ×2 (09:26→18:00)
[2017-03-15] MEDS: Metoprolol Tartrate 12.5mg TAB ORAL SCH ×2 (09:26→21:23)
[2017-03-15] MEDS: Vitamin B-12 500mcg tab ORAL SCH (09:27)
[2017-03-15] MEDS: PredniSONE 20mg tab ORAL SCH ×2 (09:27→18:00)
[2017-03-15] MEDS: Nystatin Powder 100,000 units/gm 15gm TOPIC SCH ×3 (09:27→18:00)
[2017-03-15 12:00] LABS: MEAN CORPUSCULAR HEMOGLOBIN 30.7 PG (27.0-31.0); MEAN CORPUSCULAR HGB CONC 31.8 G/DL (32.0-36.0); MEAN CORPUSCULAR VOLUME 97 FL (80-99); MEAN PLATELET VOLUME 6.4 FL (6.5-10.1); PLATELET COUNT 129 K/UL (150-450); RED BLOOD COUNT 3.78 M/UL (4.20-5.40); RED CELL DISTRIBUTION WIDTH 17.2 % (11.6-14.8); WHITE BLOOD COUNT 13.7 K/UL (4.8-10.8)
[2017-03-15 12:21] LABS: LYMPHOCYTES % (MANUAL) 7 % (20-45); NEUTROPHILS % (MANUAL) 84 % (45-75); TOTAL CELLS COUNTED 100
[2017-03-15 12:22] LABS: ANISOCYTOSIS 1+; BAND NEUTROPHILS % (MANUAL) 0 % (0-8); BASOPHILS % (MANUAL) 0 % (0-2); EOSINOPHILS % (MANUAL) 0 % (0-3); HYPOCHROMASIA 1+; PLATELET ESTIMATE DECREASED; PLATELET MORPHOLOGY NORMAL
[2017-03-15 12:26] LABS: ANION GAP 12 (5-15); CALCIUM 9.1 mg/dL (8.6-10.2); CARBON DIOXIDE 33 mEQ/L (20-30); CHLORIDE 97 mEQ/L (98-107); CREATININE 0.6 mg/dL (0.5-0.9); GLOMERULAR FILTRATION RATE > 60 mL/min (>60); HEMOLYSIS 3; SODIUM 142 mEQ/L (135-145)
[2017-03-15 12:37] VITALS: BP 133/86
[2017-03-15] MEDS: Morphine Sulfate 2mg/ml Inj IVP PRN (14:22)
[2017-03-15] MEDS ORDERED: KCl 10% 20 mEq/15ml liquid ORAL ONE (14:30)
[2017-03-15 16:36] VITALS: BP 94/51
[2017-03-15] MEDS: Xarelto 15mg tab ORAL SCH (17:00)
[2017-03-15 19:00] VITALS: BP 107/63
--- NOTE | 2017-03-15 23:47 | General Progress Note ---
Assessment/Plan Assessment/Plan metastatic lung cancer to brain effusion copd ?pneumonia ho PE anemia encephalopathymultiple skin echymosis hypernatremia hypokalemia back wound throbocytopenia hypokalemia steroids per Pulmonary dw Dr Zhao to taper plan on thoracentesis still pending pulmonary hygine respiratory treatments abx per ID wound care xarelto monitor platelets GI saw patient family refusing workup encephalopathy improved monitor bs pt/ot/st dvt and ulcer prohylaxis dc held yesterday better today will observer dc plans to home as was not accepted to snf with dw daughters prescritions written and given replace potassium check magnesium leukocytosis secondary to prednison dc when all is arranged Subjective Allergies: Coded Allergies: ASPIRIN (Verified Allergy, Unknown, 02/25/17) NSAIDS (NON-STEROIDAL ANTI-INFLAMMA (Verified Allergy, Unknown, 02/25/17) Subjective no chest pain breathing better family has now decided to take patient home awaiting arangment fo [facility] bed, family will not take home before thats arranged CM aware Objective Last 24 Hour Vital Signs Date Time Temp Pulse Resp B/P Pulse Ox O2 Delivery O2 Flow Rate FiO2 03/15/17 21:23 128 107/63 03/15/17 19:00 98.0 128 18 107/63 93 Nasal Cannula 8.0 03/15/17 18:47 125 22 96 Nasal Cannula 6.0 03/15/17 18:36 124 22 93 Nasal Cannula 6.0 03/15/17 18:35 Nasal Cannula 6.0 03/15/17 18:35 93 Nasal Cannula 6.0 03/15/17 16:36 97.0 117 18 94/51 90 Nasal Cannula 6.0 03/15/17 12:53 108 18 98 Nasal Cannula 6.0 44 03/15/17 12:42 110 20 92 Nasal Cannula 6.0 50 03/15/17 12:37 98.0 89 19 133/86 97 Nasal Cannula 6.0 03/15/17 09:26 55 119/57 03/15/17 09:02 Nasal Cannula 03/15/17 09:02 Nasal Cannula 03/15/17 08:30 97.0 55 18 119/57 93 Nasal Cannula 6.0 03/15/17 07:16 99 20 95 Nasal Cannula 6.0 50 03/15/17 07:05 Nasal Cannula 6.0 50 03/15/17 07:05 92 20 94 Nasal Cannula 6.0 50 03/15/17 07:05 94 Nasal Cannula 6.0 50 03/15/17 04:00 96.8 95 18 119/89 Room Air 03/15/17 01:13 Nasal Cannula 03/15/17 01:13 Nasal Cannula 03/15/17 00:00 98.0 96 18 96/71 97 Room Air Intake and Output 03/14/17 03/15/17 19:00 07:00 Intake Total 360 ml 180 ml Output Total 600 ml Balance -240 ml 180 ml Intake Oral 360 ml 180 ml Output Urine Total 600 ml # Bowel Movements 2 Laboratory Tests 03/15/17 11:35: White Blood Count 13.7H, Red Blood Count 3.78L, Hemoglobin 11.6L, Hematocrit 36.5L, Mean Corpuscular Volume 97, Mean Corpuscular Hemoglobin 30.7, Mean Corpuscular Hemoglobin Concent 31.8L, Red Cell Distribution Width 17.2H, Platelet Count 129L, Mean Platelet Volume 6.4L, Neutrophils (%) (Auto) , Lymphocytes (%) (Auto) , Monocytes (%) (Auto) , Eosinophils (%) (Auto) , Basophils (%) (Auto) , Differential Total Cells Counted 100, Neutrophils % ( Manual) 84H, Lymphocytes % (Manual) 7L, Monocytes % (Manual) 9, Eosinophils % ( Manual) 0, Basophils % (Manual) 0, Band Neutrophils 0, Platelet Estimate DecreasedL, Platelet Morphology Normal, Hypochromasia 1+, Anisocytosis 1+, Sodium Level 142, Potassium Level 3.0L, Chloride Level 97L, Carbon Dioxide Level 33H, Anion Gap 12, Blood Urea Nitrogen 41H, Creatinine 0.6, Estimat Glomerular Filtration Rate > 60, Glucose Level 158H, Calcium Level 9.1, Pro-B- Type Natriuretic Peptide 442H Height (Feet): 5 Height (Inches): 3.00 Weight (Pounds): 128 General Appearance: WD/WN Neck: non-tender Cardiovascular: normal rate Respiratory/Chest: decreased breath sounds Abdomen: soft Objective multiple echymosis all over improved FRANCIE RAMIREZ Mar 15, 2017 23:47
[2017-03-16] VITALS: BP 110/67
[2017-03-16 04:00] VITALS: BP 118/71
[2017-03-16 07:01] LABS: MEAN CORPUSCULAR HEMOGLOBIN 30.8 PG (27.0-31.0); MEAN CORPUSCULAR VOLUME 96 FL (80-99); MEAN PLATELET VOLUME 6.8 FL (6.5-10.1); PLATELET COUNT 117 K/UL (150-450); RED BLOOD COUNT 3.55 M/UL (4.20-5.40); RED CELL DISTRIBUTION WIDTH 17.6 % (11.6-14.8); WHITE BLOOD COUNT 11.1 K/UL (4.8-10.8)
[2017-03-16 07:24] LABS: ALANINE AMINOTRANSFERASE 11 U/L (3-33); ALBUMIN/GLOBULIN RATIO 1.3 (1.0-2.7); ANION GAP 10 (5-15); ASPARTATE AMINO TRANSFERASE 11 U/L (5-40); CALCIUM 8.8 mg/dL (8.6-10.2); CARBON DIOXIDE 33 mEQ/L (20-30); CHLORIDE 102 mEQ/L (98-107); CREATININE 0.6 mg/dL (0.5-0.9); GLOMERULAR FILTRATION RATE > 60 mL/min (>60); HEMOLYSIS 6; MAGNESIUM 1.9 mg/dL (1.7-2.5); POTASSIUM 4.8 mEQ/L (3.4-4.9); SODIUM 145 mEQ/L (135-145); TOTAL PROTEIN 5.5 g/dL (6.6-8.7)
--- NOTE | 2017-03-16 07:58 | Diagnostic Imaging Report ---
Indication: Chest pain Technique: One view of the chest Comparison: none Findings: There is right basilar atelectasis. There is generalized mild interstitial disease, acuity indeterminate. There is a moderate size left-sided pleural effusion. The heart is mildly enlarged. There is evidence of thoracic bony deformity, probably due to kyphosis. Impression: Left-sided pleural effusion Bilateral diffuse interstitial disease, acuity indeterminate Right basilar atelectasis
[2017-03-16 08:19] VITALS: BP 112/87
[2017-03-16] MEDS: PredniSONE 20mg tab ORAL SCH (10:06)
[2017-03-16] MEDS: levETIRAcetam 500mg/5ml Liquid ORAL SCH (10:07)
[2017-03-16] MEDS: Docusate 100mg tablet ORAL SCH (10:07)
[2017-03-16] MEDS: Vitamin B-12 500mcg tab ORAL SCH (10:07)
[2017-03-16] MEDS: Nystatin Powder 100,000 units/gm 15gm TOPIC SCH (10:08)
[2017-03-16 10:09] LABS: ANISOCYTOSIS 1+; BAND NEUTROPHILS % (MANUAL) 0 % (0-8); BASOPHILS % (MANUAL) 0 % (0-2); EOSINOPHILS % (MANUAL) 0 % (0-3); LYMPHOCYTES % (MANUAL) 4 % (20-45); NEUTROPHILS % (MANUAL) 89 % (45-75); NUCLEATED RED BLOOD CELLS 1 /100 WBC; PLATELET ESTIMATE DECREASED; PLATELET MORPHOLOGY NORMAL; TOTAL CELLS COUNTED 100
[2017-03-16 10:10] LABS: HYPOCHROMASIA 1+
[2017-03-16 10:11] VITALS: BP 112/87
[2017-03-16] MEDS: Metoprolol Tartrate 12.5mg TAB ORAL SCH (10:11)
--- NOTE | 2017-03-18 09:58 | Discharge Summary ---
Discharge Summary Hospital Course Date of Admission Feb 25, 2017 at 14:58 Date of Discharge Mar 16, 2017 at 12:00 Admitting Diagnosis DYSPNEA HPI Lora Juan is a 66 year old female who was admitted on Feb 25, 2017 at 14: 58 for Dyspnea Hospital Course dc summary #[id number] Discharge Medications Continued Medications: Acetaminophen* (Acetaminophen 325MG Tablet*) 325 Mg Tablet 650 MG ORAL Q6H PRN for For Pain, TAB Acetazolamide* (Acetazolamide*) 250 Mg Tablet 250 MG ORAL BID, TAB Albuterol Sulfate* (Proair Hfa*) 8.5 Gm Hfa.aer.ad 1 PUFF INH Q6H, #8.5 GM 0 Refills Cyanocobalamin (Vitamin B-12) (Vitamin B12) 2,500 Mcg Tablet 1000 MCG PO, TAB Docusate Sodium* (Colace*) 100 Mg Capsule 100 MG ORAL TWICE A DAY, CAP Fentanyl 12MCG Patch* (Fentanyl 12MCG Patch*) 1 Each Patch.td72 1 PATCH TDERMAL EVERY 72 HOURS, PATCH Fentanyl 25MCG Patch* (Fentanyl 25MCG Patch*) 1 Each Patch.td72 1 PATCH TDERMAL EVERY 72 HOURS for in addition to 12mcg patch, PATCH Fluticasone/Salmeterol (Advair 250-50 Diskus) 1 Each Blst.w.dev 1 PUFF INH EVERY 12 HOURS, EA Furosemide* (Lasix*) 20 Mg Tablet 20 MG ORAL DAILY, TAB Gabapentin* (Gabapentin*) 300 Mg Capsule 300 MG ORAL BEDTIME, CAP Levalbuterol Hcl (Levalbuterol Hcl) 0.31 Mg/3 Ml Vial.neb 0.31 MG IH, VIAL Levetiracetam (Keppra) 250 Mg Tablet 500 MG ORAL BID, #50 TAB 0 Refills Metoprolol Tartrate* (Metoprolol Tartrate*) 25 Mg Tablet 25 MG ORAL BID, TAB Prednisone (Prednisone) 20 Mg Tablet 20 MG PO BID, TAB Ranitidine Hcl* (Zantac*) 150 Mg Tablet 150 MG ORAL TWICE A DAY, TAB Rivaroxaban (Xarelto*) 10 Mg Tablet 20 MG ORAL DAILY, #30 TAB 0 Refills Tiotropium Lipscomb* (Spiriva*) 18 Mcg Cap.w.dev 1 PUFF INH DAILY, EA Discontinued Medications: Dexamethasone (Dexamethasone) 1.5 Mg Tablet 1.5 MG PO DAILY, TAB Discharge Condition Upon Discharge: grave, stable Discharge Disposition Patient was discharged to Home with Home Health(06) Family considering palliative care/hospice DNR status Discharge Diagnoses: Discharge Instructions Discharge Instructions Special Instructions I have been assigned to complete a D/C Summary on this account. I was not involved in the patient management Paula Hinton NP ([place]) Mar 18, 2017 09:58
--- NOTE | 2017-03-18 23:38 | Discharge Summary 2 SIG ---
DATE OF ADMISSION: 02/25/2017 DATE OF DISCHARGE: 03/16/2017 REASON FOR HOSPITALIZATION: 66-year-old female with history of metastatic lung cancer with metastasis to brain, history of PE, on(1)Xarelto, seizure disorder, severe COPD, and severe osteoporosis was brought for evaluation. Apparently, she became more lethargic for the last couple of days and Dr. Arianne Barton saw her at the facility. She was very lethargic and Dr. Barton recommended to transfer her to the emergency department for evaluation. Upon arrival the patient was short of breath. Workup in the emergency room revealed that the patient was hypoxemic : pulse oximetry was 88% to 92%. She was tachycardic, presumptively from albuterol. Chest x-ray revealed bilateral interstitial disease. No obvious lobar pneumonia. Possible infiltrate on the left side as well as the left pleural effusion. Troponin was negative. Hemoglobin around 8. Pro BNP was 652. No leukocytosis. Lactic acid within normal limits. EKG with sinus tachycardia. Patient was started on empiric antibiotics. Blood cultures were drawn. The patient was admitted for further management. ADMITTING DIAGNOSES: 1. Lethargy, possibly secondary to sepsis. 2. Possible pneumonia. 3. Acute chronic obstructive pulmonary disease exacerbation. 4. History of pulmonary emboli. 5. Hypoxemia with respiratory distress 6. Anemia. 7. Metastatic lung disease with metastasis to brain. 8. Pressure ulcer midback, present on admission. HOSPITAL STAY: The patient was admitted. Pulmonology consult was requested. Initial chest x-ray with possible pneumonia as well as left pleural effusion. Initial pro BNP - 1143. Supplemental oxygen and pulmonary toilet provided as needed. ABG revealed pH of 7.32, pCO2 56.9, and O2 saturation 90% and that was done on 03/03/2017 on 45% vent mask. The patient was DNR status. The patient was on steroids as per deskidding machine operator, which were tapered as well as the diuretic. Chest x-ray and pro BNP were trending. ProBNP was down to 442 from initial 1143. The patient undergone thoracentesis on 03/06/2017 with removal of 400 mL of the fluid. Pleural fluid revealed atypical cells. Chest x-ray after thoracentesis revealed near resolution of left pleural effusion and no complication after intervention. Chest x-ray prior to discharge revealed reaccumulation of the left pleural fluid , thus left pleural effusion recurred. Echocardiogram was done prior to thoracentesis revealed preserved ejection fraction of 60% to 65% , diastolic dysfunction and large posterior pleural effusion. Tong Hooker discussed the findings and further plan of care with the daughter, who was present on the bedside. The patient was DNR status. Prognosis grim. Recommended hospice service/palliative care and referral provided by deskidding machine operator. The patient was on antibiotic for pneumonia. ID followed. Blood culture and urine culture were negative. Sputum culture was positive for Stenotrophomonas and Whit. The patient status post treatment with antibiotic for presumptive pneumonia. Per ID, keep the patient off antibiotics and observe closely. Prior to discharge no fever. There was a mild leukocytosis of 11.1 , likely secondary to steroid. The patient became anemic on 02/26/2017 with hemoglobin of 7.2 and hematocrit of 22.9. The patient undergone transfusion of one unit of packed red blood cells. Hemoglobin and hematocrit were stable prior to discharge. Hemoglobin -10.9 and hematocrit -34.2. Iron panel revealed stable iron and elevated ferritin. Stool OB was positive. GI consult was requested. However, the family did not want any GI procedure such as endoscopy or colonoscopy to be performed. GI discussed with the family who were present on the bedside, however, the family declined any GI procedure at this time. Plastic surgeon seen the patient regarding pressure ulcer in the mid back, present on admission. Per plastic surgeon, the patient does not need any surgical intervention at this time. The patient has an un-stageable pressure ulcer of the mid back. Ulcer did not clinically appear to be infected. Per plastic surgeon, once eschar in the center loosens, it can be removed. Plastic surgeon recommended offloading as the patient's kyphosis predisposed her to ulcer. Recommended nutritional supplements. Electrolyte imbalances were addressed and repleted . Electrolytes stable prior to discharge. The patient was stable for discharge. DISCHARGE DIAGNOSES: 1. Acute encephalopathy possibly secondary to infectious process versus metastatic process, - improving. 2. Pneumonia, status post treatment. 3. Acute chronic obstructive pulmonary disease exacerbation. 4. Acute on chronic hypercapnic hypoxemic respiratory failure. 5. History of pulmonary emboli. 6. Anemia of chronic disease, status post blood transfusion. 7. Metastatic lung cancer with metastasis to brain. 8. Un-stageable pressure ulcer mid back, present on admission. 9. Electrolyte imbalance . DISCHARGE MEDICATIONS: See medication reconciliation list. DISCHARGE INSTRUCTIONS: The patient was discharged home. FOLLOWUP: Follow up with the primary medical doctor. Recommended hospice services/palliative care. Referral provided by deskidding machine operator. Florentin Mendosa M.D. I have been assigned to dictate discharge summary on this account and I was not involved in the patient's management. Paula Mondragonrufino NRadhaPRadha DR: RO JOB#: [id number] CC: [email or web address]
== END 2017-03-16 12:00 | disposition home health service (06) | DRG 186 ==
LOC: EDBD 13:52 → EDBEDREQ 14:12 → EMR 14:15 → 2W 14:58 → EDBEDREQSVC 17:08 → EDBEDREQ 17:08 → 2W 18:36 → 4W 03-02 12:15
PROC: 5A09357 Assistance with Respiratory Ventilation, Less than 24 Consecutive Hours, Continuous Positive Airway Pressure (ICD-10-PCS; 2017-02-25)
PROC: 30233N1 Transfusion of Nonautologous Red Blood Cells into Peripheral Vein, Percutaneous Approach (ICD-10-PCS; principal; 2017-02-26)
PROC: 0W9B3ZZ Drainage of Left Pleural Cavity, Percutaneous Approach (ICD-10-PCS; 2017-03-06)
DX: J90 Pleural effusion, not elsewhere classified (principal); J15.6 Pneumonia due to other Gram-negative bacteria; J96.21 Acute and chronic respiratory failure with hypoxia; G93.40 Encephalopathy, unspecified; L89.45 Pressure ulcer of contiguous site of back, buttock and hip, unstageable; A04.7 Enterocolitis due to Clostridium difficile; C34.90 Malignant neoplasm of unspecified part of unspecified bronchus or lung; C79.31 Secondary malignant neoplasm of brain; I27.82 Chronic pulmonary embolism; J96.22 Acute and chronic respiratory failure with hypercapnia; J44.1 Chronic obstructive pulmonary disease with (acute) exacerbation; M80.88XA Other osteoporosis with current pathological fracture, vertebra(e), initial encounter for fracture; F11.20 Opioid dependence, uncomplicated; D69.6 Thrombocytopenia, unspecified; Z96.641 Presence of right artificial hip joint; E78.5 Hyperlipidemia, unspecified; M40.209 Unspecified kyphosis, site unspecified; Z86.711 Personal history of pulmonary embolism; Z66 Do not resuscitate; Z92.3 Personal history of irradiation; Z86.73 Personal history of transient ischemic attack (TIA), and cerebral infarction without residual deficits; D63.8 Anemia in other chronic diseases classified elsewhere; E87.5 Hyperkalemia; E83.42 Hypomagnesemia; G89.29 Other chronic pain; Z87.891 Personal history of nicotine dependence; M54.5 Low back pain; G40.909 Epilepsy, unspecified, not intractable, without status epilepticus; Z88.6 Allergy status to analgesic agent; Z88.8 Allergy status to other drugs, medicaments and biological substances; R00.0 Tachycardia, unspecified; B95.61 Methicillin susceptible Staphylococcus aureus infection as the cause of diseases classified elsewhere; Z79.01 Long term (current) use of anticoagulants; T48.6X5A Adverse effect of antiasthmatics, initial encounter
CPT/HCPCS: 36415; 36600; 71010; 74230; 76942; 80048; 80053; 80061; 80299; 82270; 82550; 82553; 82607; 82728; 82747; 82803; 83540; 83550; 83735; 83880; 84134; 84443; 84484; 85007; 85025; 85610; 85730; 86850; 86900; 86901; 86920; 87040; 87070; 87081; 87086; 87181; 87205; 88104; 89051; 92610; 93005; 93306; 94640; 94664; 94760; J8499